=== PATIENT | female | born 1945 | race Caucasian/White ===

== ENCOUNTER → 2024-08-24 12:34 | Outpatient (REF) | payer MEDICARE, BC, SELFPAY | LOC: WOUND 12:34 | PROVIDERS: ATTENDING PHYSICIAN Surgery; FAMILY PHYSICIAN Internal Medicine | DX: S01.01XA Laceration without foreign body of scalp, initial encounter (principal); F01.50 Vascular dementia, unspecified severity, without behavioral disturbance, psychotic disturbance, mood disturbance, and anxiety; Z98.890 Other specified postprocedural states; Z86.79 Personal history of other diseases of the circulatory system; X58.XXXA Exposure to other specified factors, initial encounter | CPT/HCPCS: 99213 ==

== ENCOUNTER → 2024-08-31 13:00 | Outpatient (REF) | payer MEDICARE, BC, SELFPAY | LOC: HWRAD 13:00 | PROVIDERS: ATTENDING PHYSICIAN Neurological Surgery; FAMILY PHYSICIAN Internal Medicine | DX: I62.00 Nontraumatic subdural hemorrhage, unspecified (principal) | CPT/HCPCS: 70450 ==

== ENCOUNTER → 2024-09-07 10:57 | Outpatient (REF) | payer MEDICARE, BC, SELFPAY ==
[2024-09-08 14:24] LABS: Microalbumin/creatinine Ratio 44.8 mg/g
== END ==
LOC: OLABSOL 10:57
PROVIDERS: ATTENDING PHYSICIAN Internal Medicine
DX: E11.65 Type 2 diabetes mellitus with hyperglycemia (principal)
CPT/HCPCS: 82043; 82570

== ENCOUNTER → 2024-09-13 11:42 | Outpatient (REF) | payer MEDICARE, BC, SELFPAY ==
[2024-09-13 12:38] LABS: ALT (SGPT) 23 U/L (0-35); AST (SGOT) 26 U/L (14-36); Alkaline Phosphatase 67 U/L (38-126); Blood Urea Nitrogen 27 mg/dl (7-17); Carbon Dioxide 21 mmol/L (22-30); Chloride 112 mmol/L (98-107); Glucose 96 mg/dl (70-99); HDL Cholesterol 41 mg/dl; LDL Cholesterol, Calculated 92 mg/dl; Potassium 4.2 mmol/L (3.5-5.1); Sodium 138 mmol/L (135-145); Total Bilirubin 0.6 mg/dl (0.2-1.3); Total Cholesterol 184 mg/dl (50-199); Total Protein 5.2 g/dl (6.3-8.2); Triglyceride 259 mg/dl (10-149); Very Low Density Lipoprotein 51 mg/dl (0-30)
[2024-09-13 14:43] LABS: Glycohemoglobin (HgbA1c) 5.9 % (4.0-5.6)
== END ==
LOC: OLABSOL 11:42
PROVIDERS: ATTENDING PHYSICIAN Internal Medicine
DX: E11.65 Type 2 diabetes mellitus with hyperglycemia (principal)
CPT/HCPCS: 36415; 80053; 80061; 83036

== ENCOUNTER 2024-09-17 12:09 | Inpatient (IN) | payer MEDICARE, BC, SELFPAY ==
[2024-09-17] VITALS (10 sets, daily range): BP systolic 99–168; BP diastolic 57–134; BMI 31.5
[2024-09-17 09:20] LABS: % Basophils 0.2 % (0-2); % Immature Granulocytes 0.6 % (0-0.5); % Lymphocytes 7.1 % (20.5-51.1); % Monocytes 3.4 % (1.7-9.3); % Neutrophils 88.7 % (42.2-75.2); Absolute Immature Granulocytes 0.1 10^3/uL (0-0.05); Absolute Lymphocytes 1.5 10^3/uL (1.2-3.4); Absolute Monocytes 0.7 10^3/uL (0.1-0.6); Absolute Neutrophils 18.2 10^3/uL (1.4-6.5); Hemoglobin 12.5 g/dL (12.0-16.0); Mean Corp Hgb Conc. 32.9 g/dL (33.0-37.0); Mean Corpuscular Hgb 29.9 pg (27.0-31.0); Mean Corpuscular Volume 90.9 fL (81.0-99.0); Mean Platelet Volume 11.4 fL (7.4-10.4); Nucleated Red Blood Cells % 0 %; Platelet Count 102 10^3/uL (130-400); Red Blood Cell Count 4.18 10^6/uL (4.20-5.40); Red Cell Dist. Width 16.9 % (11.5-14.5); White Blood Cell Count 20.5 10^3/uL (4.8-10.8)
[2024-09-17 09:28] LABS: APTT 29.1 Sec (23.4-35.0)
[2024-09-17 09:32] LABS: AST (SGOT) 39 U/L (14-36); Albumin 3.9 g/dl (3.5-5.0); Alkaline Phosphatase 90 U/L (38-126); Blood Urea Nitrogen 28 mg/dl (7-17); Calcium 9.6 mg/dl (8.4-10.2); Carbon Dioxide 18 mmol/L (22-30); Chloride 108 mmol/L (98-107); Glucose 249 mg/dl (70-99); Sodium 142 mmol/L (135-145); Total Bilirubin 0.6 mg/dl (0.2-1.3); Total Protein 6.3 g/dl (6.3-8.2); eGFR 28.13
[2024-09-17 10:02] LABS: ALT (SGPT) 36 U/L (0-35)
[2024-09-17 10:12] LABS: Venous Blood Gas B.E. -6.5 mmol/L (-4 to +4); Venous Blood Gas HCO3 19.7 mmol/L (22-27); Venous Blood Gas O2 Sat % 67.6 %; Venous Blood Gas pCO2 41 mmHg (35-48); Venous Blood Gas pH 7.29 (7.32-7.43); Venous Blood Gas pO2 41 mmHg (30-50)
[2024-09-17 10:28] LABS: Lactic Acid 4.4 mmol/L (0.7-2.0)
--- NOTE | 2024-09-17 10:35 | ED.GENMED ---
History of Present Illness
General
Chief Complaint: Abdominal Symptoms
Source: family and ambulance crew
Exam Limitations: clinical condition
Time Seen by Provider: 09/17/24 09:20
History of Present Illness
History of Present Illness:
This an 79-year-old female who presents after she was found to have coffee ground emesis. Reportedly the patient was checked on by nursing around 7 AM and looked okay but when he came in around 8 AM had dried blood around her mouth. EMS noted the
same. Patient arrives in acute respiratory distress. Patient is unable to contribute to her own history.
Past History
Past History
ED Past Medical History: CAD, HTN, Hypercholesterolemia, NIDDM, Valvular disease and Other (Osteoarthritis, uses a cane to ambulate, subdural hematoma, mild dementia)
ED Past Surgical History: Cholecystectomy and Orthopedic (L knee replacement, R shoulder replacement, 06/2021)
Social History
Tobacco: Non-smoker
Alcohol: None
Drug: None
Personal:
Living: with family (With her son)
Employment: Retired
Family History
Family History: Other (Mother with FL at 65, father with leukemia and coronary disease, son with factor V Leiden deficiency)
Phy Exam
Physical Exam
Physical Exam:
CONSTITUTIONAL Patient alert and oriented to person. ill-appearing. Vital signs reviewed.
HEAD healing right scalp craniotomy.
EYES eyelids normal to inspection, Extraocular muscles intact, Conjunctiva normal, Sclera normal.
NECK normal range of motion, Trachea midline, no jugular venous distention.
RESPIRATORY CHEST moderate to severe respiratory distress noted, Chest expansion equal, Rales bilaterally and audible without stethoscope
CARDIOVASCULAR regular and tachycardic
ABDOMEN No distention.
UPPER EXTREMITY mild peripheral cyanosis, no edema.
LOWER EXTREMITY no cyanosis, no edema.
NEURO awake. Opens her eyes to her name. Moving all extremities
SKIN pale slightly diaphoretic
Course
Orders/Labs/Results
Orders:
Orders
09/17/24 09:05
CT Head W/o Iv Contrast Urgent
Comment:
Reason For Exam: change in mental status
09/17/24 09:08
CMP [Comprehensive Metabolic Panel] Urgent
Complete Blood Count/With Diff Urgent
PTT Urgent
09/17/24 09:20
CR Chest Portable - 1 View Urgent
Comment:
Reason For Exam: resp distress, suspected aspiration
Reason Study Needs to be Portable: Patient Unstable
09/17/24 09:22
Urinalysis Reflex To Culture Urgent
09/17/24 Lunch
NPO
Allow oral meds: No
Allow clear liquids: No
NPO with Ice Chips: Yes
09/17/24 10:02
Lactic Acid Urgent
Venous Blood Gas Urgent
%Oxygen/Room Air: 2L
Blood Culture Q30M
ERNESTO Source: Blood/Venous
Specimen Description:
Blood Culture Q30M
ERNESTO Source: Blood/Venous
Specimen Description:
09/17/24 10:29
0.9% Sodium Chloride 1000 ml [Nss] 1,000 ml IV BOLUS
09/17/24 10:30
Cefepime HCl [Maxipime] 2,000 mg IV NOW STA
09/17/24 10:31
MetroNIDAZOLE 500 MG/100 ML [Flagyl 500 mg] 100 ml IV NOW
09/17/24 10:41
Levetiracetam Injectable [Keppra] 1,000 mg IV NOW STA
09/17/24 11:03
Sterile Water [Sterile Water For Injection] 10 ml IV NOW STA
09/17/24 11:07
Vancomycin [Vancocin] 2,000 mg 0.9% Sodium Chloride 500 ml [Nss] 500 ml IV NOW
09/17/24 11:38
NEUROLOGY CONSULT Routine
Consulting Provider: Manjit Heaton
Was physician already notified: Yes
Reason for consult: seizures
09/17/24 11:40
Electrocardiogram (*1) Urgent
Reason for Study: Shortness of Breath
EKG- Treatment ONCE
09/17/24 11:45
Admit/Transfer Patient As Directed
Co-Sign Provider:
Level of Care: Inpatient admission
Assign to:: Telemetry
Physician / Group: dang/hospitalist
Diagnosis: seizures, lactic acidosis
Reason for Telemetry: Other
Other Reason for Telemetry: tachycardia
Date to Stop Telemetry: 09/19/24
Time to Stop Telemetry: 11:00
Reason for Hospitalization: seizures, lactic acidosis
Expected length of stay greater than two midnights?: Yes
ELOS- Estimated Length of Stay in days: 3
I certify the patient meets the requirements for IP care: Yes
PRN Pain Medication Management As Directed
May give lesser potent ordered pain med per pt: Yes
preference::
Protocol:: Medication orders for pain may be administered in a
manner that supports deferring to patient preference
when the pt is:
- Requesting an ordered lesser potent pain medication.
Least to most potent pain medications are defined
as: acetaminophen < NSAID < tramadol < opioids
(morphine, oxycodone, hydromorphone).
- Requesting a lesser dose of the same medication IF
ORDERED.
- Requesting a less intrusive route of administration
if both routes are prescribed by the provider (PO <
IV).
09/17/24 11:46
Code Status As Directed
Resuscitation Status: Do not resuscitate
Reached after discussion with pt or family/Healthcare POA: Yes
Physician note:: per d/w with Terrance and Kashif patient son's
DNR Bracelet Application ONCE
09/17/24 13:57
Acetaminophen [Tylenol/Feverall] 650 mg RECTAL Q4HPRN PRN
Bisacodyl [Dulcolax] 10 mg RECTAL F29OFKG PRN
Dextrose 5%/Lactringers 1000ML [D5lr] 1,000 ml IV 80 mls/hr
Docusate W/Senna [Senokot-S] 1 tablet PO BIDPRN PRN
Pantoprazole [Protonix IV] 40 mg IV BID
Polyethylene Glycol Powder [Miralax] 17 grams PO DAILYPRN PRN
09/17/24 13:57
Activity As Directed
Activity Level: Out of Bed-Early Mobility
Neurological Checks As Directed
Frequency: Per unit guidelines
Precautions As Directed
Type of Precautions: Seizure
Vital Signs As Directed
Frequency: Per unit guidelines
Speech Therapy Eval & Treat Routine
DX Deep Vein Thrombosis Video Routine
09/17/24 14:00
Lactate Level [Lactic Acid] Routine
09/17/24 20:00
Heparin 5,000 units SC Q12
Levetiracetam Injectable [Keppra] 500 mg IV Q12
09/18/24 06:00
Basic Metabolic Panel IN AM
Complete Blood Count/With Diff IN AM
09/19/24 11:00
DC Protocol for Telemetry ONCE
Abnormal Lab Results
09/17/24 09/17/24
09:08 10:02
WBC 20.5 H 10^3/uL
(4.8-10.8)
RBC 4.18 L 10^6/uL
(4.20-5.40)
MCHC 32.9 L g/dL
(33.0-37.0)
RDW 16.9 H %
(11.5-14.5)
Plt Count 102 L 10^3/uL
(130-400)
MPV 11.4 H fL
(7.4-10.4)
Abs Immat Gran (auto) 0.1 H 10^3/uL
(0-0.05)
Absolute Neuts (auto) 18.2 H 10^3/uL
(1.4-6.5)
Absolute Monos (auto) 0.7 H 10^3/uL
(0.1-0.6)
Immature Gran % 0.6 H %
(0-0.5)
Neutrophils % 88.7 H %
(42.2-75.2)
Lymphocytes % 7.1 L %
(20.5-51.1)
VBG pH 7.29 L
(7.32-7.43)
VBG HCO3 19.7 L mmol/L
(22-27)
Chloride 108 H mmol/L
(98-107)
Carbon Dioxide 18 L mmol/L
(22-30)
BUN 28 H mg/dl
(7-17)
Creatinine 1.8 H mg/dL
(0.6-1.0)
Glucose 249 H mg/dl
(70-99)
Lactic Acid 4.4 H* mmol/L
(0.7-2.0)
AST 39 H U/L
(14-36)
ALT 36 H U/L
(0-35)
09/17/24 09:08
09/17/24 09:08
Vital Signs
Initial and Last Documented VS:
Initial Vital Signs
Pulse Resp Pulse Ox
105 20 95
09/17/24 08:53 09/17/24 08:53 09/17/24 08:53
Last Documented Vital Signs
Temp Pulse Resp BP Pulse Ox
100.0 F 90 22 157/59 97
09/17/24 10:59 09/17/24 13:30 09/17/24 13:30 09/17/24 13:00 09/17/24 13:30
Procedures
Laceration Closure
Tongue:
Status of Wound: bite
Description of Wound Edges: flap-well vascularized
Anesthesia: 1% Lidocaine with epi
Type of Closure: single layer closure
Skin Closure Material: 4-0 vicryl
Number of sutures: 2
Additional information:
Patient had a bleeding laceration to the right lateral tongue. 2 sutures were placed and no bleeding laceration for hemostasis by Cristiano Warren PA-C. Good hemostasis
MDM/Problems Addressed
MDM/Problems Addressed:
Tongue laceration, suspected seizure, aspiration, lactic acidosis
*Radiology
Radiology exam reviewed: radiology read reviewed
*Pulse Oximetry
Patient hypoxic: yes
*Supervisor Chlorine Liquefaction Interpretation
Rate: tachycardiac
Interpretation: abnormal
Rhythm: sinus
*Critical Care Note
Total Time (30-74mins, 75-104mins- exclusive of procedures): 55 minutes
Data Reviewed
Review of Other/Old Records Reveals: Radiology Studies (Prior CT head results reviewed)
Source: patient
Patient Management
Discussion with other providers: Hospitalist and Electric Distribution Checker (Case discussed with neurology)
Escalation/DeEscalation of care consider admission/obs:
Patient arrived very ill-appearing spitting and vomiting blood. After careful examination it was noted that she was bleeding from a large tongue laceration. Once tongue laceration was noted, it was suspected the patient likely suffered a seizure
that was unwitnessed. I later discussed the case with the patient's son who states that she was recently taken off her antiepileptics. She had a craniotomy back in July. Son states that her primary care doctor wanted to start weaning off of
some of her medications. Son does state that she is a DO NOT INTUBATE and likely DNR but he is on his way. After we were able to fix laceration we are able to suction the back of her throat as she was still in mild respiratory distress. She then
vomited in between vomiting and suction, her upper airway was cleared. On reassessments her pulse ox is much better and her respiratory rate is improved. Lactic acidosis and leukocytosis noted. Of course could consider sepsis but also possibly
just related to seizure event. IV fluids. Broad-spectrum antibiotics. Initiate dose of Keppra. Case discussed with neurology who agrees and will evaluate
ED Attending Note
-
Portions of this chart may have been created with voice recognition software.� Occasional wrong word or��sound alike� substitutions may have occurred due to the inherent limitations of voice recognition software.
Discharge Plan
Departure
Patient Disposition: Admit
Date of Disposition: 09/17/24
Time of Disposition: 10:35
Admit to: IMU
Presentation/result/management discussed w/ accepting MD/DO: Hospitalist
Discharge Problem:
suspected seizure, Complex laceration of tongue, Aspiration into airway, Acute lactic acidosis
Interventions
Interventions:
*Risk Screen - Suicide Last Done: 09/17/24 08:53
*General Assessment Last Done: 09/17/24 08:53
*Neglect/Abuse Screening Last Done: 09/17/24 08:53
*ED- Fall Risk Assessment Last Done: 09/17/24 09:44
*ED COVID-19 Vaccine History Last Done: 09/17/24 09:44
*Nursing Disposition Last Done: 09/17/24 14:05
WA-Wpfukc-Dqkaajfoxq Assessment Last Done: 09/17/24 10:15
Discharge Date and Time
Discharge Date/Time: 09/17/24 14:06
[2024-09-17] MEDS: NSS 1000 IV (10:56)
[2024-09-17] MEDS: KEPPRA 1000 MG IV (10:57)
[2024-09-17] MEDS: MAXIPIME 2000 MG IV (11:05)
[2024-09-17] MEDS: FLAGYL 500 MG 100 IV (11:17)
--- NOTE | 2024-09-17 11:51 | HPS.HSE ---
Family Physician
-
Family Physician: * NONE
Chief Complaint
-
blood around mouth
History of Present Illness
79-year-old female who is presenting from correction when she was found to blood around the mouth. Patient was found to be confused. Of note, patient had a traumatic fall leading to parenchymal brain hemorrhage status post surgery at [facility]. Post craniotomy patient had seizures and she was started on Keppra medication. Patient was also started 100 mg of gabapentin. Patient subsequently went to rehab and was recently discharged. Patient follow-up with her
neurosurgery and was recommended to follow-up with primary doctor for further management. Patient was taken off antiepileptic medication approximately 1 week ago per patient 2 sons. At baseline patient with dementia without behavioral
disturbances. Patient is able to tolerate regular diet and correction. Currently patient in postictal state and not verbalizing any pain. Underwent CT of the head which was negative for acute bleeding. History was obtained with discussion with
ER nurse and patient to son.
Medical History
Past Medical History
Past Medical History: Reports Other
Additional Past Medical History:
Traumatic fall leading to brain bleed status post craniotomy
Seizure postcraniotomy
Giant cell arteritis
Iron deficiency anemia
Dementia
Primary hypertension
Past Surgical History: Reports Orthopedic
Additional Past Surgical History:
Craniotomy
Social History
Unable to obtain full social history at this time due to: Acuity
Family History
Family History: Not pertinent
Allergies / Home Medications
Allergies reflects when Allergies were last updated in [employer].
Home Medications with original date entered in [employer]
Allergy/Medication List:
Allergies
Allergy/AdvReac Type Severity Reaction Status Date / Time
Penicillins Allergy Unknown ~ Verified 06/24/23 00:59
50 years
ago
Sulfa (Sulfonamide Allergy Unknown ~ Verified 06/24/23 00:59
Antibiotics) 50 years
ago
Home Medications
atorvastatin 10 mg tablet 10 mg PO DAILY High cholesterol 07/24/13
cholecalciferol (vitamin D3) 25 mcg (1,000 unit) tablet 1,000 units PO QPM Supplement 06/06/21
tocilizumab 162 mg/0.9 mL subcutaneous syringe (Actemra) 612 mg SC Q14D Anti-inflammatory 04/24/22
acetaminophen 325 mg tablet 650 mg PO Q8HPRN PRN mild pain/fever 09/17/24
donepezil 10 mg tablet 10 mg PO HS 09/17/24
ferrous sulfate 325 mg (65 mg iron) tablet (FeroSul) 325 mg PO DAILY 09/17/24
metoprolol tartrate 50 mg tablet 50 mg PO BID 09/17/24
mirtazapine 7.5 mg tablet 7.5 mg PO HS 09/17/24
multivitamin 1 tab PO DAILY 09/17/24
neomycin-bacitracn Zn-polymyx 3.5 mg-400 unit-5,000 unit/gram top oint (Triple Antibiotic) 1 applic topical BID 09/17/24
polyethylene glycol 3350 17 gram oral powder packet (HealthyLax) 17 g feeding tube DAILYPRN PRN constipation 09/17/24
sennosides 8.6 mg-docusate sodium 50 mg tablet (Stimulant Laxative Plus) 1 tab-cap PO BIDPRN PRN constipation 09/17/24
Review of Systems
-
Unable to obtain full review of systems at this time due to: Acuity
Physical Exam
Vital Signs
Vital Signs
Temp Pulse Resp BP Pulse Ox
100.0 F 73 20 128/63 98
09/17/24 10:59 09/17/24 10:45 09/17/24 10:45 09/17/24 10:00 09/17/24 10:59
Physical Exam
General: Well Developed, Well Nourished, No Apparent Distress and Other (Right-sided cranium surgical scar noted)
HEENT: NormoCephalic, Moist mucous membranes, Atraumatic and Other (Swelling of tongue)
Respiratory: Clear
Cardiac: S1/S2 and Regular Rhythm; No Murmur or Rub
GI: Soft, Non Tender, Non Distended and Normal Bowel Sounds; No Organomegaly
Rectal: Deferred by Provider
Musculoskeletal: No Clubbing, No Cyanosis and No Edema
Skin: No Rash
Neuro: Nonfocal/grossly intact and Other (Eyes closed. In postictal state.)
Psych: Calm and Confused
Laboratory Results
-
09/17/24 09:08
09/17/24 09:08
Laboratory Results
APTT 29.1 Sec (23.4-35.0) 09/17/24 09:08
Lactic Acid 4.4 mmol/L (0.7-2.0) H* 09/17/24 10:02
Total Bilirubin 0.6 mg/dl (0.2-1.3) 09/17/24 09:08
AST 39 U/L (14-36) H 09/17/24 09:08
ALT 36 U/L (0-35) H 09/17/24 09:08
Alkaline Phosphatase 90 U/L (38-126) 09/17/24 09:08
Impression/Plan
-
#Seizures
#Postictal state
#Tongue pain secondary to seizures
Start patient back on Keppra forehead program. Will maintain with IV Keppra for now. Status post loading dose of Keppra 1000 mg on admission.
Seizure precaution
CT head negative for acute bleeding. Prior right craniotomy. Lateral right extra-axial collection has diminished slightly in size. No acute hemorrhage. Mild compressive component has improved slightly. No herniation.
Will keep n.p.o. and start patient on IV fluids
Neurology evaluation
#Lactic acidosis likely post seizure related
Start patient IV fluids
Trend lactic acid
#Leukocytosis likely reactive
Chest x-ray was negative for infiltrates
UA is pending
Blood cultures in lab
If spikes fever then start broad-spectrum antibiotics.
#Dementia
Rehab evaluation in the morning
Restart donepezil once able to take p.o. meds
Restart Remeron
Giant cell arteritis
Due for Actemra infusion
Primary hypertension
Will do IV Lopressor for now
Iron deficiency anemia
Trend hemoglobin. No acute need for transfusion
DVT prophylaxis heparin subcu
DNR/DNI by 2 sons at bedside
Discussed with patient 2 son Terrance and Kashif at bedside in detail for prolonged period of time. All questions were answered to the satisfaction.
I spent a total of 80 minutes with the patient or on the floor. More than 50% of this time involved counseling and coordination of care.
[2024-09-17] MEDS: VANCOCIN 540 MG IV (13:25)
--- NOTE | 2024-09-17 13:29 | CON.NEURO ---
Neuro Assessment/Plan
Assessment
Seizure
Head CT imgs rev'd, rt crani, rt fluid collection, rt posterior temporal encephalomalacia
Plan
restart Keppra 500 BID
would treat ~1 year before trying to stop it again
Consultation
Order
Date of Consultation: 09/17/24
Requesting Provider: Wes Cheney
Reason for Consult: stroke
From ED notes,
This an 79-year-old female who presents after she was found to have coffee ground emesis. Reportedly the patient was checked on by nursing around 7 AM and looked okay but when he came in around 8 AM had dried blood around her mouth. EMS noted the
same. Patient arrives in acute respiratory distress.
right tongue bite, required sutures.
History of brain bleed, crani 07/29 at [facility]. had seizures. was taken off Keppra 500 BID and gabapentin 100 TID several days ago.
Subjective/Objective
Subjective Data
Date of Service: September 17, 2024
Objective Data
Vital Signs
Temp Pulse Resp BP Pulse Ox
37.8 C 73 20 128/63 98
09/17/24 10:59 09/17/24 10:45 09/17/24 10:45 09/17/24 10:00 09/17/24 10:59
Lab Results
09/17/24 09:08
09/17/24 09:08
APTT 29.1 Sec (23.4-35.0) 09/17/24 09:08
Sodium 142 mmol/L (135-145) 09/17/24 09:08
Potassium 4.0 mmol/L (3.5-5.1) 09/17/24 09:08
BUN 28 mg/dl (7-17) H 09/17/24 09:08
Glucose 249 mg/dl (70-99) H 09/17/24 09:08
Calcium 9.6 mg/dl (8.4-10.2) 09/17/24 09:08
Patient Allergies
Penicillins Allergy (Verified 06/24/23 00:59)
Unknown ~ 50 years ago
Sulfa (Sulfonamide Antibiotics) Allergy (Verified 06/24/23 00:59)
Unknown ~ 50 years ago
Physical Exam
-
opens eyes to voice
attends bilaterally
doesn't answer or follow commands
localizes and withdraws bilaterally
Medications
-
Home Medications
�Medication �Instructions �Recorded
atorvastatin 10 mg tablet 10 mg PO DAILY High cholesterol 07/24/13
cholecalciferol (vitamin D3) 25 1,000 units PO QPM Supplement 06/06/21
mcg (1,000 unit) tablet
tocilizumab 162 mg/0.9 mL 612 mg SC Q14D Anti-inflammatory 04/24/22
subcutaneous syringe (Actemra)
acetaminophen 325 mg tablet 650 mg PO Q8HPRN PRN mild 09/17/24
pain/fever
donepezil 10 mg tablet 10 mg PO HS 09/17/24
ferrous sulfate 325 mg (65 mg 325 mg PO DAILY 09/17/24
iron) tablet (FeroSul)
metoprolol tartrate 50 mg tablet 50 mg PO BID 09/17/24
mirtazapine 7.5 mg tablet 7.5 mg PO HS 09/17/24
multivitamin 1 tab PO DAILY 09/17/24
neomycin-bacitracn Zn-polymyx 3.5 1 applic topical BID 09/17/24
mg-400 unit-5,000 unit/gram top
oint (Triple Antibiotic)
polyethylene glycol 3350 17 gram 17 g feeding tube DAILYPRN PRN 09/17/24
oral powder packet (HealthyLax) constipation
sennosides 8.6 mg-docusate sodium 1 tab-cap PO BIDPRN PRN 09/17/24
50 mg tablet (Stimulant Laxative constipation
Plus)
[2024-09-17 15:01] LABS: Lactic Acid 3.3 mmol/L (0.7-2.0)
[2024-09-17] MEDS: NSS (PRESERVATIVE FREE) 10 ML IV ×2 (15:24→20:09)
[2024-09-17] MEDS: PROTONIX IV 40 MG IV ×2 (15:25→20:10)
[2024-09-17] MEDS: D5LR 1000 IV (15:25)
--- NOTE | 2024-09-17 15:42 | PTOTSP ---
Speech Pathology
Clinical Swallow Evaluation
79F with admission for seizures and lactic acidosis p/w an impaired oropharyngeal swallow, likely acute 2/2 increased lethargy. Attempted thin liquid trials via tsp with no oral preparation or swallow initiation observed leading to subsequent
anterior spillage of bolus. Deferred further trials d/t safety concerns. Aspiration risk is increased ta this time 2/2 AMS, dementia hx, and current workup for seizure activity.
Recommendations:
1. Strict NPO
2. Meds via non-oral means
3. Oral care 3-5x day
4. HAND MODEL service to follow up re: to re-evaluate swallowing and advance to PO diet as able pending mentation
[2024-09-17 17:04] LABS: Urine Albumin 2+ (Neg - Trace); Urine Bilirubin Negative (Negative); Urine Character Slightly Cloudy (Clear); Urine Color Yellow; Urine Glucose Negative (Negative); Urine Ketone Negative (Negative); Urine Leukocyte 1+ (Negative); Urine Nitrite Positive (Negative); Urine Occult Blood 3+ (Negative); Urine Urobilinogen Negative (Neg - 1+)
[2024-09-17 17:24] LABS: Urine Hyaline Cast 0-2 /LPF (0-2); Urine Squamous Cell >30 /LPF (Few)
[2024-09-17 17:25] LABS: Urine Bacteria Few (Negative)
[2024-09-17] MEDS: KEPPRA 500 MG IV (20:09)
[2024-09-17] MEDS: HEPARIN 5000 UNITS SC (20:09)
[2024-09-17 20:13] LABS: Lactic Acid 1.7 mmol/L (0.7-2.0)
--- NOTE | 2024-09-18 03:36 | W.PN.UPDATE ---
Addendum entered and electronically signed by ALEXANDER Bullard 09/18/24 03:43:
Patient apparently was followed by Dr. Diallo at the [facility] for a laceration on her head (no specific information found) within the past month.
Original Note:
Update Note
Progress Note Update
yellow-green blood tinged drainage noted on patient pillow case beneath the right side of her head where her craniotomy scar is located. no erythema of the area.
[2024-09-18 03:55] VITALS: BP 138/78
[2024-09-18] MEDS: D5LR 1000 IV (04:40)
[2024-09-18 07:55] VITALS: BP 143/70
[2024-09-18] MEDS: KEPPRA 500 MG IV ×2 (09:34→19:39)
[2024-09-18] MEDS: NSS (PRESERVATIVE FREE) 10 ML IV ×2 (09:35→19:40)
[2024-09-18] MEDS: PROTONIX IV 40 MG IV ×2 (09:35→19:40)
[2024-09-18] MEDS: HEPARIN 5000 UNITS SC ×2 (09:35→19:39)
--- NOTE | 2024-09-18 10:05 | PTOTSP ---
Speech Language Pathology
Pt seen for dysphagia tx. Seen with P.O. trials of ice chips, thin liquids via straw, puree, and regular solids. Prolonged and incoordinated mastication of regular solids noted with need to expectorate bolus, suspect partially secondary to
decreased alertness and partially secondary to stitches in tongue. No overt signs of aspiration.
Recommend:
(1) Initiate IDDSI Level 4 (Puree) and Thin Liquids
(2) Aspiration precautions: full supervision with assist as needed, slow rate, ensure oral cavity clear post P.O. intake
(3) Meds as tolerated
(4) SHEARING MACHINE TENDER to continue to follow
[2024-09-18 10:23] LABS: Hematocrit 32.5 % (37.0-47.0); Hemoglobin 10.8 g/dL (12.0-16.0); Mean Corp Hgb Conc. 33.2 g/dL (33.0-37.0); Mean Corpuscular Hgb 29.7 pg (27.0-31.0); Mean Corpuscular Volume 89.3 fL (81.0-99.0); Red Blood Cell Count 3.64 10^6/uL (4.20-5.40); Red Cell Dist. Width 17.3 % (11.5-14.5)
[2024-09-18 10:58] LABS: % Basophils 0.5 % (0-2); % Eosinophils 0.2 % (0-6); % Immature Granulocytes 0.8 % (0-0.5); % Lymphocytes 6.6 % (20.5-51.1); % Monocytes 5.8 % (1.7-9.3); % Neutrophils 86.1 % (42.2-75.2); Absolute Basophils 0.1 10^3/uL (0-0.2); Absolute Immature Granulocytes 0.2 10^3/uL (0-0.05); Absolute Lymphocytes 1.6 10^3/uL (1.2-3.4); Absolute Monocytes 1.4 10^3/uL (0.1-0.6); Absolute Neutrophils 20.7 10^3/uL (1.4-6.5); Mean Platelet Volume 12.9 fL (7.4-10.4); Nucleated Red Blood Cells % 0 %; Platelet Count 76 10^3/uL (130-400)
[2024-09-18 11:06] LABS: Blood Urea Nitrogen 29 mg/dl (7-17); Calcium 8.7 mg/dl (8.4-10.2); Carbon Dioxide 16 mmol/L (22-30); Chloride 111 mmol/L (98-107); Estimated Creatinine Clearance 25 ml/min; Glucose 193 mg/dl (70-99); Potassium 3.5 mmol/L (3.5-5.1); Sodium 140 mmol/L (135-145); eGFR 30.13
[2024-09-18] MEDS: MAXIPIME 2000 MG IV (11:44)
[2024-09-18] MEDS: STERILE WATER FOR INJECTION 10 ML IV (11:44)
--- NOTE | 2024-09-18 11:53 | W.PN.HOSP.TC ---
Today's Communication/Plan
-
see PN
Assessment / Plan
Assessment / Plan
79yo F with PMHX of ICH s/p hemicraniotomy, GCA, VICKY, dementia, HTN, seizure d/o admitted from facility with unhitnessed seizures after she was found with blood in her mouth from tongue bite happened dueting seizure episode. Her AED was recently
weaned off. As per neurology - restarted Keppra. Had few episodes of vomiting in ED. Also concern for UTI and with Hx of Pseudomonas - started on Cefepime
A/P:
#Acute blood loss anemia from tongue bite duering seizures
Follow Hgb
s/p sutures on tongue in ED- remove in 4-6 days
Cont keppra as per Neurologist
Seizure precautions
#Leukocytosis with UTI
Cefepime and await for Ucx
CT abd/pelvis - concerned that nausea can be due to upper UTI
Lungs clear on XR
follow CBC
BCx NTD
#Trombocytopenia
possibly reactive
follow CBC
#CKD stage 3b-4 with metabolic acidosis
follow Cr
#Lactic acydosis 2/2 seizure activity
resolved
#Mild recurrent transaminitis
folow hepatitis panel
follow LFT and CPK
#Hx of hemicraniotomy
#GCA
#Dementia, unspecified
#Essential HTN
#VICKY
recent laceration of L janet - no open or infected wound seen
cont home meds
on Actemra
DVT ppx on hep
DNR/DNI
I have spent at least 58min reviewing chart, test results, and providing direct patient care
Anticipated Discharge: > 48 hours
Subjective/Interval History
-
Date of Service: September 18, 2024
Objective Data
-
Labs:
Laboratory Results
09/18/24
09:17
WBC 24.0 H
Hgb 10.8 L
Hct 32.5 L
Plt Count 76 L D
Sodium 140
Potassium 3.5
Chloride 111 H
Carbon Dioxide 16 L
BUN 29 H
Creatinine 1.7 H
Glucose 193 H
Calcium 8.7
Vital Signs:
Vital Signs
Temp Pulse Resp BP Pulse Ox
98.2 F 87 20 143/70 95
09/18/24 07:55 09/18/24 07:55 09/18/24 07:55 09/18/24 07:55 09/18/24 07:55
I&O
09/17/24 09/18/24 09/19/24
06:59 06:59 06:59
Output Total 50 / 50 75 / 75
Balance -50 / -50 -75 / -75
Review of Systems
-
History Source: Patient
All other systems: Reviewed and negative
Physical Exam
-
General: No Apparent Distress
Respiratory: Clear to Auscultation
Cardiac: Regular Rhythm
GI: Soft, Nontender and Nondistended
Musculoskeletal: No Clubbing, No Cyanosis and No Edema
Skin: Warm
Neuro: Awake, Alert and Oriented
Psych: Calm and Apparent Dementia
[2024-09-18 12:48] VITALS: BP 125/48
[2024-09-18 13:19] LABS: ALT (SGPT) 20 U/L (0-35); AST (SGOT) 35 U/L (14-36); Albumin 3.2 g/dl (3.5-5.0); Alkaline Phosphatase 70 U/L (38-126); Creatine Phosphokinase 433 U/L (30-135); Direct Bilirubin 0.3 mg/dl (0.0-0.4); Magnesium 1.5 mg/dl (1.6-2.3); Total Bilirubin 0.9 mg/dl (0.2-1.3); Total Protein 5.4 g/dl (6.3-8.2)
[2024-09-18] MEDS: MAGNESIUM SULFATE 50 IV (13:46)
--- NOTE | 2024-09-18 14:29 | CM ---
Patient seen bedside.
RTC from [facility] from [place].
Prior to admission patient was from personal care at [place].
Ambulates with a RW or self propels in .
Has periods of confusion. Oriented x 1-2.
Assist with ADLs, continent at times.
Will need to be baseline for return.
Patient will need PT eval when medically stable, tt to MD.
PCP; Dr Yolanda Jacques
[facility]
Plan:return to [facility] vs skilled rehab
[2024-09-18 15:40] VITALS: BP 117/60
--- NOTE | 2024-09-18 15:53 | VATNOTE ---
During routine assessment it is noted that pt's L arm is very swollen with +3-4 pitting edema in her right hand/arm that is not symmetrical. IV immediately removed and pink limb alert placed. New IV access in R arm established and discussed
situation with PCN. Peripheral vascular ultrasound recommended and order placed by MD.
[2024-09-18 19:34] VITALS: BP 131/67
[2024-09-18 23:37] VITALS: BP 121/60
[2024-09-19] MEDS: STERILE WATER FOR INJECTION 10 ML IV ×3 (01:00→23:23)
[2024-09-19] MEDS: MAXIPIME 2000 MG IV (01:00)
[2024-09-19 03:44] VITALS: BP 140/58
[2024-09-19 07:50] VITALS: BP 137/54
[2024-09-19 09:26] LABS: % Basophils 0.5 % (0-2); % Eosinophils 0.7 % (0-6); % Immature Granulocytes 0.7 % (0-0.5); % Lymphocytes 6.7 % (20.5-51.1); % Monocytes 6.4 % (1.7-9.3); Absolute Basophils 0.1 10^3/uL (0-0.2); Absolute Eosinophils 0.2 10^3/uL (0-0.7); Absolute Immature Granulocytes 0.2 10^3/uL (0-0.05); Absolute Lymphocytes 1.5 10^3/uL (1.2-3.4); Absolute Monocytes 1.5 10^3/uL (0.1-0.6); Absolute Neutrophils 19.4 10^3/uL (1.4-6.5); Hematocrit 30.1 % (37.0-47.0); Hemoglobin 10.4 g/dL (12.0-16.0); Mean Corp Hgb Conc. 34.6 g/dL (33.0-37.0); Mean Corpuscular Hgb 29.9 pg (27.0-31.0); Mean Corpuscular Volume 86.5 fL (81.0-99.0); Mean Platelet Volume 11.3 fL (7.4-10.4); Nucleated Red Blood Cells % 0 %; Platelet Count 61 10^3/uL (130-400); Red Blood Cell Count 3.48 10^6/uL (4.20-5.40); Red Cell Dist. Width 17.2 % (11.5-14.5); White Blood Cell Count 22.8 10^3/uL (4.8-10.8)
[2024-09-19 09:36] LABS: ALT (SGPT) 19 U/L (0-35); AST (SGOT) 44 U/L (14-36); Albumin 3.1 g/dl (3.5-5.0); Alkaline Phosphatase 74 U/L (38-126); Blood Urea Nitrogen 38 mg/dl (7-17); Calcium 8.4 mg/dl (8.4-10.2); Carbon Dioxide 16 mmol/L (22-30); Chloride 112 mmol/L (98-107); Estimated Creatinine Clearance 23 ml/min; Glucose 149 mg/dl (70-99); Potassium 4.2 mmol/L (3.5-5.1); Sodium 138 mmol/L (135-145); Total Bilirubin 1.3 mg/dl (0.2-1.3); Total Protein 5.4 g/dl (6.3-8.2); eGFR 28.13
[2024-09-19] MEDS: KEPPRA 500 MG IV ×2 (09:53→20:29)
[2024-09-19] MEDS: HEPARIN 5000 UNITS SC (09:53)
[2024-09-19] MEDS: PROTONIX IV 40 MG IV ×2 (09:55→20:29)
[2024-09-19] MEDS: NSS (PRESERVATIVE FREE) 10 ML IV ×2 (09:55→20:29)
[2024-09-19 10:35] LABS: Hepatitis B Core Ab, Total Negative (Negative)
[2024-09-19 10:52] LABS: Erythrocyte Sed Rate 19 mm/hour (0-20)
--- NOTE | 2024-09-19 10:56 | W.PN.HOSP.TC ---
Today's Communication/Plan
-
cont cefepime
follow imaging, labs if concern for VTE - will need neuroSx input with Hx of ICH for the safety of AC
Assessment / Plan
Assessment / Plan
79yo F with PMHX of ICH s/p hemicraniotomy, GCA, VICKY, dementia, HTN, seizure d/o admitted from facility with unhitnessed seizures after she was found with blood in her mouth from tongue bite happened dueting seizure episode. Her AED was recently
weaned off. As per neurology - restarted Keppra. Had few episodes of vomiting in ED. Also concern for UTI and with Hx of Pseudomonas - started on Cefepime
A/P:
#Acute blood loss anemia from tongue bite duering seizures
Follow Hgb
s/p sutures on tongue in ED- remove in 4-6 days
Cont keppra as per Neurologist
Seizure precautions
#Leukocytosis
Possible UTI as seen on CT (however poor quality), Ucx neg
CT concerned for atelectasis vs pneumonia
Cefepime
follow CBC
BCx NTD
check procalcitonin
#LUE swelling
US LUE
#Thrombocytopenia
possibly reactive
follow CBC
check DDimer as wells score 0
#CKD stage 3b-4 with metabolic acidosis
follow Cr
#Lactic acidosis 2/2 seizure activity
resolved
#Mild recurrent transaminitis
folow hepatitis panel
follow LFT and CPK
#Chronic anemia
follow CBC
#Mild CPK elevation
with whole body pain
check ESR/CRP
#Hx of hemicraniotomy
#GCA
#Dementia, unspecified
#Essential HTN
#VICKY
recent laceration of L janet - no open or infected wound seen
cont home meds
on Actemra
DVT ppx on hep
DNR/DNI
I have spent at least 58min reviewing chart, test results, and providing direct patient care
Anticipated Discharge: > 48 hours
Subjective/Interval History
-
Date of Service: September 19, 2024
Objective Data
-
Labs:
Laboratory Results
09/19/24
09:05
WBC 22.8 H
Hgb 10.4 L
Hct 30.1 L
Plt Count 61 L
Sodium 138
Potassium 4.2
Chloride 112 H
Carbon Dioxide 16 L
BUN 38 H
Creatinine 1.8 H
Glucose 149 H
Calcium 8.4
Total Bilirubin 1.3
AST 44 H
ALT 19
Alkaline Phosphatase 74
Vital Signs:
Vital Signs
Temp Pulse Resp BP Pulse Ox
98.2 F 87 20 137/54 97
09/19/24 07:50 09/19/24 07:50 09/19/24 07:50 09/19/24 07:50 09/19/24 07:50
I&O
09/18/24 09/19/24 09/20/24
06:59 06:59 06:59
Output Total 50 / 50 225 / 225 150 / 150
Balance -50 / -50 -225 / -225 -150 / -150
Review of Systems
-
Unable to obtain full review of systems at this time due to: Dementia
History Source: Patient
All other systems: Reviewed and negative
Physical Exam
-
General: Pain (over all body)
Respiratory: Clear to Auscultation
Cardiac: Regular Rhythm
Neuro: Awake and Alert
Psych: Calm
[2024-09-19 11:48] VITALS: BP 143/71; PULSE 93; O2SAT 98
[2024-09-19 11:50] VITALS: BP 138/56
[2024-09-19 12:07] LABS: D-Dimer 5.58 ug/mlFEU (0.00-0.50)
[2024-09-19 12:14] LABS: Creatine Phosphokinase 876 U/L (30-135)
--- NOTE | 2024-09-19 12:14 | W.PN.UPDATE ---
Addendum entered and electronically signed by John Steiner MD 09/19/24 12:23:
correction: if procalcitonin neg - will highly doubt systemic bacterial infection
Original Note:
Update Note
Progress Note Update
as per son: mentation improving. Will continue same mgmt
DDimer elevated - can be just acute phase reactant
Brain Sx done in Jul 2024 in [facility]
Procalcitonin neg. highly doubt significant systemic infection, will monitor
check COVID-19 and Influenza
[2024-09-19 12:22] LABS: Procalcitonin 0.38 ng/ml (0.0-0.25)
[2024-09-19 13:25] LABS: COVID-19 Antigen Negative (Negative)
[2024-09-19 13:36] LABS: Hepatitis B Surface Antigen Negative (Negative)
[2024-09-19 13:54] LABS: Hepatitis B Surface Antibody Negative; Hepatitis C Antibody Negative (Negative)
[2024-09-19] MEDS: LR 1000 IV (14:10)
[2024-09-19] MEDS: MAXIPIME 1000 MG IV ×2 (14:11→23:22)
[2024-09-19] MEDS: MAXIPIME IV (14:45)
[2024-09-19] MEDS: STERILE WATER FOR INJECTION IV (14:46)
--- NOTE | 2024-09-19 14:52 | CON.NS ---
Documented by User: Erica Mcgee PA-C 09/19/24 16:44
Chief Complaint
-
need for dvt ppx
History of Present Illness
This is an 79 y/o F with history of ICH s/p Right craniotomy on 07/29 at [place] , GCA, VICKY, dementia, HTN, seizure who presents to [facility] after presumed seizure. Her work up is suspicious for possible VTE. Neurosurgery was consulted
for input regarding safety for starting AC/AP. There is also a note stating some questionable drainage was seen on the right side of the patient's pillow. She did follow with wound care per chart review.
Patient seen and examined. She's awake and alert will nod to questions. She follows some commands. Confused to situation.
Review of Systems
-
Unable to obtain
Medical History
Past Medical History
Additional Past Medical History:
Past Medical History: Reports Other
Additional Past Medical History:
Traumatic fall leading to brain bleed status post craniotomy
Seizure postcraniotomy
Giant cell arteritis
Iron deficiency anemia
Dementia
Primary hypertension
Past Surgical History: Reports Orthopedic
Additional Past Surgical History:
Craniotomy
Social History
Unable to obtain full social history at this time due to: Acuity
Family History
Family History: Not pertinent
Medication and Allergies
Home Medications
Home Medications
�Medication �Instructions �Recorded
atorvastatin 10 mg tablet 10 mg PO DAILY High cholesterol 07/24/13
cholecalciferol (vitamin D3) 25 1,000 units PO QPM Supplement 06/06/21
mcg (1,000 unit) tablet
tocilizumab 162 mg/0.9 mL 612 mg SC Q14D Anti-inflammatory 04/24/22
subcutaneous syringe (Actemra)
acetaminophen 325 mg tablet 650 mg PO Q8HPRN PRN mild 09/17/24
pain/fever
donepezil 10 mg tablet 10 mg PO HS Alzheimer's 09/17/24
ferrous sulfate 325 mg (65 mg 325 mg PO DAILY Supplement 09/17/24
iron) tablet (FeroSul)
metoprolol tartrate 50 mg tablet 50 mg PO BID Blood Pressure 09/17/24
mirtazapine 7.5 mg tablet 7.5 mg PO HS Mental Health/Anxiety 09/17/24
multivitamin 1 tab PO DAILY Supplement 09/17/24
neomycin-bacitracn Zn-polymyx 3.5 1 applic topical BID Infection 09/17/24
mg-400 unit-5,000 unit/gram top
oint (Triple Antibiotic)
polyethylene glycol 3350 17 gram 17 g feeding tube DAILYPRN PRN 09/17/24
oral powder packet (HealthyLax) constipation
sennosides 8.6 mg-docusate sodium 1 tab-cap PO BIDPRN PRN 09/17/24
50 mg tablet (Stimulant Laxative constipation
Plus)
Allergies
Allergies
Allergy/AdvReac Type Severity Reaction Status Date / Time
Penicillins Allergy Unknown ~ Verified 06/24/23 00:59
50 years
ago
Sulfa (Sulfonamide Allergy Unknown ~ Verified 06/24/23 00:59
Antibiotics) 50 years
ago
Physical Exam
-
Exam:
Patient is awake and alert, Confused to situation. Nod's yes and no.
CN 2-12 grossly intact
speech: did not verbalize
motor: wiggles fingers and toes
Head: cranial incision without any drainage. there is approximately 3cm area that appears to skin breakdown. No erythema, drainage or fluctuance noted.
CT head imaging personally interpreted.
Exams: CT Head W/o Iv Contrast
CPT: [id number]
PROCEDURE: CT Head W/o Iv Contrast
CLINICAL INDICATION: change in mental status . Previous right craniotomy. History of nontraumatic subdural hemorrhage.
TECHNIQUE: Unenhanced computerized tomography of the head was performed. Automated dose reduction technique was employed.
COMPARISON: 08/31/2024.
FINDINGS:
As before, there is a right lateral calvarial craniotomy flap in place. Immediately adjacent to the associated inner table, there is a low attenuation extra-axial collection, the thickness of which has diminished compared to prior examination.
Currently measuring approximately 8.5 mm, with previous thickness of approximately 11.5 mm. Stable postsurgical chronic high attenuation dural thickening at the superior margin. No acute intracranial hemorrhage.
There is flattening along the superficial cortical surface of the adjacent brain, though the overall degree of compression is less than that seen previously.
As before, there is subtle low-level compression of the right lateral ventricle body, which is relatively stable.
No herniation.
No hydrocephalus.
Stable focal encephalomalacia involving the posterior right temporal lobe.
Stable minor periventricular white matter diminished attenuation, consistent with chronic microvascular white matter ischemic disease. Stable tiny chronic lacunar infarct involving the right caudate nucleus.
Evidence of previous endoscopic sinus surgery. Trace air-fluid level in the sphenoid sinus and along the posterior margin of the right maxillary sinus which could suggest minor acute sinusitis. Persistent mucosal thickening and opacification of the
right frontal sinus and anterior ethmoid air cells.
The mastoid air cells are clear.
IMPRESSION:
Prior right craniotomy. Lateral right extra-axial collection has diminished slightly in size. No acute hemorrhage. Mild compressive component has improved slightly. No herniation.
Nonspecific minor secretions in the right maxillary sinus and sphenoid sinus. No associated mucosal thickening.
Problems
-
Problem Status Onset Code
Acute lactic acidosis E87.21
Aspiration into airway T17.908A
Complex laceration of tongue S01.512A
Assessment / Plan
-
This is an 79 y/o F with history of craniotomy with evacuation of ICH .
--Patient does have leukocytosis in the setting of presumed UTI.
--CT head reviewed. No acute neurosurgical intervention indicated.
--Okay for AC if workup reveals VTE. Treatment per primary team
--recommend MRI brain wwo contrast given skin breakdown over craniotomy site. Recommend wound care consult for further treatment recommendations.
--AED management per neurology.
--imaging and case discussed with Dr. Beth.
--will review MRI once completed.

Documented by User: Perla Beth MD 09/21/24 08:25
Problems
-
Problem Status Onset Code
Acute lactic acidosis E87.21
Aspiration into airway T17.908A
Complex laceration of tongue S01.512A
Assessment / Plan
-
This is an 79 y/o F with history of craniotomy with evacuation of ICH .
--Patient does have leukocytosis in the setting of presumed UTI.
--CT head reviewed. No acute neurosurgical intervention indicated.
--Okay for AC if workup reveals VTE. Treatment per primary team
--recommend MRI brain wwo contrast given skin breakdown over craniotomy site. Recommend wound care consult for further treatment recommendations.
--AED management per neurology.
--imaging and case discussed with Dr. Beth.
--will review MRI once completed.
ATTENDING ATTESTATION:
Agree with MRI brain with and without contrast to further evaluate given incision appearance.
If needs therapeutic AC, ok to start.
--- NOTE | 2024-09-19 15:58 | PN.CDI ---
CDI
- -
CDI:
Physician Documentation Request
Admit Date: 09/17/24 12:09
Dear Doctor Jatin,
Clinical Indicators:
The diagnosis of brain compression was included in the signed head CT.
Patient presented with seizure; PMH includes ICH, s/p hemicraniotomy.
09/[address] (COMPARISON: 08/31/2024) 'There is flattening along the superficial cortical surface of the adjacent brain, though the overall degree of compression is less than that seen previously. As before, there is subtle low-level compression of
the right lateral ventricle body, which is relatively stable.'
Please indicate in your progress notes if you are in agreement that the above diagnosis is valid for this patient:
Brain compression is a valid diagnosis (Please include it in your progress notes)
Brain compression is not a valid diagnosis for this patient
Other
Use of terms such as suspected, likely, concern for, or probable are acceptable for a diagnosis that is being evaluated, monitored or treated as if it exists and can be coded in the inpatient setting, when documented at the time of discharge.
Thank you,
Eunice Fernando RN BSN
CDI Specialist
available via tiger text
Please use your independent medical judgment in providing your response.
--- NOTE | 2024-09-19 16:51 | W.PN.UPDATE ---
Update Note
Progress Note Update
Positive DVT
As per note from NeuroSx: can start AC - heparin drip ordered without re-bolus
[2024-09-19 18:00] LABS: APTT 35.5 Sec (23.4-35.0)
[2024-09-19 18:02] LABS: Hematocrit 31.4 % (37.0-47.0); Hemoglobin 10.6 g/dL (12.0-16.0); Mean Corp Hgb Conc. 33.8 g/dL (33.0-37.0); Mean Platelet Volume 12.2 fL (7.4-10.4); Platelet Count 71 10^3/uL (130-400); Red Blood Cell Count 3.53 10^6/uL (4.20-5.40); Red Cell Dist. Width 17.3 % (11.5-14.5); White Blood Cell Count 23.3 10^3/uL (4.8-10.8)
[2024-09-19] MEDS: HEPARIN 25000 UNITS/250 ML IV (18:31)
[2024-09-19 19:30] VITALS: BP 148/59
[2024-09-19 23:50] VITALS: BP 144/57
[2024-09-20 00:46] LABS: APTT 106.6 Sec (23.4-35.0)
[2024-09-20 03:41] VITALS: BP 153/79
--- NOTE | 2024-09-20 04:24 | DOWNTIME ---
There was a [employer] Client Engagement Specialist Downtime on 09/20/2024 from 0100 to 09/21/2023 at 0420 . Downtime documentation of patient's care, including medication administrations, has been reconciled in the electronic record per guidelines. Refer to the
patient's paper chart under the miscellaneous tab to see printed paper medication records and downtime forms.
[2024-09-20] MEDS: LR 1000 IV ×2 (04:30→20:50)
[2024-09-20] MEDS: ROXICODONE 5 MG PO (06:04)
[2024-09-20 07:50] VITALS: BP 176/85
[2024-09-20 08:16] LABS: Albumin 2.5 g/dl (3.5-5.0); Carbon Dioxide 19 mmol/L (22-30)
[2024-09-20 08:19] LABS: % Basophils 0.5 % (0-2); % Eosinophils 2.9 % (0-6); % Immature Granulocytes 0.6 % (0-0.5); % Lymphocytes 8.8 % (20.5-51.1); % Monocytes 6.8 % (1.7-9.3); % Neutrophils 80.4 % (42.2-75.2); Absolute Basophils 0.1 10^3/uL (0-0.2); Absolute Eosinophils 0.5 10^3/uL (0-0.7); Absolute Immature Granulocytes 0.1 10^3/uL (0-0.05); Absolute Lymphocytes 1.5 10^3/uL (1.2-3.4); Absolute Monocytes 1.2 10^3/uL (0.1-0.6); Absolute Neutrophils 13.6 10^3/uL (1.4-6.5); Hematocrit 27.5 % (37.0-47.0); Hemoglobin 9.2 g/dL (12.0-16.0); Mean Corp Hgb Conc. 33.5 g/dL (33.0-37.0); Mean Corpuscular Hgb 29.9 pg (27.0-31.0); Mean Corpuscular Volume 89.3 fL (81.0-99.0); Mean Platelet Volume 12.3 fL (7.4-10.4); Nucleated Red Blood Cells % 0 %; Platelet Count 87 10^3/uL (130-400); Red Blood Cell Count 3.08 10^6/uL (4.20-5.40); Red Cell Dist. Width 17.2 % (11.5-14.5)
[2024-09-20] MEDS: PROTONIX IV 40 MG IV ×2 (08:20→20:17)
[2024-09-20] MEDS: KEPPRA 500 MG IV ×2 (08:20→20:10)
[2024-09-20] MEDS: NSS (PRESERVATIVE FREE) 10 ML IV ×2 (08:20→20:17)
[2024-09-20 08:29] LABS: ALT (SGPT) 18 U/L (0-35); AST (SGOT) 37 U/L (14-36); Alkaline Phosphatase 74 U/L (38-126); Blood Urea Nitrogen 37 mg/dl (7-17); Chloride 111 mmol/L (98-107); Creatine Phosphokinase 820 U/L (30-135); Estimated Creatinine Clearance 25 ml/min; Glucose 153 mg/dl (70-99); Potassium 3.9 mmol/L (3.5-5.1); Sodium 136 mmol/L (135-145); Total Bilirubin 0.9 mg/dl (0.2-1.3); Total Protein 4.8 g/dl (6.3-8.2); eGFR 30.13
[2024-09-20 09:14] LABS: APTT > 200 Sec (23.4-35.0)
--- NOTE | 2024-09-20 10:43 | W.PN.HOSP.TC ---
Addendum entered and electronically signed by John Steiner MD 09/20/24 10:55:
Mild woresening of anemia noted without overt bleeding - follow CBC, most likely exacerbated by hydration
Original Note:
Today's Communication/Plan
-
Patient is feeling much better, mentation is much improved
cont heparin
cont cefepime
cont IVF
MRI brain
repeat labs in AM including procal trend
Assessment / Plan
Assessment / Plan
79yo F with PMHX of ICH s/p hemicraniotomy, GCA, VICKY, dementia, HTN, seizure d/o admitted from facility with unhitnessed seizures after she was found with blood in her mouth from tongue bite happened dueting seizure episode. Her AED was recently
weaned off. As per neurology - restarted Keppra. Had few episodes of vomiting in ED. Also concern for UTI and with Hx of Pseudomonas - started on Cefepime
A/P:
#Acute blood loss anemia from tongue bite duering seizures
Follow Hgb
s/p sutures on tongue in ED- remove in 4-6 days
Cont keppra as per Neurologist
Seizure precautions
#Leukocytosis
Possible UTI as seen on CT (however poor quality), Ucx neg
CT concerned for atelectasis vs pneumonia
Cefepime
follow CBC
BCx NTD
#Acute LE DVT
as per agreement with neuroSx - start anticoagulation
#Thrombocytopenia
possibly reactive, seen on admision
4T score low, but will check HIT Ab
follow CBC
#CKD stage 3b-4 with metabolic acidosis
follow Cr
#Lactic acidosis 2/2 seizure activity
resolved
#Mild recurrent transaminitis
hepatitis panel neg
#Chronic anemia
follow CBC
#Mild CPK elevation
with whole body pain
ESR WNL
CRP elevated 2/2 chronic disease
#Hx of hemicraniotomy with extra-axial collection and brain compression which are improved from prior
recent laceration of L janet - no open or infected wound seen
NeuroSx follows
MRI brain
wound consult
#GCA
#Dementia, unspecified
#Essential HTN
#VICKY
cont home meds
on Actemra
DVT ppx on hep
DNR/DNI
I have spent at least 56min reviewing chart, test results, and providing direct patient care
Anticipated Discharge: > 48 hours
Subjective/Interval History
-
Date of Service: September 20, 2024
Objective Data
-
Labs:
Laboratory Results
09/20/24 09/20/24
00:26 07:45
WBC 17.0 H
Hgb 9.2 L
Hct 27.5 L
Plt Count 87 L D
APTT 106.6 H > 200 H*
Sodium 136
Potassium 3.9
Chloride 111 H
Carbon Dioxide 19 L
BUN 37 H
Creatinine 1.7 H
Glucose 153 H
Calcium 8.0 L
Total Bilirubin 0.9
AST 37 H
ALT 18
Alkaline Phosphatase 74
Vital Signs:
Vital Signs
Temp Pulse Resp BP Pulse Ox
97.6 F 89 20 176/85 96
09/20/24 07:50 09/20/24 07:50 09/20/24 07:50 09/20/24 07:50 09/20/24 07:50
I&O
09/19/24 09/20/24 09/21/24
06:59 06:59 06:59
Intake Total 120 / 120 1090 / 1090
Output Total 225 / 225 250 / 250 350 / 350
Balance -225 / -225 -130 / -130 740 / 740
Review of Systems
-
History Source: Patient
All other systems: Reviewed and negative
Physical Exam
-
General: No Apparent Distress
HEENT: Other (s/p R hemicraniotomy)
GI: Soft, Nontender and Nondistended
Genito-urinary: No Costovertebral Tender
Musculoskeletal: No Clubbing, No Cyanosis and No Edema
Neuro: Awake, Alert, Oriented and AO x 3
Psych: Calm
[2024-09-20 11:52] VITALS: BP 175/76
[2024-09-20] MEDS: STERILE WATER FOR INJECTION 10 ML IV (14:20)
[2024-09-20] MEDS: LOPRESSOR 50 MG PO ×2 (14:20→20:19)
[2024-09-20] MEDS: MAXIPIME 1000 MG IV (14:20)
--- NOTE | 2024-09-20 14:33 | WOUNDNOTE ---
WO RN note: Patient admitted s/p seizures with DVT
See H&P for complete history.
PMH: Per physician note, s/p hemicraniotomy, GCA, VICKY, dementia, HTN, seizure. Patient resides at [facility].
Wound Location and type/assessment: Patient admitted with traumatic wound to right head s/p seizure. The traumatic wound is superficial w/o drainage or s/s of infection. Heels with stage 1 PI. Sacrum intact. Purwick in place for moisture
management.
Appetite: Poor. Per chart review patient is only eating 5-10% of puree diet.
Pressure redistribution devices in place: Versa Care Air, turning schedule. Heels off-loaded with pillows under calves.
Plan: Right head laceration clean with saline and Vaseline applied. No-sting barrier and adhesive foam applied to heels. RN John given update. Orders confirmed with hospitalist. Care plan and discharge updated. Will follow as needed.
Note to case management of equipment requested for discharge: Air mattress at SNF
Recommend follow up at wound care center upon discharge.
[2024-09-20 15:26] VITALS: BP 130/80
--- NOTE | 2024-09-20 16:24 | CM ---
Chart reviewed and recommendation is for skilled placement will review skilled options.
Plan; Skilled placement
[2024-09-20] MEDS: NEURONTIN 100 MG PO ×2 (17:05→22:07)
[2024-09-20] MEDS: HEPARIN 25000 UNITS/250 ML IV (17:05)
[2024-09-20 19:30] VITALS: BP 115/69
[2024-09-20 20:26] LABS: APTT > 200 Sec (23.4-35.0)
[2024-09-20 23:57] VITALS: BP 112/50
[2024-09-21] VITALS (35 sets, daily range): BP systolic 73–129; BP diastolic 25–84; BMI 33.0
[2024-09-21] MEDS: MAXIPIME 1000 MG IV ×2 (00:40→13:00)
[2024-09-21] MEDS: STERILE WATER FOR INJECTION 10 ML IV ×2 (00:40→13:00)
[2024-09-21 05:28] LABS: % Basophils 0.4 % (0-2); % Eosinophils 1.1 % (0-6); % Immature Granulocytes 0.8 % (0-0.5); % Lymphocytes 12.7 % (20.5-51.1); Absolute Basophils 0.1 10^3/uL (0-0.2); Absolute Eosinophils 0.2 10^3/uL (0-0.7); Absolute Immature Granulocytes 0.2 10^3/uL (0-0.05); Absolute Lymphocytes 2.4 10^3/uL (1.2-3.4); Absolute Monocytes 1.3 10^3/uL (0.1-0.6); Absolute Neutrophils 14.8 10^3/uL (1.4-6.5); Hematocrit 24.1 % (37.0-47.0); Hemoglobin 7.8 g/dL (12.0-16.0); Mean Corp Hgb Conc. 32.4 g/dL (33.0-37.0); Mean Corpuscular Hgb 29.9 pg (27.0-31.0); Mean Corpuscular Volume 92.3 fL (81.0-99.0); Nucleated Red Blood Cells % 0 %; Platelet Count 104 10^3/uL (130-400); Red Blood Cell Count 2.61 10^6/uL (4.20-5.40); Red Cell Dist. Width 17.2 % (11.5-14.5); White Blood Cell Count 18.9 10^3/uL (4.8-10.8)
[2024-09-21] MEDS: ROXICODONE 5 MG PO (05:34)
[2024-09-21 05:48] LABS: APTT 69.1 Sec (23.4-35.0)
[2024-09-21 05:53] LABS: ALT (SGPT) 21 U/L (0-35); AST (SGOT) 44 U/L (14-36); Albumin 2.4 g/dl (3.5-5.0); Alkaline Phosphatase 73 U/L (38-126); Blood Urea Nitrogen 45 mg/dl (7-17); Carbon Dioxide 21 mmol/L (22-30); Chloride 111 mmol/L (98-107); Creatine Phosphokinase 814 U/L (30-135); Estimated Creatinine Clearance 25 ml/min; Glucose 168 mg/dl (70-99); Potassium 4.4 mmol/L (3.5-5.1); Sodium 137 mmol/L (135-145); Total Bilirubin 0.6 mg/dl (0.2-1.3); Total Protein 4.5 g/dl (6.3-8.2); eGFR 30.13
[2024-09-21 06:10] LABS: Procalcitonin 0.59 ng/ml (0.0-0.25)
[2024-09-21 07:07] LABS: Iron 34 ug/dl (37-170); LDH 338 U/L (120-246)
[2024-09-21 07:16] LABS: Percent Saturation 19 % (20-50); Total Iron Binding Capacity 177 ug/dl (265-497)
--- NOTE | 2024-09-21 07:30 | PTCARENOTE ---
IV Heparin stopped this morning at 0730 by skill training program coordinator RN after order from Dr. Steiner to discontinue.
[2024-09-21 07:45] LABS: Reticulocyte Count 8.9 % (0.4-2.8)
[2024-09-21 08:23] LABS: Ferritin 95.6 ng/ml (11.1-264.0)
[2024-09-21 08:37] LABS: Vitamin B12 897 pg/ml (239-931)
[2024-09-21] MEDS: KEPPRA 500 MG IV ×2 (09:06→21:54)
[2024-09-21] MEDS: LOPRESSOR 50 MG PO (09:07)
[2024-09-21] MEDS: NEURONTIN 100 MG PO (09:07)
[2024-09-21] MEDS: FLUSH (NSS) 2 FLUSH IV (09:08)
--- NOTE | 2024-09-21 09:09 | W.PN.HOSP.TC ---
Addendum entered and electronically signed by John Steiner MD 09/21/24 09:35:
Hx of LE DDVT
no Afib Hx
Original Note:
Today's Communication/Plan
-
for IVC F
Start PPI
Follow H&H
GI consult
Hematology consult
Assessment / Plan
Assessment / Plan
79yo F with PMHX of ICH s/p hemicraniotomy, GCA, VICKY, dementia, HTN, seizure d/o admitted from facility with unwitnessed seizures after she was found with blood in her mouth from tongue bite happened dueting seizure episode. Her AED was recently
weaned off. As per neurology - restarted Keppra. Had few episodes of vomiting in ED. Also with leukocytosis and new acute blood loss anemia and LE DVT
A/P:
#Acute blood loss anemia
worsened olayinka Heparin - stop anticoagulation, avoid antiplatelets
Elevated retics - acute bleed?
PPI drip, [facility] GI consult and follow H&H - son provided consent for blood transfusion via phone
LDH mildly elevated - [place] pending
VICKY noted too - IV ferric gluconate
Follow Hgb
#Seizure d/o with concern for seizures on admission
s/p sutures on tongue in ED- remove in 4-6 days
Cont keppra as per Neurologist
Seizure precautions
#Leukocytosis
Ucx neg
CT concerned for atelectasis vs pneumonia
Cefepime empirically
follow CBC
BCx NTD
Can also be 2/2 DVT
Hematology consult
#Acute LE DVT
as per agreement with neuroSx - started anticoagulation, but developed drop in Hgb
V/Q scan with low probability of PE
for IVC filter
#Thrombocytopenia maybe 2/2 Actemra
Actemra on hold
possibly reactive, seen on admission
4T score low, but will check HIT Ab
follow CBC
Hematology consult
#CKD stage 3b-4 with metabolic acidosis
follow Cr
#Lactic acidosis 2/2 seizure activity
resolved
#Mild recurrent transaminitis
hepatitis panel neg
#Mild CPK elevation
with whole body pain
ESR WNL
CRP elevated 2/2 chronic disease
#Hx of hemicraniotomy with extra-axial collection and brain compression which are improved from prior
recent laceration of L janet - no open or infected wound seen
NeuroSx follows
MRI brain pending
wound consult
#GCA
#Dementia, unspecified
#Essential HTN
#VICKY
cont home meds
hold Actemra
DVT ppx on hep
DNR/DNI
I have spent at least 56min reviewing chart, test results, communication with family and providing direct patient care
Anticipated Discharge: > 48 hours
Subjective/Interval History
-
Date of Service: September 21, 2024
Objective Data
-
Labs:
Laboratory Results
09/21/24 09/21/24 09/21/24
05:12 09:00 11:50
WBC 18.9 H
Hgb 7.8 L Pending
Hct 24.1 L Pending
Plt Count 104 L
APTT 69.1 H Cancelled
Sodium 137
Potassium 4.4
Chloride 111 H
Carbon Dioxide 21 L
BUN 45 H
Creatinine 1.7 H
Glucose 168 H
Calcium 8.0 L
Total Bilirubin 0.6
AST 44 H
ALT 21
Alkaline Phosphatase 73
09/21/24
17:00
WBC
Hgb Pending
Hct Pending
Plt Count
APTT
Sodium
Potassium
Chloride
Carbon Dioxide
BUN
Creatinine
Glucose
Calcium
Total Bilirubin
AST
ALT
Alkaline Phosphatase
Vital Signs:
Vital Signs
Temp Pulse Resp BP Pulse Ox
97.7 F 82 18 129/48 95
09/21/24 09:05 09/21/24 07:00 09/21/24 07:00 09/21/24 07:00 09/21/24 07:00
I&O
09/20/24 09/21/24 09/22/24
06:59 06:59 06:59
Intake Total 120 / 120 1210 / 1210
Output Total 250 / 250 350 / 350 150 / 150
Balance -130 / -130 860 / 860 -150 / -150
Review of Systems
-
History Source: Patient
All other systems: Reviewed and negative
Physical Exam
-
General: No Apparent Distress and Comfortable
Respiratory: Clear to Auscultation
Cardiac: Regular Rhythm
GI: Soft, Nontender and Nondistended
Genito-urinary: No Costovertebral Tender
Musculoskeletal: No Clubbing, No Cyanosis and No Edema
Neuro: Awake, Alert, Oriented and AO x 3
Psych: Calm
[2024-09-21 09:10] LABS: Folate 11.5 ng/ml (2.76-20)
--- NOTE | 2024-09-21 09:16 | CON.GI ---
Addendum entered and electronically signed by Nader Robles MD 09/21/24 11:29:
Patient seen and examined, agree with nurse practitioner note. The patient is an 79-year-old female with past medical history as noted which was complicated with craniotomy, seizure disorder now here with seizure. She was noted to have bit her
tongue and had blood at the mouth, and has been on heparin for DVT. She was noted to have significant drop in hemoglobin, initially 12.5-7.8. Her platelets is also decreased. There have been no signs of GI bleeding, however, with heme-negative
brown stool now. On exam she does have diffuse abdominal mild tenderness, more on the right. There is no significant ecchymosis noted. She is lower extreme edema though no obvious ecchymosis.
1. Anemia: In setting of heparin, worry for acute blood loss, but did not see any signs of active GI bleeding. Despite having some blood in her mouth from her tongue laceration she is in fact heme-negative brown now, and would be hard to explain
almost 5 g intraluminal drop with heme-negative stool now. Other considerations do include rectus sheath retroperitoneal hematoma, especially given some tenderness now on exam. CT scan is already ordered and we will follow-up on those results.
Could continue PPI for now and watch for signs of GI bleeding, though if no melena would hold on interventional GI workup for now.
Addendum entered and electronically signed by ALEXANDER Lomeli 09/21/24 10:54:
t/c CT abdomen to rule out RP bleed
Original Note:
Consultation
-
Date/Time Consultation Requested: 09/21/24899
Date/Time Consultation Performed: 09/21/24914
Requesting Provider: John Steiner MD
Performing Provider: ALEXANDER Esteban, Cristiano Robles MD
Reason for Consultation: eval for GI bleed
Medical History
Chief Complaint / HPI
Chief Complaint: anemia
History of Present Illness:
Pt is an 79yo with hx recent fall in July with brain bleed and craniotomy with recent rehab at [facility] then went to [facility], seizure disorder on Keppra with recent d/c prior to admission, giant cell arteritis with prior biopsy, VICKY, dementia,
HTN, NIDDM with admission 09/17 from SNF with blood around mouth and confusion with concern for seizure with biting tough with restart of Keppra. She is noted after admission with progressive drop in hbg. Initially 12.5 then drop to 7.8. She is
also noted with drops in platelets wtih normal labs in 2022 now platelets 60-104 range with elevated WBC's with possible PNA with Cefepime use. Pt is also noted with leg pain with new occlusion and non occlusion b/l DVT with start of heparin gtt.
Iron studies mixed with iron 34, TIBC 177, % sat 19 and ferritin 95 on admission. Asked to see if any component of GI blood loss.
At this time pt lethargic but answer minimal one word answers and occasional nod. In review with son when patient was at [facility] she was improved. She was asking about going back to driving and functioning well. Son state likely prior
colonoscopy in past at [facility] but not records noted vs [facility]. He was unsure of any abnormal finding. She did have temporary DHT during brain bleed but did go back to oral diet without difficulty. She was also noted with some nausea with
bleed that did resolve. No known issues with abdominal pain, diarrhea, constipation, or prior rectal bleeding. Son was unsure about prior iron deficiency but states has been on iron supplements.
Past Medical History
Past Medical History: HTN, Hypercholesterolemia, NIDDM, Seizures (post craniotomy) and Other (arthritis, traumatic fall with brain bleed and surgery, giant cell arteritis, VIKCY, dementia )
Past Surgical History: Brain (craniotomy), Cholecystectomy, Orthopedic (b/l TKR, achilles surgery, finger surgery) and Other (bunionectomy temp art biopsy)
Social History
Tobacco: Former Smoker
Alcohol: None
Drug: None
Living: Other ([facility]
Employment: Retired
Family History
Family History: Other (no family hx GI malignancies)
Allergies / Home Medications
Allergy/AdvReac Type Severity Reaction Status Date / Time
Penicillins Allergy Unknown ~ Verified 06/24/23 00:59
50 years
ago
Sulfa (Sulfonamide Allergy Unknown ~ Verified 06/24/23 00:59
Antibiotics) 50 years
ago
�Medication �Instructions �Recorded
atorvastatin 10 mg tablet 10 mg PO DAILY High cholesterol 07/24/13
cholecalciferol (vitamin D3) 25 1,000 units PO QPM Supplement 06/06/21
mcg (1,000 unit) tablet
tocilizumab 162 mg/0.9 mL 612 mg SC Q14D Anti-inflammatory 04/24/22
subcutaneous syringe (Actemra)
acetaminophen 325 mg tablet 650 mg PO Q8HPRN PRN mild 09/17/24
pain/fever
donepezil 10 mg tablet 10 mg PO HS Alzheimer's 09/17/24
ferrous sulfate 325 mg (65 mg 325 mg PO DAILY Supplement 09/17/24
iron) tablet (FeroSul)
metoprolol tartrate 50 mg tablet 50 mg PO BID Blood Pressure 09/17/24
mirtazapine 7.5 mg tablet 7.5 mg PO HS Mental Health/Anxiety 09/17/24
multivitamin 1 tab PO DAILY Supplement 09/17/24
neomycin-bacitracn Zn-polymyx 3.5 1 applic topical BID Infection 09/17/24
mg-400 unit-5,000 unit/gram top
oint (Triple Antibiotic)
polyethylene glycol 3350 17 gram 17 g feeding tube DAILYPRN PRN 09/17/24
oral powder packet (HealthyLax) constipation
sennosides 8.6 mg-docusate sodium 1 tab-cap PO BIDPRN PRN 09/17/24
50 mg tablet (Stimulant Laxative constipation
Plus)
Review of Systems
-
History Source: Patient
Constitutional: Reports No Symptoms
EENT: Reports No Symptoms
Respiratory: Reports No Symptoms
Abdomen/GI: Reports Nausea
: Reports No Symptoms
Musculoskeletal: Reports Other (b/l leg pain)
Neurological: Reports Weakness and Other (lethargy )
Endocrine: Reports No Symptoms
Hematologic/Lymphatic: Reports No Symptoms
Vital Signs
Temp Pulse Resp BP Pulse Ox
97.7 F 82 18 129/48 95
09/21/24 09:05 09/21/24 07:00 09/21/24 07:00 09/21/24 07:00 09/21/24 07:00
Physical Exam
Exam
General: Other (elderly female lethargic in exam some one word responses and occasional nod, eyes mostly closed )
HEENT: Normocephalic and Anicteric
Respiratory: Clear
Cardiac: Regular Rhythm
GI: Soft, Non Distended and Tender (minimal )
Rectal: Brown and Hem Negative
Musculoskeletal: No Clubbing and No Cyanosis
Skin: Other (increased LE tenderness with minimal touch, right head wound intact )
Neuro: Other (lethargic , right arm purposeful, left arm swelling with slight weakness with b/l equal hand grasp )
Psych: Calm and Other (lethargic )
Results
WBC 18.9 10^3/uL (4.8-10.8) H 09/21/24 05:12
Hgb 7.8 g/dL (12.0-16.0) L 09/21/24 05:12
Hct 24.1 % (37.0-47.0) L 09/21/24 05:12
MCV 92.3 fL (81.0-99.0) 09/21/24 05:12
Plt Count 104 10^3/uL (130-400) L 09/21/24 05:12
Absolute Neuts (auto) 14.8 10^3/uL (1.4-6.5) H 09/21/24 05:12
APTT Cancelled 09/21/24 11:50
Sodium 137 mmol/L (135-145) 09/21/24 05:12
Potassium 4.4 mmol/L (3.5-5.1) 09/21/24 05:12
Chloride 111 mmol/L (98-107) H 09/21/24 05:12
Carbon Dioxide 21 mmol/L (22-30) L 09/21/24 05:12
BUN 45 mg/dl (7-17) H 09/21/24 05:12
Creatinine 1.7 mg/dL (0.6-1.0) H 09/21/24 05:12
Calcium 8.0 mg/dl (8.4-10.2) L 09/21/24 05:12
Total Bilirubin 0.6 mg/dl (0.2-1.3) 09/21/24 05:12
AST 44 U/L (14-36) H 09/21/24 05:12
ALT 21 U/L (0-35) 09/21/24 05:12
Alkaline Phosphatase 73 U/L (38-126) 09/21/24 05:12
Hep Bs Antibody Negative 09/19/24 11:29
Hep B Core Total Ab Negative (Negative) 09/19/24 09:05
Hepatitis C Antibody Negative (Negative) 09/19/24 11:29
Diagnostic Image Results:
09/18/24 CT Abd/pel Without Iv Or Oral
Markedly limited evaluation as a result of numerous factors including lack of intravenous contrast, lack of oral contrast and marked beam hardening artifact from the patient's bilateral upper extremities.
No gross findings to suggest obstructive uropathy bilaterally. Possible mild bilateral perinephric stranding, especially on the right. Cannot exclude inflammatory/infectious process especially of the right kidney such as pyelonephritis.
Descending colon and sigmoid diverticulosis. No intestinal obstruction or free air.
Prior cholecystectomy.
Significantly limited by beam hardening artifact, bilateral lower lobe lung opacification suggesting subsegmental atelectasis and/or pneumonia.
Suspected coronary artery calcifications.
Prior GI Procedures:
EGD: ? in past per family no results reviewed
Colonoscopy: ? in past per family no results reviewed
Assessment / Plan
-
Pt is an 79yo with hx recent fall in July with brain bleed and craniotomy with recent rehab at [facility] then went to [facility], seizure disorder on Keppra with recent d/c prior to admission, giant cell arteritis with prior biopsy, VICKY, dementia,
HTN, NIDDM with admission 09/17 from SNF with blood around mouth and confusion with concern for seizure with biting tough with restart of Keppra. She is noted after admission with progressive drop in hbg. Initially 12.5 then drop to 7.8. She is
also noted with drops in platelets wtih normal labs in 2022 now platelets 60-104 range with elevated WBC's with possible PNA with Cefepime use. Pt is also noted with leg pain with new occlusion and non occlusion b/l DVT with start of heparin gtt.
Iron studies mixed with iron 34, TIBC 177, % sat 19 and ferritin 95 on admission. Asked to see if any component of GI blood loss.
-anemia with drop in hbg since admission
-hx VICKY per OP chart
-change in mental status
-DVT with recent heparin now on hold
-b/l leg pain
-seizure on admission with tongue laceration
-hx fall in July with craniotomy at [facility] with recovery and return to [facility]
-thrombocytopenia- per family no known hx in past
-leukocytosis possible PNA
-hypoalbuminemia
other med problems:
-NIDDM
-dementia
-giant cell arteritis with prior biopsy
-HTN
PLAN:
etiology of drop in hbg unclear related to tongue bleeding on admission (unclear on amount passed, medication related vs other) -- current rectal with brown heme neg stools no impaction and no stools for several days
pt also with decreased mentation -- in review with speech therapy decline over last few days -- for HCT now and MRI brain- rule out recurrent bleed with hx recent craniotomy vs med related vs other
trend hbg, transfuse less than 7
PPI gtt
heparin hold and plan for IVC filter
monitor for signs of GI bleeding-- pt may pass some dark stool as also had bleeding in tongue on admission
pt with some hx VICKY I did request records from [facility] if any prior EGD/colon completed
with also drop in platelets consider heme eval
reviewed with son-- currently no signs of active bleeding and with change in mental status hold on EGD/colon with sedation
may need to consider temp DHT if mental status not improving
reviewed with nursing staff
nursing staff reviewed with neurology with mental status issues
-
-
Thank you for consultation and allowing me to participate in the patient's care. Please call the personal financial advisor GI physician during the after hours with any questions or concerns.
[2024-09-21] MEDS: LR IV (09:27)
[2024-09-21] MEDS: PROTONIX IV IV (09:27)
[2024-09-21] MEDS: NSS (PRESERVATIVE FREE) IV (09:27)
[2024-09-21 09:32] LABS: Hematocrit 22.1 % (37.0-47.0); Hemoglobin 7.5 g/dL (12.0-16.0)
[2024-09-21] MEDS: PROTONIX IV 80 MG IV (09:53)
[2024-09-21] MEDS: NSS (PRESERVATIVE FREE) 20 ML IV (09:53)
[2024-09-21] MEDS: PROTONIX 100 IV ×2 (09:54→17:52)
--- NOTE | 2024-09-21 10:46 | CON.ONC ---
Impression
Impression
acute VTE, 2nd lifetime event. hx prothrombin gene mutation. acute VTE developed off anticoagulation
[facility] Jul 2024 after a traumatic fall
concern for ABLA
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
tongue laceration from biting during seizure
seizure on keppra
Plan
Plan
follow up HOLDEN
check b12, folate
check HIT, fibrinogen
anticoagulation on hold with suspected bleeding
IVC filter
f/u MRI brain
agree with parenteral iron repletion
on PPI
transfuse prn
will eventually need to determine if fall and bleeding risk outweigh benefit of anticoagulation resumption
Patient History
History of Present Illness
79yo F with dementia with behavior disturbance at baseline and prothrombin gene mutation and history of DVT presented to ER with gingival bleeding and confusion. She was hospitalized at [facility] Jul 2024 after a traumatic fall resulting in ICH
requiring craniotomy for which her anticoagulation was stopped. Her hospital course was complicated by seizures for which she was started on keppra. She was discharged from [facility] to an acute rehab and recently returned home. CT of the head
which was negative for acute bleeding. CT ab/pelvis possible pyelonephritis, otherwise no acute findings. LUE no DVT. B/L LE US showed RLE occlusive thrombus throughout the femoral vein with nonocclusive thrombus within the right popliteal and
peroneal veins and LLE nonocclusive thrombus within the left popliteal vein, possibly changes of chronic venous thrombosis in this patient with a history of extensive left DVT in 2021. VQ scan showed overall low probability study for pulmonary
embolism. WBC 17, Hgb 9.2, MCV 89.3, platelet count 87,000, retic 8.9, creatinine 1.8, nml LFTs. Bcx, urine cx, parasite smear, and influenza negative. She was admitted and restarted on keppra for suspected seizure activity. After discussion with
neurosurgery pt was started on a heparin gtt for acute VTE. Her Hgb has trended from 9.2 to 7.5 today. WBC is overall improving and platelet count pk was 61,000 on 09/19, now improved to 104,000.
She had a seemingly unprovided DVT of the LLE in November 2021 while being treated with steroids for giant cell arteritis. She continued therapeutic apixaban 5mg BID through July 2022 then transitioned to ppx dosing 2.5mg BID. She has remained off her
anticoagulation following her [place]'s hospitalization.
Pt unable to provided history, obtained via chart review.
Afebrile, no hypoxia or hypotension
Past-Medical/Surgical History
Past Medical History
Dementia
Depression
Diabetes
Hypertension
Chronic Kidney Disease
DVT
Past Surgical History
Bilateral knee replacements
Trigger finger
Foot surgery
Cholecystectomy
Social History
Former use of tobacco.
Denies any prior alcohol use.
Family father with VTE and leukemia, son with thrombophilia
Patient Medication
�Medication �Instructions �Recorded �Confirmed �Last Taken �Type
atorvastatin 10 mg tablet 10 mg PO DAILY High cholesterol 07/24/13 09/17/24 10/12/21 History
cholecalciferol (vitamin D3) 25 1,000 units PO QPM Supplement 06/06/21 09/17/24 10/13/21 08:00 History
mcg (1,000 unit) tablet
tocilizumab 162 mg/0.9 mL 612 mg SC Q14D Anti-inflammatory 04/24/22 09/17/24 04/18/22 History
subcutaneous syringe (Actemra)
acetaminophen 325 mg tablet 650 mg PO Q8HPRN PRN mild 09/17/24 09/17/24 Unknown History
pain/fever
donepezil 10 mg tablet 10 mg PO HS Alzheimer's 09/17/24 09/17/24 Unknown History
ferrous sulfate 325 mg (65 mg 325 mg PO DAILY Supplement 09/17/24 09/17/24 Unknown History
iron) tablet (FeroSul)
metoprolol tartrate 50 mg tablet 50 mg PO BID Blood Pressure 09/17/24 09/17/24 Unknown History
mirtazapine 7.5 mg tablet 7.5 mg PO HS Mental Health/Anxiety 09/17/24 09/17/24 Unknown History
multivitamin 1 tab PO DAILY Supplement 09/17/24 09/17/24 Unknown History
neomycin-bacitracn Zn-polymyx 3.5 1 applic topical BID Infection 09/17/24 09/17/24 Unknown History
mg-400 unit-5,000 unit/gram top
oint (Triple Antibiotic)
polyethylene glycol 3350 17 gram 17 g feeding tube DAILYPRN PRN 09/17/24 09/17/24 Unknown History
oral powder packet (HealthyLax) constipation
sennosides 8.6 mg-docusate sodium 1 tab-cap PO BIDPRN PRN 09/17/24 09/17/24 Unknown History
50 mg tablet (Stimulant Laxative constipation
Plus)
Active Medications
Generic Name Dose Route Start Last Admin
Trade Name Freq PRN Reason Stop Dose Admin
Acetaminophen 650 mg 09/17/24 13:57
Acetaminophen 650 Mg Rectal Suppository RECTAL 10/15/24 13:56
Q4HPRN PRN
mild pain/TURNER/temp> 100.4F
Bisacodyl 10 mg 09/17/24 13:57
Bisacodyl 10 Mg Rectal Suppository RECTAL 10/15/24 13:56
[id number] PRN
constipation
Cefepime HCl 1,000 mg 09/19/24 12:00 09/21/24 00:40
Cefepime Hcl 1,000 Mg/11.3 Ml Vial IV 1,000 mg
Q12H VERO Administration
Gabapentin 100 mg 09/20/24 16:00 09/21/24 09:07
Gabapentin 100 Mg Capsule PO 10/18/24 15:59 100 mg
TID VERO Administration
Heparin Sodium 6,000 units 09/19/24 17:02
Heparin 80 Units/Kg Iv Rebolus IV 10/17/24 17:01
PRN PRN
PTT < OR = 64 seconds
Heparin Sodium 3,000 units 09/19/24 17:03
Heparin 40 Units/Kg Iv Rebolus IV 10/17/24 17:02
PRN PRN
PTT = 64.1 to 72.9 seconds
Pantoprazole Sodium 80 mg in 100 mls @ 10 mls/hr 09/21/24 09:00 09/21/24 09:54
Protonix IV 100 mls
Q10H VERO Administration
8 MG/HR
Ferric Sodium Gluconate 110 mls @ 110 mls/hr 09/21/24 14:00
Complex 125 mg/ Sodium IV 09/25/24 14:59
Chloride DAILY@1400 VERO
Levetiracetam 500 mg 09/17/24 20:00 09/21/24 09:06
Levetiracetam (100 Mg/Ml) 500 Mg/5 Ml Vial IV 10/15/24 19:59 500 mg
Q12 VERO Administration
Metoprolol Tartrate 5 mg 09/17/24 14:15
Metoprolol 5 Mg/5 Ml Vial IV 10/15/24 14:14
Q6HPRN PRN
SBP>150 OR HR>120
Metoprolol Tartrate 50 mg 09/20/24 13:00 09/21/24 09:07
Metoprolol 50 Mg Regular Release Tablet PO 10/18/24 12:59 50 mg
BID VERO Administration
Oxycodone HCl 5 mg 09/19/24 12:16 09/21/24 05:34
Oxycodone 5 Mg Regular Release Tablet PO 10/03/24 12:15 5 mg
Q6HPRN PRN Administration
moderate-severe pain
Polyethylene Glycol 17 grams 09/17/24 13:57
Polyethylene Glycol Powder 17 Grams Packet PO 10/15/24 13:56
DAILYPRN PRN
constipation
Senna/Docusate Sodium 1 tablet 09/17/24 13:57
Docusate W/Senna (Paulette-Colace) Tablet PO 10/15/24 13:56
BIDPRN PRN
constipation
Sodium Chloride 0 flush 09/18/24 11:00 09/21/24 09:08
Sodium Chloride 0.9% (Flush) Syringe IV 10/16/24 10:59 2 flush
PER PROTOCOL VERO Administration
Sterile Water 10 ml 09/19/24 12:00 09/21/24 00:40
Sterile Water For Injection 10 Ml Vial IV 10/17/24 11:59 10 ml
Q12H VERO Administration
Review of Systems
-
ROS is notable for HPI, otherwise negative
Physical Exam
-
General: Other (lethargic)
HEENT: Moist Mucous Membranes; Negative Jaundice
Cardiology: Normal Sinus Rhythm
Pulmonary: Clear
GI: Soft
Skin: Warm
Psych: Calm
Labs
Lab Results
WBC 18.9 10^3/uL (4.8-10.8) H 09/21/24 05:12
RBC 2.61 10^6/uL (4.20-5.40) L 09/21/24 05:12
Hgb 7.5 g/dL (12.0-16.0) L 09/21/24 09:18
Hct 22.1 % (37.0-47.0) L 09/21/24 09:18
MCV 92.3 fL (81.0-99.0) 09/21/24 05:12
MCH 29.9 pg (27.0-31.0) 09/21/24 05:12
MCHC 32.4 g/dL (33.0-37.0) L 09/21/24 05:12
RDW 17.2 % (11.5-14.5) H 09/21/24 05:12
Plt Count 104 10^3/uL (130-400) L 09/21/24 05:12
MPV 12.0 fL (7.4-10.4) H 09/21/24 05:12
Abs Immat Gran (auto) 0.2 10^3/uL (0-0.05) H 09/21/24 05:12
Absolute Neuts (auto) 14.8 10^3/uL (1.4-6.5) H 09/21/24 05:12
Absolute Lymphs (auto) 2.4 10^3/uL (1.2-3.4) 09/21/24 05:12
Absolute Monos (auto) 1.3 10^3/uL (0.1-0.6) H 09/21/24 05:12
Absolute Eos (auto) 0.2 10^3/uL (0-0.7) 09/21/24 05:12
Absolute Basos (auto) 0.1 10^3/uL (0-0.2) 09/21/24 05:12
Immature Gran % 0.8 % (0-0.5) H 09/21/24 05:12
Neutrophils % 78.0 % (42.2-75.2) H 09/21/24 05:12
Lymphocytes % 12.7 % (20.5-51.1) L 09/21/24 05:12
Monocytes % 7.0 % (1.7-9.3) 09/21/24 05:12
Eosinophils % 1.1 % (0-6) 09/21/24 05:12
Basophils % 0.4 % (0-2) 09/21/24 05:12
Creatinine 1.7 mg/dL (0.6-1.0) H 09/21/24 05:12
Vital Signs
Vital Signs
Temp Pulse Resp BP Pulse Ox
97.7 F 81 18 113/52 95
09/21/24 09:05 09/21/24 09:07 09/21/24 07:00 09/21/24 09:07 09/21/24 07:00
[2024-09-21 11:44] LABS: Fibrinogen 389 MG/DL (199-459)
[2024-09-21 13:14] LABS: APTT 29.3 Sec (23.4-35.0)
--- NOTE | 2024-09-21 14:26 | W.PN.UPDATE ---
Update Note
Progress Note Update
CT scan noted, with new right retroperitoneal hematoma, which accounts for her drop in hemoglobin. Will hold on further GI evaluation. Will sign off for now, please call back with any further questions.
--- NOTE | 2024-09-21 14:44 | CM ---
Chart reviewed and physical therapy are recommending skilled placement, options reviewed and patient has selected [facility], referral sent to [facility].
Plan; Referral sent to [facility].
--- NOTE | 2024-09-21 16:55 | PTCARENOTE ---
Completed entire unit of PRBCS at this time without any noted transfusion reaction.
[2024-09-21] MEDS: FLAGYL 500 MG 100 IV ×2 (16:59→21:54)
[2024-09-21] MEDS: NEURONTIN PO ×2 (17:00→23:09)
--- NOTE | 2024-09-21 17:30 | PTCARENOTE ---
Pt remains lethargic, arousable to name being called but will go back to sleep. Pt confused on place and time. Updated son (Kashif) and made him aware that pt is being transferred to [id number]. Provided report to receiving RN (Chin) in IMU.
Pt transferred at this time in bed with belongings and IV Venofer to [id number].
[2024-09-21] MEDS: NSS 500 IV (18:09)
--- NOTE | 2024-09-21 18:19 | PTCARENOTE ---
Pt from 4th floor, lethargic but responds to questions. When touched yells out. BP low tt DR Ponce bolus started , 2nd unit PRBC now running, cannot run bolus and blood con currently. Pressure now 93/44 map 60
[2024-09-21] MEDS: NSS 1000 IV ×3 (18:30→21:37)
--- NOTE | 2024-09-21 19:01 | PTCARENOTE ---
VS from 1345 and 1400 are not Yue Michelle
--- NOTE | 2024-09-21 19:02 | PTCARENOTE ---
Blood trasfusing , bolus infusing Bp 80/49 map 58 on L forearm. Mobing larger cuff to upper l arm 83/63 map 69
[2024-09-21] MEDS: D5/0.9% SODIUM CHLORIDE 1000 IV (20:21)
[2024-09-21] MEDS: LEVOPHED 250 IV (21:29)
[2024-09-21] MEDS: FERRLECIT IV (21:52)
--- NOTE | 2024-09-21 23:18 | PTCARENOTE ---
Assumed care for patient, received bedside report from caterina RN. Pt AAOx2 disoriented to time, pt very lethargic but responds to verbal. 500cc bolus completed. PRBC completed. Platelets administering currently. No indication of transfusion
reaction. Pt hypotensive BP 93/51 MAP 60. ALEXANDER Roy made aware. Levophed started. Infusion at initial rate of 2mcg/min. VAT bedside to place a new line due to multiple incomparable gtts see SEP. VAT placed a anterior foot, ALEXANDER Roy placed an order
to place. NSS infusing. Pt afebrile. NSR on tele. HR 73. SpO2 96% on room air. Lungs coarse and diminished. Bowel sounds hypoactive. Pt tolerating frequent turning and repositioning.
[2024-09-22] VITALS (42 sets, daily range): BP systolic 77–147; BP diastolic 43–90; BMI 34.6
[2024-09-22] MEDS: FERRLECIT IV (00:46)
[2024-09-22] MEDS: MAXIPIME 1000 MG IV (01:14)
[2024-09-22] MEDS: STERILE WATER FOR INJECTION 10 ML IV ×2 (01:14→10:50)
[2024-09-22 01:35] LABS: % Basophils 0.6 % (0-2); % Immature Granulocytes 1.1 % (0-0.5); % Lymphocytes 9.7 % (20.5-51.1); % Monocytes 9.7 % (1.7-9.3); % Neutrophils 74.9 % (42.2-75.2); Absolute Basophils 0.1 10^3/uL (0-0.2); Absolute Eosinophils 0.8 10^3/uL (0-0.7); Absolute Immature Granulocytes 0.2 10^3/uL (0-0.05); Absolute Lymphocytes 1.8 10^3/uL (1.2-3.4); Absolute Monocytes 1.8 10^3/uL (0.1-0.6); Absolute Neutrophils 14.2 10^3/uL (1.4-6.5); Hematocrit 27.7 % (37.0-47.0); Hemoglobin 10.1 g/dL (12.0-16.0); Mean Corp Hgb Conc. 36.5 g/dL (33.0-37.0); Mean Corpuscular Hgb 31.5 pg (27.0-31.0); Mean Corpuscular Volume 86.3 fL (81.0-99.0); Mean Platelet Volume 10.6 fL (7.4-10.4); Nucleated Red Blood Cells % 0 %; Platelet Count 119 10^3/uL (130-400); Red Blood Cell Count 3.21 10^6/uL (4.20-5.40); Red Cell Dist. Width 16.1 % (11.5-14.5)
[2024-09-22 04:33] LABS: % Basophils 0.6 % (0-2); % Eosinophils 4.2 % (0-6); % Immature Granulocytes 1.1 % (0-0.5); % Lymphocytes 9.9 % (20.5-51.1); % Monocytes 9.6 % (1.7-9.3); % Neutrophils 74.6 % (42.2-75.2); Absolute Basophils 0.1 10^3/uL (0-0.2); Absolute Eosinophils 0.7 10^3/uL (0-0.7); Absolute Immature Granulocytes 0.2 10^3/uL (0-0.05); Absolute Lymphocytes 1.7 10^3/uL (1.2-3.4); Absolute Monocytes 1.6 10^3/uL (0.1-0.6); Absolute Neutrophils 12.5 10^3/uL (1.4-6.5); Hematocrit 27.6 % (37.0-47.0); Hemoglobin 9.5 g/dL (12.0-16.0); Mean Corp Hgb Conc. 34.4 g/dL (33.0-37.0); Mean Corpuscular Hgb 30.4 pg (27.0-31.0); Mean Corpuscular Volume 88.5 fL (81.0-99.0); Mean Platelet Volume 11.7 fL (7.4-10.4); Nucleated Red Blood Cells % 0.1 %; Platelet Count 124 10^3/uL (130-400); Red Blood Cell Count 3.12 10^6/uL (4.20-5.40); Red Cell Dist. Width 16.1 % (11.5-14.5); White Blood Cell Count 16.8 10^3/uL (4.8-10.8)
[2024-09-22 04:50] LABS: ALT (SGPT) 26 U/L (0-35); AST (SGOT) 80 U/L (14-36); Albumin 2.4 g/dl (3.5-5.0); Alkaline Phosphatase 77 U/L (38-126); Blood Urea Nitrogen 45 mg/dl (7-17); Calcium 7.6 mg/dl (8.4-10.2); Carbon Dioxide 19 mmol/L (22-30); Chloride 113 mmol/L (98-107); Estimated Creatinine Clearance 24 ml/min; Glucose 142 mg/dl (70-99); Sodium 139 mmol/L (135-145); Total Bilirubin 0.8 mg/dl (0.2-1.3); Total Protein 4.5 g/dl (6.3-8.2); eGFR 28.13
[2024-09-22 04:55] LABS: Creatine Phosphokinase 3086 U/L (30-135)
[2024-09-22] MEDS: PROTONIX 100 IV (05:23)
[2024-09-22 05:31] LABS: Vitamin B12 940 pg/ml (239-931)
[2024-09-22] MEDS: FLAGYL 500 MG 100 IV (06:12)
[2024-09-22] MEDS: NEURONTIN PO (08:08)
[2024-09-22 08:42] LABS: Procalcitonin 0.54 ng/ml (0.0-0.25)
[2024-09-22] MEDS: KEPPRA 500 MG IV ×2 (08:54→19:42)
--- NOTE | 2024-09-22 09:49 | PHA.VAN.IN ---
Assessment
- Assessment
Renal Function: Unknown baseline
Concomitant Antimicrobials: aztreonam
Plan
- Plan
Initial / Loading Dose: 2000mg - administration pending
Maintenance Regimen: dosing by level
Monitoring: random 09/23 599
Pharmacokinetics Vancomycin I
- -
Patient Age: 79
Patient Sex: Female
Vancomycin Day #: 1
Indication: Other
Requesting Provider: Dr. Steiner
Pertinent Antimicrobial Allergies:
penicillins - unknown, ~50 y/a
Sulfonamide antibiotics - unknown, ~50 y/a
Height / Weight:
Height 5 ft 1 in
Actual Weight 83 kg
Pertinent Past Medical History: BMI ~35, CKD 3
- Vital Signs / Lab Results
Temp Pulse Resp BP Pulse Ox
97.8 F 80 16 97/64 96
09/22/24 07:30 09/22/24 09:00 09/22/24 09:00 09/22/24 09:00 09/22/24 09:30
Lab Results - Hematology
09/19/24 09/20/24 09/21/24
17:43 07:45 05:12
WBC 23.3 H 17.0 H 18.9 H
09/22/24 09/22/24
01:25 04:04
WBC 19.0 H 16.8 H
Lab Results - Chemistry
09/20/24 09/21/24 09/22/24
07:45 05:12 04:04
BUN 37 H 45 H 45 H
Creatinine 1.7 H 1.7 H 1.8 H
Estimated Creat Clear
Albumin 2.5 L 2.4 L 2.4 L
Microbiology Results
09/21/24 09:16 Blood Parasites Smear - Final
Blood/Venous
09/17/24 10:02 Blood Culture - Preliminary
Blood/Venous No Growth in 4 days- Final report to follow
09/17/24 10:02 Blood Culture - Preliminary
Blood/Venous No Growth in 4 days- Final report to follow
[2024-09-22] MEDS: AZACTAM 1000 MG IV (10:49)
[2024-09-22] MEDS: NSS 1000 IV ×3 (10:49→23:08)
--- NOTE | 2024-09-22 10:51 | EEG.RPT ---
Electroencephalogram Report
Recording
Date of EE09/22/24
Type of EEG: Routine
Length of EEG recordin minutes
Done with Video Recording: Yes
Patient Status: Inpatient
Recording Conditions: Awake and Drowsy
Hyperventilation Performed: No
Photic Stimulation Performed: Yes
Report
LESS THAN 1 HOUR EEG REPORT
LESS THAN 1 HOUR EEG INTERPRETATION:
Moderately abnormal EEG for age with evidence of interhemispheric asymmetry and greater slowing from the right hemisphere compared with the contralateral side.
CLINICAL CORRELATION:
Although normative values not been established for a person of this advanced age, this study suggestive of a prior right hemispheric cortical injury.
If clinical suspicion for seizure persists, a prolonged recording may be warranted.
Clinical correlation is advised.
METHODS:
A 21 channel digitized electroencephalogram (EEG) was performed using the 10/20 international system of electrode placement and one-lead of ECG recorded.
ELECTROENCEPHALOGRAPHER IMPRESSION(S):
Quality of study
Fair, limited by excessive beta from the left hemisphere at times
Background
There was fair to poor anterior-posterior voltage gradient of delta frequency, less well organized from the right hemisphere than contralateral side.
With eye opening the background activity changed to a low voltage mixture of frequencies.
There were no significant asymmetries of background activity noted.
There was near continuous, variable amplitude, slowing from the right hemisphere.
Sleep
Drowsiness present
Photic Stimulation
No driving
ECG
Normal sinus rhythm
--- NOTE | 2024-09-22 11:06 | PTCARENOTE ---
Assumed care of patient at beginning of this shift from previous RN with levophed infusing at 2mcg/min; able to wean off by 11:00. BP currently 112/64 with MAP 78. Patient drowsy/lethargic, responds to voice and able to open eyes; Ox1 with continued
garbled speech. Dr Steiner up to see patient; ordered bedside EEG, which was done, changed IVAB and ordered NSS IV bolus, also changed protonix infusion to IV push. VAT RN requested to assess IV sites prior to bolus and IVAB as R arm swollen,
patient c/o pain when touched and no blood return from midline. R f/a d/c'd by VAT RN; ok given to use midline. See worklist for full assessment and vital signs; see updated orders.
--- NOTE | 2024-09-22 11:18 | W.PN.HOSP.TC ---
Addendum entered and electronically signed by John Steiner MD 09/22/24 14:12:
PVR 265, patient able to urinate. Will cont to monitor
Original Note:
Today's Communication/Plan
-
vwery sleepy today
since Hgb stable -IR for IVC f
ID consulyt with questionable benefit in Abx
Assessment / Plan
Assessment / Plan
79yo F with PMHX of ICH s/p hemicraniotomy, GCA, VICKY, dementia, HTN, seizure d/o admitted from facility with unwitnessed seizures after she was found with blood in her mouth from tongue bite happened duriing seizure episode. Her AED was recently
weaned off. As per neurology - restarted Keppra. Had few episodes of vomiting in ED. Also with leukocytosis and new acute blood loss anemia 2/2 spontaneous retroperitoneal bleed with shock
Prognosis guarded, explained to son that if no improvement in condition - hospice might be appropriate
A/P:
#Shock, unspecified
can be 2/2 hemorrhage, infection or VTE
Wean off levophed, transfuse and IVC filter placement planned
Stress dose steroids
#Acute blood loss anemia 2/2 spontaneous retroperitoneal bleed 2/2 heparin on VICKY
Reviewed with radiologist CT abd on admission - no concern for hematoma duering initial CT
Found On CT abd without contrast on 09/22/24, due to hypotension - CTA abd done, (as benefit overtightened the risk with CKD) and no active bleeding seen
S/P 2 units PRBC on 09/21/24
follow H&H and transfuse as needed
avoid anticoagulation, antiplatelets, NSTAIDs
GI signed off since FOBT neg
Croombs neg
IV iron
#Seizure d/o with concern for seizures on admission
s/p sutures on tongue in ED- remove in 4-6 days
Cont keppra as per Neurologist
Seizure precautions
#Leukocytosis
Ucx neg
CT concerned for RLL pneumonia
Cefepime empirically without resolution
Procal without change - questionable usefulness with CKD
ID consult
Can also be 2/2 DVT
#Acute LE DVT
as per agreement with neuroSx - started anticoagulation, but developed drop in Hgb
V/Q scan with low probability of PE
for IVC filter
#Thrombocytopenia maybe 2/2 Actemra
Actemra on hold
possibly reactive, seen on admission
4T score low, but will check HIT Ab
follow CBC
Hematology consult
#CKD stage 3b-4 with metabolic acidosis
follow Cr
#Lactic acidosis 2/2 seizure activity
resolved
#Mild recurrent transaminitis
hepatitis panel neg
#Rhabdomyolysis
can be 2/2 hematoma reabsorption
follow CPK and cont IVF
#Hx of hemicraniotomy with extra-axial collection and brain compression which are improved from prior
recent laceration of L janet - no open or infected wound seen
NeuroSx follows
MRI brain pending
wound consult
#GCA
#Dementia, unspecified
#Essential HTN
cont home meds
hold Actemra
DVT ppx on scds
DNR/DNI
I have spent at least 56min reviewing chart, test results, communication with family and providing direct patient care
Anticipated Discharge: > 48 hours
Subjective/Interval History
-
Date of Service: September 22, 2024
Objective Data
-
Labs:
Laboratory Results
09/22/24 09/22/24 09/22/24
01:25 04:04 12:00
WBC 19.0 H 16.8 H
Hgb 10.1 L D 9.5 L Pending
Hct 27.7 L 27.6 L Pending
Plt Count 119 L 124 L
Sodium 139
Potassium 4.0
Chloride 113 H
Carbon Dioxide 19 L
BUN 45 H
Creatinine 1.8 H
Glucose 142 H
Calcium 7.6 L
Total Bilirubin 0.8
AST 80 H
ALT 26
Alkaline Phosphatase 77
09/22/24
20:00
WBC
Hgb Pending
Hct Pending
Plt Count
Sodium
Potassium
Chloride
Carbon Dioxide
BUN
Creatinine
Glucose
Calcium
Total Bilirubin
AST
ALT
Alkaline Phosphatase
Vital Signs:
Vital Signs
Temp Pulse Resp BP Pulse Ox
97.8 F 134 18 112/64 97
09/22/24 07:30 09/22/24 11:00 09/22/24 11:00 09/22/24 11:00 09/22/24 11:00
I&O
09/21/24 09/22/24 09/23/24
06:59 06:59 06:59
Intake Total 1210 / 1210 1197 / 1197
Output Total 350 / 350 150 / 150
Balance 860 / 860 1047 / 1047
Review of Systems
-
Unable to obtain full review of systems at this time due to: Acuity
Physical Exam
-
General: Pain (generalized)
Respiratory: Clear to Auscultation
Cardiac: Regular Rhythm
GI: Soft, Nondistended and Tender
Musculoskeletal: No Clubbing, No Cyanosis and No Edema
Neuro: Other (lethargic, but arousable)
Psych: Calm
--- NOTE | 2024-09-22 11:21 | CM ---
Addendum entered by Barby Das RN 09/22/24 11:39:
Additionally: clear liquids, seen by wound care nurse.
Original Note:
Patient with Hx ICH s/p hemicraniotomy, dementia, seizures with Dx Acute blood loss anemia, Acute LE DVT. CT scan 09/21 with new right retroperitoneal hematoma. Plan IVC filter. Room air. Receiving IV Abx, IV Steroids, IV Keppra, IVF. Per
nurse, Levophed weaned off this morning, drowsy/lethargic. EEG today. Serial H/H. PT 09/19; required assist of 2, recommend skilled rehab. PT held today - bedrest per nurse.
SNF referrals reviewed; accepted by [facility].
Met with patient who remained sleeping.
Spoke with patient's son Kashif; he has been getting updates from Dr Steiner about patient's status. Discussed that currently SNF rehab is recommended and his mother chose [facility] - he agrees to that plan unless her mobility improves prior to d/c.
Spoke with Swathi Kinney; provided update patient still acute and not close to d/c. CM will need to check for bed availability when close to discharge.
Patient would also benefit from working with OT- plan request OT once therapy is able to resume.
CM continuing to follow for d/c needs.
Plan probable [facility] SNF when medically ready.
--- NOTE | 2024-09-22 11:41 | CM ---
Patient [facility] the [facility] with Hx ICH s/p hemicraniotomy, dementia, seizures with Dx Acute blood loss anemia, Acute LE DVT. CT scan 09/21: new right retroperitoneal hematoma. Plan IVC filter. Room air. Receiving IV Abx, IV
Steroids, IV Keppra, IVF. Per nurse, Levophed weaned off this morning, drowsy/lethargic. PT held today - bedrest per nurse. EEG today. Serial H/H. Clear liquids. Seen by wound care nurse. PT 09/19; required assist of 2, recommend skilled
rehab.
SNF referrals reviewed; accepted by [facility].
Met with patient who remained sleeping.
Spoke with patient's son Kashif; he has been getting updates from Dr Steiner about patient's status. Discussed that currently SNF rehab is recommended and his mother chose [facility] - he agrees to that plan unless her mobility improves prior to d/c.
Spoke with Swathi Kinney; provided update patient still acute and not close to d/c. CM will need to check for bed availability when close to discharge.
Patient would also benefit from working with OT- plan request OT once therapy is able to resume.
CM continuing to follow for d/c needs.
Plan probable [facility] SNF when medically ready.
[2024-09-22] MEDS: SOLU-CORTEF 200 MG IV (11:51)
[2024-09-22] MEDS: VANCOCIN 540 MG IV (11:52)
[2024-09-22 12:29] LABS: Hematocrit 24.7 % (37.0-47.0)
--- NOTE | 2024-09-22 13:46 | W.PN.ONC2 ---
Today's Communication / Plan
-
.
Impression
Impression
acute VTE, 2nd lifetime event. hx prothrombin gene mutation. acute VTE developed off anticoagulation
ICH Jul 2024 after a traumatic fall
ABLA s/p 2unit prbc
Right retroperitoneal hematoma
suspect component of iron deficiency -iron 34, TIBC 177, % sat 19 and ferritin 95 - iron studies reflect taking oral iron [employer]
IVC filter placed 09/22
thrombocytopenia, no evidence of acute DIC with normal fibrinogen. s/p 1U SDP. No b12 or folate deficiency
tongue laceration from biting during seizure
seizure on keppra
Plan
Plan
f/u HIT
anticoagulation for bleeding
f/u MRI brain
parenteral iron repletion
on PPI
transfuse prn
will eventually need to determine if fall and bleeding risk outweigh benefit of anticoagulation resumption
Subjective/Objective
Subjective
Hgb stable ~9g/dl
platelets improved ~124k
remains critically ill
Vital Signs:
Vital Signs
Temp Pulse Resp BP Pulse Ox
97.7 F 86 14 110/54 96
09/22/24 11:32 09/22/24 12:38 09/22/24 12:38 09/22/24 12:38 09/22/24 12:06
Lab Results:
Laboratory Data
WBC 16.8 10^3/uL (4.8-10.8) H 09/22/24 04:04
Hgb 9.0 g/dL (12.0-16.0) L 09/22/24 12:15
Plt Count 124 10^3/uL (130-400) L 09/22/24 04:04
APTT 29.3 Sec (23.4-35.0) 09/21/24 12:48
eGFR 28.13 09/22/24 04:04
Orders
Orders
Orders From Last 24 Hours
09/22/24 04:04
B12 [Vitamin B12] IN AM
--- NOTE | 2024-09-22 14:59 | PN.CDI ---
CDI
- -
CDI:
Physician Documentation Request
Admit Date: 09/17/24 12:09
Dear Doctor Jatin,
Clinical Indicators:
Patient admitted with concern for seizure; PMH includes dementia & ICH, s/p hemicraniotomy.
09/[address] ordered: No acute intracranial abnormality.
09/22 (11:06) RN note, 'Patient drowsy/lethargic, responds to voice and able to open eyes; Ox1 with continued garbled speech.'
09/22 PN,'vwery sleepy today..Shock, unspecified can be 2/2 hemorrhage, infection or VTE...' Physical Exam: lethargic, but arousable.
Based on the above, could you clarify which, if any of the following, is the most likely etiology of the confusion/altered mental status.
Encephalopathy, please specify type
Lethargy only
Other, please specify
Use of terms such as suspected, likely, concern for, or probable (associated with a specific diagnosis that is being evaluated, monitored, or treated as if it exists) are acceptable and can be coded in the inpatient setting, when documented at the
time of discharge.
Thank you,
Eunice Fernando RN BSN
CDI Specialist
available via tiger text
Please use your independent medical judgment in providing your response.
--- NOTE | 2024-09-22 15:08 | PTCARENOTE ---
Patient off unit in [facility].
--- NOTE | 2024-09-22 15:12 | PTCARENOTE ---
Bladder scan done at the request of Dr Steiner prior to her going to [facility]: 265. Dr Steiner notified via TT.
--- NOTE | 2024-09-22 15:22 | PN.CDI ---
CDI
- -
CDI:
Physician Documentation Request
Admit Date: 09/17/24 12:09
Dear Doctor Jatin,
Clinical Indicators:
Patient admitted with concern for seizure.
09/20 [facility] RN skin/wound assessment: Bilateral Heels Stage 1 Pressure Injury, POA
Treatment ordered: No sting barrier and adhesive foam dressing
Physician documentation of the type and location of wounds is required for compliant documentation. Based on the above clinical findings and your assessment, please provide the following in your progress note:
1. Location of the ulcer/wound, including laterality.
2. Type (etiology) of ulcer/wound:
- Pressure (decubitus) ulcer
- Other
3. If a pressure ulcer, please also include the stage* of the ulcer:
- Stage 1 - Skin intact, non-blanchable redness
- Stage 2 - Partial thickness loss of dermis, includes intact or open blister
- Stage 3 - Full thickness tissue not including bone, tendon or muscle
- Stage 4 - Full thickness tissue loss, including exposed bone, tendon or muscle
- Unstageable - Full thickness loss in which the base of the ulcer is covered by slough (yellow, handy, crane, green or brown) and/or eschar (handy, brown or black) in the wound bed.
- Unable to determine
Use of terms such as suspected, likely, concern for, or probable (associated with a specific diagnosis that is being evaluated, monitored, or treated as if it exists) are acceptable and can be coded in the inpatient setting, when documented at the
time of discharge.
Thank you,
Eunice Fernando RN BSN
CDI Specialist
available via tiger text
Please use your independent medical judgment in providing your response.
*Source: National Pressure Ulcer Advisory Panel (NPUAP)
--- NOTE | 2024-09-22 16:16 | CON.ID ---
Consultation
-
Date/Time Consultation Requested: 09/22/2024 1046
Date/Time Consultation Performed: 09/22/2024 1500
Requesting Provider: Dr. Steiner
Performing Provider: Dr. Smtih
Reason for Consultation: Leukocytosis
Chief Complaint / Past History
History of Present Illness
Yue Michelle is an 79-year-old female being evaluated at the request of Dr. Steiner regarding leukocytosis. History is obtained from chart review along with patient interview, although patient was not able to provide significant history for
ga.
The patient has a significant past medical history of giant cell arteritis and presented to [facility] on 09/17 following having been found with blood in and around the mouth. Prior history indicates that she was hospitalized at [facility] in July 2024 after traumatic fall, during which she developed an intracranial hemorrhage which required craniotomy. She previously had been on anticoagulation for history of prothrombin gene mutation resulting in DVT. During her
hospitalization at [facility], she developed seizures and was started on Keppra. Following her acute hospitalization she was discharged to rehab, and finally returned home to [place]. EMS was called on the day of admission secondary to reported blood in
the mouth and altered consciousness. Upon arrival in the ER, it was felt that she had had a seizure and bit her tongue. There was concern for possible urinary tract infection, and she was placed on cefepime which has been transitioned to aztreonam
today due to ongoing leukocytosis. Infectious Diseases is asked to comment upon further antimicrobial management.
At the present time, the patient denies any specific pain. She is mildly sedated, having just returned from placement of an IVC filter.
Past History
Additional Past Medical History:
Dyslipidemia
DM
Valvular disease
Hx intracranial bleed (traumatic)
Mild dementia
Giant cell arteritis
Prothrombin gene mutation
Iron deficiency anemia
Additional Past Surgical History:
Cholecystectomy
Craniotomy
Bilateral knee replacement
Allergy History:
Penicillins Allergy (Verified 06/24/23 00:59)
Unknown ~ 50 years ago
Sulfa (Sulfonamide Antibiotics) Allergy (Verified 06/24/23 00:59)
Unknown ~ 50 years ago
Current Antibiotics:
Vancomycin
Aztreonam
Metronidazole
Social History
Tobacco: Former Smoker
Alcohol: None
Drug: None
Living: Assisted Living
Employment: Retired
Family History
Family History: Not Pertinent
Review of Systems
Vital Signs
Temp Pulse Resp BP Pulse Ox
98 F 86 16 130/72 100
09/22/24 15:48 09/22/24 15:48 09/22/24 15:48 09/22/24 15:00 09/22/24 15:48
Physical Exam
Physical Exam
Constitutional: Comfortable, Chronically Ill and Non-toxic
Eyes: No Conjunctival Hemorrhage and Sclera Anicteric
Oral: No Thrush and No Ulcers
Cardiovascular: S1/S2 and Murmur; Negative S3/S4
Pulmonary: Clear; Negative Wheezes or Rales
Gastrointestinal: Soft, Non Tender and Non Distended
Extremities: Edema; Negative Cyanosis or Erythema
Skin: Warm and Dry; Negative Rash or Jaundice
Neurological: Other (Arousable, but somnolent. Responsive to voice.)
Psychological: Calm
.
Lab / Diagnostic Study Results
09/22/24 04:04
Abs Immat Gran (auto) 0.2 10^3/uL (0-0.05) H 09/22/24 04:04
Absolute Neuts (auto) 12.5 10^3/uL (1.4-6.5) H 09/22/24 04:04
Absolute Lymphs (auto) 1.7 10^3/uL (1.2-3.4) 09/22/24 04:04
Absolute Monos (auto) 1.6 10^3/uL (0.1-0.6) H 09/22/24 04:04
Absolute Basos (auto) 0.1 10^3/uL (0-0.2) 09/22/24 04:04
Immature Gran % 1.1 % (0-0.5) H 09/22/24 04:04
Neutrophils % 74.6 % (42.2-75.2) 09/22/24 04:04
Lymphocytes % 9.9 % (20.5-51.1) L 09/22/24 04:04
Monocytes % 9.6 % (1.7-9.3) H 09/22/24 04:04
Eosinophils % 4.2 % (0-6) 09/22/24 04:04
Basophils % 0.6 % (0-2) 09/22/24 04:04
ESR 19 mm/hour (0-20) 09/19/24 09:05
Lactic Acid Cancelled 09/17/24 22:30
C-Reactive Protein 70.40 mg/L (0.0-10.00) H 09/19/24 11:29
Procalcitonin 0.54 ng/ml (0.0-0.25) H 09/22/24 08:09
Ur Squamous Epith Cells >30 /LPF (Few) 09/17/24 15:37
Microbiology Results
Micro:
09/17/24 10:02 Blood Culture - Final
Blood/Venous No Growth - Final Report
09/17/24 10:02 Blood Culture - Final
Blood/Venous No Growth - Final Report
09/21/24 09:16 Blood Parasites Smear - Final
Blood/Venous
09/19/24 12:50 Influenza Types A & B (MILAN) - Final
Nasal Swab Negative for Influenza A & B, NAAT
Negative results must be combined with clinical observations
and patient history.
Nucleic Acid Amplification test (NAAT)performed on the
[employer]TM[employer] by [employer] platform.
09/17/24 15:37 Urine Culture - Final
Urine No Significant Growth
09/17/24 15:37 MRSA Screen - Final
Nose No Methicillin Resistant Staphylococcus aureus isolated.
Imaging:
09/21/2024 CT abdomen/pelvis: New right-sided retroperitoneal hematoma with bilobed configuration. Surgically absent gallbladder. Liver, bile ducts, pancreas, spleen, adrenal glands and kidneys are unremarkable. No hydronephrosis.
09/21/2024 CT head without contrast: No acute intracranial abnormality. Stable postoperative changes compared to the previous CT of the head dated 09/17/2024
09/19/2024 Duplex ultrasound lower extremity: Occlusive thrombus throughout the right femoral vein, with nonocclusive thrombus within the right popliteal and peroneal veins. On the left there is a nonocclusive thrombus within the left popliteal vein.
Assessment / Plan
Leukocytosis
Retroperitoneal hematoma
DVT bilateral lower extremities; s/p IVC filter placement
Elevated procalcitonin
HTN
Dyslipidemia
Hx subdural hematoma
Mild dementia
Hx giant cell arteritis
Iron deficiency anemia
Recommendations:
Etiology of leukocytosis not immediately clear, although cultures have thus far been negative, thus may be reactive secondary to retroperitoneal bleed.
At present, patient does not have a left shift.
Procalcitonin noted to be elevated (on several occasions), but may be secondary to etiology other than bacterial infection (i.e. possibly secondary to DVT or retroperitoneal bleed)
Would favor discontinuation of antibiotics at this point with close observation.
Monitor white count and temperature curve. Repeat cultures should patient develop temperature spike.
Will continue to follow along with you.
[2024-09-22] MEDS: SOLU-CORTEF 50 MG IV ×2 (16:17→23:08)
[2024-09-22] MEDS: FLAGYL 500 MG IV (16:43)
[2024-09-22] MEDS: FERRLECIT 110 MG IV (16:57)
[2024-09-22] MEDS: DESENEX/MITRAZOL/ZEASORB 1 APPLIC TOPICAL (19:42)
[2024-09-22] MEDS: NSS (PRESERVATIVE FREE) 10 ML IV (19:42)
[2024-09-22] MEDS: PROTONIX IV 40 MG IV (19:43)
[2024-09-22 20:04] LABS: Hematocrit 28.7 % (37.0-47.0)
--- NOTE | 2024-09-22 22:32 | PTCARENOTE ---
assumed care of patient, pt incontinent of stool at shift change, whole bed bath and CHG cloth bath given. pt is AAox3, forgetful but able to make needs known. flat affect, some garbled, slow speech. little drowsy but easily arousable. VSS, 100% RA.
PW intact. calazime cream applied to sacrum. q2t. NS @ 80ml/hr running in right midline. 2000 H/H drawn 10.0/28.7. care ongoing.
[2024-09-23] VITALS (19 sets, daily range): BP systolic 120–149; BP diastolic 47–108; BMI 35.1
[2024-09-23 05:09] LABS: % Basophils 0.3 % (0-2); % Immature Granulocytes 1.8 % (0-0.5); % Lymphocytes 4.6 % (20.5-51.1); % Monocytes 3.4 % (1.7-9.3); % Neutrophils 89.9 % (42.2-75.2); Absolute Basophils 0.1 10^3/uL (0-0.2); Absolute Immature Granulocytes 0.3 10^3/uL (0-0.05); Absolute Lymphocytes 0.8 10^3/uL (1.2-3.4); Absolute Monocytes 0.6 10^3/uL (0.1-0.6); Absolute Neutrophils 15.8 10^3/uL (1.4-6.5); Hemoglobin 9.3 g/dL (12.0-16.0); Mean Corp Hgb Conc. 34.4 g/dL (33.0-37.0); Mean Corpuscular Hgb 30.3 pg (27.0-31.0); Mean Corpuscular Volume 87.9 fL (81.0-99.0); Mean Platelet Volume 11.6 fL (7.4-10.4); Nucleated Red Blood Cells % 0.2 %; Platelet Count 130 10^3/uL (130-400); Red Blood Cell Count 3.07 10^6/uL (4.20-5.40); Red Cell Dist. Width 16.2 % (11.5-14.5); White Blood Cell Count 17.5 10^3/uL (4.8-10.8)
[2024-09-23 05:12] LABS: APTT 34.2 Sec (23.4-35.0); INR 1.21; PT 15.6 Sec (11.4-14.6)
[2024-09-23 05:32] LABS: ALT (SGPT) 28 U/L (0-35); AST (SGOT) 57 U/L (14-36); Albumin 2.3 g/dl (3.5-5.0); Alkaline Phosphatase 97 U/L (38-126); Blood Urea Nitrogen 41 mg/dl (7-17); Calcium 7.4 mg/dl (8.4-10.2); Carbon Dioxide 16 mmol/L (22-30); Chloride 116 mmol/L (98-107); Creatine Phosphokinase 1423 U/L (30-135); Estimated Creatinine Clearance 28 ml/min; Glucose 220 mg/dl (70-99); Magnesium 1.7 mg/dl (1.6-2.3); Potassium 4.2 mmol/L (3.5-5.1); Sodium 139 mmol/L (135-145); Total Bilirubin 0.8 mg/dl (0.2-1.3); Total Protein 4.5 g/dl (6.3-8.2)
[2024-09-23 05:36] LABS: Vancomycin Random 19.6 ug/ml
--- NOTE | 2024-09-23 09:44 | W.PN.ID1 ---
Date of Service
Date of Service: September 23, 2024
Today's Communication
Observe closely off antibiotics.
Assessment / Plan
Leukocytosis
Retroperitoneal hematoma
DVT - bilateral lower extremities; s/p IVC filter placement
Elevated procalcitonin
HTN
Dyslipidemia
Hx subdural hematoma
Mild dementia
Hx giant cell arteritis
Iron deficiency anemia
Recommendations:
Prior procalcitonin testing noted to be elevated (on several occasions), but may be secondary to etiology other than bacterial infection (i.e. possibly secondary to DVT or retroperitoneal bleed)
Previous antibiotics discontinued after no apparent effect on leukocytosis.
Observe off antibiotics for now.
Monitor white count and temperature curve. Repeat cultures should patient develop temperature spike.
����������������������������������������������������������
Chief Complaint
-: Leukocytosis
Subjective / Review of Systems
Review of Systems: No Fever
Vital Signs / Physical Exam
Vital Signs
Vital Signs
Temp Pulse Resp BP Pulse Ox
98.1 F 94 25 140/108 97
09/23/24 07:35 09/23/24 06:00 09/23/24 06:00 09/23/24 06:00 09/23/24 06:00
Physical Exam
Constitutional: Comfortable, Chronically Ill and Non-toxic
Eyes: Sclera Anicteric
Cardiovascular: S1/S2; Negative S3/S4
Pulmonary: Non Labored
Gastrointestinal: Non Distended
Psychological: Calm
Objective Data
Lab Data
Lab Results
09/23/24 04:28
ESR 19 mm/hour (0-20) 09/19/24 09:05
PT 15.6 Sec (11.4-14.6) H 09/23/24 04:28
INR 1.21 09/23/24 04:28
APTT 34.2 Sec (23.4-35.0) 09/23/24 04:28
Estimated Creat Clear 28 ml/min 09/23/24 04:28
Lactic Acid Cancelled 09/17/24 22:30
Total Bilirubin 0.8 mg/dl (0.2-1.3) 09/23/24 04:28
AST 57 U/L (14-36) H 09/23/24 04:28
ALT 28 U/L (0-35) 09/23/24 04:28
Alkaline Phosphatase 97 U/L (38-126) 09/23/24 04:28
C-Reactive Protein 70.40 mg/L (0.0-10.00) H 09/19/24 11:29
Most recent labs reviewed.
Micro Results:
09/17/24 10:02 Blood Culture - Final
Blood/Venous No Growth - Final Report
09/17/24 10:02 Blood Culture - Final
Blood/Venous No Growth - Final Report
09/21/24 09:16 Blood Parasites Smear - Final
Blood/Venous
09/19/24 12:50 Influenza Types A & B (MILAN) - Final
Nasal Swab Negative for Influenza A & B, NAAT
Negative results must be combined with clinical observations
and patient history.
Nucleic Acid Amplification test (NAAT)performed on the
[employer] platform.
09/17/24 15:37 Urine Culture - Final
Urine No Significant Growth
09/17/24 15:37 MRSA Screen - Final
Nose No Methicillin Resistant Staphylococcus aureus isolated.
Imaging:
09/21/2024 CT abdomen/pelvis: New right-sided retroperitoneal hematoma with bilobed configuration. Surgically absent gallbladder. Liver, bile ducts, pancreas, spleen, adrenal glands and kidneys are unremarkable. No hydronephrosis.
09/21/2024 CT head without contrast: No acute intracranial abnormality. Stable postoperative changes compared to the previous CT of the head dated 09/17/2024
09/19/2024 Duplex ultrasound lower extremity: Occlusive thrombus throughout the right femoral vein, with nonocclusive thrombus within the right popliteal and peroneal veins. On the left there is a nonocclusive thrombus within the left popliteal vein.
[2024-09-23] MEDS: PROTONIX IV 40 MG IV ×2 (09:46→20:44)
[2024-09-23] MEDS: NSS (PRESERVATIVE FREE) 10 ML IV ×2 (09:46→20:44)
[2024-09-23] MEDS: SOLU-CORTEF 50 MG IV (09:47)
[2024-09-23] MEDS: DESENEX/MITRAZOL/ZEASORB 1 APPLIC TOPICAL ×2 (09:47→20:44)
[2024-09-23] MEDS: KEPPRA 500 MG IV ×2 (09:47→20:44)
--- NOTE | 2024-09-23 10:51 | W.PN.HOSP.TC ---
Today's Communication/Plan
-
more awake and feeling better
Replete Mg
stop Hydrocortisone
COag profile: INR WNL, minimally elevated pt, but PTT WNL
Assessment / Plan
Assessment / Plan
79yo F with PMHX of ICH s/p hemicraniotomy, GCA, VICKY, dementia, HTN, seizure d/o admitted from facility with unwitnessed seizures after she was found with blood in her mouth from tongue bite happened duriing seizure episode. Her AED was recently
weaned off. As per neurology - restarted Keppra. Had few episodes of vomiting in ED. Also with leukocytosis and new acute blood loss anemia 2/2 spontaneous retroperitoneal bleed with shock
Prognosis guarded, explained to son that if no improvement in condition - hospice might be appropriate
A/P:
#Shock, unspecified
can be 2/2 hemorrhage, infection or VTE
Wean off levophed, transfuse and IVC filter
Stress dose steroids stopped
#Acute blood loss anemia 2/2 spontaneous retroperitoneal bleed 2/2 heparin on VICKY
#Prothrombin gene mutation
Reviewed with radiologist CT abd on admission - no concern for hematoma duering initial CT
Found On CT abd without contrast on 09/22/24, due to hypotension - CTA abd done, (as benefit overtightened the risk with CKD) and no active bleeding seen
S/P 2 units PRBC on 09/21/24
follow H&H and transfuse as needed
avoid anticoagulation, antiplatelets, NSTAIDs
GI signed off since FOBT neg
Croombs neg
IV iron
Locket Maker consult: questionable if fall and bleeding risk will allow anticoagulation later
#Seizure d/o with concern for seizures on admission
s/p sutures on tongue in ED- remove in 4-6 days
Cont keppra as per Neurologist
Seizure precautions
Repeated EEG on 09/22/24 discussed with neurologist - suggestion to stop Neurontin to avoid oversedation
#Leukocytosis
Ucx neg
CT concerned for RLL pneumonia
Cefepime empirically without resolution
Procal without change - questionable usefulness with CKD
ID consult: follow off Abx
Can also be 2/2 DVT
#Acute LE DVT
as per agreement with neuroSx - started anticoagulation, but developed drop in Hgb
V/Q scan with low probability of PE
IVC filter placed on 09/22/24
#Thrombocytopenia maybe 2/2 Actemra
Actemra on hold
possibly reactive, seen on admission
4T score low, but will check HIT Ab
follow CBC
Hematology consult
#CKD stage 3b-4 with metabolic acidosis
follow Cr
#Lactic acidosis 2/2 seizure activity
resolved
#Mild recurrent transaminitis
hepatitis panel neg
#Rhabdomyolysis
can be 2/2 hematoma reabsorption
follow CPK and cont IVF
#Hx of hemicraniotomy with extra-axial collection and brain compression which are improved from prior
recent laceration of L janet - no open or infected wound seen
NeuroSx follows
MRI brain pending
wound consult
#GCA
#Dementia, unspecified
#Essential HTN
cont home meds
hold Actemra
DVT ppx on scds
DNR/DNI
I have spent at least 56min reviewing chart, test results, communication with family and providing direct patient care
Anticipated Discharge: > 48 hours
Subjective/Interval History
-
Date of Service: September 23, 2024
Objective Data
-
Labs:
Laboratory Results
09/23/24 09/23/24 09/23/24
04:00 04:28 12:00
WBC 17.5 H
Hgb Cancelled 9.3 L Pending
Hct Cancelled 27.0 L Pending
Plt Count 130
PT 15.6 H
INR 1.21
APTT 34.2
Sodium 139
Potassium 4.2
Chloride 116 H
Carbon Dioxide 16 L
BUN 41 H
Creatinine 1.6 H
Glucose 220 H
Calcium 7.4 L
Total Bilirubin 0.8
AST 57 H
ALT 28
Alkaline Phosphatase 97
Vital Signs:
Vital Signs
Temp Pulse Resp BP Pulse Ox
98.1 F 94 25 140/108 98
09/23/24 07:35 09/23/24 06:00 09/23/24 06:00 09/23/24 06:00 09/23/24 08:25
I&O
09/22/24 09/23/24 09/24/24
06:59 06:59 06:59
Intake Total 1197 / 1197 2200 / 2200
Output Total 150 / 150 750 / 750
Balance 1047 / 1047 1450 / 1450
Review of Systems
-
History Source: Patient
All other systems: Reviewed and negative
Physical Exam
-
General: No Apparent Distress
HEENT: Normocephalic
Cardiac: Regular Rhythm
GI: Soft, Nontender and Nondistended
Neuro: Awake, Alert, Oriented and AO x 3
Psych: Calm
[2024-09-23 11:13] LABS: Haptoglobin 172 mg/dL (30-200)
[2024-09-23] MEDS: MAGNESIUM SULFATE 102 GRAMS IV (11:19)
[2024-09-23] MEDS: NSS 1000 IV (11:19)
[2024-09-23] MEDS: FERRLECIT 110 MG IV (14:10)
[2024-09-23 14:39] LABS: Hematocrit 27.8 % (37.0-47.0); Hemoglobin 9.7 g/dL (12.0-16.0)
--- NOTE | 2024-09-23 15:56 | PTCARENOTE ---
Pt presents as assessed. Aox2, not time. Drowsy, forgetful. Neuro checks as documented. Pt with extremely poor appetite. Family member at bedside; updated on plan of care. Q2T maintained. Call vela within reach; safe environment maintained.
--- NOTE | 2024-09-23 17:10 | PTCARENOTE ---
Pt's friend Maria Luisa Lorenzo at bedside, with pt's permission, updated on plan of care. Friend verbalizes support for pt and states she has begun arranging rehab treatment for pt- pt in agreement with this plan.
--- NOTE | 2024-09-23 17:49 | PTCARENOTE ---
Pt's midline noted to be leaking. IVT paged and to bedside.
--- NOTE | 2024-09-23 19:28 | PTCARENOTE ---
RA MIDLINE LEAKING, DC'D. SUGGESTED US OF RA D/T EDEMA AND ERYTHEMA. LA MIDLINE PLACED FOR PVA, RN AWARE
[2024-09-24] VITALS (14 sets, daily range): BP systolic 121–172; BP diastolic 52–153; BMI 35.0
--- NOTE | 2024-09-24 02:09 | VATNOTE ---
VAT paged to RD ML as patient was pulling at it and took off dressing. Dressing partially attached upon arrival, primary RN had dressing secured with sterile gauze. Patient had caused a skin tear to inner part of ML dressing about 2cm by 1cm,
primary RN at bedside. ML found to now have an ECL of 1cm, however ML still flushes with ease and has a positive BR. Old dressing removed, site cleaned and new sterile dressing replaced. ML site now bleeding, sterile gauze placed under dressing with
a redress date of tomorrow. Dressing labeled, primary RN applied mitts. Will continue to monitor.
--- NOTE | 2024-09-24 05:00 | PTCARENOTE ---
Recommended by ENERGY SPECIALIST for US of RUE. WESLY Roy made aware. Rx received for ultrasound of RUE.
Pt pulled midline dressing partially off. IV team and WESLY Roy notified. Midline redressed by IV team. Rx received for mitts as a protective intervention. Pt responding well to mitts and is resting in bed.
[2024-09-24 05:52] LABS: % Basophils 0.5 % (0-2); % Eosinophils 5.3 % (0-6); % Immature Granulocytes 2.9 % (0-0.5); % Lymphocytes 18.5 % (20.5-51.1); % Monocytes 10.4 % (1.7-9.3); % Neutrophils 62.4 % (42.2-75.2); Absolute Basophils 0.1 10^3/uL (0-0.2); Absolute Eosinophils 0.7 10^3/uL (0-0.7); Absolute Immature Granulocytes 0.4 10^3/uL (0-0.05); Absolute Lymphocytes 2.4 10^3/uL (1.2-3.4); Absolute Monocytes 1.3 10^3/uL (0.1-0.6); Hematocrit 23.6 % (37.0-47.0); Mean Corp Hgb Conc. 33.9 g/dL (33.0-37.0); Mean Corpuscular Hgb 30.2 pg (27.0-31.0); Mean Corpuscular Volume 89.1 fL (81.0-99.0); Mean Platelet Volume 11.3 fL (7.4-10.4); Nucleated Red Blood Cells % 0.4 %; Platelet Count 125 10^3/uL (130-400); Red Blood Cell Count 2.65 10^6/uL (4.20-5.40); Red Cell Dist. Width 16.8 % (11.5-14.5); White Blood Cell Count 12.7 10^3/uL (4.8-10.8)
[2024-09-24 06:26] LABS: ALT (SGPT) 22 U/L (0-35); AST (SGOT) 40 U/L (14-36); Albumin 2.1 g/dl (3.5-5.0); Alkaline Phosphatase 69 U/L (38-126); Blood Urea Nitrogen 39 mg/dl (7-17); Calcium 7.5 mg/dl (8.4-10.2); Carbon Dioxide 17 mmol/L (22-30); Chloride 120 mmol/L (98-107); Creatine Phosphokinase 718 U/L (30-135); Estimated Creatinine Clearance 32 ml/min; Glucose 96 mg/dl (70-99); Potassium 3.7 mmol/L (3.5-5.1); Sodium 141 mmol/L (135-145); Total Bilirubin 0.8 mg/dl (0.2-1.3); Total Protein 4.1 g/dl (6.3-8.2); eGFR 38.03
[2024-09-24] MEDS: KEPPRA 500 MG IV ×2 (08:18→19:52)
[2024-09-24] MEDS: NSS (PRESERVATIVE FREE) 10 ML IV ×2 (08:18→19:52)
[2024-09-24] MEDS: PROTONIX IV 40 MG IV ×2 (08:18→19:52)
[2024-09-24] MEDS: DESENEX/MITRAZOL/ZEASORB 1 APPLIC TOPICAL ×2 (08:18→19:52)
--- NOTE | 2024-09-24 09:27 | W.PN.ID1 ---
Date of Service
Date of Service: September 24, 2024
Today's Communication
Continue to observe off antibiotics.
Assessment / Plan
Leukocytosis
Retroperitoneal hematoma
DVT - bilateral lower extremities; s/p IVC filter placement
Elevated procalcitonin
HTN
Dyslipidemia
Hx subdural hematoma
Mild dementia
Hx giant cell arteritis
Iron deficiency anemia
Recommendations:
Prior procalcitonin testing noted to be elevated (on several occasions), but may be secondary to etiology other than bacterial infection (i.e. possibly secondary to DVT or retroperitoneal bleed)
Previous antibiotics discontinued after no apparent effect on leukocytosis.
Observe off antibiotics for now.
Monitor white count and temperature curve. Repeat cultures should patient develop temperature spike.
����������������������������������������������������������
Chief Complaint
-: Leukocytosis
Subjective / Review of Systems
Review of Systems: No Fever and No Chills
Vital Signs / Physical Exam
Vital Signs
Vital Signs
Temp Pulse Resp BP Pulse Ox
97.8 F 77 15 128/69 97
09/24/24 07:20 09/24/24 06:00 09/24/24 06:00 09/24/24 06:00 09/24/24 06:00
Physical Exam
Constitutional: Comfortable, Chronically Ill and Non-toxic
Eyes: Sclera Anicteric
Cardiovascular: S1/S2; Negative S3/S4
Pulmonary: Non Labored
Gastrointestinal: Non Distended
Psychological: Calm
Objective Data
Lab Data
Lab Results
09/24/24 05:26
ESR 19 mm/hour (0-20) 09/19/24 09:05
PT 15.6 Sec (11.4-14.6) H 09/23/24 04:28
INR 1.21 09/23/24 04:28
APTT 34.2 Sec (23.4-35.0) 09/23/24 04:28
Estimated Creat Clear 32 ml/min 09/24/24 05:26
Lactic Acid Cancelled 09/17/24 22:30
Total Bilirubin 0.8 mg/dl (0.2-1.3) 09/24/24 05:26
AST 40 U/L (14-36) H 09/24/24 05:26
ALT 22 U/L (0-35) 09/24/24 05:26
Alkaline Phosphatase 69 U/L (38-126) 09/24/24 05:26
C-Reactive Protein 70.40 mg/L (0.0-10.00) H 09/19/24 11:29
Most recent labs reviewed.
Micro Results:
09/17/24 10:02 Blood Culture - Final
Blood/Venous No Growth - Final Report
09/17/24 10:02 Blood Culture - Final
Blood/Venous No Growth - Final Report
09/21/24 09:16 Blood Parasites Smear - Final
Blood/Venous
09/19/24 12:50 Influenza Types A & B (MILAN) - Final
Nasal Swab Negative for Influenza A & B, NAAT
Negative results must be combined with clinical observations
and patient history.
Nucleic Acid Amplification test (NAAT)performed on the
[employer] platform.
09/17/24 15:37 Urine Culture - Final
Urine No Significant Growth
09/17/24 15:37 MRSA Screen - Final
Nose No Methicillin Resistant Staphylococcus aureus isolated.
Imaging:
09/21/2024 CT abdomen/pelvis: New right-sided retroperitoneal hematoma with bilobed configuration. Surgically absent gallbladder. Liver, bile ducts, pancreas, spleen, adrenal glands and kidneys are unremarkable. No hydronephrosis.
09/21/2024 CT head without contrast: No acute intracranial abnormality. Stable postoperative changes compared to the previous CT of the head dated 09/17/2024
09/19/2024 Duplex ultrasound lower extremity: Occlusive thrombus throughout the right femoral vein, with nonocclusive thrombus within the right popliteal and peroneal veins. On the left there is a nonocclusive thrombus within the left popliteal vein.
--- NOTE | 2024-09-24 10:29 | W.PN.HOSP.TC ---
Addendum entered and electronically signed by John Steiner MD 09/24/24 11:43:
#Occlusive thrombus within the right cephalic vein
Recent life-threatening retroperitoneal hemorrhage - avoid anticoagulation
Addendum entered and electronically signed by John Steiner MD 09/24/24 10:38:
#Bilateral Heels Stage 1 Pressure Injury, POA
WOund care
#Acute metabolic encephalopathy on admission with seizures, later 2/2 acute disease
Original Note:
Today's Communication/Plan
-
cont ot observe off Abx
H&H to follow
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
MRI brain
Assessment / Plan
Assessment / Plan
79yo F with PMHX of ICH s/p hemicraniotomy, GCA, VICKY, dementia, HTN, seizure d/o admitted from facility with unwitnessed seizures after she was found with blood in her mouth from tongue bite happened duriing seizure episode. Her AED was recently
weaned off. As per neurology - restarted [place]. Had few episodes of vomiting in ED. Also with leukocytosis and new acute blood loss anemia 2/2 spontaneous retroperitoneal bleed with shock
Prognosis guarded, explained to son that if no improvement in condition - hospice might be appropriate
A/P:
#Shock, unspecified
can be 2/2 hemorrhage, infection or VTE
Wean off levophed, transfuse and IVC filter
Stress dose steroids stopped
#Acute blood loss anemia 2/2 spontaneous retroperitoneal bleed 2/2 heparin on VICKY
#Prothrombin gene mutation
Reviewed with radiologist CT abd on admission - no concern for hematoma duering initial CT
Found On CT abd without contrast on 09/22/24, due to hypotension - CTA abd done, (as benefit overtightened the risk with CKD) and no active bleeding seen
S/P 2 units PRBC on 09/21/24
follow H&H and transfuse as needed
avoid anticoagulation, antiplatelets, NSTAIDs
GI signed off since FOBT neg
Croombs neg
IV iron
Glaze Grinder consult: questionable if fall and bleeding risk will allow anticoagulation later
#Seizure d/o with concern for seizures on admission
s/p sutures on tongue in ED- remove in 4-6 days
Cont keppra as per Neurologist
Seizure precautions
Repeated EEG on 09/22/24 discussed with neurologist - suggestion to stop Neurontin to avoid oversedation
#Leukocytosis
Ucx neg
CT concerned for RLL pneumonia
Cefepime empirically without resolution
Procal without change - questionable usefulness with CKD
ID consult: follow off Abx
Can also be 2/2 DVT
#Acute LE DVT
as per agreement with neuroSx - started anticoagulation, but developed drop in Hgb
V/Q scan with low probability of PE
IVC filter placed on 09/22/24
#Thrombocytopenia maybe 2/2 Actemra
Actemra on hold
possibly reactive, seen on admission
4T score low, but will check HIT Ab
follow CBC
Hematology consult
#CKD stage 3b-4 with metabolic acidosis
follow Cr
#Lactic acidosis 2/2 seizure activity
resolved
#Mild recurrent transaminitis
hepatitis panel neg
#Rhabdomyolysis
can be 2/2 hematoma reabsorption
follow CPK and cont IVF
#Hx of hemicraniotomy with extra-axial collection and brain compression which are improved from prior
recent laceration of L janet - no open or infected wound seen
NeuroSx follows
MRI brain pending
wound consult
#GCA
#Dementia, unspecified
#Essential HTN
cont home meds
hold Actemra
DVT ppx on scds
DNR/DNI
I have spent at least 56min reviewing chart, test results, communication with family and providing direct patient care
Anticipated Discharge: > 48 hours
Subjective/Interval History
-
Date of Service: September 24, 2024
Objective Data
-
Labs:
Laboratory Results
09/24/24 09/24/24
05:26 12:00
WBC 12.7 H
Hgb 8.0 L Pending
Hct 23.6 L Pending
Plt Count 125 L
Sodium 141
Potassium 3.7
Chloride 120 H
Carbon Dioxide 17 L
BUN 39 H
Creatinine 1.4 H
Glucose 96
Calcium 7.5 L
Total Bilirubin 0.8
AST 40 H
ALT 22
Alkaline Phosphatase 69
Vital Signs:
Vital Signs
Temp Pulse Resp BP Pulse Ox
97.8 F 81 17 136/71 98
09/24/24 07:20 09/24/24 08:00 09/24/24 08:00 09/24/24 08:00 09/24/24 09:30
I&O
09/23/24 09/24/24 09/25/24
06:59 06:59 06:59
Intake Total 2200 / 2200 240 / 240
Output Total 750 / 750 655 / 655
Balance 1450 / 1450 -415 / -415
Review of Systems
-
History Source: Patient
All other systems: Reviewed and negative
Neuro: Reports Other (pain to light touch in toes, pain in groin b/l)
Physical Exam
-
General: No Apparent Distress
HEENT: Normocephalic
Respiratory: Clear to Auscultation
Cardiac: Regular Rhythm
GI: Soft, Nontender and Nondistended
Genito-urinary: No Costovertebral Tender
Musculoskeletal: No Clubbing, No Cyanosis, No Edema and Other (dorsalis pedis pulse well felt on b/l feet)
Skin: Warm
Neuro: Awake, Alert and Oriented
Psych: Calm and Other (lethargic)
[2024-09-24 12:25] LABS: Hematocrit 23.1 % (37.0-47.0); Hemoglobin 7.9 g/dL (12.0-16.0)
[2024-09-24] MEDS: FERRLECIT 110 MG IV (14:55)
--- NOTE | 2024-09-24 18:20 | PTCARENOTE ---
Rec'd pt this AM. As shift progressed, pt became more awake and alert. Able to remain awake to eat meals with 1:1 feeding. very confused. mitts in place. During Range of motion Pt immediately started to pick at her head wound. Hand massage completed
and mitts on. vital signs stable.
[2024-09-24 20:00] LABS: Hematocrit 24.6 % (37.0-47.0); Hemoglobin 8.6 g/dL (12.0-16.0)
--- NOTE | 2024-09-24 22:38 | PTCARENOTE ---
assumed care of patient. pt is AAOx1- oriented to self only. VSS. bilateral mitts in place. RA 96%. pt incontinent of urine and bowel tonight, full bed bath given. PW in place. q2t. NSR on the monitor. pt was fed some of her dinner during
nightshift. was able to eat most of pudding. h/h drawn per order, 8.6/24.6. bed alarm on. care ongoing.
[2024-09-25] VITALS (10 sets, daily range): BP systolic 131–179; BP diastolic 64–99; PULSE 71; O2SAT 97; BMI 35.3
[2024-09-25 04:26] LABS: % Basophils 0.8 % (0-2); % Eosinophils 7.2 % (0-6); % Immature Granulocytes 4.1 % (0-0.5); % Monocytes 10.2 % (1.7-9.3); % Neutrophils 58.7 % (42.2-75.2); Absolute Basophils 0.1 10^3/uL (0-0.2); Absolute Eosinophils 0.8 10^3/uL (0-0.7); Absolute Immature Granulocytes 0.4 10^3/uL (0-0.05); Absolute Monocytes 1.1 10^3/uL (0.1-0.6); Absolute Neutrophils 6.2 10^3/uL (1.4-6.5); Hematocrit 23.6 % (37.0-47.0); Hemoglobin 8.1 g/dL (12.0-16.0); Mean Corp Hgb Conc. 34.3 g/dL (33.0-37.0); Mean Corpuscular Hgb 30.2 pg (27.0-31.0); Mean Corpuscular Volume 88.1 fL (81.0-99.0); Mean Platelet Volume 11.1 fL (7.4-10.4); Nucleated Red Blood Cells % 0.3 %; Platelet Count 120 10^3/uL (130-400); Red Blood Cell Count 2.68 10^6/uL (4.20-5.40); Red Cell Dist. Width 16.5 % (11.5-14.5); White Blood Cell Count 10.6 10^3/uL (4.8-10.8)
[2024-09-25 04:57] LABS: ALT (SGPT) 21 U/L (0-35); AST (SGOT) 32 U/L (14-36); Albumin 2.1 g/dl (3.5-5.0); Alkaline Phosphatase 77 U/L (38-126); Blood Urea Nitrogen 32 mg/dl (7-17); Calcium 7.6 mg/dl (8.4-10.2); Carbon Dioxide 17 mmol/L (22-30); Chloride 117 mmol/L (98-107); Estimated Creatinine Clearance 34 ml/min; Glucose 133 mg/dl (70-99); Potassium 3.5 mmol/L (3.5-5.1); Sodium 139 mmol/L (135-145); Total Bilirubin 0.8 mg/dl (0.2-1.3); Total Protein 4.2 g/dl (6.3-8.2); eGFR 41.57
--- NOTE | 2024-09-25 08:30 | PTOTSP ---
Speech Language Pathology
VIDEOFLUOROSCOPIC SWALLOWING EXAMINATION (VSE) completed. Mild oropharyngeal dysphagia noted with transient supraglottic penetration (PAS 2) with consecutive cup sips of thin liquids and mildly thick liquids. No persistent penetration or any
aspiration noted. Only trace intermittent base of tongue/vallecular residue noted.
Recommend:
(1) Upgrade to IDDSI Level 6 (soft/bite-sized) and thin liquids
(2) Aspiration precautions: sit upright, slow rate, set up assist with full supervision, ensure oral cavity clear post P.O. intake
(3) Meds as tolerated
(4) PARK AIDE to continue to follow
[2024-09-25] MEDS: NSS (PRESERVATIVE FREE) 10 ML IV ×2 (10:24→20:30)
[2024-09-25] MEDS: PROTONIX IV 40 MG IV ×2 (10:25→20:30)
[2024-09-25] MEDS: KEPPRA 500 MG IV ×2 (10:25→20:30)
[2024-09-25] MEDS: DESENEX/MITRAZOL/ZEASORB 1 APPLIC TOPICAL ×2 (10:25→20:30)
--- NOTE | 2024-09-25 10:34 | W.PN.HOSP.TC ---
Today's Communication/Plan
-
leukocytosis resolved off Abx
MRI brain
Can restart PT/OT afterwards
Assessment / Plan
Assessment / Plan
79yo F with PMHX of ICH s/p hemicraniotomy, GCA, VICKY, dementia, HTN, seizure d/o admitted from facility with unwitnessed seizures after she was found with blood in her mouth from tongue bite happened duriing seizure episode. Her AED was recently
weaned off. As per neurology - restarted Keppra. Had few episodes of vomiting in ED. Also with leukocytosis and new acute blood loss anemia 2/2 spontaneous retroperitoneal bleed with shock
Prognosis guarded, explained to son that if no improvement in condition - hospice might be appropriate
As per son - patient before ICH was having problems with memory and signs of intermittent confusion, raising possibility of undiagnosed dementia
A/P:
#Shock, unspecified
#Acute metabolic encephalopathy on unspecified dementia
can be 2/2 hemorrhage, infection or VTE
Wean off levophed, transfuse and IVC filter
Stress dose steroids stopped
#Acute blood loss anemia 2/2 spontaneous retroperitoneal bleed 2/2 heparin on IVCKY
#Prothrombin gene mutation
Reviewed with radiologist CT abd on admission - no concern for hematoma during initial CT
Found On CT abd without contrast on 09/22/24, due to hypotension - CTA abd done, (as benefit overtightened the risk with CKD) and no active bleeding seen
S/P 2 units PRBC on 09/21/24
follow H&H and transfuse as needed
avoid anticoagulation, antiplatelets, NSTAIDs
GI signed off since FOBT neg
Croombs neg
IV iron
App[employer] Bo[employer] consult: questionable if fall and bleeding risk will allow anticoagulation later
#Seizure d/o with concern for seizures on admission
s/p sutures on tongue in ED- remove in 4-6 days
Cont keppra as per Neurologist
Seizure precautions
Repeated EEG on 09/22/24 discussed with neurologist - suggestion to stop Neurontin to avoid oversedation
#Leukocytosis
Ucx neg
CT concerned for RLL pneumonia
Cefepime empirically without resolution
Procal without change - questionable usefulness with CKD
ID consult: follow off Abx
Can also be 2/2 DVT
#Acute LE DVT
#Acute Occlusive thrombus within the right cephalic vein in the upper arm
as per agreement with neuroSx - started anticoagulation, but developed drop in Hgb
V/Q scan with low probability of PE
IVC filter placed on 09/22/24
#Thrombocytopenia maybe 2/2 Actemra
Actemra on hold
possibly reactive, seen on admission
4T score low, but will check HIT Ab
follow CBC
Hematology consult
#CKD stage 3b-4 with metabolic acidosis
follow Cr
#Lactic acidosis 2/2 seizure activity
resolved
#Mild recurrent transaminitis
hepatitis panel neg
#Rhabdomyolysis
can be 2/2 hematoma reabsorption
follow CPK and cont IVF
#Hx of hemicraniotomy with extra-axial collection and brain compression which are improved from prior
recent laceration of L janet - no open or infected wound seen
NeuroSx follows
MRI brain pending
wound consult
#GCA
#Dementia, unspecified
#Essential HTN
cont home meds
hold Actemra
DVT ppx on scds
DNR/DNI
I have spent at least 56min reviewing chart, test results, communication with family and providing direct patient care
Anticipated Discharge: > 48 hours
Subjective/Interval History
-
Date of Service: September 25, 2024
Objective Data
-
Labs:
Laboratory Results
09/25/24 09/25/24 09/25/24
04:12 04:12 04:12
WBC 10.6
Hgb 8.1 L Cancelled
Hct 23.6 L Cancelled
Plt Count 120 L
Sodium 139
Potassium 3.5
Chloride 117 H
Carbon Dioxide 17 L
BUN 32 H
Creatinine 1.3 H
Glucose 133 H
Calcium 7.6 L
Total Bilirubin 0.8
AST 32
ALT 21
Alkaline Phosphatase 77
09/25/24 09/25/24
12:00 20:00
WBC
Hgb Pending Pending
Hct Pending Pending
Plt Count
Sodium
Potassium
Chloride
Carbon Dioxide
BUN
Creatinine
Glucose
Calcium
Total Bilirubin
AST
ALT
Alkaline Phosphatase
Vital Signs:
Vital Signs
Temp Pulse Resp BP Pulse Ox
98.2 F 75 15 136/65 96
09/25/24 05:00 09/25/24 06:00 09/25/24 06:00 09/25/24 06:00 09/25/24 06:00
I&O
09/24/24 09/25/24 09/26/24
06:59 06:59 06:59
Intake Total 240 / 240
Output Total 655 / 655 450 / 450
Balance -415 / -415 -450 / -450
Physical Exam
-
General: No Apparent Distress
Respiratory: Clear to Auscultation
Cardiac: Regular Rhythm
Musculoskeletal: No Clubbing, No Cyanosis and No Edema
Neuro: Awake, Alert, Oriented and AO x 3
Psych: Calm and Apparent Dementia
[2024-09-25 12:51] LABS: Hematocrit 27.5 % (37.0-47.0); Hemoglobin 9.4 g/dL (12.0-16.0)
[2024-09-25 13:31] LABS: Lyme Antibody Screen, EIA Negative (Negative)
[2024-09-25] MEDS: FERRLECIT 110 MG IV (13:56)
--- NOTE | 2024-09-25 14:04 | W.PN.UPDATE ---
Update Note
Progress Note Update
MRI of the brain with and without contrast performed on 09/25/2024 at approximate 10:50 AM was reviewed. Images were personally viewed and interpreted by me. There appears to be a small subdural collection that does not appear to be pathologically
enhance or have suspicion for epidural abscess/empyema. Subdural collection is likely postoperative in nature.
No further neurosurgical recommendations at present time. Continue management per medicine.
--- NOTE | 2024-09-25 21:05 | W.PN.ONC2 ---
Today's Communication / Plan
-
Continue to hold anticoagulation.
Impression
Impression
acute VTE, 2nd lifetime event. hx prothrombin gene mutation. acute VTE developed off anticoagulation
[facility] Jul 2024 after a traumatic fall
ABLA s/p 2unit prbc on 09/03
Right retroperitoneal hematoma
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
IVC filter placed 09/22
thrombocytopenia, no evidence of acute DIC with normal fibrinogen. s/p 1U SDP. No b12 or folate deficiency. HIT negative
tongue laceration from biting during seizure
seizure on keppra
Plan
Plan
Continue to hold anticoagulation, has IVC filter.
New R cephalic vein thrombosis noted, pt asymptomatic, no intervention needed.
Given recent ICH 07/2024 s/p fall and now r/p hematoma, risk-benefit may favor keeping her off anticoagulation but will reassess closer to hospital d/c.
Subjective/Objective
Chief Complaint
Hematology follow up of acute VTE in setting of prothrombin gene mutation, now with r/p hematoma
Subjective
Lethargic currently and poor historian. Denies spontaneous complaint.
Vital Signs:
Vital Signs
Temp Pulse Resp BP Pulse Ox
97.4 F 106 18 157/64 97
09/25/24 15:55 09/25/24 15:35 09/25/24 15:35 09/25/24 12:26 09/25/24 20:48
Lab Results:
Laboratory Data
WBC 10.6 10^3/uL (4.8-10.8) 09/25/24 04:12
Hgb Cancelled 09/25/24 20:00
Plt Count 120 10^3/uL (130-400) L 09/25/24 04:12
PT 15.6 Sec (11.4-14.6) H 09/23/24 04:28
INR 1.21 09/23/24 04:28
APTT 34.2 Sec (23.4-35.0) 09/23/24 04:28
eGFR 41.57 09/25/24 04:12
HIT negative
Physical Exam
Awake, lethargic but non-toxic
[2024-09-25] MEDS: LOPRESSOR 5 MG IV (21:52)
--- NOTE | 2024-09-25 22:00 | PTCARENOTE ---
assumed care of patient. pt is oriented to self only. in bilateral mitts as patient keeps trying to pick at scabs on head and pull out midline. inc. of stools and urine. full bed bath given in beginning of shift. q2t. pt was medsurg level of care,
upon checking patient BP, BP elevated 174/90 179/86 P-70s-80s. PRN lopressor given per MAR for SBP >150. pt protocol patient placed back on tele monitor and now tele level of care. care ongoing.
[2024-09-26] VITALS (14 sets, daily range): BP systolic 139–192; BP diastolic 70–153; PULSE 93–149; O2SAT 93–95; BMI 35.3
[2024-09-26] MEDS: APRESOLINE 5 MG IV (00:46)
--- NOTE | 2024-09-26 00:58 | PTCARENOTE ---
pt's BP still high after IV lopressor dose. 171/79 P-85. 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 care ongoing.
[2024-09-26 04:20] LABS: Hematocrit 25.2 % (37.0-47.0); Hemoglobin 8.8 g/dL (12.0-16.0); Mean Corp Hgb Conc. 34.9 g/dL (33.0-37.0); Mean Corpuscular Hgb 30.7 pg (27.0-31.0); Mean Corpuscular Volume 87.8 fL (81.0-99.0); Mean Platelet Volume 11.3 fL (7.4-10.4); Platelet Count 129 10^3/uL (130-400); Red Blood Cell Count 2.87 10^6/uL (4.20-5.40); Red Cell Dist. Width 16.3 % (11.5-14.5); White Blood Cell Count 10.8 10^3/uL (4.8-10.8)
[2024-09-26 04:27] LABS: % Basophils 0.7 % (0-2); % Immature Granulocytes 5.8 % (0-0.5); % Lymphocytes 17.7 % (20.5-51.1); % Monocytes 7.5 % (1.7-9.3); % Neutrophils 63.3 % (42.2-75.2); Absolute Basophils 0.1 10^3/uL (0-0.2); Absolute Eosinophils 0.5 10^3/uL (0-0.7); Absolute Immature Granulocytes 0.6 10^3/uL (0-0.05); Absolute Lymphocytes 1.9 10^3/uL (1.2-3.4); Absolute Monocytes 0.8 10^3/uL (0.1-0.6); Absolute Neutrophils 6.9 10^3/uL (1.4-6.5); Nucleated Red Blood Cells % 0.3 %
[2024-09-26 04:33] LABS: ALT (SGPT) 20 U/L (0-35); AST (SGOT) 30 U/L (14-36); Albumin 2.3 g/dl (3.5-5.0); Alkaline Phosphatase 83 U/L (38-126); Blood Urea Nitrogen 26 mg/dl (7-17); Calcium 7.8 mg/dl (8.4-10.2); Carbon Dioxide 21 mmol/L (22-30); Chloride 117 mmol/L (98-107); Estimated Creatinine Clearance 34 ml/min; Glucose 143 mg/dl (70-99); Potassium 3.6 mmol/L (3.5-5.1); Sodium 142 mmol/L (135-145); Total Bilirubin 0.9 mg/dl (0.2-1.3); Total Protein 4.5 g/dl (6.3-8.2); eGFR 41.57
--- NOTE | 2024-09-26 05:02 | W.PN.UPDATE ---
Update Note
Progress Note Update
bp trending high. will restart metoprolol
--- NOTE | 2024-09-26 08:58 | W.PN.ONC2 ---
Today's Communication / Plan
-
.
Impression
Impression
acute VTE, 2nd lifetime event. hx prothrombin gene mutation. acute VTE developed off anticoagulation
[facility] Jul 2024 after a traumatic fall
ABLA s/p 2unit prbc on 09/03
Right retroperitoneal hematoma
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
IVC filter placed 09/22
thrombocytopenia, no evidence of acute DIC with normal fibrinogen. s/p 1U SDP. No b12 or folate deficiency. HIT negative
tongue laceration from biting during seizure
seizure on keppra
Plan
Plan
Continue to hold anticoagulation, has IVC filter.
New R cephalic vein thrombosis noted, pt asymptomatic, no intervention needed.
Given recent ICH 07/2024 s/p fall and now r/p hematoma, risk-benefit may favor keeping her off anticoagulation but will reassess closer to hospital d/c.
Subjective/Objective
Subjective
no new complaints
sitting in chair
Vital Signs:
Vital Signs
Temp Pulse Resp BP Pulse Ox
98.3 F 77 15 155/70 97
09/26/24 03:00 09/26/24 06:00 09/26/24 06:00 09/26/24 04:00 09/25/24 20:48
Lab Results:
Laboratory Data
WBC 10.8 10^3/uL (4.8-10.8) 09/26/24 03:35
Hgb 8.8 g/dL (12.0-16.0) L 09/26/24 03:35
Plt Count 129 10^3/uL (130-400) L 09/26/24 03:35
PT 15.6 Sec (11.4-14.6) H 09/23/24 04:28
INR 1.21 09/23/24 04:28
APTT 34.2 Sec (23.4-35.0) 09/23/24 04:28
eGFR 41.57 09/26/24 03:35
[2024-09-26] MEDS: PROTONIX IV 40 MG IV ×2 (09:17→20:44)
[2024-09-26] MEDS: LOPRESSOR 50 MG PO ×2 (09:18→20:45)
[2024-09-26] MEDS: NSS (PRESERVATIVE FREE) 10 ML IV ×2 (09:18→20:44)
[2024-09-26] MEDS: DESENEX/MITRAZOL/ZEASORB 1 APPLIC TOPICAL ×2 (09:18→20:44)
[2024-09-26] MEDS: KEPPRA 500 MG IV ×2 (09:18→20:45)
--- NOTE | 2024-09-26 10:14 | W.PN.HOSP.TC ---
Today's Communication/Plan
-
more awake today
toprol noted
If stable for 24h - can be d/c
PT/OT
Assessment / Plan
Assessment / Plan
79yo F with PMHX of ICH s/p hemicraniotomy, GCA, VICKY, dementia, HTN, seizure d/o admitted from facility with unwitnessed seizures after she was found with blood in her mouth from tongue bite happened duriing seizure episode. Her AED was recently
weaned off. As per neurology - restarted Keppra. Had few episodes of vomiting in ED. Also with leukocytosis and new acute blood loss anemia 2/2 spontaneous retroperitoneal bleed with shock
Prognosis guarded, explained to son that if no improvement in condition - hospice might be appropriate
As per son - patient before ICH was having problems with memory and signs of intermittent confusion, raising possibility of undiagnosed dementia
A/P:
#Shock, unspecified
#Acute metabolic encephalopathy on unspecified dementia
can be 2/2 hemorrhage, infection or VTE
Wean off levophed, transfuse and IVC filter
Stress dose steroids stopped
#Acute blood loss anemia 2/2 spontaneous retroperitoneal bleed 2/2 heparin on VICKY
#Prothrombin gene mutation
Reviewed with radiologist CT abd on admission - no concern for hematoma during initial CT
Found On CT abd without contrast on 09/22/24, due to hypotension - CTA abd done, (as benefit overtightened the risk with CKD) and no active bleeding seen
S/P 2 units PRBC on 09/21/24
follow H&H and transfuse as needed
avoid anticoagulation, antiplatelets, NSTAIDs
GI signed off since FOBT neg
Croombs neg
IV iron
Vaccine Specialist consult: questionable if fall and bleeding risk will allow anticoagulation later
#Seizure d/o with concern for seizures on admission
s/p sutures on tongue in ED- remove in 4-6 days
Cont keppra as per Neurologist
Seizure precautions
Repeated EEG on 09/22/24 discussed with neurologist - suggestion to stop Neurontin to avoid oversedation
#Leukocytosis
Ucx neg
CT concerned for RLL pneumonia
Cefepime empirically without resolution
Procal without change - questionable usefulness with CKD
ID consult: follow off Abx
Can also be 2/2 DVT
#Acute LE DVT
#Acute Occlusive thrombus within the right cephalic vein in the upper arm
as per agreement with neuroSx - started anticoagulation, but developed drop in Hgb
V/Q scan with low probability of PE
IVC filter placed on 09/22/24
#Thrombocytopenia maybe 2/2 Actemra
Actemra on hold
possibly reactive, seen on admission
4T score low, but will check HIT Ab
follow CBC
Hematology consult
#CKD stage 3b-4 with metabolic acidosis
follow Cr
#Lactic acidosis 2/2 seizure activity
resolved
#Mild recurrent transaminitis
hepatitis panel neg
#Rhabdomyolysis
can be 2/2 hematoma reabsorption
follow CPK and cont IVF
#Hx of hemicraniotomy with extra-axial collection and brain compression which are improved from prior
recent laceration of L janet - no open or infected wound seen
NeuroSx follows
MRI brain pending
wound consult
#GCA
#Dementia, unspecified
#Essential HTN
cont home meds
hold Actemra
DVT ppx on scds
DNR/DNI
I have spent at least 56min reviewing chart, test results, communication with family and providing direct patient care
Anticipated Discharge: Within 24 hours
Subjective/Interval History
-
Date of Service: September 26, 2024
Objective Data
-
Labs:
Laboratory Results
09/26/24
03:35
WBC 10.8
Hgb 8.8 L
Hct 25.2 L
Plt Count 129 L
Sodium 142
Potassium 3.6
Chloride 117 H
Carbon Dioxide 21 L
BUN 26 H
Creatinine 1.3 H
Glucose 143 H
Calcium 7.8 L
Total Bilirubin 0.9
AST 30
ALT 20
Alkaline Phosphatase 83
Vital Signs:
Vital Signs
Temp Pulse Resp BP Pulse Ox
97.7 F 77 15 155/70 97
09/26/24 07:01 09/26/24 06:00 09/26/24 06:00 09/26/24 04:00 09/25/24 20:48
I&O
09/25/24 09/26/24 09/27/24
06:59 06:59 06:59
Intake Total 240 / 240
Output Total 450 / 450 1100 / 1100
Balance -450 / -450 -860 / -860
Review of Systems
-
History Source: Patient
All other systems: Reviewed and negative
Physical Exam
-
General: No Apparent Distress
Respiratory: Clear to Auscultation
Cardiac: Regular Rhythm
Neuro: Awake, Alert and Oriented
Psych: Calm
--- NOTE | 2024-09-26 14:34 | W.PN.ID1 ---
Date of Service
Date of Service: September 26, 2024
Today's Communication
Sign off
Assessment / Plan
Leukocytosis
Retroperitoneal hematoma
DVT - bilateral lower extremities; s/p IVC filter placement
Elevated procalcitonin
HTN
Dyslipidemia
Hx subdural hematoma
Mild dementia
Hx giant cell arteritis
Iron deficiency anemia
Recommendations:
Patient remains afebrile, and white count remains normal.
No acute infectious process noted.
Will see again at your request.
����������������������������������������������������������
Chief Complaint
-: Leukocytosis
Subjective / Review of Systems
Review of Systems: No Fever
Vital Signs / Physical Exam
Vital Signs
Vital Signs
Temp Pulse Resp BP Pulse Ox
97.7 F 77 15 155/70 97
09/26/24 07:01 09/26/24 06:00 09/26/24 06:00 09/26/24 04:00 09/25/24 20:48
Physical Exam
Constitutional: Comfortable, Chronically Ill and Non-toxic
Eyes: Sclera Anicteric
Cardiovascular: S1/S2; Negative S3/S4
Pulmonary: Non Labored
Gastrointestinal: Non Distended
Psychological: Calm
Objective Data
Lab Data
Lab Results
09/26/24 03:35
09/26/24 03:35
ESR 19 mm/hour (0-20) 09/19/24 09:05
PT 15.6 Sec (11.4-14.6) H 09/23/24 04:28
INR 1.21 09/23/24 04:28
APTT 34.2 Sec (23.4-35.0) 09/23/24 04:28
Estimated Creat Clear 34 ml/min 09/26/24 03:35
Lactic Acid Cancelled 09/17/24 22:30
Total Bilirubin 0.9 mg/dl (0.2-1.3) 09/26/24 03:35
AST 30 U/L (14-36) 09/26/24 03:35
ALT 20 U/L (0-35) 09/26/24 03:35
Alkaline Phosphatase 83 U/L (38-126) 09/26/24 03:35
C-Reactive Protein 70.40 mg/L (0.0-10.00) H 09/19/24 11:29
Most recent labs reviewed.
Micro Results:
09/17/24 10:02 Blood Culture - Final
Blood/Venous No Growth - Final Report
09/17/24 10:02 Blood Culture - Final
Blood/Venous No Growth - Final Report
09/21/24 09:16 Blood Parasites Smear - Final
Blood/Venous
09/19/24 12:50 Influenza Types A & B (MILAN) - Final
Nasal Swab Negative for Influenza A & B, NAAT
Negative results must be combined with clinical observations
and patient history.
Nucleic Acid Amplification test (NAAT)performed on the
[employer] platform.
09/17/24 15:37 Urine Culture - Final
Urine No Significant Growth
09/17/24 15:37 MRSA Screen - Final
Nose No Methicillin Resistant Staphylococcus aureus isolated.
Imaging:
09/21/2024 CT abdomen/pelvis: New right-sided retroperitoneal hematoma with bilobed configuration. Surgically absent gallbladder. Liver, bile ducts, pancreas, spleen, adrenal glands and kidneys are unremarkable. No hydronephrosis.
09/21/2024 CT head without contrast: No acute intracranial abnormality. Stable postoperative changes compared to the previous CT of the head dated 09/17/2024
09/19/2024 Duplex ultrasound lower extremity: Occlusive thrombus throughout the right femoral vein, with nonocclusive thrombus within the right popliteal and peroneal veins. On the left there is a nonocclusive thrombus within the left popliteal vein.
--- NOTE | 2024-09-26 18:23 | PTCARENOTE ---
pt moving to room 339. report given to telegraph mechanic.
--- NOTE | 2024-09-26 20:00 | PTCARENOTE ---
Pt arrived to 3 west from ICU. Pt moved to bed 339-1 with staff assistance. Pt oriented to room, b/l mitts remain intact. Pt able to say we are in [facility], unable to say month and year. Will continue to monitor pt.
[2024-09-27] VITALS (7 sets, daily range): BP systolic 121–178; BP diastolic 78–90
--- NOTE | 2024-09-27 07:46 | W.PN.ONC2 ---
Today's Communication / Plan
-
Discharge planning.
IVC filter will be the primary blood clot prevention. Anticoagulation risk outweigh benefits.
Hematology will sign off.
Impression
Impression
acute VTE, 2nd lifetime event. hx prothrombin gene mutation. acute VTE developed off anticoagulation
ICH Jul 2024 after a traumatic fall
ABLA s/p 2unit prbc on 09/03
Right retroperitoneal hematoma
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
IVC filter placed 09/22
thrombocytopenia, no evidence of acute DIC with normal fibrinogen. s/p 1U SDP. No b12 or folate deficiency. HIT negative
tongue laceration from biting during seizure
seizure on keppra
Plan
Plan
Continue to hold anticoagulation, has IVC filter.
New R cephalic vein thrombosis noted, pt asymptomatic, no intervention needed.
Given recent ICH 07/2024 s/p fall and now r/p hematoma, risk-benefit may favor keeping her off anticoagulation but will reassess closer to hospital d/c.
Subjective/Objective
Chief Complaint
ACS Heme F/u
Subjective
Vital Signs:
Vital Signs
Temp Pulse Resp BP Pulse Ox
98.2 F 82 14 165/78 96
09/27/24 07:32 09/27/24 07:32 09/27/24 07:32 09/27/24 07:32 09/27/24 07:32
Lab Results:
Laboratory Data
WBC 10.8 10^3/uL (4.8-10.8) 09/26/24 03:35
Hgb 8.8 g/dL (12.0-16.0) L 09/26/24 03:35
Plt Count 129 10^3/uL (130-400) L 09/26/24 03:35
PT 15.6 Sec (11.4-14.6) H 09/23/24 04:28
INR 1.21 09/23/24 04:28
APTT 34.2 Sec (23.4-35.0) 09/23/24 04:28
eGFR 41.57 09/26/24 03:35
Physical Exam
Cardiology: Normal Sinus Rhythm
Pulmonary: Clear
[2024-09-27] MEDS: LOPRESSOR 50 MG PO ×2 (09:09→20:37)
[2024-09-27] MEDS: PROTONIX IV 40 MG IV ×2 (09:09→20:37)
[2024-09-27] MEDS: NSS (PRESERVATIVE FREE) 10 ML IV ×2 (09:09→20:37)
[2024-09-27] MEDS: KEPPRA 500 MG IV ×2 (09:10→20:37)
[2024-09-27] MEDS: DESENEX/MITRAZOL/ZEASORB 1 APPLIC TOPICAL ×2 (09:11→20:36)
[2024-09-27 10:19] LABS: % Basophils 0.6 % (0-2); % Eosinophils 4.2 % (0-6); % Immature Granulocytes 3.4 % (0-0.5); % Lymphocytes 15.7 % (20.5-51.1); % Monocytes 7.2 % (1.7-9.3); % Neutrophils 68.9 % (42.2-75.2); Absolute Basophils 0.1 10^3/uL (0-0.2); Absolute Eosinophils 0.6 10^3/uL (0-0.7); Absolute Immature Granulocytes 0.4 10^3/uL (0-0.05); Absolute Lymphocytes 2.1 10^3/uL (1.2-3.4); Absolute Monocytes 0.9 10^3/uL (0.1-0.6); Hematocrit 27.8 % (37.0-47.0); Hemoglobin 9.4 g/dL (12.0-16.0); Mean Corp Hgb Conc. 33.8 g/dL (33.0-37.0); Mean Corpuscular Hgb 30.1 pg (27.0-31.0); Mean Corpuscular Volume 89.1 fL (81.0-99.0); Mean Platelet Volume 11.3 fL (7.4-10.4); Nucleated Red Blood Cells % 0.2 %; Platelet Count 151 10^3/uL (130-400); Red Blood Cell Count 3.12 10^6/uL (4.20-5.40); Red Cell Dist. Width 16.7 % (11.5-14.5); White Blood Cell Count 13.1 10^3/uL (4.8-10.8)
--- NOTE | 2024-09-27 10:37 | W.PN.HOSP.TC ---
Addendum entered and electronically signed by John Steiner MD 09/27/24 11:31:
#L heel blister (stage 2 pressure injury)
Offloading and wound care
Original Note:
Today's Communication/Plan
-
medcially stable for d/c - pending CM for confirmation about placemnt
Assessment / Plan
Assessment / Plan
79yo F with PMHX of ICH s/p hemicraniotomy, GCA, VICKY, dementia, HTN, seizure d/o admitted from facility with unwitnessed seizures after she was found with blood in her mouth from tongue bite happened duriing seizure episode. Her AED was recently
weaned off. As per neurology - restarted Ghulamppra. Had few episodes of vomiting in ED. Also with leukocytosis and new acute blood loss anemia 2/2 spontaneous retroperitoneal bleed with shock. Due to DVT found in b/l LE and R UE - IVF placed that is
the only management at this time as discussed with personnel arbitrator.
Prognosis guarded, explained to son that if no improvement in condition - hospice might be appropriate. At this time as condition stabilized
As per son - patient before ICH was having problems with memory and signs of intermittent confusion, raising possibility of undiagnosed dementia
A/P:
#Shock, unspecified
#Acute metabolic encephalopathy on unspecified dementia
can be 2/2 hemorrhage, infection or VTE
Wean off levophed, transfuse and IVC filter
Stress dose steroids stopped
#Acute blood loss anemia 2/2 spontaneous retroperitoneal bleed 2/2 heparin on VICKY
#Prothrombin gene mutation
Reviewed with radiologist CT abd on admission - no concern for hematoma during initial CT
Found On CT abd without contrast on 09/22/24, due to hypotension - CTA abd done, (as benefit overtightened the risk with CKD) and no active bleeding seen
S/P 2 units PRBC on 09/21/24
follow H&H and transfuse as needed
avoid anticoagulation, antiplatelets, NSTAIDs
GI signed off since FOBT neg
Croombs neg
IV iron
Technical Account Manager consult: questionable if fall and bleeding risk will allow anticoagulation later, currently risk overweight benefit
#Seizure d/o with concern for seizures on admission
s/p sutures on tongue in ED- remove in 4-6 days
Cont keppra as per Neurologist
Seizure precautions
Repeated EEG on 09/22/24 discussed with neurologist - suggestion to stop Neurontin to avoid oversedation
#Leukocytosis
Ucx neg
CT concerned for RLL pneumonia
Cefepime empirically without resolution
Procal without change - questionable usefulness with CKD
ID consult: follow off Abx, signed off
Can also be 2/2 DVT
#Acute LE DVT
#Acute Occlusive thrombus within the right cephalic vein in the upper arm
as per agreement with neuroSx - started anticoagulation, but developed drop in Hgb
V/Q scan with low probability of PE
IVC filter placed on 09/22/24
#Thrombocytopenia maybe 2/2 Actemra
Actemra on hold
possibly reactive, seen on admission
4T score low, but will check HIT Ab
follow CBC
Hematology consult
#CKD stage 3b-4 with metabolic acidosis
follow Cr
#Lactic acidosis 2/2 seizure activity
resolved
#Mild recurrent transaminitis
hepatitis panel neg
#Rhabdomyolysis
can be 2/2 hematoma reabsorption
follow CPK and cont IVF
#Hx of hemicraniotomy with extra-axial collection and brain compression which are improved from prior
recent laceration of L janet - no open or infected wound seen
NeuroSx follows
MRI brain with normal postsurgical findings as discussed with neuroSx
wound consult
#Diverticulosis
#GCA
#Dementia, unspecified
#Essential HTN
cont home meds
hold Actemra
DVT ppx on scds
DNR/DNI
I have spent at least 56min reviewing chart, test results, communication with family and providing direct patient care
Anticipated Discharge: Within 24 hours
Subjective/Interval History
-
Date of Service: September 27, 2024
Objective Data
-
Labs:
Laboratory Results
09/27/24
10:01
WBC 13.1 H
Hgb 9.4 L
Hct 27.8 L
Plt Count 151
Sodium Pending
Potassium Pending
Chloride Pending
Carbon Dioxide Pending
BUN Pending
Creatinine Pending
Glucose Pending
Calcium Pending
Total Bilirubin Pending
AST Pending
ALT Pending
Alkaline Phosphatase Pending
Vital Signs:
Vital Signs
Temp Pulse Resp BP Pulse Ox
98.2 F 82 14 165/78 96
09/27/24 07:32 09/27/24 07:32 09/27/24 07:32 09/27/24 07:32 09/27/24 07:32
I&O
09/26/24 09/27/24 09/28/24
06:59 06:59 06:59
Intake Total 240 / 240
Output Total 1100 / 1100 400 / 400
Balance -860 / -860 -400 / -400
Review of Systems
-
History Source: Patient
All other systems: Reviewed and negative
Physical Exam
-
General: No Apparent Distress
Respiratory: Clear to Auscultation
Cardiac: Regular Rhythm
GI: Soft, Nontender and Nondistended
Musculoskeletal: No Clubbing, No Cyanosis and No Edema
Neuro: Awake, Alert, Oriented and AO x 3
Psych: Calm
[2024-09-27 11:18] LABS: ALT (SGPT) 21 U/L (0-35); AST (SGOT) 29 U/L (14-36); Albumin 2.6 g/dl (3.5-5.0); Alkaline Phosphatase 91 U/L (38-126); Blood Urea Nitrogen 22 mg/dl (7-17); Carbon Dioxide 22 mmol/L (22-30); Chloride 114 mmol/L (98-107); Estimated Creatinine Clearance 37 ml/min; Glucose 146 mg/dl (70-99); Potassium 3.6 mmol/L (3.5-5.1); Sodium 140 mmol/L (135-145); Total Bilirubin 1.1 mg/dl (0.2-1.3); eGFR 45.76
--- NOTE | 2024-09-27 11:25 | WOUNDNOTE ---
SCALP (TOP, R SIDE)
--- NOTE | 2024-09-27 11:26 | WOUNDNOTE ---
R 4TH TOE
--- NOTE | 2024-09-27 11:30 | WOUNDNOTE ---
WO RN note: Patient seen during prevention rounds (patient on HAPI report for L heel PI) with aluminizer Trudy and nurse Educator Missy. Patient developed a L heel blister (stage 2 pressure injury). R heel slow to lisa red. Trace LE edema.
+Pedal pulses. PO intake poor as per RADHA Ramírez. Patient is on a Waffle static air overlay with proper inflation. No sting barrier wipe and foam adhesive dressing applied to heels by funeral service manager Trudy. Patient incontinent of urine. Paulette care given.
Patient turned to R semi side lying position with help from RADHA Yates and RADHA Louis. Foot Waffle boots applied. t/c SPD and ordered foam turning wedge. Discussed with PCT Irma. Updated RADHA Ramírez. Updated Dr. Pillai who approved skin/wound
care, air overlay or air mattress, soft heel relief boots. Care plan and discharge instructions to be updated. Will follow as needed.
--- NOTE | 2024-09-27 12:00 | WOUNDNOTE ---
WOC RN note: Luis Medina re: recommend an air mattress for patient, she is high risk for a pressure injury and has a L heel stage 2 pressure injury.
[2024-09-27] MEDS: LOPRESSOR 5 MG IV (14:38)
--- NOTE | 2024-09-27 17:00 | CM ---
Spoke with Xiang Kinney . Pt has to have no behaviors and have no mitts on for 24 hours.
Will update Xiang Ferrara tomorrow.
Pt will need ambulance for max a x2 and confused.
[facility]
report [phone]
fax [phone]
[facility] To [facility]
[2024-09-28 03:50] VITALS: BP 160/83
[2024-09-28 07:33] VITALS: BP 165/90
--- NOTE | 2024-09-28 08:42 | W.PN.HOSP.TC ---
Today's Communication/Plan
-
dc
Assessment / Plan
Assessment / Plan
Physical Exam
Constitutional: Comfortable, Chronically Ill and Non-toxic
Eyes: No Conjunctival Hemorrhage and Sclera Anicteric
Oral: No Thrush and No Ulcers. No sutures.
Cardiovascular: S1/S2 and Murmur
Pulmonary: Clear; Negative Wheezes or Rales
Gastrointestinal: Soft, Non Tender and Non Distended
Extremities: Edema; Negative Cyanosis or Erythema
Skin: Warm and Dry; Negative Rash or Jaundice
Neurological: Other (Arousable, but confused. Followed simple commands
Psychological: Calm
79yo F with PMHX of ICH s/p hemicraniotomy, GCA, VICKY, dementia, HTN, seizure d/o admitted from facility with unwitnessed seizures after she was found with blood in her mouth from tongue bite happened duriing seizure episode. Her AED was recently
weaned off. As per neurology - restarted Ghulamppra. Had few episodes of vomiting in ED. Also with leukocytosis and new acute blood loss anemia 2/2 spontaneous retroperitoneal bleed with shock. Due to DVT found in b/l LE and R UE - IVF placed that is
the only management at this time as discussed with workers compensation defense attorney.
Prognosis guarded, explained to son that if no improvement in condition - hospice might be appropriate. At this time as condition stabilized
As per son - patient before ICH was having problems with memory and signs of intermittent confusion, raising possibility of undiagnosed dementia
A/P:
#Shock, unspecified
#Acute metabolic encephalopathy on unspecified dementia
can be 2/2 hemorrhage, infection or VTE
Wean off levophed, transfuse and IVC filter
Stress dose steroids stopped
#Acute blood loss anemia 2/2 spontaneous retroperitoneal bleed 2/2 heparin on VICKY
#Prothrombin gene mutation
Reviewed with radiologist CT abd on admission - no concern for hematoma during initial CT
Found On CT abd without contrast on 09/22/24, due to hypotension - CTA abd done, (as benefit overtightened the risk with CKD) and no active bleeding seen
S/P 2 units PRBC on 09/21/24
follow H&H and transfuse as needed
avoid anticoagulation, antiplatelets, NSTAIDs
GI signed off since FOBT neg
Croombs neg
IV iron
Statistical Reporting Analyst consult: questionable if fall and bleeding risk will allow anticoagulation later, currently risk overweight benefit
#Seizure d/o with concern for seizures on admission
s/p sutures on tongue in ED-resolved. No sutures seen in tongue. d/w2 ER doctor, material is dissolvable
Cont keppra as per Neurologist
Seizure precautions
Repeated EEG on 09/22/24 discussed with neurologist - suggestion to stop Neurontin to avoid oversedation
#Leukocytosis
Ucx neg
CT concerned for RLL pneumonia
Cefepime empirically without resolution
Procal without change - questionable usefulness with CKD
ID consult: follow off Abx, signed off
Can also be 2/2 DVT
#Acute LE DVT
#Acute Occlusive thrombus within the right cephalic vein in the upper arm. Per hematology, asymptomatic, no need for intervention
as per agreement with neuroSx - started anticoagulation, but developed drop in Hgb
V/Q scan with low probability of PE
IVC filter placed on 09/22/24
#Thrombocytopenia maybe 2/2 Actemra
Actemra on hold
possibly reactive, seen on admission
4T score low, but will check HIT Ab
follow CBC
Hematology consulted
#CKD stage 3b-4 with metabolic acidosis
L flank pain. No hematuria
#Lactic acidosis 2/2 seizure activity
resolved
#Mild recurrent transaminitis
hepatitis panel neg
#Rhabdomyolysis
can be 2/2 hematoma reabsorption
follow CPK and cont IVF
#Hx of hemicraniotomy with extra-axial collection and brain compression which are improved from prior
recent laceration of L janet - no open or infected wound seen
NeuroSx followed
MRI brain with normal postsurgical findings as discussed with neuroSx
wound consult
#Diverticulosis
#GCA
#Dementia, unspecified
#Essential HTN
cont home meds
hold Actemra
DVT ppx on scds
DNR/DNI
Total discharge time spent to see the patient, examine the patient, review data and lab results, discussedischarge plan with patient, son, caseworker intake and nursing staff around 65 minutes
Anticipated Discharge: Today
Subjective/Interval History
-
Date of Service: September 28, 2024
No pain issues
No fevers
No sob
No agitation over night
Objective Data
-
Vital Signs:
Vital Signs
Temp Pulse Resp BP Pulse Ox
98.6 F 87 16 165/90 99
09/28/24 07:33 09/28/24 07:33 09/28/24 07:33 09/28/24 07:33 09/28/24 07:33
I&O
09/27/24 09/28/24 09/29/24
06:59 06:59 06:59
Intake Total
Output Total 400 / 400
Balance -400 / -400
[2024-09-28] MEDS: DESENEX/MITRAZOL/ZEASORB 1 APPLIC TOPICAL (08:48)
[2024-09-28] MEDS: PROTONIX 40 MG PO (08:48)
[2024-09-28] MEDS: LOPRESSOR 50 MG PO (08:50)
[2024-09-28] MEDS: NSS (PRESERVATIVE FREE) IV (08:50)
[2024-09-28] MEDS: PROTONIX IV IV (09:06)
--- NOTE | 2024-09-28 09:38 | CM ---
entered discharge order.
Spoke with Xiang Kinney . Pt has had no behaviors and no mitts on for 24 hours.
awaiting acceptance form [facility]
Pt will need ambulance for max a x2 and confused.Medical nec form completed.
Spoke with Kashif son he agrees with dc to [facility] via ambulance today.IMM reviewed and agreed with dc.
[facility]
report [phone]
fax [phone]
[facility] To [facility] via ambulance
[2024-09-28] MEDS: KEPPRA IV (10:00)
[2024-09-28] MEDS: KEPPRA 500 MG PO (10:07)
[2024-09-28 10:56] VITALS: BP 143/85
--- NOTE | 2024-09-28 14:40 | W.DCSUMMARY ---
Discharge Summary
Discharge Data
Date of Admission: 09/17/24
Date of Discharge: 09/28/24
-
Pending Results: No
Hospital Course
79 years old female was brought into the hospital when she was found to have discharge/blood around her mouth for presumed seizure. She had wound on her tongue that was sutured by dissolvable stitches. Patient had history of a fall that led to
subdural hemorrhage status post surgery at [facility]. Patient was started on Keppra medication for post operative seizure. Scan of the head was negative for acute bleeding with postoperative changes. Patient was evaluated by neurology
and neurosurgery. Images did not show acute finding and neurosurgery did not recommend against use of anticoagulation if needed. Patient had history of prothrombin gene mutation. She was found to have acute deep venous thrombosis of bilateral
lower extremity with new right cephalic vein thrombosis. Patient had thrombocytopenia. Patient was started on intravenous heparin but later developed right retroperitoneal hematoma. Hematology recommended against systemic anticoagulation due to
increasing risk. Patient was seen by infectious diseases call center support consultant for leukocytosis and mild fever. It was felt to be reactive and she did not have acute infectious process and did not finish course of antibiotics. Patient had IVC filter
placement. Patient also received blood transfusion to treat acute blood loss anemia after developing the abdominal hematoma. Of note, neurology recommended to continue Keppra. Patient remained hemodynamically stable. She was evaluated by
physical therapy recommended snf facility placement. Patient was discharged in a stable condition. Discharge plan and instructions were discussed with her son.
Discharge Plan
-
Patient Disposition: Retirement/SNF
Discharge Diagnosis/Procedures: -Acute blood loss anemia. c/w oral iron
-Acute DVT with history of prothrombin gene mutation, intracranial hemorrhage in July 2024 after a traumatic fall (small subdural collection) status post blood transfusion. Starting anticoagulation resulted in a right retroperitoneal hematoma.
Status post IVC filter. Per hematology, anticoagulation risk weight benefits.
-History of leukocytosis, elevated procalcitonin. No fever. Seen by ID, no acute infectious process noted.
-Right cephalic vein thrombosis, asymptomatic, no intervention needed per hematology
-Seizure disorder, started on Keppra. Seen by neurology.
Diet: As tolerated
Activity Restrictions/Additional Instructions:
Wound Care Instructions Right Cranium- Clean with normal saline, apply Vaseline BID.
Bilateral [id number] barrier and adhesive foam. Change Q 72 hours and PRN if loose.
Air bed
Turning schedule
Keep heels off-loaded; soft heel relief boots as tolerated (i.e. TruVue lite or Foot Waffle boots); air chair cushion under boots/heels.
Follow up with wound regular senior care provider or Wound care center ( ).
Referrals:
Manjit Heaton MD [Active] - in two to three weeks
NONE,* [Family Provider] -
Antonio Velasquez MD [Active] - in two to four weeks
Prescriptions:
New
polyethylene glycol 3350 17 gram Powder In Packet
17 g PO DAILYPRN PRN (Reason: constipation) Qty: 10 0RF
levetiracetam 500 mg Tablet
500 mg PO BID Qty: 60 0RF
bisacodyl 10 mg Suppository
10 mg SC [id number] PRN (Reason: constipation) Qty: 10 0RF
Continued
atorvastatin 10 MG tablet
10 mg PO DAILY
cholecalciferol (vitamin D3) 1,000 UNITS tablet
1,000 units PO QPM
acetaminophen 325 mg Tablet
650 mg PO Q8HPRN PRN (Reason: mild pain/fever)
multivitamin Tablet
1 tab PO DAILY
donepezil 10 mg Tablet
10 mg PO HS
sennosides-docusate sodium [Stimulant Laxative Plus] 8.6-50 mg Tablet
1 tab-cap PO BIDPRN PRN (Reason: constipation)
ferrous sulfate [FeroSul] 325 mg (65 mg iron) Tablet
325 mg PO DAILY
metoprolol tartrate 50 mg Tablet
50 mg PO BID
mirtazapine 7.5 mg Tablet
7.5 mg PO HS
Discontinued
Actemra 162 mg/0.9 mL Syringe
612 mg SC Q14D
Triple Antibiotic 3.5mg-400 unit- 5,000 unit/gram Ointment
1 applic TOPICAL BID
polyethylene glycol 3350 [HealthyLax] 17 gram Powder In Packet
17 g feeding tube DAILYPRN PRN (Reason: constipation)
Patient Comments:
09/17/24: give by nasogastric tube
Discharge Orders:
Discharge Patient (As Directed); Ordered 09/28/24
Ordered By: Canelo Damon
Discharge Date and Time
Discharge Date/Time: 09/28/24 12:40
Print Language: WOLOF
== END 2024-09-28 12:40 | DRG 100 ==
LOC: 3 WEST ACU 12:09
PROVIDERS: Internal Medicine; Nurse Practitioner Acute Care; Radiology Vascular & Interventional Radiology; ADMITTING PHYSICIAN Hospitalist; ATTENDING PHYSICIAN Internal Medicine; CONSULT PHYSICIAN Internal Medicine Gastroenterology; CONSULT PHYSICIAN Internal Medicine Infectious Disease; EMERGENCY PHYSICIAN Emergency Medicine; OTHER PHYSICIAN Internal Medicine Hematology & Oncology; OTHER PHYSICIAN Neurological Surgery
PROC: 30233R1 Transfusion of Nonautologous Platelets into Peripheral Vein, Percutaneous Approach (ICD-10-PCS; 2024-09-21)
PROC: 30233N1 Transfusion of Nonautologous Red Blood Cells into Peripheral Vein, Percutaneous Approach (ICD-10-PCS; 2024-09-21)
PROC: 06H03DZ Insertion of Intraluminal Device into Inferior Vena Cava, Percutaneous Approach (ICD-10-PCS; 2024-09-22)
DX: G40.909 Epilepsy, unspecified, not intractable, without status epilepticus (principal); G93.41 Metabolic encephalopathy; K68.3 Retroperitoneal hematoma; G93.5 Compression of brain; J18.9 Pneumonia, unspecified organism; N18.4 Chronic kidney disease, stage 4 (severe); D62 Acute posthemorrhagic anemia; E87.21 Acute metabolic acidosis; N39.0 Urinary tract infection, site not specified; E87.20 Acidosis, unspecified; M62.82 Rhabdomyolysis; R57.9 Shock, unspecified; D68.52 Prothrombin gene mutation; I82.433 Acute embolism and thrombosis of popliteal vein, bilateral; I82.611 Acute embolism and thrombosis of superficial veins of right upper extremity; D68.32 Hemorrhagic disorder due to extrinsic circulating anticoagulants; Z66 Do not resuscitate; K14.6 Glossodynia; M31.6 Other giant cell arteritis; I12.9 Hypertensive chronic kidney disease with stage 1 through stage 4 chronic kidney disease, or unspecified chronic kidney disease; D50.9 Iron deficiency anemia, unspecified; S01.512A Laceration without foreign body of oral cavity, initial encounter; E88.09 Other disorders of plasma-protein metabolism, not elsewhere classified; E11.22 Type 2 diabetes mellitus with diabetic chronic kidney disease; G30.9 Alzheimer's disease, unspecified; G93.89 Other specified disorders of brain; D69.6 Thrombocytopenia, unspecified; L89.611 Pressure ulcer of right heel, stage 1; L89.622 Pressure ulcer of left heel, stage 2; W19.XXXA Unspecified fall, initial encounter; Z95.828 Presence of other vascular implants and grafts; Z79.899 Other long term (current) drug therapy; Z82.49 Family history of ischemic heart disease and other diseases of the circulatory system; Z86.718 Personal history of other venous thrombosis and embolism; Z86.73 Personal history of transient ischemic attack (TIA), and cerebral infarction without residual deficits; Z90.49 Acquired absence of other specified parts of digestive tract; Z91.81 History of falling; Z96.653 Presence of artificial knee joint, bilateral; Z87.891 Personal history of nicotine dependence; Z11.52 Encounter for screening for COVID-19; S06.5XAS Traumatic subdural hemorrhage with loss of consciousness status unknown, sequela
CPT/HCPCS: 37191; 41250; 70450; 70553; 71045; 74174; 74176; 74230; 78582; 80053; 80202; 81003; 81015; 82248; 82550; 82607; 82728; 82746; 82805; 83010; 83540; 83550; 83605; 83615; 83735; 84145; 85014; 85018; 85025; 85027; 85045; 85379; 85384; 85610; 85652; 85730; 86022; 86140; 86618; 86704; 86706; 86803; 86850; 86880; 86900; 86901; 86920; 87015; 87040; 87070; 87086; 87207; 87340; 87502; 87811; 92526; 92610; 92611; 93005; 93970; 93971; 95816; 96361; 96374; 96375; 97163; 97164; 97167; 97530; 97535; 99291; A9540; A9567; A9575; C1769; C1880; J2916; P9016; P9073; Q9967

== ENCOUNTER → 2024-10-02 10:29 | Outpatient (REF) | payer OTHER, MEDICARE, BC, SELFPAY ==
[2024-10-02 12:47] LABS: % Basophils 0.7 % (0-2); % Eosinophils 2.5 % (0-6); % Immature Granulocytes 0.6 % (0-0.5); % Lymphocytes 12.4 % (20.5-51.1); % Monocytes 10.6 % (1.7-9.3); % Neutrophils 73.2 % (42.2-75.2); Absolute Basophils 0.1 10^3/uL (0-0.2); Absolute Eosinophils 0.3 10^3/uL (0-0.7); Absolute Immature Granulocytes 0.1 10^3/uL (0-0.05); Absolute Lymphocytes 1.5 10^3/uL (1.2-3.4); Absolute Monocytes 1.3 10^3/uL (0.1-0.6); Absolute Neutrophils 8.7 10^3/uL (1.4-6.5); Hematocrit 27.7 % (37.0-47.0); Hemoglobin 9.3 g/dL (12.0-16.0); Mean Corp Hgb Conc. 33.6 g/dL (33.0-37.0); Mean Corpuscular Hgb 30.5 pg (27.0-31.0); Mean Corpuscular Volume 90.8 fL (81.0-99.0); Mean Platelet Volume 12.3 fL (7.4-10.4); Nucleated Red Blood Cells % 0 %; Platelet Count 187 10^3/uL (130-400); Red Blood Cell Count 3.05 10^6/uL (4.20-5.40); Red Cell Dist. Width 16.8 % (11.5-14.5); White Blood Cell Count 11.8 10^3/uL (4.8-10.8)
[2024-10-02 12:58] LABS: Blood Urea Nitrogen 19 mg/dl (7-17); Calcium 7.2 mg/dl (8.4-10.2); Carbon Dioxide 27 mmol/L (22-30); Chloride 105 mmol/L (98-107); Glucose 116 mg/dl (70-99); Potassium 3.2 mmol/L (3.5-5.1); Sodium 139 mmol/L (135-145); eGFR 45.76
[2024-10-02 14:48] LABS: Erythrocyte Sed Rate 63 mm/hour (0-20)
== END ==
LOC: OLABP 10:29
PROVIDERS: ATTENDING PHYSICIAN Family Medicine
DX: G93.41 Metabolic encephalopathy (principal); R56.9 Unspecified convulsions; N18.4 Chronic kidney disease, stage 4 (severe); D69.6 Thrombocytopenia, unspecified; I10 Essential (primary) hypertension; D50.9 Iron deficiency anemia, unspecified; D62 Acute posthemorrhagic anemia; L89.612 Pressure ulcer of right heel, stage 2
CPT/HCPCS: 36415; 80048; 85025; 85652

== ENCOUNTER → 2024-10-04 11:21 | Outpatient (REF) | payer OTHER, MEDICARE, BC, SELFPAY ==
[2024-10-04 12:53] LABS: Blood Urea Nitrogen 19 mg/dl (7-17); Calcium 7.3 mg/dl (8.4-10.2); Carbon Dioxide 27 mmol/L (22-30); Chloride 106 mmol/L (98-107); Glucose 126 mg/dl (70-99); Potassium 4.2 mmol/L (3.5-5.1); Sodium 138 mmol/L (135-145); eGFR 41.57
== END ==
LOC: OLABP 11:21
PROVIDERS: ATTENDING PHYSICIAN Family Medicine
DX: R56.9 Unspecified convulsions (principal); N18.4 Chronic kidney disease, stage 4 (severe); D69.6 Thrombocytopenia, unspecified; I10 Essential (primary) hypertension; F03.90 Unspecified dementia, unspecified severity, without behavioral disturbance, psychotic disturbance, mood disturbance, and anxiety; D50.9 Iron deficiency anemia, unspecified; D62 Acute posthemorrhagic anemia; L89.612 Pressure ulcer of right heel, stage 2
CPT/HCPCS: 36415; 80048

== ENCOUNTER → 2024-10-09 12:16 | Outpatient (REF) | payer OTHER, MEDICARE, BC, SELFPAY ==
[2024-10-09 13:48] LABS: ALT (SGPT) 71 U/L (0-35); AST (SGOT) 131 U/L (14-36); Albumin 2.9 g/dl (3.5-5.0); Alkaline Phosphatase 195 U/L (38-126); Blood Urea Nitrogen 24 mg/dl (7-17); Calcium 7.8 mg/dl (8.4-10.2); Carbon Dioxide 25 mmol/L (22-30); Chloride 102 mmol/L (98-107); Glucose 167 mg/dl (70-99); Potassium 4.1 mmol/L (3.5-5.1); Sodium 136 mmol/L (135-145); Total Bilirubin 1.3 mg/dl (0.2-1.3); Total Protein 6.1 g/dl (6.3-8.2); eGFR 38.03
== END ==
LOC: OLABP 12:16
PROVIDERS: ATTENDING PHYSICIAN Family Medicine
DX: G93.41 Metabolic encephalopathy (principal); R56.9 Unspecified convulsions; N18.4 Chronic kidney disease, stage 4 (severe)
CPT/HCPCS: 36415; 80053

== ENCOUNTER → 2024-10-25 10:52 | Outpatient (REF) | payer OTHER, MEDICARE, BC, SELFPAY ==
[2024-10-25 11:20] LABS: % Basophils 1.3 % (0-2); % Eosinophils 2.8 % (0-6); % Immature Granulocytes 0.3 % (0-0.5); % Monocytes 8.5 % (1.7-9.3); % Neutrophils 63.1 % (42.2-75.2); Absolute Basophils 0.1 10^3/uL (0-0.2); Absolute Eosinophils 0.2 10^3/uL (0-0.7); Absolute Lymphocytes 2.1 10^3/uL (1.2-3.4); Absolute Monocytes 0.7 10^3/uL (0.1-0.6); Absolute Neutrophils 5.5 10^3/uL (1.4-6.5); Hematocrit 33.3 % (37.0-47.0); Hemoglobin 10.9 g/dL (12.0-16.0); Mean Corp Hgb Conc. 32.7 g/dL (33.0-37.0); Mean Corpuscular Hgb 29.7 pg (27.0-31.0); Mean Corpuscular Volume 90.7 fL (81.0-99.0); Mean Platelet Volume 13.2 fL (7.4-10.4); Nucleated Red Blood Cells % 0 %; Platelet Count 169 10^3/uL (130-400); Red Blood Cell Count 3.67 10^6/uL (4.20-5.40); Red Cell Dist. Width 14.6 % (11.5-14.5); White Blood Cell Count 8.7 10^3/uL (4.8-10.8)
[2024-10-25 11:43] LABS: Blood Urea Nitrogen 38 mg/dl (7-17); Calcium 9.2 mg/dl (8.4-10.2); Carbon Dioxide 26 mmol/L (22-30); Chloride 103 mmol/L (98-107); Glucose 162 mg/dl (70-99); Potassium 4.5 mmol/L (3.5-5.1); Sodium 139 mmol/L (135-145); eGFR 35.01
== END ==
LOC: OLABP 10:52
PROVIDERS: ATTENDING PHYSICIAN Family Medicine
DX: G93.41 Metabolic encephalopathy (principal); R56.9 Unspecified convulsions; N18.4 Chronic kidney disease, stage 4 (severe); D69.6 Thrombocytopenia, unspecified; I10 Essential (primary) hypertension; D50.9 Iron deficiency anemia, unspecified; D62 Acute posthemorrhagic anemia; L89.612 Pressure ulcer of right heel, stage 2
CPT/HCPCS: 36415; 80048; 85025

== ENCOUNTER → 2024-10-30 09:53 | Outpatient (REF) | payer OTHER, MEDICARE, BC, SELFPAY ==
[2024-10-30 11:00] LABS: % Basophils 1.2 % (0-2); % Eosinophils 4.5 % (0-6); % Immature Granulocytes 0.3 % (0-0.5); % Lymphocytes 23.3 % (20.5-51.1); % Monocytes 12.1 % (1.7-9.3); % Neutrophils 58.6 % (42.2-75.2); Absolute Basophils 0.1 10^3/uL (0-0.2); Absolute Eosinophils 0.3 10^3/uL (0-0.7); Absolute Lymphocytes 1.8 10^3/uL (1.2-3.4); Absolute Monocytes 0.9 10^3/uL (0.1-0.6); Absolute Neutrophils 4.5 10^3/uL (1.4-6.5); Hematocrit 32.3 % (37.0-47.0); Hemoglobin 10.7 g/dL (12.0-16.0); Mean Corp Hgb Conc. 33.1 g/dL (33.0-37.0); Mean Corpuscular Hgb 29.7 pg (27.0-31.0); Mean Corpuscular Volume 89.7 fL (81.0-99.0); Mean Platelet Volume 12.1 fL (7.4-10.4); Nucleated Red Blood Cells % 0 %; Platelet Count 141 10^3/uL (130-400); Red Cell Dist. Width 14.5 % (11.5-14.5); White Blood Cell Count 7.6 10^3/uL (4.8-10.8)
[2024-10-30 12:03] LABS: Blood Urea Nitrogen 38 mg/dl (7-17); Carbon Dioxide 27 mmol/L (22-30); Chloride 106 mmol/L (98-107); Glucose 139 mg/dl (70-99); Potassium 3.9 mmol/L (3.5-5.1); Sodium 140 mmol/L (135-145); eGFR 38.03
== END ==
LOC: OLABP 09:53
PROVIDERS: ATTENDING PHYSICIAN Family Medicine
DX: G93.41 Metabolic encephalopathy (principal); R56.9 Unspecified convulsions; N18.4 Chronic kidney disease, stage 4 (severe); D69.6 Thrombocytopenia, unspecified; I10 Essential (primary) hypertension; F03.90 Unspecified dementia, unspecified severity, without behavioral disturbance, psychotic disturbance, mood disturbance, and anxiety; D50.9 Iron deficiency anemia, unspecified; D62 Acute posthemorrhagic anemia; L89.612 Pressure ulcer of right heel, stage 2
CPT/HCPCS: 36415; 80048; 85025

== ENCOUNTER → 2024-11-10 09:36 | Outpatient (REF) | payer MEDICARE, BC, SELFPAY ==
[2024-11-10 10:55] LABS: % Basophils 1.4 % (0-2); % Eosinophils 5.4 % (0-6); % Immature Granulocytes 0.3 % (0-0.5); % Lymphocytes 41.3 % (20.5-51.1); % Monocytes 11.7 % (1.7-9.3); % Neutrophils 39.9 % (42.2-75.2); Absolute Basophils 0.1 10^3/uL (0-0.2); Absolute Eosinophils 0.4 10^3/uL (0-0.7); Absolute Lymphocytes 2.7 10^3/uL (1.2-3.4); Absolute Monocytes 0.8 10^3/uL (0.1-0.6); Absolute Neutrophils 2.6 10^3/uL (1.4-6.5); Hematocrit 31.1 % (37.0-47.0); Hemoglobin 10.3 g/dL (12.0-16.0); Mean Corp Hgb Conc. 33.1 g/dL (33.0-37.0); Mean Corpuscular Hgb 29.8 pg (27.0-31.0); Mean Corpuscular Volume 89.9 fL (81.0-99.0); Mean Platelet Volume 12.1 fL (7.4-10.4); Nucleated Red Blood Cells % 0 %; Platelet Count 178 10^3/uL (130-400); Red Blood Cell Count 3.46 10^6/uL (4.20-5.40); Red Cell Dist. Width 14.3 % (11.5-14.5); White Blood Cell Count 6.5 10^3/uL (4.8-10.8)
[2024-11-10 11:03] LABS: Blood Urea Nitrogen 31 mg/dl (7-17); Calcium 8.4 mg/dl (8.4-10.2); Carbon Dioxide 27 mmol/L (22-30); Chloride 107 mmol/L (98-107); Glucose 99 mg/dl (70-99); Potassium 4.1 mmol/L (3.5-5.1); Sodium 141 mmol/L (135-145); eGFR 38.03
[2024-11-10 11:12] LABS: Free T4 1.41 ng/dl (0.78-2.19)
[2024-11-10 11:26] LABS: TSH 0.87 uIU/ml (0.47-4.68)
== END ==
LOC: OLABSOL 09:36
PROVIDERS: ATTENDING PHYSICIAN Nurse Practitioner Adult Health
DX: R94.4 Abnormal results of kidney function studies (principal); D64.9 Anemia, unspecified; E03.9 Hypothyroidism, unspecified
CPT/HCPCS: 36415; 80048; 84439; 84443; 85025

== ENCOUNTER 2024-11-12 21:37 | Inpatient (IN) | payer MEDICARE, BC, SELFPAY ==
[2024-11-12] VITALS (15 sets, daily range): BP systolic 125–155; BP diastolic 44–90; BMI 28.8
--- NOTE | 2024-11-12 19:14 | ED.CVA ---
History of Present Illness
General
Chief Complaint: CVA/TIA Symptoms
Source: ambulance crew
Exam Limitations: altered mental status and dementia
Time Seen by Provider: 11/12/24 19:12
Onset of Stroke Symptoms
Onset of symptoms known: Yes
Date of onset of symptoms: 11/12/24
Time pt last seen normal is known: No
Date last time pt seen normal: 11/12/24
Time last time pt seen normal: 15:00
History of Present Illness
History of Present Illness:
Patient from [facility] presents with unequal pupils, left-sided facial twitching and confusion. Patient has dementia. Typically able to respond, but not verbal tonight. History is limited as the medics did not not know the last known
'normal '.
Spoke with son Parveen,. He was with patient this morning and she was normal. His brother saw her at 245 and stated that she was normal. Patient had a traumatic brain injury and has been having seizures since. She had neurosurgery at [facility] in July. She was discharged to intermediate facility. When she was discharged from the intermediate facility she was taken off her seizure meds. She had a seizure shortly thereafter. She came to [facility]. Went to [facility] rehab. Finally discharged 1 week ago. Son states that she has been doing fine despite having dementia. This is the first seizure in a month.
Past History
Past History
ED Past Medical History: CAD, HTN, Hypercholesterolemia, NIDDM, Valvular disease and Other (Osteoarthritis, uses a cane to ambulate, subdural hematoma, mild dementia)
ED Past Surgical History: Cholecystectomy and Orthopedic (L knee replacement, R shoulder replacement, 06/2021)
Social History
Tobacco: Non-smoker
Alcohol: None
Drug: None
Personal:
Living: with family (With her son)
Employment: Retired
Family History
Family History: Other (Mother with MT at 65, father with leukemia and coronary disease, son with factor V Leiden deficiency)
Review of Systems
Review of Systems
Allergies reviewed?: Yes
Unable to obtain full review of systems at this time due to: dementia
Other source history: ambulance crew
All Other Systems: Not applicable
Psychiatric: Reports anxiety
Phy Exam
General Physical Exam
General Presentation: no apparent distress
General age: appears older than age
General Skin: warm and dry
General Habitus: debilitated, elderly and frail
General Mental: confused
General Hydration: appears well hydrated
Cardiovascular Exam
Cardiovascular Exam: regular rate/rhythm and tachycardia
Pulmonary Exam
Pulmonary Exam: lungs clear and no respiratory distress
Gastrointestinal Exam
Gastrointestinal Exam: normal bowel sounds and non tender
Neurological Exam
Neurological Exam: confused and facial droop
NIH Stroke Score
Level of Consciousness: 1 - Arousable
Scores
Thrombolytic Contraindication
Inclusion and Exclusion criteria reviewed: Yes
Reasons for NON-Tx with Thrombolytics ABSOLUTE Exclusions: Greater than 4.5 hrs from onset of sxs
Reasons for NON-Tx with Thrombolytics POSSIBLE Exclusions: Seizure at onset
Course
Orders/Labs/Results
Orders:
Orders
11/12/24 19:12
CT HEAD STROKE ALERT W/o Cont Urgent
Comment:
Reason For Exam: Unknown down time, facial droop , unequal pupils,
CT HEAD/NECK ANG STROKE ALERT Urgent
Comment:
Reason For Exam: Unknown down time, facial droop , unequal pupils
11/12/24 19:13
CT Brain Perfusion Urgent
Comment:
Reason For Exam: Ubknown down time, facial droop , unequal pupils
11/12/24 19:42
Complete Blood Count/With Diff Urgent
Comprehensive Metabolic Panel Urgent
Erythrocyte Sed Rate Urgent
PTT Urgent
Prothrombin Time Urgent
Troponin I Urgent
11/12/24 20:03
Levetiracetam Injectable [Keppra] 2,000 mg IV NOW STA
11/12/24 20:08
Keppra (Levetiracetam) [S] Urgent
11/12/24 20:13
Levetiracetam Injectable [Keppra] 1,500 mg .ROUTE .STK-MED ONE
Abnormal Lab Results
11/12/24
19:42
RBC 3.32 L 10^6/uL
(4.20-5.40)
Hgb 9.9 L g/dL
(12.0-16.0)
Hct 30.2 L %
(37.0-47.0)
MCHC 32.8 L g/dL
(33.0-37.0)
MPV 10.9 H fL
(7.4-10.4)
Absolute Monos (auto) 0.7 H 10^3/uL
(0.1-0.6)
Monocytes % 10.7 H %
(1.7-9.3)
ESR 40 H mm/hour
(0-20)
PT 15.5 H Sec
(11.4-14.6)
BUN 30 H mg/dl
(7-17)
Creatinine 1.5 H mg/dL
(0.6-1.0)
Glucose 134 H mg/dl
(70-99)
Calcium 8.0 L mg/dl
(8.4-10.2)
AST 37 H U/L
(14-36)
Total Protein 5.4 L g/dl
(6.3-8.2)
Albumin 2.6 L g/dl
(3.5-5.0)
11/12/24 19:42
11/12/24 19:42
Vital Signs
Initial and Last Documented VS:
Initial Vital Signs
Pulse Resp BP Pulse Ox
75 22 146/83 100
11/12/24 19:16 11/12/24 19:16 11/12/24 19:16 11/12/24 19:16
Last Documented Vital Signs
Temp Pulse Resp BP Pulse Ox
98.0 F 102 22 125/79 99
11/12/24 20:00 11/12/24 20:00 11/12/24 20:00 11/12/24 19:58 11/12/24 19:50
*Radiology
Radiology exam reviewed: radiology read reviewed
*EKG
Interpreted by ED Provider?: Yes
Interpretation: abnormal
Comparison EKG: changes noted
Heart Rate: 101
Rate: tachycardiac
Rhythm: sinus
[place]: normal axis
Interval: normal interval
QRS Pattern: normal QRS
Ischemia: non-specific ST changes
*Critical Care Note
Total Time (30-74mins, 75-104mins- exclusive of procedures): 35 (Critical care statement: A total of 35 minutes of critical care time was provided for this patient. This time is separate from time utilized to perform the aforementioned documented
procedures. Aggregate critical care time includes only time during which I was engaged in work directl)
ED Attending Note
-
Portions of this chart may have been created with voice recognition software.� Occasional wrong word or��sound alike� substitutions may have occurred due to the inherent limitations of voice recognition software.
Discharge Plan
Departure
Patient Disposition: Admit
Date of Disposition: 11/12/24
Time of Disposition: 20:20
Admit to: Telemetry
Presentation/result/management discussed w/ accepting MD/DO: Hospitalist
Condition: Fair
Discharge Problem:
Seizure, Dementia, Acute alteration in mental status, DNR (do not resuscitate)
Prescriptions:
No Action
atorvastatin 10 MG tablet
10 mg PO DAILY
cholecalciferol (vitamin D3) 1,000 UNITS tablet
1,000 units PO QPM
acetaminophen 325 mg Tablet
650 mg PO Q8HPRN PRN (Reason: mild pain/fever)
multivitamin Tablet
1 tab PO DAILY
donepezil 10 mg Tablet
10 mg PO HS
sennosides-docusate sodium [Stimulant Laxative Plus] 8.6-50 mg Tablet
1 tab-cap PO BIDPRN PRN (Reason: constipation)
ferrous sulfate [FeroSul] 325 mg (65 mg iron) Tablet
325 mg PO DAILY
metoprolol tartrate 50 mg Tablet
50 mg PO BID
mirtazapine 7.5 mg Tablet
7.5 mg PO HS
polyethylene glycol 3350 17 gram Powder In Packet
17 g PO DAILYPRN PRN (Reason: constipation) Qty: 10 0RF
levetiracetam 500 mg Tablet
500 mg PO BID Qty: 60 0RF
bisacodyl 10 mg Suppository
10 mg MI [id number] PRN (Reason: constipation) Qty: 10 0RF
Interventions
Interventions:
*Risk Screen - Suicide Last Done: 11/12/24 19:49
*General Assessment Last Done: 11/12/24 19:49
*Neglect/Abuse Screening Last Done: 11/12/24 19:49
*ED- Fall Risk Assessment Last Done: 11/12/24 19:49
*ED COVID-19 Vaccine History Last Done: 11/12/24 19:49
Discharge Date and Time
Print Language: BRAZILIAN
[2024-11-12 19:50] LABS: % Basophils 1.1 % (0-2); % Eosinophils 3.5 % (0-6); % Immature Granulocytes 0.2 % (0-0.5); % Lymphocytes 26.5 % (20.5-51.1); % Monocytes 10.7 % (1.7-9.3); Absolute Basophils 0.1 10^3/uL (0-0.2); Absolute Eosinophils 0.2 10^3/uL (0-0.7); Absolute Lymphocytes 1.7 10^3/uL (1.2-3.4); Absolute Monocytes 0.7 10^3/uL (0.1-0.6); Absolute Neutrophils 3.7 10^3/uL (1.4-6.5); Hematocrit 30.2 % (37.0-47.0); Hemoglobin 9.9 g/dL (12.0-16.0); Mean Corp Hgb Conc. 32.8 g/dL (33.0-37.0); Mean Corpuscular Hgb 29.8 pg (27.0-31.0); Mean Platelet Volume 10.9 fL (7.4-10.4); Nucleated Red Blood Cells % 0 %; Platelet Count 181 10^3/uL (130-400); Red Blood Cell Count 3.32 10^6/uL (4.20-5.40); Red Cell Dist. Width 14.2 % (11.5-14.5); White Blood Cell Count 6.4 10^3/uL (4.8-10.8)
[2024-11-12 19:58] LABS: Erythrocyte Sed Rate 40 mm/hour (0-20)
[2024-11-12 20:01] LABS: APTT 30.6 Sec (23.4-35.0); PT 15.5 Sec (11.4-14.6)
[2024-11-12 20:10] LABS: ALT (SGPT) 25 U/L (0-35); AST (SGOT) 37 U/L (14-36); Albumin 2.6 g/dl (3.5-5.0); Alkaline Phosphatase 101 U/L (38-126); Blood Urea Nitrogen 30 mg/dl (7-17); Carbon Dioxide 26 mmol/L (22-30); Chloride 103 mmol/L (98-107); Estimated Creatinine Clearance 28 ml/min; Glucose 134 mg/dl (70-99); Potassium 4.5 mmol/L (3.5-5.1); Sodium 138 mmol/L (135-145); Total Bilirubin 0.4 mg/dl (0.2-1.3); Total Protein 5.4 g/dl (6.3-8.2); eGFR 35.01
[2024-11-12 20:14] LABS: Troponin I < 0.012 ng/ml
[2024-11-12] MEDS: KEPPRA 2000 MG IV (20:16)
--- NOTE | 2024-11-12 20:32 | HPS.HSE ---
Family Physician
-
Family Physician: NOT KNOW UNKNOWN - PT DOES
Chief Complaint
-
Stroke alert/seizure
History of Present Illness
This is an 79-year-old with past medical history significant for clotting factor deficiency and recent fall with subdural hemorrhage requiring craniectomy at [facility] complicated by development of postoperative seizures for which she
was started on antiepileptic drugs (family says she was initially started on 30 antibiotic to Keppra), presented to the hospital at the age in September for tongue biting thought secondary to seizure in the setting of discontinuation of Keppra.
Extensive workup at that none again showed the CT of the head was negative for acute bleeding with known postoperative changes. Course was complicated by DVT requiring systemic anticoagulation but for which she started to develop retroperitoneal
hematoma requiring IVC placement and discontinuation of anticoagulation. She also had new right cephalic vein thrombosis. Anticoagulation was felt to be high risk for the patient and it was discontinued. Patient was maintained on Keppra and was
discharged to rehab. At rehab patient apparently was well and ultimately went to a memory unit 1 week ago. She was last seen normal at around 3 PM today by family members. According to them she was alert and oriented to person as usual. She had
no antecedent illness and she was in the usual state of health otherwise. Brought to the emergency department for altered mental status with concern for possible stroke or seizure. She has left-sided and facial rhythmic twitching consistent with
right-sided originated partial complex seizures.
In the emergency department blood pressure was 115/80 with a pulse of 102 and she is satting 99% on room air. Temp was 98.0.
CBC shows a white count of 6.4, hemoglobin of 9.9 and a platelet of 181. Her electrolytes are were all in normal range. BUN/creatinine was stable at 30 and 1.5. Glucose was 134.
CT of the head shows no acute interval changes compared to prior. CT angio of the head and neck shows no large vessel occlusion aneurysm or significant stenosis.
Medical History
Past Medical History
Past Medical History: Reports Other
Additional Past Medical History:
Traumatic fall leading to brain bleed status post craniotomy
Seizure postcraniotomy
Giant cell arteritis
Iron deficiency anemia
Dementia
Primary hypertension
prothrombin mutation
bilateral DVT
Past Surgical History: Reports Orthopedic
Additional Past Surgical History:
Craniotomys
IVC filter
Social History
Unable to obtain full social history at this time due to: Acuity
Family History
Family History: Not pertinent
Allergies / Home Medications
Allergies reflects when Allergies were last updated in [employer].
Home Medications with original date entered in [employer]
Allergy/Medication List:
Allergies
Allergy/AdvReac Type Severity Reaction Status Date / Time
Penicillins Allergy Unknown ~ Verified 11/12/24 19:23
50 years
ago
Sulfa (Sulfonamide Allergy Unknown ~ Verified 11/12/24 19:23
Antibiotics) 50 years
ago
Home Medications
atorvastatin 10 mg tablet 10 mg PO HS High cholesterol 07/24/13
cholecalciferol (vitamin D3) 25 mcg (1,000 unit) tablet 1,000 units PO QPM Supplement 06/06/21
acetaminophen 325 mg tablet 650 mg PO Q8HPRN PRN mild pain/fever 09/17/24
donepezil 10 mg tablet 10 mg PO HS Alzheimer's 09/17/24
ferrous sulfate 325 mg (65 mg iron) tablet (FeroSul) 325 mg PO DAILY Supplement 09/17/24
metoprolol tartrate 50 mg tablet 50 mg PO BID Blood Pressure 09/17/24
mirtazapine 7.5 mg tablet 7.5 mg PO HS Mental Health/Anxiety 09/17/24
multivitamin 1 tab PO DAILY Supplement 09/17/24
sennosides 8.6 mg-docusate sodium 50 mg tablet (Stimulant Laxative Plus) 1 tab-cap PO BIDPRN PRN constipation 09/17/24
levetiracetam 500 mg tablet 500 mg PO BID #60 tabs 09/28/24
polyethylene glycol 3350 17 gram oral powder packet 17 g PO DAILYPRN PRN constipation #10 ea 09/28/24
aspirin 81 mg capsule 81 mg PO DAILY 11/12/24
bacitracin zinc 500 unit/gram topical ointment (Antibiotic (bacitracin zinc)) 1 applic topical BID 11/12/24
tocilizumab 162 mg/0.9 mL subcutaneous syringe (Actemra) 162 mg SC Q2W 11/12/24
Review of Systems
-
Unable to obtain full review of systems at this time due to: Acuity
Physical Exam
Vital Signs
Vital Signs
Temp Pulse Resp BP Pulse Ox
98.0 F 101 21 135/51 99
11/12/24 20:00 11/12/24 20:15 11/12/24 20:15 11/12/24 20:15 11/12/24 19:50
Physical Exam
General: Well Developed and Appears in Distress
HEENT: NormoCephalic and Anicteric; No Atraumatic (known craniectomy, no new trauma) or PERRLA
Respiratory: Clear
Cardiac: S1/S2 and Regular Rhythm
Breast: Deferred by me
GI: Soft, Non Tender, Non Distended and Normal Bowel Sounds
Rectal: Deferred by Provider
Genito-urinary: Deferred by me
Musculoskeletal: No Clubbing, No Cyanosis and No Edema
Skin: Warm
Neuro: Other (Focal tonic clonic activity affecting left facial muscles & left upper extremity)
Hematologic/Lymphatic: No Lymphadenopathy
Laboratory Results
-
11/12/24 19:42
11/12/24 19:42
Laboratory Results
PT 15.5 Sec (11.4-14.6) H 11/12/24 19:42
INR 1.20 11/12/24 19:42
APTT 30.6 Sec (23.4-35.0) 11/12/24 19:42
Total Bilirubin 0.4 mg/dl (0.2-1.3) 11/12/24 19:42
AST 37 U/L (14-36) H 11/12/24 19:42
ALT 25 U/L (0-35) 11/12/24 19:42
Alkaline Phosphatase 101 U/L (38-126) 11/12/24 19:42
Troponin I < 0.012 ng/ml 11/12/24 19:42
Data Reviewed
-
CT Scan: Report Reviewed by me
Lab Data: Labs Reviewed by me
Old Records: Reviewed
Impression/Plan
-
IMPRESSION:
79 y.o female with TBI and cerebral hemorrhage, dementia, CKD, HTN, prothrombin mutation, bilateral DVT s/p filter, seizures 2/2 TBI presenting to ED with partial complex siezures. Unclear total duration but has been going on for about 20 minutes
on my initial exam. She was getting a load of 2g Keppra at the time. Frequency and amplitude improved but not terminated. She is DNR/DM
PLAN:
Breakthrough Seizure - She is on keppra 500 bid at home and family reports this is the first seizure in 1 month. She has persistent partial seizure activity
- admit to IMU
- load with fosphenytoin 20mg/Kg, maintenance dose 12 hours after loading.
- 2g keppra load, continue keppra 500mg q 12 renal dosing for now
- given hisory and presentation, break through seizure most likely, current imaging shows no acute changes will hold of on mri/eeg pending neuro evaluation
- npo for now.while npo switched to IV metoprolol; atorvastatin, asa 81 donepezil and mirtazapine are on hold.
- maintenance fluids with d5 LR at 75 ml/hr
DVT PPX - heparin sq
Code status - DNR/DNI
[2024-11-12] MEDS: CEREBYX 128 MG IV (21:29)
[2024-11-12] MEDS: D5LR 1000 IV (23:01)
[2024-11-13] VITALS (27 sets, daily range): BP systolic 114–168; BP diastolic 48–100; BMI 27.9
[2024-11-13] MEDS: HEPARIN 5000 UNITS SC ×4 (00:45→23:36)
[2024-11-13] MEDS: LOPRESSOR 5 MG IV ×5 (00:47→23:37)
[2024-11-13 01:08] LABS: Dilantin 20.6 ug/ml (10-20)
--- NOTE | 2024-11-13 03:50 | EDRN ---
Pt with intermittent head twitching, similar to activity noted upon arrival. VSS. ALEXANDER Knight notified.
[2024-11-13 05:47] LABS: Hemoglobin 10.8 g/dL (12.0-16.0); Mean Corp Hgb Conc. 33.8 g/dL (33.0-37.0); Mean Corpuscular Hgb 29.9 pg (27.0-31.0); Mean Corpuscular Volume 88.6 fL (81.0-99.0); Mean Platelet Volume 11.3 fL (7.4-10.4); Platelet Count 182 10^3/uL (130-400); Red Blood Cell Count 3.61 10^6/uL (4.20-5.40); Red Cell Dist. Width 14.2 % (11.5-14.5); White Blood Cell Count 8.3 10^3/uL (4.8-10.8)
[2024-11-13 06:13] LABS: Blood Urea Nitrogen 25 mg/dl (7-17); Calcium 8.3 mg/dl (8.4-10.2); Carbon Dioxide 27 mmol/L (22-30); Chloride 108 mmol/L (98-107); Estimated Creatinine Clearance 30 ml/min; Glucose 190 mg/dl (70-99); HDL Cholesterol 39 mg/dl; LDL Cholesterol, Calculated 65 mg/dl; Magnesium 1.1 mg/dl (1.6-2.3); Potassium 3.8 mmol/L (3.5-5.1); Sodium 141 mmol/L (135-145); Total Cholesterol 133 mg/dl (50-199); Triglyceride 146 mg/dl (10-149); Very Low Density Lipoprotein 29 mg/dl (0-30); eGFR 38.03
--- NOTE | 2024-11-13 06:29 | W.PN.HOSP.TC ---
Today's Communication/Plan
-
see a/p
Assessment / Plan
Assessment / Plan
Physical Exam
General: No acute distress, appears comfortable at this time
HEENT: NormoCephalic, Anicteric, MMM
Respiratory: Clear
Cardiac: S1/S2 and Regular Rhythm
GI: Soft, Non Tender, Non Distended and Normal Bowel Sounds
Musculoskeletal: No Clubbing, No Cyanosis and No Edema
Skin: Warm
Neuro: Lethargic but arousable, follows simple commands
79F clotting factor def hx subdual hemorrhage Craniectomy post-op Sz d/o here for breakthrough sz.
PLAN:
Breakthrough Seizure - She is on keppra 500 bid at home and family reports this is the first seizure in 1 month. She has persistent partial seizure activity
-CT head and CTA head/neck appreciated no acute abn's
- received 2g keppra load, continue keppra 500mg q 12 renal dosing
- vimpat as per neuro
- neuro eval appreciated
- npo for now.while npo switched to IV metoprolol; atorvastatin, asa 81 donepezil and mirtazapine are on hold.
- IVF support
- sz/aspiration/fall precautions
-ST/PT/OT eval
CKDIII
baseline appears to be 1.2-1.4
monitor renal function
Hypomagnesemia
-monitor and replete as necessary
DVT PPX - heparin sq
Code status - DNR/DNI
I spent a total of 50 minutes with the patient or on the floor. More than 50% of this time involved counseling and coordination of care.
Anticipated Discharge: 24 - 48 hours
Subjective/Interval History
-
Date of Service: November 13, 2024
No acute distress, resting comfortably in bed, sleeping. Arousable, follows simple commands.
Objective Data
-
Labs:
Laboratory Results
05/11/25 05/12/25
19:42 05:31
WBC 6.4 8.3
Hgb 9.9 L 10.8 L
Hct 30.2 L 32.0 L
Plt Count 181 182
PT 15.5 H
INR 1.20
APTT 30.6
Sodium 138 141
Potassium 4.5 3.8
Chloride 103 108 H
Carbon Dioxide 26 27
BUN 30 H 25 H
Creatinine 1.5 H 1.4 H
Glucose 134 H 190 H
Calcium 8.0 L 8.3 L
Total Bilirubin 0.4
AST 37 H
ALT 25
Alkaline Phosphatase 101
Vital Signs:
Vital Signs
Temp Pulse Resp BP Pulse Ox
98.0 F 74 21 131/48 99
11/12/24 20:00 11/13/24 06:21 11/13/24 00:54 11/13/24 06:21 11/13/24 05:45
[2024-11-13 06:42] LABS: TSH 1.22 uIU/ml (0.47-4.68)
[2024-11-13] MEDS: KEPPRA 500 MG IV ×2 (08:51→20:45)
--- NOTE | 2024-11-13 09:00 | CON.NEURO ---
Addendum entered and electronically signed by Manjit Heaton MD 11/13/24 14:43:
addended in error
Original Note:
Neuro Assessment/Plan
Assessment
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
head CT imgs rev'd, evidence of prior right sided craniotomy, right temporal/occipital encephalomalacia
CTA head/neck imgs rev'd, no LVO, no significant carotid stenosis
Plan
Continue Keppra 500 BID (renal dosing)
will give Vimpat IV 100 and start Vimpat 50 BID
Consultation
Order
Date of Consultation: 11/13/24
Requesting Provider: Shelbie Briceno
Reason for Consult: Seizure
Subjective/Objective
Subjective Data
Date of Service: November 13, 2024
This is an 79-year-old with past medical history significant for clotting factor deficiency and recent fall with subdural hemorrhage requiring craniectomy 07/2024 at [facility] complicated by development of postoperative seizures. She
eventually came off Keppra but had breakthrough seizure 09/17/24 and was restarted on Keppra 500 BID. She was discharged to rehab, did well and was ultimately discharged to memory unit 1 week ago. Last seen normal yesterday ~3pm by family members.
brought to ED with altered mental status, found to have left sided facial rhythmic twitching consistent with right sided complex partial seizure. She was loaded fosphenytoin 20/kg and Keppra 2 g
This morning patient sleepy, denies complaints
Objective Data
Vital Signs
Temp Pulse Resp BP Pulse Ox
36.9 C 74 21 131/48 98
11/13/24 07:35 11/13/24 06:45 11/13/24 00:54 11/13/24 06:21 11/13/24 06:45
Lab Results
11/13/24 05:31
11/13/24 05:31
PT 15.5 Sec (11.4-14.6) H 11/12/24 19:42
INR 1.20 11/12/24 19:42
APTT 30.6 Sec (23.4-35.0) 11/12/24 19:42
Sodium 141 mmol/L (135-145) 11/13/24 05:31
Potassium 3.8 mmol/L (3.5-5.1) 11/13/24 05:
BUN 25 mg/dl (7-17) H 11/13/24 05:
Glucose 190 mg/dl (70-99) H 11/13/24 05:31
Calcium 8.3 mg/dl (8.4-10.2) L 11/13/24 05:
LDL Cholesterol, Calc 65 mg/dl 11/13/24 05:31
Patient Allergies
Penicillins Allergy (Verified 11/12/24 19:23)
Unknown ~ 50 years ago
Sulfa (Sulfonamide Antibiotics) Allergy (Verified 11/12/24 19:23)
Unknown ~ 50 years ago
Physical Exam
-
Lethargic, briefly opens eyes to voice, follows simple commands only, disoriented to age/month, moving all extremities,
Medications
-
Active Medications
Generic Name Dose Route Start Last Admin
Trade Name Freq PRN Reason Stop Dose Admin
Acetaminophen 650 mg 11/12/24 22:05
Acetaminophen 650 Mg Rectal Suppository RECTAL 12/10/24 22:04
Q4HPRN PRN
mild pain/TURNER/temp> 100.4F
Heparin Sodium 5,000 units 11/13/24 00:00 11/13/24 08:52
Heparin 5,000 Units/Ml 1 Ml Vial SC 12/11/24 00:00 5,000 units
Q8 VERO Administration
Dextrose/Lactated Ringer's 1,000 mls @ 75 mls/hr 11/12/24 22:05 11/12/24 23:01
D5lr IV 1,000 mls
.[id number] VERO Administration
Lacosamide 50 mg 11/13/24 20:00
Lacosamide (Vimpat) 50 Mg Tablet PO 12/11/24 19:59
BID VERO
Lacosamide 100 mg 11/13/24 08:57
Lacosamide (10 Mg/Ml) 200 Mg/20 Ml Vial IV 11/13/24 08:58
NOW ONE
Levetiracetam 500 mg 11/13/24 08:00 11/13/24 08:51
Levetiracetam (100 Mg/Ml) 500 Mg/5 Ml Vial IV 12/11/24 07:59 500 mg
Q12 VERO Administration
Metoprolol Tartrate 5 mg 11/13/24 00:00 11/13/24 06:21
Metoprolol 5 Mg/5 Ml Vial IV 12/11/24 00:00 5 mg
Q6 VERO Administration
Ondansetron HCl 4 mg 11/12/24 22:05
Ondansetron 4 Mg/2 Ml Vial IV 12/10/24 22:04
Q6HPRN PRN
nausea and vomiting
Sodium Chloride 0 flush 11/12/24 23:00
Sodium Chloride 0.9% (Flush) Syringe IV 12/10/24 22:59
PER PROTOCOL VERO
Home Medications
�Medication �Instructions �Recorded
atorvastatin 10 mg tablet 10 mg PO HS High cholesterol 07/24/13
cholecalciferol (vitamin D3) 25 1,000 units PO QPM Supplement 06/06/21
mcg (1,000 unit) tablet
acetaminophen 325 mg tablet 650 mg PO Q8HPRN PRN mild 09/17/24
pain/fever
donepezil 10 mg tablet 10 mg PO HS Alzheimer's 09/17/24
ferrous sulfate 325 mg (65 mg 325 mg PO DAILY Supplement 09/17/24
iron) tablet (FeroSul)
metoprolol tartrate 50 mg tablet 50 mg PO BID Blood Pressure 09/17/24
mirtazapine 7.5 mg tablet 7.5 mg PO HS Mental Health/Anxiety 09/17/24
multivitamin 1 tab PO DAILY Supplement 09/17/24
sennosides 8.6 mg-docusate sodium 1 tab-cap PO BIDPRN PRN 09/17/24
50 mg tablet (Stimulant Laxative constipation
Plus)
levetiracetam 500 mg tablet 500 mg PO BID #60 tabs 09/28/24
polyethylene glycol 3350 17 gram 17 g PO DAILYPRN PRN constipation 09/28/24
oral powder packet #10 ea
aspirin 81 mg capsule 81 mg PO DAILY 11/12/24
bacitracin zinc 500 unit/gram 1 applic topical BID 11/12/24
topical ointment (Antibiotic
(bacitracin zinc))
tocilizumab 162 mg/0.9 mL 162 mg SC Q2W 11/12/24
subcutaneous syringe (Actemra)
[2024-11-13] MEDS: VIMPAT 100 MG IV (09:24)
[2024-11-13] MEDS: D5LR IV (12:00)
[2024-11-13] MEDS: D5/0.45%NACL 1000 IV (12:37)
[2024-11-13] MEDS: MAGNESIUM SULFATE 100 IV (12:38)
--- NOTE | 2024-11-13 15:10 | CM ---
CM spoke with Naye/robyn Harris
Pt resides in their memory care unit
She was discharged from [facility] one week prior and current with [facility]
Pt is AxO 2x with person and place, confused
Pt ambulates and transfers short distances with use of a WW
W/C for longer distances and unable to sef propel
Pt is a 1 person assist for personal care, able to follow cueing and coaxing and can participate is some of her own care
PCP- Imelda Banks
Rx- Pharmmao BENTLEY
Per nursing, pt can return at a 1 assist
Will need SNF consideration if 2 person or more
PT/OT requested once medically appropriate
Discharge Disposition- anticipate return to [facility] with MARI Otero, watch for higher needs
[2024-11-13] MEDS: VIMPAT 50 MG PO (21:18)
--- NOTE | 2024-11-13 21:57 | PTCARENOTE ---
Received patient from ED just before 2200. 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 Patient was drowsy, limited verbal ability. No outward signs of distress. Vitals WNL. Applied tele monitor. Call vela within reach.
[2024-11-13 22:13] LABS: Glucose - Point of Care 180 mg/dl (70-99)
--- NOTE | 2024-11-13 22:25 | PTCARENOTE ---
At approx 2210, patient began making a gasping/choking sound that lasted for approx 1-1.5 minutes total. Unsure if she was going to vomit and raised HOB. Symptoms continued. Pulse ox 97 % on RA. Skin color unchanged. Patient not responding to
questions. Mouth began repeatedly twitching, sweat observed on face. Patient was able to squeeze with her right hand but not with her left. Stroke alert/RR called.
Mouth twitching remained when RR team arrived. Vitals obtained and were WNL. Patient slowly began to respond a bit more, but still with limited garbled speech. Rhythmic facial twitching is consistent with her partial complex seizures. SUPERVISOR RECORDS CHANGE Reviewed
medications given in ED for seizures. Patient not due for scheduled seizure medication and no PRNs ordered. SUPERVISOR RECORDS CHANGE contacted Neurology. PRN IV Ativan ordered for seizures lasting >5 mins with RR team present prior to administration. Vitals at end of RR
were obtained and WNL. Patient observed sleeping, chest rise even and unlabored.
--- NOTE | 2024-11-13 22:49 | W.PN.UPDATE ---
Update Note
Progress Note Update
Rapid response called at 22:10. Per RN, patient just arrived to floor, was doing assessment, then patient started making jerking motions and not answering questions appropriately. Patient assessed, admitted w/seizure activity, appears to be having
similar seizure activity. Seizure lasted approximately 1-2 minutes, postictal for approximately 5 minutes post seizure activity, then became more alert and answering questions appropriately.
During rapid response, [facility], Dr. Heaton, who had seen patient this morning. No additional testing at this time. Ordered Ativan 4 mg IV x 1 PRN for seizures lasting longer than 5 minutes or multiple seizures without returning to baseline (status
epileptics). If patient is postictal, don't treat with Ativan. Only treat if patient is/could be actively seizing, then treat for status epileptics.
Ativan PRN dose ordered, note to call rapid response before administering PRN Ativan.
Multiple follow up visits to patient t/o night. No further witnessed seizure activity.
--- NOTE | 2024-11-13 23:50 | PTCARENOTE ---
At approx. 2230, patient began with choking/gagging sound, the same as prior to RR. Kept HOB elevated and positioned slightly to her side to allow for clear mucus to run out. This lasted for about 1-1.5 minutes, then progressed to the rhythmic mouth
twitching for another 2 minutes. COUNSELING PROGRAM LEADER informed in person while on unit.
--- NOTE | 2024-11-13 23:55 | PTCARENOTE ---
At approx 2210, patient began making a gasping/choking sound. Unsure if she was going to vomit and raised HOB. Symptoms continued. Pulse ox 97 % on RA. Skin color unchanged. Patient not responding to questions. Mouth began repeatedly twitching,
sweat observed on face. Patient was able to squeeze with her right hand but not with her left. Stroke alert/RR called.
Mouth twitching remained when RR team arrived. Vitals obtained and were WNL. Patient slowly began to respond a bit more, but still with limited garbled speech. Rhythmic facial twitching is consistent with her partial complex seizures. LAMBSKIN TRIMMER Reviewed
medications given in ED for seizures. Patient not due for scheduled seizure medication and no PRNs ordered. LAMBSKIN TRIMMER contacted Neurology. PRN IV Ativan ordered for seizures lasting >5 mins with RR team present prior to administration. Vitals at end of RR
were obtained and WNL. Patient observed sleeping, chest rise even and unlabored.
[2024-11-14] VITALS (12 sets, daily range): BP systolic 108–183; BP diastolic 61–154; BMI 27.8
[2024-11-14] MEDS: LOPRESSOR 5 MG IV ×4 (05:35→23:05)
[2024-11-14 07:28] LABS: Hematocrit 34.4 % (37.0-47.0); Hemoglobin 11.9 g/dL (12.0-16.0); Mean Corp Hgb Conc. 34.6 g/dL (33.0-37.0); Mean Corpuscular Hgb 30.2 pg (27.0-31.0); Mean Corpuscular Volume 87.3 fL (81.0-99.0); Mean Platelet Volume 11.2 fL (7.4-10.4); Platelet Count 181 10^3/uL (130-400); Red Blood Cell Count 3.94 10^6/uL (4.20-5.40); Red Cell Dist. Width 14.2 % (11.5-14.5); White Blood Cell Count 8.2 10^3/uL (4.8-10.8)
[2024-11-14] MEDS: D5/0.45%NACL IV ×3 (07:31→14:01)
[2024-11-14 07:55] LABS: Blood Urea Nitrogen 21 mg/dl (7-17); Carbon Dioxide 26 mmol/L (22-30); Chloride 110 mmol/L (98-107); Estimated Creatinine Clearance 34 ml/min; Glucose 118 mg/dl (70-99); Magnesium 2.3 mg/dl (1.6-2.3); Phosphorus 2.9 mg/dl (2.5-4.5); Potassium 3.6 mmol/L (3.5-5.1); Sodium 140 mmol/L (135-145); eGFR 45.76
[2024-11-14] MEDS: VIMPAT PO (08:10)
[2024-11-14] MEDS: HEPARIN 5000 UNITS SC ×3 (08:11→23:06)
[2024-11-14] MEDS: KEPPRA 500 MG IV ×2 (08:12→19:50)
[2024-11-14] MEDS: DESENEX/MITRAZOL/ZEASORB 1 APPLIC TOPICAL ×2 (08:25→19:49)
--- NOTE | 2024-11-14 08:54 | W.PN.NEURO.1 ---
Today's Communication / Plan
-
Status Epilepticus
Continue Keppra 500 BID (renal dosing)
will give Vimpat IV 200 and increase Vimpat 100 BID
EEG monitoring several hours
Neuro Assessment/Plan
Assessment
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
head CT imgs rev'd, evidence of prior right sided craniotomy, right temporal/occipital encephalomalacia
CTA head/neck imgs rev'd, no LVO, no significant carotid stenosis
given 3 sz in as many days, this being a significant increase in seizure frequency, I Rx Vimpat 200, increase to 100 BID, and ordered routine EEG however before it was performed patient had another witnessed seizure which would make a clinical
diagnosis of complex partial status epilepticus. In this situation, can take ~24 hrs to try to control seizures with the usual antiepileptics before intubating patient and treating with anesthetics.
EEG initial ~30 mins gen slow, no seizures or epileptiform activity, no clinical events
Plan
Continue Keppra 500 BID (renal dosing)
will give Vimpat IV 200 and increase Vimpat 100 BID
continue EEG monitoring into the afternoon attempt to cap
Subjective/Objective
Subjective Data
Date of Service: November 14, 2024
overnight had a seizure; this morning patient had another seizure ~8:30 am;
seizure semiology left facial twitching, unresponsive, left hand picking at gown and putting gown in mouth
given 3 sz in as many days, this being a significant increase in seizure frequency, I Rx Vimpat 200, increase to 100 BID, and ordered EEG - pending.
Objective Data
Vital Signs
Temp Pulse Resp BP Pulse Ox
36.7 C 70 14 108/73 99
11/14/24 07:28 11/14/24 07:28 11/14/24 07:28 11/14/24 07:28 11/14/24 07:28
Lab Results
11/14/24 07:19
11/14/24 07:19
PT 15.5 Sec (11.4-14.6) H 11/12/24 19:42
INR 1.20 11/12/24 19:42
APTT 30.6 Sec (23.4-35.0) 11/12/24 19:42
Sodium 140 mmol/L (135-145) 11/14/24 07:19
Potassium 3.6 mmol/L (3.5-5.1) 11/14/24 07:19
BUN 21 mg/dl (7-17) H 11/14/24 07:19
Glucose 118 mg/dl (70-99) H 11/14/24 07:19
Calcium 8.0 mg/dl (8.4-10.2) L 11/14/24 07:19
Phosphorus 2.9 mg/dl (2.5-4.5) 11/14/24 07:19
LDL Cholesterol, Calc 65 mg/dl 11/13/24 05:31
Patient Allergies
Penicillins Allergy (Verified 11/12/24 19:23)
Unknown ~ 50 years ago
Sulfa (Sulfonamide Antibiotics) Allergy (Verified 11/12/24 19:23)
Unknown ~ 50 years ago
[2024-11-14] MEDS: VIMPAT 200 MG IV (09:28)
[2024-11-14 09:43] LABS: Glucose - Point of Care 109 mg/dl (70-99)
[2024-11-14] MEDS: ATIVAN 2 MG IV (09:51)
[2024-11-14] MEDS: NSS (PRESERVATIVE FREE) 1 ML IV (09:57)
--- NOTE | 2024-11-14 10:00 | PTCARENOTE ---
Pt has two seizures this morning. Pt's Neurologist & Hospitalist at bedside as well as family member. Both MD's spoke at length with the family member about the seizures.
--- NOTE | 2024-11-14 10:09 | PTCARENOTE ---
MD ordered 2 mg of Ativan for the pt during her seizure.
--- NOTE | 2024-11-14 11:35 | W.PN.HOSP.TC ---
Today's Communication/Plan
-
see a/p
Assessment / Plan
Assessment / Plan
Physical Exam
General: No acute distress, appears comfortable at this time
HEENT: NormoCephalic, Anicteric, MMM
Respiratory: Clear
Cardiac: S1/S2 and Regular Rhythm
GI: Soft, Non Tender, Non Distended and Normal Bowel Sounds
Musculoskeletal: No Clubbing, No Cyanosis and No Edema
Skin: Warm
Neuro: Lethargic but arousable, follows simple commands
79F clotting factor def hx subdual hemorrhage Craniectomy post-op Sz d/o here for breakthrough sz.
PLAN:
Breakthrough Seizure - She was on Keppra 500 bid at home and family reports this is the first seizure in 1 month. She has persistent partial seizure activity
additional sz events noted since admission, one overnight and two episodes following morning (2nd morning episode required 2mg IV to abort) transferred to IMU closer monitoring
-CT head and CTA head/neck appreciated no acute abn's
- received 2g keppra load, continue keppra 500mg q 12 renal dosing
- vimpat as per neuro, adjusted for renal dosing and further adjusted following breakthrough sz's as above
- neuro eval appreciated
- npo for now.while npo switched to IV metoprolol; atorvastatin, asa 81 donepezil and mirtazapine are on hold.
- IVF support
- sz/aspiration/fall precautions
- eventual ST/PT/OT eval when appropriate
CKDIII
baseline appears to be 1.2-1.4
monitor renal function
Hypomagnesemia
-monitor and replete as necessary
DVT PPX - heparin sq
Code status - DNR/DNI
Discussed with patient's sons Kashif and Jesse
I spent a total of 50 minutes with the patient or on the floor. More than 50% of this time involved counseling and coordination of care.
Anticipated Discharge: > 48 hours
Subjective/Interval History
-
Date of Service: November 14, 2024
Noted sz overnight self limited. Patient also had two episodes sz this morning with shaking repetitive movements, 1st episode self limited resolving within minutes spontaneously, patient post-ictal afterwards lethargic but arousable able to follow
simple commands limited speech. 2nd episode was aborted with IV ativan 2mg, patient subsequently sedated afterwards.
Objective Data
-
Labs:
Laboratory Results
11/14/24
07:19
WBC 8.2
Hgb 11.9 L
Hct 34.4 L
Plt Count 181
Sodium 140
Potassium 3.6
Chloride 110 H
Carbon Dioxide 26
BUN 21 H
Creatinine 1.2 H
Glucose 118 H
Calcium 8.0 L
Vital Signs:
Vital Signs
Temp Pulse Resp BP Pulse Ox
98.0 F 70 14 108/73 99
11/14/24 07:28 11/14/24 07:28 11/14/24 07:28 11/14/24 07:28 11/14/24 07:28
I&O
11/13/24 11/14/24 11/15/24
06:59 06:59 06:59
Output Total 350 / 350
Balance -350 / -350
[2024-11-14] MEDS: D5/0.45%NACL 1000 IV (13:04)
--- NOTE | 2024-11-14 14:21 | PTCARENOTE ---
Patient received from [facility] to IMU on room air; IVF; and continuos eeg monitoring. Patient received CHG bath and skin check upon bed transfer. Sacral foam applied to sacral area- stage 2 noted on left buttock. Patient on monitor in NSR, blood
pressures set to take Q2 hours. Pt is drowsy, sleeping, post-ictal state. See neuro flowsheets and MAR for further care details.
--- NOTE | 2024-11-14 14:28 | PTCARENOTE ---
Reached out to hospitalist and neurology MD's through [facility] to obtain PRN ativan order in case of further seizures, if appropriate.
--- NOTE | 2024-11-14 16:09 | EEGC.RPT ---
Continuous EEG Report
Recording
Start Date of Data Reviewed: 11/14/24
Start Time of Data Reviewed: 10:35
End Date of Data Reviewed: 11/14/24
End Time of Data Reviewed: 15:05
Type of EEG: Continuous
Done with Video Recording: Yes
Study Sequence: Initiation of Study
Electrocardiogram: Unremarkable
Report
GREATER THAN 1 HOUR, LESS THAN 24 HOUR EEG REPORT
EEG INTERPRETATION:
Mildly abnormal study for age based on generalized slowing demonstrated bihemispherically equally with the bulk of the study showing stage 2 sleep.
CLINICAL CORRELATION:
Although normative values not been established for a person of this advanced age the patient�s symmetry of the background suggests that this study was suggestive of mild bihemispheric cortical dysfunction. No epileptiform features were demonstrated.
If concerns remain regarding epilepsy, prolonged monitoring may be of assistance.
Clinical correlation is advised.
METHODS:
A 21-channel digital electroencephalogram (EEG) was performed at the bedside in the IMU. The 10/20 international system of electrode placement was used with ECG and lateral/vertical eye movements recorded. Video was recorded. Persyst quantitative
EEG analysis was performed. Study comprised of two studies, first as a 36 minute study then multiple hour study.
IMPRESSION(S):
Quality of study
Fair-Good
Background
Low amplitude
Fair anterior-posterior voltage gradient differentiated
Theta frequency maximal background demonstrated
Sleep
Drowsiness present
Hyperventilation
Not performed
Photic Stimulation
Failed to activate the record
ECG
Normal rhythm
Abnormal Activity
None
[2024-11-14 16:50] LABS: Keppra (Levetiracetam) 40 ug/mL (10-40)
[2024-11-14] MEDS: VIMPAT 100 MG IV (19:50)
--- NOTE | 2024-11-14 21:40 | PTCARENOTE ---
received patient from previous RN. Patient is arousable to verbal and tactile stimuli but still with garbled slurred speech. Patient is pulling at gown and wires but opens eyes and says name was asked. NSR on monitor, 99% on RA. Incontinent of bowl
and bladder. Continuing to monitor patient. patient currently resting in bed with call vela in reach.
[2024-11-14] MEDS: APRESOLINE 5 MG IV (23:46)
[2024-11-15] VITALS (18 sets, daily range): BP systolic 106–170; BP diastolic 28–138; PULSE 82; O2SAT 98; BMI 28.1
[2024-11-15] MEDS: D5/0.45%NACL 1000 IV ×2 (03:54→16:24)
[2024-11-15 04:10] LABS: Hematocrit 37.7 % (37.0-47.0); Hemoglobin 12.8 g/dL (12.0-16.0); Mean Corpuscular Hgb 29.8 pg (27.0-31.0); Mean Corpuscular Volume 87.9 fL (81.0-99.0); Platelet Count 202 10^3/uL (130-400); Red Blood Cell Count 4.29 10^6/uL (4.20-5.40); White Blood Cell Count 9.5 10^3/uL (4.8-10.8)
[2024-11-15 04:33] LABS: Blood Urea Nitrogen 18 mg/dl (7-17); Calcium 8.2 mg/dl (8.4-10.2); Carbon Dioxide 25 mmol/L (22-30); Chloride 107 mmol/L (98-107); Estimated Creatinine Clearance 34 ml/min; Glucose 152 mg/dl (70-99); Magnesium 1.9 mg/dl (1.6-2.3); Phosphorus 2.4 mg/dl (2.5-4.5); Potassium 3.7 mmol/L (3.5-5.1); Sodium 139 mmol/L (135-145); eGFR 45.76
[2024-11-15] MEDS: LOPRESSOR 5 MG IV ×4 (05:42→23:38)
[2024-11-15] MEDS: DESENEX/MITRAZOL/ZEASORB 1 APPLIC TOPICAL ×2 (08:26→20:16)
[2024-11-15] MEDS: KEPPRA 500 MG IV ×2 (08:26→20:16)
[2024-11-15] MEDS: VIMPAT 100 MG IV ×2 (08:26→21:51)
[2024-11-15] MEDS: HEPARIN 5000 UNITS SC ×3 (08:26→23:38)
--- NOTE | 2024-11-15 09:10 | PTCARENOTE ---
Patient AOx1 (self). Patient has flat affect, withdrawn, and forgetful. Patient is lethargic and drowsy, but opens eyes to verbal stimuli. Q4 neuro checks completed per order. See 'worklist' for documentation. Patient on RA with SpO2 greater than
92%. NSR on monitor. Incontinent to bowel and bladder. Strict NPO. Seizure, aspiration, and fall risk precautions maintained. Side rails padded for seizure precautions. Mouth care completed frequently. Q2 turns completed. Call vela within reach, bed
in lowest position, bed of wheels locked, and bed alarm on and audible.
--- NOTE | 2024-11-15 09:15 | W.PN.HOSP.TC ---
Today's Communication/Plan
-
cont sz medications as per neuro
empiric ceftriaxone for possible UTI, follow up cx
fall/sz/aspiration precautions
ST/PT/OT eval as able
Assessment / Plan
Assessment / Plan
Physical Exam
General: No acute distress, appears comfortable at this time
HEENT: NormoCephalic, Anicteric, MMM
Respiratory: Clear
Cardiac: S1/S2 and Regular Rhythm
GI: Soft, Non Tender, Non Distended and Normal Bowel Sounds
Musculoskeletal: No Clubbing, No Cyanosis and No Edema
Skin: Warm
Neuro: Lethargic but arousable, follows simple commands
79F clotting factor def hx subdual hemorrhage Craniectomy post-op Sz d/o here for breakthrough sz.
PLAN:
Breakthrough Seizure - She was on Keppra 500 bid at home and family reports this is the first seizure in 1 month. She has persistent partial seizure activity
additional sz events noted since admission, one overnight and two episodes following morning (2nd morning episode required 2mg IV to abort) transferred to IMU closer monitoring
-CT head and CTA head/neck appreciated no acute abn's
- received 2g keppra load, continue keppra 500mg q 12 renal dosing
- vimpat as per neuro, adjusted for renal dosing and further adjusted following breakthrough sz's as above
- neuro eval appreciated
- npo for now.while npo switched to IV metoprolol; atorvastatin, asa 81 donepezil and mirtazapine are on hold.
- IVF support
- sz/aspiration/fall precautions
- eventual ST/PT/OT eval when appropriate
CKDIII
baseline appears to be 1.2-1.4
monitor renal function
Hypomagnesemia
-monitor and replete as necessary
HTN
likely elevated values d/t sz's since improved with sz resolution
monitor, will consider antihypertensives medications based on bp trends
Possible UTI
Required once straight cath for urine retention 400 cc as per RN
Urinalysis notes bacteriuria, follow up cx
difficulty assessing urinary symptoms w/ AMS
empiric ceftriaxone 1 g daily started for now
PT/OT appreciated SNF rehab
DVT PPX - heparin sq
Code status - DNR/DNI
Discussed with patient's son Kashif
I spent a total of 50 minutes with the patient or on the floor. More than 50% of this time involved counseling and coordination of care.
Anticipated Discharge: 24 - 48 hours
Subjective/Interval History
-
Date of Service: November 15, 2024
Lethargic but arousable, no acute distress, resting comfortably in bed.
Objective Data
-
Labs:
Laboratory Results
11/15/24
04:00
WBC 9.5
Hgb 12.8
Hct 37.7
Plt Count 202
Sodium 139
Potassium 3.7
Chloride 107
Carbon Dioxide 25
BUN 18 H
Creatinine 1.2 H
Glucose 152 H
Calcium 8.2 L
Vital Signs:
Vital Signs
Temp Pulse Resp BP Pulse Ox
97.6 F 79 18 156/75 99
11/15/24 07:30 11/15/24 08:45 11/15/24 08:45 11/15/24 08:20 11/15/24 08:45
I&O
11/14/24 11/15/24 11/16/24
06:59 06:59 06:59
Intake Total 450 / 450
Output Total 350 / 350
Balance -350 / -350 450 / 450
[2024-11-15] MEDS: APRESOLINE 5 MG IV (10:04)
--- NOTE | 2024-11-15 10:06 | PTCARENOTE ---
Patients BP is 170/70. PRN hydralazine given per order. Patient resting comfortably in bed. Care ongoing.
--- NOTE | 2024-11-15 11:01 | PTCARENOTE ---
Rechecked BP approx 1 hour after administration of PRN hydralazine and BP is 159/86. Patient resting comfortably in bed. Care ongoing.
--- NOTE | 2024-11-15 11:23 | PTCARENOTE ---
Patient with no urine output since 0700 this AM. Patient bladder scanned for 409 mL. Straight cath completed per order and 550 mL out of cloudy yellow urine. Urine sample sent to lab per order. Care ongoing.
[2024-11-15 11:32] LABS: Urine Albumin 1+ (Neg - Trace); Urine Bilirubin Negative (Negative); Urine Character Slightly Cloudy (Clear); Urine Color Yellow; Urine Glucose Negative (Negative); Urine Ketone Negative (Negative); Urine Leukocyte 3+ (Negative); Urine Nitrite Negative (Negative); Urine Occult Blood 2+ (Negative); Urine Specific Gravity 1.015 (<1.030); Urine Urobilinogen Negative (Neg - 1+)
[2024-11-15 11:50] LABS: Urine Bacteria Many (Negative); Urine White Cell 40-50 /HPF (0-5)
--- NOTE | 2024-11-15 12:00 | PTCARENOTE ---
received patient from previous RN. pt drowsy, arouses to voice. pt oriented to self, disoriented to time and place. speech garbled difficult to understand. intermittently will pick at gown and lines. SR on telemetry heart rate 70-90s. pulses
palpable. trace edema. pt on room air, sat 98% lung sounds diminished. active bowel sounds. incontinent of urine- straight cathed by previous RN. bed alarm on. see worklist for full nursing assessment and interventions.
--- NOTE | 2024-11-15 15:37 | PTOTSP ---
Speech Therapy Evaluation:
Pt with known hx of mild oropharyngeal dysphagia s/p VSE in September 2024 with transient supraglottic penetration (PAS 2) with consecutive cup sips of thin liquids and mildly thick liquids, however there was no persistent penetration or any aspiration
noted. On this date, pt presents with signs concerning for oropharyngeal dysphagia (see full note for further details), likely acutely related to lethargy/mentation s/p seizures. Pt also with excess secretions requiring oral suctioning and basin to
expectorate saliva. Current JOHNNY not supportive of oral intake at this time.
Recommend:
1. Strict NPO
2. Medications non-oral
3. Frequent oral care
4. ELECTRIC RAZOR MECHANIC to follow to assess candidacy for diet initiation versus need for instrumental assessment
--- NOTE | 2024-11-15 17:26 | W.PN.NEURO.1 ---
Today's Communication / Plan
-
appears prolonged post ictal
Neuro Assessment/Plan
Assessment
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
head CT imgs rev'd, evidence of prior right sided craniotomy, right temporal/occipital encephalomalacia
CTA head/neck imgs rev'd, no LVO, no significant carotid stenosis
11/14 clinical dx of complex partial status epilepticus which broke with Ativan and loading Vimpat
EEG total ~4 hrs no seizures
Plan
Continue Keppra 500 BID (renal dosing)
Continue Vimpat 100 BID
Subjective/Objective
Subjective Data
Date of Service: November 15, 2024
seen this morning. no further seizures reported
Objective Data
Vital Signs
Temp Pulse Resp BP Pulse Ox
36.4 C 75 17 119/57 98
11/15/24 15:51 11/15/24 17:15 11/15/24 17:15 11/15/24 16:01 11/15/24 17:15
Lab Results
11/15/24 04:00
11/15/24 04:00
PT 15.5 Sec (11.4-14.6) H 11/12/24 19:42
INR 1.20 11/12/24 19:42
APTT 30.6 Sec (23.4-35.0) 11/12/24 19:42
Sodium 139 mmol/L (135-145) 11/15/24 04:00
Potassium 3.7 mmol/L (3.5-5.1) 11/15/24 04:00
BUN 18 mg/dl (7-17) H 11/15/24 04:00
Glucose 152 mg/dl (70-99) H 11/15/24 04:00
Calcium 8.2 mg/dl (8.4-10.2) L 11/15/24 04:00
Phosphorus 2.4 mg/dl (2.5-4.5) L 11/15/24 04:00
LDL Cholesterol, Calc 65 mg/dl 11/13/24 05:31
Patient Allergies
Penicillins Allergy (Verified 11/12/24 19:23)
Unknown ~ 50 years ago
Sulfa (Sulfonamide Antibiotics) Allergy (Verified 11/12/24 19:23)
Unknown ~ 50 years ago
Physical Exam
-
stupor
'no' when asked to squeeze hands
localize and withdraw bilaterally
[2024-11-15] MEDS: ROCEPHIN 1000 MG IV (20:16)
[2024-11-15] MEDS: STERILE WATER FOR INJECTION 10 ML IV (20:16)
[2024-11-16] VITALS (14 sets, daily range): BP systolic 100–150; BP diastolic 39–77
--- NOTE | 2024-11-16 03:20 | PTCARENOTE ---
Pt AAOx2, disoriented to time. Pt is very drowsy, arousable to verbal. Pt has slow speech difficult to understand at times. Pt having confused conversation. Pt restless at times, grabbing for things. No signs of seizure activity noted, seizure pads
remain on the bed. IVF cont. NSR on the monitor. Remains on room air SpO2 97%. Pt incontinent of urine. Bladder scanned pt, 0ml of urine in the bladder post void. Assessment and vitals as charted see worklist. Bed alarm on.
[2024-11-16 04:29] LABS: Hematocrit 34.6 % (37.0-47.0); Hemoglobin 11.9 g/dL (12.0-16.0); Mean Corp Hgb Conc. 34.4 g/dL (33.0-37.0); Mean Corpuscular Hgb 30.1 pg (27.0-31.0); Mean Corpuscular Volume 87.4 fL (81.0-99.0); Mean Platelet Volume 11.5 fL (7.4-10.4); Platelet Count 187 10^3/uL (130-400); Red Blood Cell Count 3.96 10^6/uL (4.20-5.40); Red Cell Dist. Width 14.2 % (11.5-14.5); White Blood Cell Count 8.9 10^3/uL (4.8-10.8)
[2024-11-16 04:58] LABS: Blood Urea Nitrogen 14 mg/dl (7-17); Calcium 7.8 mg/dl (8.4-10.2); Carbon Dioxide 23 mmol/L (22-30); Chloride 109 mmol/L (98-107); Estimated Creatinine Clearance 34 ml/min; Glucose 156 mg/dl (70-99); Magnesium 1.5 mg/dl (1.6-2.3); Phosphorus 2.3 mg/dl (2.5-4.5); Potassium 3.4 mmol/L (3.5-5.1); Sodium 138 mmol/L (135-145); eGFR 45.76
[2024-11-16] MEDS: LOPRESSOR 5 MG IV ×3 (05:28→17:30)
--- NOTE | 2024-11-16 08:25 | W.PN.HOSP.TC ---
Addendum entered and electronically signed by Shelbie Briceno MD 11/17/24 06:54:
stage 2 pressure injury gluteal cleft
Original Note:
Today's Communication/Plan
-
IVF support
replete electrolytes
cont anti-epileptics
cont abx
follow urine cx
Assessment / Plan
Assessment / Plan
Physical Exam
General: No acute distress, appears comfortable at this time
HEENT: NormoCephalic, Anicteric, MMM
Respiratory: Clear
Cardiac: S1/S2 and Regular Rhythm
GI: Soft, Non Tender, Non Distended and Normal Bowel Sounds
Musculoskeletal: No Clubbing, No Cyanosis and No Edema
Skin: Warm
Neuro: Lethargic but arousable, follows simple commands, prolonged post-ictal
80F clotting factor def hx subdual hemorrhage Craniectomy post-op Sz d/o here for breakthrough sz.
PLAN:
Breakthrough Seizure - She was on Keppra 500 bid at home and family reports this is the first seizure in 1 month. She has persistent partial seizure activity
additional sz events noted since admission, one overnight and two episodes following morning (2nd morning episode required 2mg IV to abort) transferred to IMU closer monitoring
-CT head and CTA head/neck appreciated no acute abn's
- received 2g keppra load, continue keppra 500mg q 12 renal dosing
- vimpat as per neuro, adjusted for renal dosing and further adjusted following breakthrough sz's as above
- neuro eval appreciated
- npo for now.while npo switched to IV metoprolol; atorvastatin, asa 81 donepezil and mirtazapine are on hold.
- IVF support
- sz/aspiration/fall precautions
- ST/PT/OT eval appreciated
CKDIII
baseline appears to be 1.2-1.4
monitor renal function
Hypomagnesemia
Hypokalemia
Hypophosphatemia
-monitor and replete as necessary
HTN
likely elevated values d/t sz's since improved with sz resolution
monitor, will consider antihypertensives medications based on bp trends
Possible UTI
Required once straight cath for urine retention 400 cc as per RN
Urinalysis notes bacteriuria, follow up cx
difficulty assessing urinary symptoms w/ AMS
empiric ceftriaxone 1 g daily started for now
PT/OT appreciated SNF rehab
DVT PPX - heparin sq
Code status - DNR/DNI
Discussed with patient's son Kashif
I spent a total of 45 minutes with the patient or on the floor. More than 50% of this time involved counseling and coordination of care.
Anticipated Discharge: > 48 hours
Subjective/Interval History
-
Date of Service: November 16, 2024
Sleeping, occasionally snores, appears comfortable at this time.
Objective Data
-
Labs:
Laboratory Results
11/16/24
04:13
WBC 8.9
Hgb 11.9 L
Hct 34.6 L
Plt Count 187
Sodium 138
Potassium 3.4 L
Chloride 109 H
Carbon Dioxide 23
BUN 14
Creatinine 1.2 H
Glucose 156 H
Calcium 7.8 L
Vital Signs:
Vital Signs
Temp Pulse Resp BP Pulse Ox
98.0 F 87 18 126/77 98
11/16/24 03:00 11/16/24 06:00 11/16/24 06:00 11/16/24 06:00 11/16/24 06:00
I&O
11/15/24 11/16/24 11/17/24
06:59 06:59 06:59
Intake Total 450 / 450 900 / 900
Output Total 550 / 550
Balance 450 / 450 350 / 350
[2024-11-16] MEDS: D5/0.45%NACL 1000 IV (08:31)
[2024-11-16] MEDS: KEPPRA 500 MG IV ×2 (08:32→20:15)
[2024-11-16] MEDS: DESENEX/MITRAZOL/ZEASORB 1 APPLIC TOPICAL ×2 (08:32→20:15)
[2024-11-16] MEDS: HEPARIN 5000 UNITS SC ×2 (08:33→16:02)
[2024-11-16] MEDS: VIMPAT 100 MG IV ×2 (08:33→22:37)
[2024-11-16 09:19] LABS: Glucose - Point of Care 140 mg/dl (70-99)
--- NOTE | 2024-11-16 10:53 | PN.CDI ---
CDI
- -
CDI:
Physician Documentation Request
Admit Date: 11/12/24 21:37
Dear Doctor Katiy,
Patient admitted for seizure.
Nursing documentation clinical panel wound care
11/14/24
09:00 11/14/24
14:00
Dressing appearance [Present on admission Gluteal cleft (vertical)] Dry/intact Dry/intact
Pressure injury stage [Present on admission Gluteal cleft (vertical)] Stage 2
Surrounding Skin - [Present on admission Gluteal cleft (vertical)] Dry and intact
Treatment provided [Present on admission Gluteal cleft (vertical)] Silicone border
foam
Physician documentation of the type and location of wounds is required for compliant documentation. Based on the above clinical findings and your assessment, please provide the following in your progress note:
1. Location of the ulcer/wound, including laterality.
2. Type (etiology) of ulcer/wound:
- Diabetic ulcer
- Arterial (ischemic) ulcer
- Traumatic wound
- Venous stasis ulcer
- Pressure (decubitus) ulcer
- Non-healing surgical wound
- Other
- Unable to determine
3. For a non-pressure ulcer, please indicate the depth/severity:
- Limited to the breakdown of skin
- With fat layer exposed
- With necrosis of muscle
- With necrosis of bone
- Other
- Unable to determine
4. If a pressure ulcer, please also include the stage* of the ulcer:
- Stage 1 - Skin intact, non-blanchable redness
- Stage 2 - Partial thickness loss of dermis, includes intact or open blister
- Stage 3 - Full thickness tissue not including bone, tendon or muscle
- Stage 4 - Full thickness tissue loss, including exposed bone, tendon or muscle
- Unstageable - Full thickness loss in which the base of the ulcer is covered by slough (yellow, handy, crane, green or brown) and/or eschar (handy, brown or black) in the wound bed.
- Unable to determine
Use of terms such as suspected, likely, concern for, or probable (associated with a specific diagnosis that is being evaluated, monitored, or treated as if it exists) are acceptable and can be coded in the inpatient setting, when documented at the
time of discharge.
Thank you,
Jannie Otero RN, BSN
CDI Specialist
Available via [employer] text
Please use your independent medical judgment in providing your response.
*Source: National Pressure Ulcer Advisory Panel (NPUAP)
[2024-11-16] MEDS: POTASSIUM PHOSPHATE 259.0909 MEQ IV (11:15)
[2024-11-16] MEDS: MAGNESIUM SULFATE 100 IV (11:15)
[2024-11-16 11:40] LABS: Venous Blood Gas B.E. -0.6 mmol/L (-4 to +4); Venous Blood Gas HCO3 24.9 mmol/L (22-27); Venous Blood Gas O2 Sat % 96.6 %; Venous Blood Gas pCO2 43 mmHg (35-48); Venous Blood Gas pH 7.37 (7.32-7.43); Venous Blood Gas pO2 76 mmHg (30-50)
--- NOTE | 2024-11-16 17:06 | CM ---
Patient from [facility] with Hx dementia with Dx partial complex seizures. Room air. Receiving IV Vimpat, IV Keppra, IV Abx, IVF. Seen by ST - NPO. PT/OT; requires assist of 2, recommend skilled rehab.
Spoke with patient's son Kashif;
discussed patient's current functional status as per PT/OT. Son agrees to patient going to SNF for rehab. He spoke with his sibling and they agreed to [facility] (first choice) and [facility].
Provided update patient is currently NPO and being seen by ST- he says patient has had this happen a few times before so he anticipates her diet will be advanced when possible.
SNF referrals placed.
Plan follow up SNF referrals.
[2024-11-16] MEDS: ROCEPHIN 1000 MG IV (20:15)
[2024-11-16] MEDS: STERILE WATER FOR INJECTION 10 ML IV (20:16)
--- NOTE | 2024-11-16 23:43 | PTCARENOTE ---
Patient AAOx2, disoriented to time. Pt remains very drowsy and lethargic but responsive to verbal and tactile. Pt slow to speak. No notable seizure activity. IVF cont. VAT placed new IV L hand. Previous site leaking, removed. Seizure precautions
remained, seizure pads around the bed. NSR on the monitor. SpO2 97% on room air. Pt grossly incontinent of urine, generous amounts of moisture barrier applied. Sacral foam remains intact. Heel foams reinforced. Assessment and vitals as charted see
worklist. Pt tolerating frequent turning and repositioning. Bed alarm on.
[2024-11-17] VITALS (18 sets, daily range): BP systolic 112–167; BP diastolic 53–123; PULSE 71; O2SAT 97
[2024-11-17] MEDS: HEPARIN 5000 UNITS SC ×3 (00:16→15:48)
[2024-11-17] MEDS: LOPRESSOR 5 MG IV ×4 (00:16→18:36)
[2024-11-17] MEDS: D5/0.45%NACL 1000 IV ×2 (03:15→22:08)
[2024-11-17 05:45] LABS: Hematocrit 35.9 % (37.0-47.0); Hemoglobin 12.4 g/dL (12.0-16.0); Mean Corp Hgb Conc. 34.5 g/dL (33.0-37.0); Mean Corpuscular Hgb 29.8 pg (27.0-31.0); Mean Corpuscular Volume 86.3 fL (81.0-99.0); Platelet Count 198 10^3/uL (130-400); Red Blood Cell Count 4.16 10^6/uL (4.20-5.40); Red Cell Dist. Width 14.2 % (11.5-14.5)
[2024-11-17 06:19] LABS: Blood Urea Nitrogen 12 mg/dl (7-17); Carbon Dioxide 22 mmol/L (22-30); Chloride 110 mmol/L (98-107); Estimated Creatinine Clearance 34 ml/min; Glucose 143 mg/dl (70-99); Magnesium 2.4 mg/dl (1.6-2.3); Phosphorus 3.5 mg/dl (2.5-4.5); Sodium 138 mmol/L (135-145); eGFR 45.76
--- NOTE | 2024-11-17 08:40 | PTOTSP ---
Speech Language Pathology
Pt seen for dysphagia tx. Sleeping soundly upon arrival. Able to rouse to verbal/tactile stimulation, but eyes remained closed during session. P.O. trials of puree and thin liquids provided. Adequate bolus formation and A-P transit noted.
Piecemeal deglutition noted at times with thin liquids. After a few trials, brief coughing noted. Unsure if related to P.O. intake.
Given cough and continued drowsiness, will continue NPO but allow sips of thin water.
Recommend:
(1) Continued NPO
(2) Allow sips of thin water post oral care given supervision per Aspiration Risk Hydration Protocol (ARHP)
(3) Non-oral meds if possible
(4) QUALITY ASSURANCE PRACTICE MANAGER to continue to follow. Hopeful diet initiation will be possible in the next couple of days
[2024-11-17] MEDS: DESENEX/MITRAZOL/ZEASORB 1 APPLIC TOPICAL ×2 (08:51→19:32)
--- NOTE | 2024-11-17 08:51 | W.PN.HOSP.TC ---
Today's Communication/Plan
-
IVF support
cont sz medications
abx
fall/sz/aspiration precautions
ST/PT/OT
Assessment / Plan
Assessment / Plan
Physical Exam
General: No acute distress, appears comfortable at this time
HEENT: NormoCephalic, Anicteric, MMM
Respiratory: Clear
Cardiac: S1/S2 and Regular Rhythm
GI: Soft, Non Tender, Non Distended and Normal Bowel Sounds
Musculoskeletal: No Clubbing, No Cyanosis and No Edema
Skin: Warm
Neuro: Lethargic but arousable, follows simple commands, oriented x2 disoriented to time, prolonged post-ictal
79F clotting factor def hx subdual hemorrhage Craniectomy post-op Sz d/o here for breakthrough sz.
PLAN:
Breakthrough Seizure - She was on Keppra 500 bid at home and family reports this is the first seizure in 1 month. She has persistent partial seizure activity
additional sz events noted since admission, one overnight and two episodes following morning (2nd morning episode required 2mg IV to abort) transferred to IMU closer monitoring
-CT head and CTA head/neck appreciated no acute abn's
- received 2g keppra load, continue keppra 500mg q 12 renal dosing
- vimpat as per neuro, adjusted for renal dosing and further adjusted following breakthrough sz's as above
- neuro eval appreciated
- npo for now.while npo switched to IV metoprolol; atorvastatin, asa 81 donepezil and mirtazapine are on hold.
- IVF support
- sz/aspiration/fall precautions
- ST/PT/OT eval appreciated
CKDIII
baseline appears to be 1.2-1.4
monitor renal function
Hypomagnesemia
Hypokalemia
Hypophosphatemia
-monitor and replete as necessary
HTN
likely elevated values d/t sz's since improved with sz resolution
monitor, will consider antihypertensives medications based on bp trends
Possible UTI
Required once straight cath for urine retention 400 cc as per RN
Urinalysis notes bacteriuria, follow up cx notes E. coli sensitivities appreciated
difficulty assessing urinary symptoms w/ AMS
empiric ceftriaxone 1 g daily 11/15 anticipate eventual transition to PO abx when able to tolerate oral intake
PT/OT appreciated SNF rehab
DVT PPX - heparin sq
Code status - DNR/DNI
Discussed with patient's son Kashif
I spent a total of 45 minutes with the patient or on the floor. More than 50% of this time involved counseling and coordination of care.
Anticipated Discharge: > 48 hours
Subjective/Interval History
-
Date of Service: November 17, 2024
remains lethargic but more conversant oriented x2 disoriented to time. Denies pain. Reports no appetite.
Objective Data
-
Labs:
Laboratory Results
11/17/24
05:31
WBC 8.0
Hgb 12.4
Hct 35.9 L
Plt Count 198
Sodium 138
Potassium 4.0
Chloride 110 H
Carbon Dioxide 22
BUN 12
Creatinine 1.2 H
Glucose 143 H
Calcium 8.0 L
Vital Signs:
Vital Signs
Temp Pulse Resp BP Pulse Ox
98.3 F 77 17 146/72 97
11/17/24 03:00 11/17/24 06:00 11/17/24 06:00 11/17/24 05:46 11/17/24 06:00
I&O
11/16/24 11/17/24 11/18/24
06:59 06:59 06:59
Intake Total 900 / 900 1690 / 1690
Output Total 550 / 550
Balance 350 / 350 1690 / 1690
[2024-11-17] MEDS: VIMPAT 100 MG IV ×2 (08:52→22:09)
[2024-11-17] MEDS: KEPPRA 500 MG IV ×2 (08:52→19:32)
[2024-11-17] MEDS: D5/0.45%NACL IV (09:00)
[2024-11-17] MEDS: FLUSH (NSS) 2 FLUSH IV ×2 (13:37→22:09)
--- NOTE | 2024-11-17 17:29 | CM ---
Patient from [facility] with Hx dementia with Dx partial complex seizures. Room air, NPO. ST for PO trials. Receiving IV Vimpat, IV Keppra, IV Abx, IVF. PT/OT; recommend skilled rehab.
Declined by [facility]; no available bed.
Spoke with [facility]; they cannot accept until patient is taking PO/has diet orders. She will consider that patient. Provided update that Actemra can be held while at SNF, per Dr Briceno.
Plan follow up Wednesday if tolerating PO diet and follow up with [facility].
--- NOTE | 2024-11-17 19:31 | PTCARENOTE ---
Pt arouses to verbal, opening eyes this afternoon with less effort. Pt follows simple commands. No changes in assessment this shift. Pt's son Terrance at bedside and reports she had a prolonged and slow 'waking up' after her previous seizures in September.
Seizure precautions intact this shift
[2024-11-17] MEDS: STERILE WATER FOR INJECTION 10 ML IV (19:32)
[2024-11-17] MEDS: ROCEPHIN 1000 MG IV (19:32)
[2024-11-17] MEDS: FLUSH (NSS) 3 FLUSH IV (19:33)
--- NOTE | 2024-11-17 23:46 | PTCARENOTE ---
Pt received at beginning of shift. AAOx3. GCS 15. Slightly weak all extremities but can fight against gravity. Somewhat drowsy but easily arousable. VSS. Afebrile. SR on CM rate 80's. Rest of assessment as documented. Remains on seizure precautions.
No seizures noted. Seizure pads in place. IVF's infusing as ordered. Incontinent urine. Changed and cleansed. Call vela remains within reach. Will continue to monitor.
[2024-11-18] VITALS (14 sets, daily range): BP systolic 104–168; BP diastolic 49–84
[2024-11-18] MEDS: HEPARIN 5000 UNITS SC ×4 (00:07→23:19)
[2024-11-18] MEDS: LOPRESSOR 5 MG IV ×5 (00:08→23:20)
[2024-11-18 03:57] LABS: Hematocrit 34.5 % (37.0-47.0); Hemoglobin 11.8 g/dL (12.0-16.0); Mean Corp Hgb Conc. 34.2 g/dL (33.0-37.0); Mean Corpuscular Hgb 29.8 pg (27.0-31.0); Mean Corpuscular Volume 87.1 fL (81.0-99.0); Mean Platelet Volume 10.9 fL (7.4-10.4); Platelet Count 195 10^3/uL (130-400); Red Blood Cell Count 3.96 10^6/uL (4.20-5.40); White Blood Cell Count 7.9 10^3/uL (4.8-10.8)
[2024-11-18 04:24] LABS: Blood Urea Nitrogen 12 mg/dl (7-17); Calcium 7.9 mg/dl (8.4-10.2); Carbon Dioxide 22 mmol/L (22-30); Chloride 110 mmol/L (98-107); Estimated Creatinine Clearance 34 ml/min; Glucose 135 mg/dl (70-99); Magnesium 1.9 mg/dl (1.6-2.3); Phosphorus 2.6 mg/dl (2.5-4.5); Potassium 3.6 mmol/L (3.5-5.1); Sodium 136 mmol/L (135-145); eGFR 45.76
[2024-11-18] MEDS: KEPPRA 500 MG IV ×2 (08:33→19:28)
[2024-11-18] MEDS: DESENEX/MITRAZOL/ZEASORB 1 APPLIC TOPICAL ×2 (08:34→19:27)
[2024-11-18] MEDS: VIMPAT 100 MG IV ×2 (08:34→21:10)
[2024-11-18] MEDS: FLUSH (NSS) 2 FLUSH IV ×3 (08:34→17:35)
[2024-11-18] MEDS: D5/0.45%NACL 1000 IV ×2 (09:22→23:16)
--- NOTE | 2024-11-18 12:21 | PTOTSP ---
Speech Pathology
Dysphagia Follow Up
Patient remains lethargic, but awoken with verbal and tactile cues.Took 2 small sips of water via straw before refusing further trials. No overt s/s of aspiration or penetration observed. Took x1 tsp of puree before refusing further trials. No overt
s/s of aspiration or penetration observed. Proceeded to go back to sleep. Would recommend maintaining current recommendations due to current lethargy/AMS.
Recommendations remain:
(1) Continued NPO
(2) Allow sips of thin water post oral care given supervision per Aspiration Risk Hydration Protocol (ARHP)
(3) Non-oral meds if possible
(4) INSTRUMENT REPAIR SUPERVISOR to continue to follow. Hopeful diet initiation will be possible in the next couple of days
--- NOTE | 2024-11-18 14:15 | W.PN.HOSP.TC ---
Today's Communication/Plan
-
IVF support
cont sz medications
non-violent restraints prn, wean off as tolerated
cont abx
Assessment / Plan
Assessment / Plan
Physical Exam
General: No acute distress, appears comfortable at this time
HEENT: NormoCephalic, Anicteric, MMM
Respiratory: Clear
Cardiac: S1/S2 and Regular Rhythm
GI: Soft, Non Tender, Non Distended and Normal Bowel Sounds
Musculoskeletal: No Clubbing, No Cyanosis and No Edema
Skin: Warm
Neuro: Lethargic but arousable, follows simple commands, oriented x2 disoriented to time, prolonged post-ictal
79F clotting factor def hx subdual hemorrhage Craniectomy post-op Sz d/o here for breakthrough sz.
PLAN:
Breakthrough Seizure - She was on Keppra 500 bid at home and family reports this is the first seizure in 1 month. She has persistent partial seizure activity
additional sz events noted since admission, one overnight and two episodes following morning (2nd morning episode required 2mg IV to abort) transferred to IMU closer monitoring
-CT head and CTA head/neck appreciated no acute abn's
- received 2g keppra load, continue keppra 500mg q 12 renal dosing
- vimpat as per neuro, adjusted for renal dosing and further adjusted following breakthrough sz's as above
- neuro eval appreciated
- npo for now.while npo switched to IV metoprolol; atorvastatin, asa 81 donepezil and mirtazapine are on hold.
- IVF support
- sz/aspiration/fall precautions
- ST/PT/OT eval appreciated
Acute Toxic Metabolic Encephalopathy
Delirium
non-violent restraints prn
monitor redirect/reorient as appropriate
CKDIII
baseline appears to be 1.2-1.4
monitor renal function
Hypomagnesemia
Hypokalemia
Hypophosphatemia
-monitor and replete as necessary
HTN
likely elevated values d/t sz's since improved with sz resolution
monitor, will consider antihypertensives medications based on bp trends
Possible UTI
Required once straight cath for urine retention 400 cc as per RN
Urinalysis notes bacteriuria, follow up cx notes E. coli sensitivities appreciated
difficulty assessing urinary symptoms w/ AMS
empiric ceftriaxone 1 g daily 11/15 anticipate eventual transition to PO abx when able to tolerate oral intake
PT/OT appreciated SNF rehab
DVT PPX - heparin sq
Code status - DNR/DNI
Discussed with patient's son Kashif
I spent a total of 45 minutes with the patient or on the floor. More than 50% of this time involved counseling and coordination of care.
Anticipated Discharge: 24 - 48 hours
Subjective/Interval History
-
Date of Service: November 18, 2024
lethargic arousable limited conversation. reports no appetite. on non-violent restraints mitts
Objective Data
-
Labs:
Laboratory Results
11/18/24
03:39
WBC 7.9
Hgb 11.8 L
Hct 34.5 L
Plt Count 195
Sodium 136
Potassium 3.6
Chloride 110 H
Carbon Dioxide 22
BUN 12
Creatinine 1.2 H
Glucose 135 H
Calcium 7.9 L
Vital Signs:
Vital Signs
Temp Pulse Resp BP Pulse Ox
98.3 F 89 19 111/62 97
11/18/24 11:05 11/18/24 12:45 11/18/24 06:00 11/18/24 12:45 11/18/24 11:23
I&O
11/17/24 11/18/24 11/19/24
06:59 06:59 06:59
Intake Total 1690 / 1690 900 / 900
Balance 1690 / 1690 900 / 900
--- NOTE | 2024-11-18 19:17 | PTCARENOTE ---
Patient remains drowsy throughout the day, arouses to voice answers appropriately but does not stay alert for long periods of time. Mouth breathing when asleep, frequent oral care given. Seizure precautions maintained and complete care provided
through shift
[2024-11-18] MEDS: ROCEPHIN 1000 MG IV (19:30)
[2024-11-18] MEDS: STERILE WATER FOR INJECTION 10 ML IV (19:30)
[2024-11-19] VITALS (13 sets, daily range): BP systolic 102–154; BP diastolic 42–97
[2024-11-19 04:39] LABS: Hematocrit 34.7 % (37.0-47.0); Hemoglobin 11.9 g/dL (12.0-16.0); Mean Corp Hgb Conc. 34.3 g/dL (33.0-37.0); Mean Corpuscular Hgb 29.6 pg (27.0-31.0); Mean Corpuscular Volume 86.3 fL (81.0-99.0); Mean Platelet Volume 10.8 fL (7.4-10.4); Platelet Count 199 10^3/uL (130-400); Red Blood Cell Count 4.02 10^6/uL (4.20-5.40); Red Cell Dist. Width 13.6 % (11.5-14.5); White Blood Cell Count 8.3 10^3/uL (4.8-10.8)
[2024-11-19 05:03] LABS: Blood Urea Nitrogen 10 mg/dl (7-17); Calcium 8.2 mg/dl (8.4-10.2); Carbon Dioxide 22 mmol/L (22-30); Chloride 109 mmol/L (98-107); Estimated Creatinine Clearance 37 ml/min; Glucose 141 mg/dl (70-99); Magnesium 1.6 mg/dl (1.6-2.3); Phosphorus 2.6 mg/dl (2.5-4.5); Potassium 3.6 mmol/L (3.5-5.1); Sodium 136 mmol/L (135-145)
--- NOTE | 2024-11-19 05:13 | PTCARENOTE ---
Pt resting comfortably throughout shift. AAOx2-3. Conversation at times is confused otherwise oriented to surroundings. B/L hand mitts remain on not tied d/t pt pulling at IV site and removing wires. IVF's infusing as ordered. No seizure activity
noted throughout shift and seizure pads remain on. VSS. Afebrile. SR on CM rate 80'90's. Neuro checks as documented. Assessment unchanged from beginning of shift. Bed alarm remains on and working. Maintained on Q2hr turns. Will continue to monitor.
[2024-11-19] MEDS: LOPRESSOR 5 MG IV ×4 (05:51→23:12)
--- NOTE | 2024-11-19 07:32 | W.PN.HOSP.TC ---
Today's Communication/Plan
-
IVF support
cont sz medications
non-violent restraints prn, wean off as tolerated
cont abx
Daily Rectal ASA while NPO
Assessment / Plan
Assessment / Plan
Physical Exam
General: No acute distress, appears comfortable at this time
HEENT: NormoCephalic, Anicteric, MMM
Respiratory: Clear
Cardiac: S1/S2 and Regular Rhythm
GI: Soft, Non Tender, Non Distended and Normal Bowel Sounds
Musculoskeletal: No Clubbing, No Cyanosis and No Edema
Skin: Warm
Neuro: Lethargic but arousable, follows simple commands, oriented x2 disoriented to time, prolonged post-ictal
79F clotting factor def hx subdual hemorrhage Craniectomy post-op Sz d/o here for breakthrough sz.
PLAN:
Breakthrough Seizure - She was on Keppra 500 bid at home and family reports this is the first seizure in 1 month. She has persistent partial seizure activity
additional sz events noted since admission, one overnight and two episodes following morning (2nd morning episode required 2mg IV to abort) transferred to IMU closer monitoring
-CT head and CTA head/neck appreciated no acute abn's
- received 2g keppra load, continue keppra 500mg q 12 renal dosing
- vimpat as per neuro, adjusted for renal dosing and further adjusted following breakthrough sz's as above
- neuro eval appreciated
- npo for now while npo switched to IV metoprolol; atorvastatin, donepezil and mirtazapine are on hold.
- substitute home PO ASA 81 mg with daily rectal ASA 300 mg until appropriate for PO intake
- IVF support
- sz/aspiration/fall precautions
- ST/PT/OT eval appreciated
Acute Toxic Metabolic Encephalopathy
Delirium
non-violent restraints prn
monitor redirect/reorient as appropriate
CKDIII
baseline appears to be 1.2-1.4
monitor renal function
Hypomagnesemia
Hypokalemia
Hypophosphatemia
-monitor and replete as necessary
HTN
likely elevated values d/t sz's since improved with sz resolution
monitor, consider antihypertensives medications based on bp trends, relatively consistently normotensive at this time
Possible UTI
Required once straight cath for urine retention 400 cc as per RN
Urinalysis notes bacteriuria, follow up cx notes E. coli sensitivities appreciated
difficulty assessing urinary symptoms w/ AMS
empiric ceftriaxone 1 g daily 11/15 anticipate eventual transition to PO abx when able to tolerate oral intake or completion planned 7 days abx
PT/OT appreciated SNF rehab
DVT PPX - heparin sq
Code status - DNR/DNI
Discussed with patient's son Kashif
I spent a total of 45 minutes with the patient or on the floor. More than 50% of this time involved counseling and coordination of care.
Anticipated Discharge: > 48 hours
Subjective/Interval History
-
Date of Service: November 19, 2024
Lethargic but arousable, required non-violent restraints/mitts overnight. Minimal communication d/t lethargy (falls back to sleep and short time) but oriented x2 disoriented to time. No appetite.
Objective Data
-
Labs:
Laboratory Results
11/19/24
04:08
WBC 8.3
Hgb 11.9 L
Hct 34.7 L
Plt Count 199
Sodium 136
Potassium 3.6
Chloride 109 H
Carbon Dioxide 22
BUN 10
Creatinine 1.1 H
Glucose 141 H
Calcium 8.2 L
Vital Signs:
Vital Signs
Temp Pulse Resp BP Pulse Ox
98.7 F 87 19 128/49 99
11/19/24 03:08 11/19/24 05:51 11/19/24 04:10 11/19/24 05:51 11/19/24 04:10
I&O
11/18/24 11/19/24 11/20/24
06:59 06:59 06:59
Intake Total 900 / 900 900 / 900
Balance 900 / 900 900 / 900
[2024-11-19] MEDS: DESENEX/MITRAZOL/ZEASORB 1 APPLIC TOPICAL ×2 (09:19→20:59)
[2024-11-19] MEDS: HEPARIN 5000 UNITS SC ×3 (09:20→23:10)
[2024-11-19] MEDS: VIMPAT 100 MG IV ×2 (09:21→20:52)
[2024-11-19] MEDS: KEPPRA 500 MG IV ×2 (09:21→20:52)
[2024-11-19] MEDS: MAGNESIUM SULFATE 50 IV (13:03)
[2024-11-19] MEDS: D5/0.45%NACL 1000 IV (13:04)
[2024-11-19] MEDS: ROCEPHIN 1000 MG IV (20:51)
[2024-11-19] MEDS: ASPIRIN 300 MG RECTAL (20:51)
[2024-11-19] MEDS: STERILE WATER FOR INJECTION 10 ML IV (20:52)
[2024-11-20] VITALS (12 sets, daily range): BP systolic 121–165; BP diastolic 47–92; PULSE 85–90; O2SAT 99–100
[2024-11-20 05:28] LABS: Hematocrit 38.1 % (37.0-47.0); Hemoglobin 12.9 g/dL (12.0-16.0); Mean Corp Hgb Conc. 33.9 g/dL (33.0-37.0); Mean Corpuscular Hgb 29.4 pg (27.0-31.0); Mean Corpuscular Volume 86.8 fL (81.0-99.0); Mean Platelet Volume 10.8 fL (7.4-10.4); Platelet Count 236 10^3/uL (130-400); Red Blood Cell Count 4.39 10^6/uL (4.20-5.40); Red Cell Dist. Width 13.5 % (11.5-14.5); White Blood Cell Count 8.2 10^3/uL (4.8-10.8)
[2024-11-20] MEDS: D5/0.45%NACL 1000 IV ×2 (05:33→18:24)
[2024-11-20] MEDS: LOPRESSOR 5 MG IV ×3 (05:33→17:19)
[2024-11-20 05:48] LABS: Blood Urea Nitrogen 9 mg/dl (7-17); Calcium 8.4 mg/dl (8.4-10.2); Carbon Dioxide 27 mmol/L (22-30); Chloride 108 mmol/L (98-107); Estimated Creatinine Clearance 41 ml/min; Glucose 120 mg/dl (70-99); Phosphorus 2.6 mg/dl (2.5-4.5); Potassium 3.8 mmol/L (3.5-5.1); Sodium 138 mmol/L (135-145); eGFR 56.95
[2024-11-20] MEDS: KEPPRA 500 MG IV ×2 (07:57→20:25)
[2024-11-20] MEDS: DESENEX/MITRAZOL/ZEASORB 1 APPLIC TOPICAL ×2 (07:58→20:30)
[2024-11-20] MEDS: HEPARIN 5000 UNITS SC ×3 (07:58→23:37)
[2024-11-20] MEDS: VIMPAT 100 MG IV ×2 (08:42→21:53)
--- NOTE | 2024-11-20 08:55 | PTOTSP ---
Speech Language Pathology
Pt seen for dysphagia tx. Upon [employer]ILL[employer] arrival, pt awake and verbalizing in response to questions. Provided P.O. trials of puree, regular solids, and thin liquids. Prolonged mastication of regular solids with need for liquid wash to clear oral
cavity. Brief throat clear with first 2 sips of thin liquids. No other throat clear/cough noted with clear vocal quality.
Recommend:
(1) Initiate IDDSI Level 5 (minced/moist) solids and thin liquids
(2) Aspiration precautions: full supervision with assist as needed, slow rate, sit upright, ensure oral cavity clear post P.O. intake
(3) Meds whole in puree
(4) [employer]ILL[employer] to continue to follow
--- NOTE | 2024-11-20 08:57 | W.PN.HOSP.TC ---
Today's Communication/Plan
-
Antibiotics. Antiseizure medications. Start diet
Assessment / Plan
Assessment / Plan
Physical Exam
General: No acute distress, appears comfortable at this time
HEENT: NormoCephalic, Anicteric, MMM
Respiratory: Clear
Cardiac: S1/S2 and Regular Rhythm
GI: Soft, Non Tender, Non Distended and Normal Bowel Sounds
Musculoskeletal: No Clubbing, No Cyanosis and No Edema
Skin: Warm
Neuro: Lethargic but arousable, follows simple commands, oriented x2 disoriented to time, prolonged bana-cqzmr-[id number] improved today compared to prior records
A/P:
79F clotting factor def hx subdual hemorrhage Craniectomy post-op Sz d/o here for breakthrough sz.
PLAN:
Breakthrough Seizure - She was on Keppra 500 bid at home and family reports this is the first seizure in 1 month. She has persistent partial seizure activity
additional sz events noted since admission, one overnight and two episodes following morning (2nd morning episode required 2mg IV to abort) transferred to IMU closer monitoring
-CT head and CTA head/neck appreciated no acute abn's
- received 2g keppra load, continue keppra 500mg q 12 renal dosing
- vimpat as per neuro, adjusted for renal dosing and further adjusted following breakthrough sz's as above
- neuro eval appreciated
- Will start diet today. While npo switched to IV metoprolol; atorvastatin, donepezil and mirtazapine are on hold and will resume in the next 24 hours if able to tolerate diet consistently.
- substitute home PO ASA 81 mg with daily rectal ASA 300 mg until appropriate for PO intake
- IVF support
- sz/aspiration/fall precautions
- ST/PT/OT eval appreciated
- Can transfer out of IMU today
Acute Toxic Metabolic Encephalopathy
Delirium
non-violent restraints prn
monitor redirect/reorient as appropriate
CKDIII
baseline appears to be 1.2-1.4
monitor renal function
Hypomagnesemia
Hypokalemia
Hypophosphatemia
-monitor and replete as necessary
HTN
likely elevated values d/t sz's since improved with sz resolution
monitor, consider antihypertensives medications based on bp trends, relatively consistently normotensive at this time
Possible UTI
Required once straight cath for urine retention 400 cc as per RN
Urinalysis notes bacteriuria, follow up cx notes E. coli sensitivities appreciated
difficulty assessing urinary symptoms w/ AMS
empiric ceftriaxone 1 g daily 11/15 anticipate eventual transition to PO abx when able to tolerate oral intake or completion planned 7 days abx
PT/OT appreciated SNF rehab
DVT PPX - heparin sq
Code status - DNR/DNI
Discussed with patient's son Kashif
I spent a total of 45 minutes with the patient or on the floor. More than 50% of this time involved counseling and coordination of care.
Anticipated Discharge: 24 - 48 hours
Subjective/Interval History
-
Date of Service: November 20, 2024
Patient more alert today. Afebrile.
Objective Data
-
Labs:
Laboratory Results
11/20/24 11/20/24
04:58 04:59
WBC 8.2
Hgb 12.9
Hct 38.1
Plt Count 236
Sodium 138
Potassium 3.8
Chloride 108 H
Carbon Dioxide 27
BUN 9
Creatinine 1.0
Glucose 120 H
Calcium 8.4
Vital Signs:
Vital Signs
Temp Pulse Resp BP Pulse Ox
97.3 F 84 16 130/50 98
11/20/24 07:41 11/20/24 05:33 11/20/24 03:00 11/20/24 05:33 11/20/24 03:00
I&O
11/19/24 11/20/24 11/21/24
06:59 06:59 06:59
Intake Total 900 / 900 980 / 980
Balance 900 / 900 980 / 980
--- NOTE | 2024-11-20 09:18 | PTCARENOTE ---
Patient received from auto painter helper. Patient resting comfortably in bed. AAOx2 mostly to self but able to identify they are in a hospital, VSS. No events noted overnight. No complaints of pain at this time. IV fluids through IV. Neuro checks
Q4, on seizure precautions. Continue anti-seizure meds. Continue ABX. No tests scheduled at this time. Call vela in reach.
[2024-11-20] MEDS: ASPIRIN 300 MG RECTAL (17:23)
--- NOTE | 2024-11-20 18:00 | PTCARENOTE ---
Report called to Rolanda RN 4W. Patient transported to new room with all known belongings. Receiving RN getting an admission, therapy director in room to help settle patient.
--- NOTE | 2024-11-20 18:03 | CM ---
Patient from [facility] with Hx dementia with Dx partial complex seizures. Room air. Dysphagia diet. PT/OT recommend skilled rehab. Receiving IV Vimpat, IV Keppra, IV Abx. Per nurse; confused, forgetful, Neuro checks
Q4.
Per Dr Franco, watching patient for mentation, patient may be ready for d/c in 1-2 days.
Spoke with Swathi Kinney; provided update on patient's status. Per Gregoria, CM can call on day of discharge for bed availability.
Spoke with patient's son Kashif; provided update that [facility] declined due to no bed available however [facility] accepted and is hoping to have an available bed on day of discharge, in the next few days.
Plan [facility] when medically ready and bed available.
[2024-11-20] MEDS: STERILE WATER FOR INJECTION 10 ML IV (20:22)
[2024-11-20] MEDS: ROCEPHIN 1000 MG IV (20:23)
[2024-11-20] MEDS: LOPRESSOR 50 MG PO (20:26)
--- NOTE | 2024-11-20 22:02 | PTCARENOTE ---
David MUNOZ aware that pt is receiving IV Vimpat and per policy patient needs to be on telemetry. Order placed to put her on telemetry monitoring.
[2024-11-20] MEDS: ARICEPT 10 MG PO (22:04)
[2024-11-20] MEDS: REMERON 7.5 MG PO (22:04)
[2024-11-20] MEDS: LIPITOR 10 MG PO (22:04)
[2024-11-21] VITALS (7 sets, daily range): BP systolic 127–178; BP diastolic 60–94
[2024-11-21 07:11] LABS: Hematocrit 36.2 % (37.0-47.0); Hemoglobin 12.3 g/dL (12.0-16.0); Mean Corpuscular Hgb 29.9 pg (27.0-31.0); Mean Corpuscular Volume 87.9 fL (81.0-99.0); Mean Platelet Volume 11.2 fL (7.4-10.4); Platelet Count 270 10^3/uL (130-400); Red Blood Cell Count 4.12 10^6/uL (4.20-5.40); Red Cell Dist. Width 13.8 % (11.5-14.5); White Blood Cell Count 7.9 10^3/uL (4.8-10.8)
[2024-11-21 07:49] LABS: Blood Urea Nitrogen 7 mg/dl (7-17); Calcium 8.2 mg/dl (8.4-10.2); Carbon Dioxide 26 mmol/L (22-30); Chloride 106 mmol/L (98-107); Estimated Creatinine Clearance 41 ml/min; Glucose 129 mg/dl (70-99); Potassium 3.2 mmol/L (3.5-5.1); Sodium 136 mmol/L (135-145); eGFR 56.95
[2024-11-21] MEDS: D5/0.45%NACL 1000 IV (08:30)
[2024-11-21] MEDS: DESENEX/MITRAZOL/ZEASORB 1 APPLIC TOPICAL ×2 (08:30→22:44)
[2024-11-21] MEDS: HEPARIN 5000 UNITS SC ×3 (08:32→23:23)
[2024-11-21] MEDS: VIMPAT 100 MG IV (08:33)
[2024-11-21] MEDS: LOW STRENGTH ASPIRIN 81 MG PO (08:35)
[2024-11-21] MEDS: KEPPRA 500 MG IV (08:35)
[2024-11-21] MEDS: LOPRESSOR 50 MG PO ×2 (08:35→21:24)
[2024-11-21] MEDS: KCL 40 MEQ PO (09:53)
--- NOTE | 2024-11-21 13:31 | W.PN.HOSP.TC ---
Addendum entered and electronically signed by Arya Franco MD 11/21/24 14:20:
Updated son over the phone today.
Hypokalemia--> replete and trend. Check magnesium level in a.m.
Original Note:
Today's Communication/Plan
-
Antiseizure medications. Monitor mental status and behavior.
Assessment / Plan
Assessment / Plan
Physical Exam
General: No acute distress, appears comfortable at this time
HEENT: NormoCephalic, Anicteric, MMM
Respiratory: Clear
Cardiac: S1/S2 and Regular Rhythm
GI: Soft, Non Tender, Non Distended and Normal Bowel Sounds
Musculoskeletal: No Clubbing, No Cyanosis and No Edema
Skin: Warm
Neuro: Lethargic but arousable, follows simple commands, oriented x2 disoriented to time, prolonged [id number] improved today compared to prior records
A/P:
79F clotting factor def hx subdual hemorrhage Craniectomy post-op Sz d/o here for breakthrough sz.
PLAN:
Breakthrough Seizure - She was on Keppra 500 bid at home and family reports this is the first seizure in 1 month. She has persistent partial seizure activity
additional sz events noted since admission, one overnight and two episodes following morning (2nd morning episode required 2mg IV to abort) transferred to IMU closer monitoring
-CT head and CTA head/neck appreciated no acute abn's
- received 2g keppra load, continue keppra 500mg q 12 renal dosing
- vimpat as per neuro, adjusted for renal dosing and further adjusted following breakthrough sz's as above
- neuro eval appreciated
- Will start diet today. While npo switched to IV metoprolol; atorvastatin, donepezil and mirtazapine are on hold and will resume in the next 24 hours if able to tolerate diet consistently.
- substitute home PO ASA 81 mg with daily rectal ASA 300 mg until appropriate for PO intake
- IVF support
- sz/aspiration/fall precautions
- ST/PT/OT eval appreciated
- Change IV AED to oral Keppra 500 mg twice a day and Vimpat 100 mg p.o. twice a day-discussed with neurology today.
- Stop IV fluid and continue level IDDSI 5 diet per speech therapy.
- Resume all her medications
Acute Toxic Metabolic Encephalopathy
Delirium
non-violent restraints prn
monitor redirect/reorient as appropriate
CKDIII
baseline appears to be 1.2-1.4
monitor renal function
Hypomagnesemia
Hypokalemia
Hypophosphatemia
-monitor and replete as necessary
HTN
likely elevated values d/t sz's since improved with sz resolution
monitor, consider antihypertensives medications based on bp trends, relatively consistently normotensive at this time
Possible UTI
Required once straight cath for urine retention 400 cc as per RN
Urinalysis notes bacteriuria, follow up cx notes E. coli sensitivities appreciated
difficulty assessing urinary symptoms w/ AMS
empiric ceftriaxone 1 g daily 11/15 anticipate eventual transition to PO abx when able to tolerate oral intake or completion planned 5 days abx
PT/OT appreciated SNF rehab
DVT PPX - heparin sq
Code status - DNR/DNI
Dr. Briceno Discussed with patient's son Kashif
Anticipated Discharge: 24 - 48 hours
Subjective/Interval History
-
Date of Service: November 21, 2024
No new complaints today. Alert but fluctuates throughout the day. Afebrile
Objective Data
-
Labs:
Laboratory Results
11/21/24
06:17
WBC 7.9
Hgb 12.3
Hct 36.2 L
Plt Count 270
Sodium 136
Potassium 3.2 L
Chloride 106
Carbon Dioxide 26
BUN 7
Creatinine 1.0
Glucose 129 H
Calcium 8.2 L
Vital Signs:
Vital Signs
Temp Pulse Resp BP Pulse Ox
99.2 F 91 20 127/78 100
11/21/24 10:54 11/21/24 10:54 11/21/24 10:54 11/21/24 10:54 11/21/24 10:54
I&O
11/20/24 11/21/24 11/22/24
06:59 06:59 06:59
Intake Total 980 / 980 5 / 167
Balance 980 / 980 5 / 167
--- NOTE | 2024-11-21 14:49 | CM ---
integration project manager reviewed patient's chart and met with patient and plan is for skilled placement at [facility] when stable, manager case management left a message for admissions at [facility].
Plan; Skilled placement.
[2024-11-21] MEDS: STERILE WATER FOR INJECTION 10 ML IV (21:23)
[2024-11-21] MEDS: VIMPAT 100 MG PO (21:23)
[2024-11-21] MEDS: ROCEPHIN 1000 MG IV (21:23)
[2024-11-21] MEDS: KEPPRA 500 MG PO (21:27)
[2024-11-21] MEDS: LIPITOR 10 MG PO (22:43)
[2024-11-21] MEDS: ARICEPT 10 MG PO (22:43)
[2024-11-21] MEDS: REMERON 7.5 MG PO (22:43)
[2024-11-21] MEDS: FLUSH (NSS) 1 FLUSH IV (23:25)
[2024-11-22 03:19] VITALS: BP 135/91
[2024-11-22 07:30] VITALS: BP 130/84
[2024-11-22] MEDS: LOPRESSOR 50 MG PO (07:45)
--- NOTE | 2024-11-22 07:45 | W.PN.HOSP.TC ---
Today's Communication/Plan
-
Discharge planning today
Assessment / Plan
Assessment / Plan
Physical Exam
General: No acute distress, appears comfortable at this time
HEENT: NormoCephalic, Anicteric, MMM
Respiratory: Clear
Cardiac: S1/S2 and Regular Rhythm
GI: Soft, Non Tender, Non Distended and Normal Bowel Sounds
Musculoskeletal: No Clubbing, No Cyanosis and No Edema
Skin: Warm
Neuro: Alert oriented, relatively sleepy but answers questions appropriately, no neurological deficits
A/P:
79F clotting factor def hx subdual hemorrhage Craniectomy post-op Sz d/o here for breakthrough sz.
PLAN:
Breakthrough Seizure - She was on Keppra 500 bid at home and family reports this is the first seizure in 1 month. She has persistent partial seizure activity
additional sz events noted since admission, one overnight and two episodes following morning (2nd morning episode required 2mg IV to abort) transferred to IMU closer monitoring
-CT head and CTA head/neck appreciated no acute abn's
- received 2g keppra load, continue keppra 500mg q 12 renal dosing
- vimpat as per neuro, adjusted for renal dosing and further adjusted following breakthrough sz's as above
- neuro eval appreciated
- Will start diet today. While npo switched to IV metoprolol; atorvastatin, donepezil and mirtazapine are on hold and will resume in the next 24 hours if able to tolerate diet consistently.
- substitute home PO ASA 81 mg with daily rectal ASA 300 mg until appropriate for PO intake
- IVF support
- sz/aspiration/fall precautions
- ST/PT/OT eval appreciated
- Change IV AED to oral Keppra 500 mg twice a day and Vimpat 100 mg p.o. twice a day-discussed with neurology yesterday.
- Stop IV fluid and continue level IDDSI 5 diet per speech therapy.
- Resume all her medications
Acute Toxic Metabolic Encephalopathy
Delirium
non-violent restraints prn
monitor redirect/reorient as appropriate
CKDIII
baseline appears to be 1.2-1.4
monitor renal function
Hypomagnesemia
Hypokalemia
Hypophosphatemia
-monitor and replete as necessary
HTN
likely elevated values d/t sz's since improved with sz resolution
monitor, consider antihypertensives medications based on bp trends, relatively consistently normotensive at this time
Possible UTI
Required once straight cath for urine retention 400 cc as per RN
Urinalysis notes bacteriuria, follow up cx notes E. coli sensitivities appreciated
difficulty assessing urinary symptoms w/ AMS
empiric ceftriaxone 1 g daily 11/15 anticipate eventual transition to PO abx when able to tolerate oral intake or completion planned 5 days abx. Finish course of antibiotics in the hospital and no need for antibiotics upon discharge.
PT/OT appreciated SNF rehab
DVT PPX - heparin sq
Code status - DNR/DNI
Dr. Briceno Discussed with patient's son Kashif yesterday
Anticipated Discharge: Today
Subjective/Interval History
-
Date of Service: November 22, 2024
No new complaints.
Objective Data
-
Labs:
Laboratory Results
11/22/24
06:00
WBC Pending
Hgb Pending
Hct Pending
Plt Count Pending
Sodium Pending
Potassium Pending
Chloride Pending
Carbon Dioxide Pending
BUN Pending
Creatinine Pending
Glucose Pending
Calcium Pending
Vital Signs:
Vital Signs
Temp Pulse Resp BP Pulse Ox
98.5 F 80 20 135/91 99
11/22/24 03:19 11/22/24 03:19 11/22/24 03:19 11/22/24 03:19 11/22/24 03:19
I&O
11/21/24 11/22/24 11/23/24
06:59 06:59 06:59
Intake Total 1675 / 1675 750 / 750
Balance 1675 / 1675 750 / 750
[2024-11-22] MEDS: KEPPRA 500 MG PO (07:46)
[2024-11-22] MEDS: LOW STRENGTH ASPIRIN 81 MG PO (07:46)
[2024-11-22] MEDS: VIMPAT 100 MG PO (07:46)
[2024-11-22] MEDS: HEPARIN 5000 UNITS SC (07:46)
[2024-11-22 08:22] LABS: Hematocrit 35.9 % (37.0-47.0); Hemoglobin 12.2 g/dL (12.0-16.0); Mean Corpuscular Hgb 29.8 pg (27.0-31.0); Mean Corpuscular Volume 87.6 fL (81.0-99.0); Mean Platelet Volume 10.5 fL (7.4-10.4); Platelet Count 257 10^3/uL (130-400); Red Cell Dist. Width 13.6 % (11.5-14.5); White Blood Cell Count 7.4 10^3/uL (4.8-10.8)
[2024-11-22] MEDS: DESENEX/MITRAZOL/ZEASORB 1 APPLIC TOPICAL (08:32)
[2024-11-22 09:29] LABS: Blood Urea Nitrogen 7 mg/dl (7-17); Calcium 8.1 mg/dl (8.4-10.2); Carbon Dioxide 25 mmol/L (22-30); Chloride 106 mmol/L (98-107); Estimated Creatinine Clearance 41 ml/min; Glucose 106 mg/dl (70-99); Magnesium 1.3 mg/dl (1.6-2.3); Sodium 137 mmol/L (135-145); eGFR 56.95
--- NOTE | 2024-11-22 10:58 | W.DCSUMMARY ---
Discharge Summary
Discharge Data
Date of Admission: 11/12/24
Date of Discharge: 11/22/24
Total time spent discharging patient (in min): 35
-
Pending Results: No
Hospital Course
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
presented to hospital with altered mental status and evidence of seizures. She was started on IV antiseizure medications. Neurology was consulted. Patient had images of the brain including CT scan of the head, CTA of the head and neck, and
ultimately had an MRI of the brain all unremarkable for acute findings. She also had a prolonged postictal state found to be in status epilepticus. Neurology treated her continuing her Keppra and added Vimpat to her regimen. When she was able to
tolerate oral she was switched to oral regimen as per neurology recommendations. Patient improved in terms of her mental status. She is currently seizures free. She was also able to tolerate some restrictive diet by speech therapy
recommendations. She also was noted to have a urinary tract infection due to E. coli. She received IV antibiotics and finished course of treatment as inpatient. She is afebrile, normal white blood cell count, and hemodynamically stable. She will
be discharged to skilled facility for further rehabilitation.
Discharge duration: 35 minutes
Discharge Plan
-
Patient Disposition: Shelter/SNF
Discharge Diagnosis/Procedures: Seizures. Urinary tract infection. History of subdural hemorrhage in the past. Acute metabolic encephalopathy. Chronic kidney disease.
Diet: Other diet
Additional Diets: Soft and bite-size diet
Activity: As tolerated
Additional Activity: Seizures precaution
Blood Work: Please PCP to order CBC, CMP within 1 week
Referrals:
Primary care, provider [Other] - in less than 1 week
Manjit Heaton MD [Active] - in two to three weeks
Prescriptions:
New
lacosamide 100 mg Tablet
100 mg PO BID Qty: 60 0RF
Continued
atorvastatin 10 MG tablet
10 mg PO HS
cholecalciferol (vitamin D3) 1,000 UNITS tablet
1,000 units PO QPM
acetaminophen 325 mg Tablet
650 mg PO Q8HPRN PRN (Reason: mild pain/fever)
multivitamin Tablet
1 tab PO DAILY
donepezil 10 mg Tablet
10 mg PO HS
sennosides-docusate sodium [Stimulant Laxative Plus] 8.6-50 mg Tablet
1 tab-cap PO BIDPRN PRN (Reason: constipation)
ferrous sulfate [FeroSul] 325 mg (65 mg iron) Tablet
325 mg PO DAILY
metoprolol tartrate 50 mg Tablet
50 mg PO BID
mirtazapine 7.5 mg Tablet
7.5 mg PO HS
polyethylene glycol 3350 17 gram Powder In Packet
17 g PO DAILYPRN PRN (Reason: constipation) Qty: 10 0RF
levetiracetam 500 mg Tablet
500 mg PO BID Qty: 60 0RF
bacitracin zinc [Antibiotic (bacitracin zinc)] 500 unit/gram Ointment
1 applic TOPICAL BID
Actemra 162 mg/0.9 mL Syringe
162 mg SC Q2W
aspirin 81 mg Capsule
81 mg PO DAILY
Discharge Orders:
Discharge Patient (As Directed); Ordered 11/22/24
Ordered By: Arya Franco
Discharge Date and Time
Discharge Date/Time: 11/22/24 15:40
Print Language: SENEGALESE
--- NOTE | 2024-11-22 11:36 | CM ---
Chart reviewed and patient has been cleared for discharge, plan is for skilled placement at [facility], patient has a 3:30pm chart picker by ambulance to [facility].
[facility]
Report [phone]

Plan; Transfer to [facility] today.
[2024-11-22 11:40] VITALS: BP 107/65
[2024-11-22 12:21] VITALS: BP 152/70; PULSE 74
--- NOTE | 2024-11-22 13:39 | PTCARENOTE ---
report given to nurse Delacruz at [facility]
== END 2024-11-22 15:40 | DRG 100 ==
LOC: 4 WEST ACU 21:37
PROVIDERS: Internal Medicine; ADMITTING PHYSICIAN Internal Medicine; ATTENDING PHYSICIAN Hospitalist; EMERGENCY PHYSICIAN Student in an Organized Health Care Education/Training Program; OTHER PHYSICIAN Psychiatry & Neurology Clinical Neurophysiology
DX: G40.201 Localization-related (focal) (partial) symptomatic epilepsy and epileptic syndromes with complex partial seizures, not intractable, with status epilepticus (principal); G92.8 Other toxic encephalopathy; N39.0 Urinary tract infection, site not specified; N18.30 Chronic kidney disease, stage 3 unspecified; E83.42 Hypomagnesemia; Z66 Do not resuscitate; I12.9 Hypertensive chronic kidney disease with stage 1 through stage 4 chronic kidney disease, or unspecified chronic kidney disease; L89.302 Pressure ulcer of unspecified buttock, stage 2; E87.6 Hypokalemia; E83.39 Other disorders of phosphorus metabolism
CPT/HCPCS: 0042T; 36415; 70450; 70496; 70498; 70553; 80048; 80053; 80061; 80177; 80185; 81003; 81015; 82805; 82962; 83735; 84100; 84439; 84443; 84484; 85025; 85027; 85610; 85652; 85730; 87070; 87077; 87086; 87186; 92526; 92610; 93005; 95813; 95816; 96374; 97163; 97167; 97530; 97535; 99291; A9575; C9254; Q9967

== ENCOUNTER → 2024-11-24 09:36 | Outpatient (REF) | payer MEDICARE, BC, SELFPAY ==
[2024-11-24 11:23] LABS: % Basophils 1.1 % (0-2); % Immature Granulocytes 0.6 % (0-0.5); % Lymphocytes 23.2 % (20.5-51.1); % Monocytes 9.7 % (1.7-9.3); % Neutrophils 63.4 % (42.2-75.2); Absolute Basophils 0.1 10^3/uL (0-0.2); Absolute Eosinophils 0.2 10^3/uL (0-0.7); Absolute Immature Granulocytes 0.1 10^3/uL (0-0.05); Absolute Lymphocytes 2.2 10^3/uL (1.2-3.4); Absolute Monocytes 0.9 10^3/uL (0.1-0.6); Hematocrit 37.7 % (37.0-47.0); Hemoglobin 12.4 g/dL (12.0-16.0); Mean Corp Hgb Conc. 32.9 g/dL (33.0-37.0); Mean Corpuscular Hgb 29.4 pg (27.0-31.0); Mean Corpuscular Volume 89.3 fL (81.0-99.0); Mean Platelet Volume 10.8 fL (7.4-10.4); Nucleated Red Blood Cells % 0 %; Platelet Count 273 10^3/uL (130-400); Red Blood Cell Count 4.22 10^6/uL (4.20-5.40); Red Cell Dist. Width 14.1 % (11.5-14.5); White Blood Cell Count 9.4 10^3/uL (4.8-10.8)
[2024-11-24 11:42] LABS: Blood Urea Nitrogen 20 mg/dl (7-17); Calcium 8.4 mg/dl (8.4-10.2); Carbon Dioxide 23 mmol/L (22-30); Chloride 104 mmol/L (98-107); Glucose 91 mg/dl (70-99); Potassium 4.1 mmol/L (3.5-5.1); Sodium 136 mmol/L (135-145); eGFR 41.57
== END ==
LOC: OLABSOL 09:36
PROVIDERS: ATTENDING PHYSICIAN Family Medicine
DX: G93.41 Metabolic encephalopathy (principal); R56.9 Unspecified convulsions; I10 Essential (primary) hypertension; E11.9 Type 2 diabetes mellitus without complications; N18.4 Chronic kidney disease, stage 4 (severe); F03.90 Unspecified dementia, unspecified severity, without behavioral disturbance, psychotic disturbance, mood disturbance, and anxiety; N39.0 Urinary tract infection, site not specified
CPT/HCPCS: 36415; 80048; 85025

== ENCOUNTER 2024-11-25 17:37 | Inpatient (IN) | payer MEDICARE, BC, SELFPAY ==
[2024-11-25] VITALS (8 sets, daily range): BP systolic 88–121; BP diastolic 30–61; BMI 25.0
--- NOTE | 2024-11-25 15:10 | ED.GENMED ---
History of Present Illness
General
Chief Complaint: Rectal Bleeding
Source: records and ambulance crew
Time Seen by Provider: 11/25/24 14:59
History of Present Illness
History of Present Illness:
79-year-old female with past medical history of dementia, previous traumatic subdural hematoma status postcraniotomy, seizure disorder, chronic iron deficiency anemia presenting to the emergency department from [facility] for
evaluation after it was noted following a bowel movement today patient had multiple clots intermixed with her stool in the toilet. Patient was recently admitted at this hospital for status epilepticus and urinary tract infection secondary to E.
coli. During her recent admission there was no evidence of GI bleeding or anemia, patient was discharged to [facility] reportedly stable with a normal white blood cell count. Patient unable to provide any history secondary to her known baseline
mental status. She does report no pain at this time.
Past History
Past History
ED Past Medical History: CAD, HTN, Hypercholesterolemia, NIDDM, Seizures, Valvular disease and Other (Osteoarthritis, uses a cane to ambulate, subdural hematoma, mild dementia)
ED Past Surgical History: Cholecystectomy and Orthopedic (L knee replacement, R shoulder replacement, 06/2021)
Social History
Tobacco: Non-smoker
Alcohol: None
Drug: None
Personal:
Living: shelter (With her son)
Employment: Retired
Family History
Family History: Other (Mother with [place] at 65, father with leukemia and coronary disease, son with factor V Leiden deficiency)
Review of Systems
Review of Systems
All Other Systems: ROS reviewed and negative except as documented in HPI and ROS
Phy Exam
Physical Exam
Physical Exam:
GENERAL: Alert , in no apparent distress, pleasantly confused
HEAD: Normocephalic atraumatic
EYE: Clear conjunctiva
NECK: Supple
ENT: o/p clr, mmm.
CARDIAC: Regular rate and rhythm .
LUNGS: Clear breath sounds bilaterally, no acute respiratory distress, no wheezes/rales/rhonchi
ABDOMEN: Soft, without focal tenderness, no r/g, no cvat
RECTAL EXAM: Chaperoned by ED RADHA Cabezas, no stool, there is streaks of red blood, somewhat darker in color
NEUROLOGICAL: Alert but is not oriented to place or time, oriented to self
SKIN: Warm and dry, skin intact.
MUSCULOSKELETAL: No edema, well perfused.
PSYCH: Normal and appropriate interaction.
Scores
Heart Failure Risk
Heart Failure Risk Score: Not Applicable
Heart Score for Chest Pain Patients
STEMI patient?: Not applicable
Withdrawal Assessment of Alcohol
Withdrawal Assessment Completed?: Not applicable
Course
Orders/Labs/Results
Orders:
Orders
11/25/24 14:54
Electrocardiogram (*1) Urgent
Reason for Study: Chest Pain
Cardiac Monitoring- Treatment ONCE
EKG- Treatment ONCE
11/25/24 Dinner
NPO
Allow oral meds: No
Allow clear liquids: No
11/25/24 15:08
Straight cath- Treatment ONCE
11/25/24 15:24
Type And Crossmatch [Type+Screen] Urgent
Complete Blood Count/With Diff Urgent
Comprehensive Metabolic Panel Urgent
Prothrombin Time Urgent
11/25/24 16:33
Urinalysis Reflex To Culture Urgent
Date Specimen was Collected: 11/25/24
Time Specimen was Collected: 16:31
Urine Microscopic Reflex Cult Urgent
11/25/24 16:54
Admit/Transfer Patient As Directed
Co-Sign Provider:
Level of Care: Inpatient admission
Assign to:: Telemetry
Physician / Group: Dr Franco
Diagnosis: Acute GI bleed
Reason for Telemetry: Arrhythmia
Date to Stop Telemetry: 11/28/24
Time to Stop Telemetry: 11:00
Reason for Hospitalization: Acute GI bleed
Expected length of stay greater than two midnights?: Yes
ELOS- Estimated Length of Stay in days: 2
I certify the patient meets the requirements for IP care: Yes
PRN Pain Medication Management As Directed
May give lesser potent ordered pain med per pt: Yes
preference::
Protocol:: Medication orders for pain may be administered in a
manner that supports deferring to patient preference
when the pt is:
- Requesting an ordered lesser potent pain medication.
Least to most potent pain medications are defined
as: acetaminophen < NSAID < tramadol < opioids
(morphine, oxycodone, hydromorphone).
- Requesting a lesser dose of the same medication IF
ORDERED.
- Requesting a less intrusive route of administration
if both routes are prescribed by the provider (PO <
IV).
11/25/24 16:55
Code Status As Directed
Resuscitation Status: Do not resuscitate
Reached after discussion with pt or family/Healthcare POA: Yes
11/25/24 16:56
DNR Bracelet Application ONCE
11/25/24 16:57
Lactated Ringers [Lr] 500 ml IV BOLUS
11/25/24 16:58
Pantoprazole [Protonix IV] 40 mg IV NOW STA
11/25/24 17:00
Lactated Ringers [Lr] 1,000 ml IV 85 mls/hr
11/25/24 17:01
CR Chest Portable - 1 View Stat
Comment:
Reason For Exam: leukocytosis
Reason Study Needs to be Portable: Patient Unstable
11/25/24 17:02
GASTROINTESTINAL CONSULT Routine
Consulting Provider: Raina Brody
Was physician already notified: Yes
Reason for consult: GI bleed
US Abdomen Limited Routine
Comment:
Reason For Exam: elevated lft
11/25/24 17:10
Dextrose 50%-Water [Dextrose 50% Syringe] 12.5 grams IV [id number] PRN
Glucagon [GlucaGen] 1 mg IM PRN PRN
11/25/24 17:11
Bedside Glucose Monitoring As Directed
Frequency: Q6H
Additional Instructions:: Change to q6h if pt on TPN, tube feeding or not eating
11/25/24 17:13
0.9% Sodium Chloride [Nss (Preservative Free)] 10 ml IV STAT STA
11/25/24 18:00
Flush (0.9% Sodium Chloride) [Flush (Nss)] See Dose Instructions IV PER PROTOCOL
Lacosamide [Vimpat] 100 mg IV Q12H
11/25/24 18:45
Activity As Directed
Activity Level: Out of Bed-Early Mobility
Pneumatic Compression Sleeves As Directed
Type: Knee high
Vital Signs As Directed
Frequency: Per unit guidelines
DX Deep Vein Thrombosis Video Routine
11/25/24 20:00
Levetiracetam Injectable [Keppra] 500 mg IV Q12
11/25/24 20:44
H&H Routine
11/26/24 06:00
B12 [Vitamin B12] IN AM
Basic Metabolic Panel IN AM
Complete Blood Count/With Diff IN AM
Ferritin IN AM
Folate IN AM
Glycohemoglobin (HgbA1c) IN AM
Hepatitis A IgM Antibody IN AM
Hepatitis B Core Ab, IgM IN AM
Hepatitis B Surface Antibody IN AM
Hepatitis B Surface Antigen IN AM
Hepatitis C Antibody IN AM
Iron IN AM
LDH IN AM
LFT [Fejqu-Thxa-Labqaiy] IN AM
PT/INR [Prothrombin Time] IN AM
Reticulocyte Count IN AM
Total Iron Binding IN AM
11/26/24 07:30
Insulin Aspart Corrective Low [Novolog Flexpen-Low Resistance] See Protocol SC AC
11/26/24 08:00
Pantoprazole [Protonix IV] 40 mg IV BID
11/28/24 11:00
DC Protocol for Telemetry ONCE
Abnormal Lab Results
11/25/24 11/25/24
15:24 16:33
WBC 12.2 H 10^3/uL
(4.8-10.8)
RBC 3.78 L 10^6/uL
(4.20-5.40)
Hgb 11.2 L g/dL
(12.0-16.0)
Hct 33.5 L %
(37.0-47.0)
MPV 10.5 H fL
(7.4-10.4)
Abs Immat Gran (auto) 0.1 H 10^3/uL
(0-0.05)
Absolute Neuts (auto) 9.5 H 10^3/uL
(1.4-6.5)
Absolute Monos (auto) 0.8 H 10^3/uL
(0.1-0.6)
Immature Gran % 0.7 H %
(0-0.5)
Neutrophils % 77.6 H %
(42.2-75.2)
Lymphocytes % 13.1 L %
(20.5-51.1)
Sodium 134 L mmol/L
(135-145)
BUN 41 H mg/dl
(7-17)
Creatinine 1.4 H mg/dL
(0.6-1.0)
Glucose 207 H mg/dl
(70-99)
AST 56 H U/L
(14-36)
ALT 51 H U/L
(0-35)
Alkaline Phosphatase 222 H U/L
(38-126)
Albumin 3.2 L g/dl
(3.5-5.0)
Urine RBC 3-6 A /HPF
(0-2)
Urine Bacteria (Reflex) Few A
(Negative)
Urine Albumin (Reflex) 2+ A
(Neg - Trace)
11/25/24 15:24
11/25/24 15:24
Vital Signs
Initial and Last Documented VS:
Initial Vital Signs
Pulse Resp BP Pulse Ox
78 16 118/30 98
11/25/24 14:56 11/25/24 14:56 11/25/24 14:56 11/25/24 14:56
Last Documented Vital Signs
Temp Pulse Resp BP Pulse Ox
97.5 F 89 18 109/61 100
11/25/24 20:04 11/25/24 20:04 11/25/24 20:04 11/25/24 20:04 11/25/24 20:04
MDM/Problems Addressed
Differential Diagnosis Includes:
Hemorrhoidal bleeding, diverticular bleeding, anemia, less concern for an upper GI bleed given stool seems to be on the right side of red
MDM/Problems Addressed:
79-year-old female presenting to the ER after reportedly having blood intermixed with her stool while at her long term facility today. Recent admission here for status epilepticus, urinary tract infection, completed antibiotics while
inpatient. Was discharged just 3 days ago. No documented history of GI bleeding while here. Patient currently hemodynamically stable. Appears to be at baseline mental status. Stool while not fully bright red, somewhat darker in color, will
check labs, EKG, urine. Given her age and chronic medical conditions I do anticipate patient may need to be readmitted to the hospital.
Chronic conditions affecting care: CAD, Neurological disorder (Dementia) and Kidney disease
*Pulse Oximetry
Patient hypoxic: no
*Earth Moving Machine Operator Interpretation
Rate: normal
Rhythm: sinus
*Critical Care Note
Total Time (30-74mins, 75-104mins- exclusive of procedures): Not Applicable
Data Reviewed
Review of Other/Old Records Reveals: Labs, Records and Discharge Summary
Patient Management
Discussion with other providers: Hospitalist
Escalation/DeEscalation of care consider admission/obs:
Due to your report of about the GI bleeding, patient's chronic medical conditions including dementia and inability to provide any history will admit for trending of patient's hemoglobin. Hospitalist team is aware and accepts for continued
evaluation and treatment.
ED Attending Note
-
Portions of this chart may have been created with voice recognition software.� Occasional wrong word or��sound alike� substitutions may have occurred due to the inherent limitations of voice recognition software.
Discharge Plan
Departure
Patient Disposition: Admit
Date of Disposition: 11/25/24
Time of Disposition: 16:10
Presentation/result/management discussed w/ accepting MD/DO: Hospitalist
Discharge Problem:
Acute GI bleeding, CKD (chronic kidney disease)
Interventions
Interventions:
*Risk Screen - Suicide Last Done: 11/25/24 14:56
*General Assessment Last Done: 11/25/24 14:56
*Neglect/Abuse Screening Last Done: 11/25/24 14:56
*ED- Fall Risk Assessment Last Done: 11/25/24 15:00
*ED COVID-19 Vaccine History Last Done: 11/25/24 15:00
*Nursing Disposition Last Done: 11/25/24 18:38
YD-Fbckzb-Ezvuywyzex Assessment Last Done: 11/25/24 16:00
ED- Cardiac Assessment Last Done: 11/25/24 16:00
ED- Pulmonary Assessment Last Done: 11/25/24 16:00
Discharge Date and Time
Discharge Date/Time: 11/25/24 18:39
[2024-11-25 15:33] LABS: % Basophils 0.9 % (0-2); % Eosinophils 0.9 % (0-6); % Immature Granulocytes 0.7 % (0-0.5); % Lymphocytes 13.1 % (20.5-51.1); % Monocytes 6.8 % (1.7-9.3); % Neutrophils 77.6 % (42.2-75.2); Absolute Basophils 0.1 10^3/uL (0-0.2); Absolute Eosinophils 0.1 10^3/uL (0-0.7); Absolute Immature Granulocytes 0.1 10^3/uL (0-0.05); Absolute Lymphocytes 1.6 10^3/uL (1.2-3.4); Absolute Monocytes 0.8 10^3/uL (0.1-0.6); Absolute Neutrophils 9.5 10^3/uL (1.4-6.5); Hematocrit 33.5 % (37.0-47.0); Hemoglobin 11.2 g/dL (12.0-16.0); Mean Corp Hgb Conc. 33.4 g/dL (33.0-37.0); Mean Corpuscular Hgb 29.6 pg (27.0-31.0); Mean Corpuscular Volume 88.6 fL (81.0-99.0); Mean Platelet Volume 10.5 fL (7.4-10.4); Nucleated Red Blood Cells % 0 %; Platelet Count 255 10^3/uL (130-400); Red Blood Cell Count 3.78 10^6/uL (4.20-5.40); Red Cell Dist. Width 13.9 % (11.5-14.5); White Blood Cell Count 12.2 10^3/uL (4.8-10.8)
--- NOTE | 2024-11-25 15:33 | EDRN ---
Family in room w/ pt w/ M. Sharon QUINONES informed.
[2024-11-25 15:43] LABS: INR 1.11; PT 14.6 Sec (11.4-14.6)
[2024-11-25 15:47] LABS: ALT (SGPT) 51 U/L (0-35); AST (SGOT) 56 U/L (14-36); Albumin 3.2 g/dl (3.5-5.0); Alkaline Phosphatase 222 U/L (38-126); Blood Urea Nitrogen 41 mg/dl (7-17); Calcium 8.4 mg/dl (8.4-10.2); Carbon Dioxide 26 mmol/L (22-30); Chloride 105 mmol/L (98-107); Glucose 207 mg/dl (70-99); Sodium 134 mmol/L (135-145); Total Bilirubin 0.4 mg/dl (0.2-1.3); Total Protein 6.3 g/dl (6.3-8.2); eGFR 38.03
--- NOTE | 2024-11-25 16:28 | HPS.HSE ---
Family Physician
-
Family Physician: NO INTERVIEW UNKNOWN
Chief Complaint
-
Rectal bleeding
History of Present Illness
Patient 79 years old female history of dementia, previous traumatic subdural hematoma status postcraniotomy, seizure disorder, chronic iron deficiency, recent hospitalization for seizures and UTI and came into the hospital with bloody bowel
movement. Patient was noted to have bloody bowel movements with multiple clots in the toilet by staff at the facility. She denies abdominal pain nausea or vomiting. Patient knows she is in the hospital today but she does not know why. She denies
any chest pain or shortness of breath. Her hemoglobin 11.2 with MCV 88.6 today from a baseline of 12.4 yesterday; patient's BUN is 41 and creatinine 1.4 from a baseline of 120/1.3 yesterday. Patient's blood pressure also was noted to be relatively
hypotensive at 96/49 which is one reading and prior blood pressure was 118/30, her heart rates in the 70 to 80s. She was referred to hospitalist service for further evaluation.
Medical History
Past Medical History
Past Medical History: Reports Other
Additional Past Medical History:
Traumatic fall leading to brain bleed status post craniotomy
Seizure postcraniotomy
Giant cell arteritis
Iron deficiency anemia
Dementia
Primary hypertension
prothrombin mutation
bilateral DVT
Past Surgical History: Reports Orthopedic
Additional Past Surgical History:
Craniotomys
IVC filter
Social History
Unable to obtain full social history at this time due to: Acuity
Family History
Family History: Not pertinent
Allergies / Home Medications
Allergies reflects when Allergies were last updated in [facility].
Home Medications with original date entered in [facility]
Allergy/Medication List:
Allergies
Allergy/AdvReac Type Severity Reaction Status Date / Time
Penicillins Allergy Unknown ~ Verified 11/25/24 14:55
50 years
ago
Sulfa (Sulfonamide Allergy Unknown ~ Verified 11/25/24 14:55
Antibiotics) 50 years
ago
Home Medications
atorvastatin 10 mg tablet 10 mg PO HS High cholesterol 07/24/13
cholecalciferol (vitamin D3) 25 mcg (1,000 unit) tablet 1,000 units PO QPM Supplement 06/06/21
acetaminophen 325 mg tablet 650 mg PO Q4HPRN PRN mild pain/fever 09/17/24
donepezil 10 mg tablet 10 mg PO HS Alzheimer's 09/17/24
ferrous sulfate 325 mg (65 mg iron) tablet (FeroSul) 325 mg PO DAILY Supplement 09/17/24
metoprolol tartrate 50 mg tablet 50 mg PO BID Blood Pressure 09/17/24
mirtazapine 7.5 mg tablet 7.5 mg PO HS Mental Health/Anxiety 09/17/24
multivitamin 1 tab PO DAILY Supplement 09/17/24
sennosides 8.6 mg-docusate sodium 50 mg tablet (Stimulant Laxative Plus) 1 tab-cap PO BIDPRN PRN constipation 09/17/24
levetiracetam 500 mg tablet 500 mg PO BID #60 tabs 09/28/24
polyethylene glycol 3350 17 gram oral powder packet 17 g PO DAILYPRN PRN constipation #10 ea 09/28/24
tocilizumab 162 mg/0.9 mL subcutaneous syringe (Actemra) 162 mg SC Q2W 11/12/24
lacosamide 100 mg tablet 100 mg PO BID #60 tabs 11/22/24
aspirin 81 mg tablet,delayed release 81 mg PO DAILY 11/25/24
bisacodyl 10 mg rectal suppository (Dulcolax (bisacodyl)) 10 mg NE DAILYPRN PRN IF NO BM BY 5TH DAY AND/OR AFTR MOM 11/25/24
magnesium hydroxide 400 mg/5 mL oral suspension (Milk of Magnesia) 2,400 mg PO DAILYPRN PRN IF NO BM BY 4TH DAY 11/25/24
sodium phosphates 19 gram-7 gram/118 mL enema (Fleet Enema) 118 ml NE DAILYPRN PRN IF NO BM BY 6TH DAY OR AFTR DULCAOALX 11/25/24
Review of Systems
-
Unable to obtain full review of systems at this time due to: Dementia
Physical Exam
Vital Signs
Vital Signs
Temp Pulse Resp BP Pulse Ox
98 F 79 13 96/49 99
11/25/24 15:30 11/25/24 15:35 11/25/24 15:35 11/25/24 15:30 11/25/24 15:30
Physical exam:
General: Acutely ill
HEENT: Normocephalic, Atraumatic and Dry Mucous Membranes
Respiratory: Clear to Auscultation; Negative Wheezes, Rales or Rhonchi
Cardiac: Regular Rhythm and S1/S2
GI: Soft, Nontender and Nondistended
Musculoskeletal: No Clubbing, No Cyanosis and No Edema
Neuro: Awake, lethargic but responds to verbal stimuli after repeated stimuli and Disoriented, no gross neurological deficit but generalized weakness.
Psych: Calm
Physical Exam
General: Other
Laboratory Results
-
11/25/24 15:24
11/25/24 15:24
Laboratory Results
PT 14.6 Sec (11.4-14.6) 11/25/24 15:24
INR 1.11 11/25/24 15:24
Total Bilirubin 0.4 mg/dl (0.2-1.3) 11/25/24 15:24
AST 56 U/L (14-36) H 11/25/24 15:24
ALT 51 U/L (0-35) H 11/25/24 15:24
Alkaline Phosphatase 222 U/L (38-126) H 11/25/24 15:24
Data Reviewed
-
Lab Data: Labs Reviewed by me
Impression/Plan
-
IMPRESSION:
Patient 79 years old female with multiple comorbidities presented to the hospital with bright blood per rectum. Due to acute presentation and multiple comorbidities patient has increased risk of morbidity and mortality and therefore she will need
to be treated and monitor accordingly.
PLAN:
Acute GI bleed:
Likely lower GI bleed but cannot rule out upper source
Keep n.p.o.
Bolus and then gentle IV fluid maintenance
IV Protonix twice daily-daily first dose now
If worsening blood per rectum we would consider CTA of the abdomen HEENA
Hold aspirin
Monitor hemoglobin closely
GI consult-discussed with GI via [facility] text today
Relative Hypotension:
Volume depletion versus medications related versus GI bleed, less likely infection or sepsis
Resuscitated with fluid and reevaluate
Concerns for acute blood loss anemia:
Mild drop on hemoglobin
Continue monitor hemoglobin closely
Blood transfusion if significant drop or active bleeding
Proceed to basic anemia workup to rule out other confounding factors
Seizures:
On Keppra and Vimpat-will use IV for now and monitor
ZACH on CKD stage III:
Creatinine 1.4 today
Baseline creatinine on 11/22 was 1.0
Gentle IV fluid
Avoid nephrotoxic
Monitor renal function
Hypertension:
Currently relative hypotensive so hold oral antihypertensives
On B-keesha CONDUIT CLEANER
Hyponatremia:
Mild
Monitor on isotonic fluid
Hyperglycemia and prediabetes:
Will have her on insulin sliding scale and update hemoglobin A1c
Elevated LFTs:
Not sure if medications related (AED meds or statins) or underlying fatty liver or other etiology
Hold statins for now
Check right upper quadrant ultrasound and hepatitis screen
Monitor trend
Recent UTI:
Appropriately finished course of treatment with recent antibiotics.
Will follow-up repeat UA today
Leukocytosis:
Likely reactive
Follow-up UA
Obtain chest x-ray
Blood cultures if fever
Dementia:
Hold donepezil
Rest of medical problems:
History of cerebral hemorrhage
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
History of TBI
Recent fall requiring craniectomy in July of this year
DVT prophylaxis:
SCDs
CODE STATUS:
DNR
Time spent 75 minutes
--- NOTE | 2024-11-25 16:49 | EDRN ---
Dr. Franco in room w/ pt at this time.
[2024-11-25 16:54] LABS: Urine Albumin 2+ (Neg - Trace); Urine Bilirubin Negative (Negative); Urine Character Clear (Clear); Urine Color Yellow; Urine Glucose Negative (Negative); Urine Ketone Negative (Negative); Urine Leukocyte Negative (Negative); Urine Nitrite Negative (Negative); Urine Occult Blood Negative (Negative); Urine Specific Gravity 1.025 (<1.030); Urine Urobilinogen Negative (Neg - 1+)
[2024-11-25 17:21] LABS: Urine Bacteria Few (Negative)
[2024-11-25] MEDS: NSS (PRESERVATIVE FREE) 10 ML IV (17:33)
[2024-11-25] MEDS: PROTONIX IV 40 MG IV (17:33)
[2024-11-25] MEDS: VIMPAT 100 MG IV (17:39)
--- NOTE | 2024-11-25 17:45 | EDRN ---
Portable CXR done at stretcher side at this time.
[2024-11-25] MEDS: LR 500 IV (17:46)
[2024-11-25] MEDS: LR 1000 IV (18:21)
[2024-11-25] MEDS: KEPPRA 500 MG IV (20:46)
[2024-11-25 20:56] LABS: Hemoglobin 10.7 g/dL (12.0-16.0)
[2024-11-26 00:11] LABS: Glucose - Point of Care 98 mg/dl (70-99)
[2024-11-26] MEDS: LR 1000 IV ×2 (00:46→16:08)
[2024-11-26 03:34] VITALS: BP 125/55
[2024-11-26] MEDS: VIMPAT 100 MG IV ×2 (05:40→17:51)
[2024-11-26 06:09] LABS: INR 1.08; PT 14.3 Sec (11.4-14.6)
[2024-11-26 06:22] LABS: Glucose - Point of Care 107 mg/dl (70-99)
[2024-11-26 06:29] LABS: ALT (SGPT) 40 U/L (0-35); AST (SGOT) 39 U/L (14-36); Albumin 2.7 g/dl (3.5-5.0); Alkaline Phosphatase 182 U/L (38-126); Blood Urea Nitrogen 38 mg/dl (7-17); Calcium 8.2 mg/dl (8.4-10.2); Carbon Dioxide 21 mmol/L (22-30); Chloride 109 mmol/L (98-107); Direct Bilirubin 0.1 mg/dl (0.0-0.4); Estimated Creatinine Clearance 34 ml/min; Glucose 84 mg/dl (70-99); Iron 64 ug/dl (37-170); LDH 159 U/L (120-246); Potassium 4.2 mmol/L (3.5-5.1); Sodium 136 mmol/L (135-145); Total Bilirubin 0.3 mg/dl (0.2-1.3); Total Protein 5.6 g/dl (6.3-8.2); eGFR 45.76
[2024-11-26 06:38] LABS: Percent Saturation 40 % (20-50); Total Iron Binding Capacity 157 ug/dl (265-497)
[2024-11-26 06:51] LABS: % Basophils 1.1 % (0-2); % Eosinophils 1.4 % (0-6); % Immature Granulocytes 0.5 % (0-0.5); % Lymphocytes 36.7 % (20.5-51.1); % Monocytes 9.7 % (1.7-9.3); % Neutrophils 50.6 % (42.2-75.2); Absolute Basophils 0.1 10^3/uL (0-0.2); Absolute Eosinophils 0.1 10^3/uL (0-0.7); Absolute Immature Granulocytes 0.1 10^3/uL (0-0.05); Absolute Lymphocytes 3.4 10^3/uL (1.2-3.4); Absolute Monocytes 0.9 10^3/uL (0.1-0.6); Absolute Neutrophils 4.6 10^3/uL (1.4-6.5); Hematocrit 26.3 % (37.0-47.0); Hemoglobin 8.7 g/dL (12.0-16.0); Mean Corp Hgb Conc. 33.1 g/dL (33.0-37.0); Mean Corpuscular Hgb 29.2 pg (27.0-31.0); Mean Corpuscular Volume 88.3 fL (81.0-99.0); Mean Platelet Volume 10.4 fL (7.4-10.4); Nucleated Red Blood Cells % 0 %; Platelet Count 241 10^3/uL (130-400); Red Blood Cell Count 2.98 10^6/uL (4.20-5.40); Red Cell Dist. Width 14.3 % (11.5-14.5); White Blood Cell Count 9.2 10^3/uL (4.8-10.8)
[2024-11-26 07:00] VITALS: BP 92/52
[2024-11-26 07:30] LABS: Folate > 20.0 ng/ml (2.76-20); Vitamin B12 883 pg/ml (239-931)
[2024-11-26] MEDS: NSS (PRESERVATIVE FREE) 10 ML IV ×2 (08:28→20:53)
[2024-11-26] MEDS: KEPPRA 500 MG IV ×2 (08:32→20:53)
[2024-11-26] MEDS: DESENEX/MITRAZOL/ZEASORB 1 APPLIC TOPICAL ×2 (08:37→20:53)
[2024-11-26] MEDS: PROTONIX IV 40 MG IV ×2 (08:38→20:53)
[2024-11-26 11:00] VITALS: BP 102/82
--- NOTE | 2024-11-26 11:25 | W.PN.HOSP.TC ---
Today's Communication/Plan
-
PPI. Monitor hemoglobin. GI consult
Assessment / Plan
Assessment / Plan
Physical exam:
General: Acutely ill
HEENT: Normocephalic, Atraumatic and Moist Mucous Membranes
Respiratory: Clear to Auscultation; Negative Wheezes, Rales or Rhonchi
Cardiac: Regular Rhythm and S1/S2
GI: Soft, Nontender and Nondistended
Musculoskeletal: No Clubbing, No Cyanosis and No Edema
Neuro: Awake, Alert and Disoriented, no gross neurological deficits
Psych: Calm
A/P:
Acute GI bleed:
Could be lower GI bleed but cannot rule out upper source
Keep n.p.o.
Continue IV fluids
If worsening blood per rectum we would consider CTA of the abdomen HEENA
Continue hold aspirin
Monitor hemoglobin closely
GI consult-pending evaluation
Relative Hypotension:
Improved
Concerns for acute blood loss anemia:
Mild drop on hemoglobin
Continue monitor hemoglobin closely
Blood transfusion if significant drop or active bleeding
Workup in progress
Hemoglobin 8.7 today
Seizures:
On Keppra and Vimpat-will use IV for now and monitor
ZACH on CKD stage III:
Creatinine 1.2 today
Baseline creatinine on 11/22 was 1.0
Gentle IV fluid
Avoid nephrotoxic
Monitor renal function
Hypertension:
Currently relative hypotensive so hold oral antihypertensives
On B-keesha TASSEL CLIPPER
Hyponatremia:
Resolved
Today sodium 136
Hyperglycemia and prediabetes:
Will have her on insulin sliding scale and update hemoglobin A1c which is still pending
Elevated LFTs:
Not sure if medications related (AED meds or statins) or underlying fatty liver or other etiology
Hold statins for now
Check right upper quadrant ultrasound and hepatitis screen-pending
Monitor trend
Recent UTI:
Appropriately finished course of treatment with recent antibiotics.
Will follow-up repeat UA today
Leukocytosis:
Likely reactive and trending down back to normal
UA unremarkable
Chest x-ray unremarkable as well
Blood cultures if fever
Off antibiotics
Dementia:
Hold donepezil
Rest of medical problems:
History of cerebral hemorrhage
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
History of TBI
Recent fall requiring craniectomy in July of this year
DVT prophylaxis:
SCDs
CODE STATUS:
DNR
Total time spent on today's encounter was 52 minutes which included time spent in counseling the patient/family regarding diagnosis and treatment plan as listed above, goals of care, and symptom management. Case was discussed with nursing staff,
specialists, and care coordinators/case management. All labs and imaging personally reviewed by me. Remainder the time spent in detailed review of previous records, lab data, imaging, and other medical provider documentation.
Anticipated Discharge: 24 - 48 hours
Subjective/Interval History
-
Date of Service: November 26, 2024
No bright blood per rectum reported. Not much information for patient but she does denies nausea or vomiting.
Objective Data
-
Labs:
Laboratory Results
11/26/24 11/26/24
05:02 06:22
WBC Cancelled 9.2
Hgb Cancelled 8.7 L
Hct Cancelled 26.3 L
Plt Count Cancelled 241
PT 14.3
INR 1.08
Sodium 136
Potassium 4.2
Chloride 109 H
Carbon Dioxide 21 L
BUN 38 H
Creatinine 1.2 H
Glucose 84
Calcium 8.2 L
Total Bilirubin 0.3
AST 39 H
ALT 40 H
Alkaline Phosphatase 182 H
Vital Signs:
Vital Signs
Temp Pulse Resp BP Pulse Ox
99.5 F 120 18 102/82 94
11/26/24 11:22 11/26/24 11:22 11/26/24 11:00 11/26/24 11:00 11/26/24 11:00
--- NOTE | 2024-11-26 11:30 | CON.GI ---
Consultation
-
Date/Time Consultation Requested: 11/26/24
Date/Time Consultation Performed: 11/26/24
Requesting Provider:
Performing Provider:
Reason for Consultation: Bloody BM
Medical History
Chief Complaint / HPI
Chief Complaint: Blood with stool
History of Present Illness:
79yo with complicated history as below presenting from senior living with passing clots with bowel movements yesterday. She was recently admitted for possible seizures, also noted to have E. coli UTI and treated with antibiotics. She has history of
dementia, history could not be obtained from her. I did call patient's son Kashif to get history. She had hx fall in July 2024 with brain bleed and craniotomy with rehab at [place] then went to [facility], seizure disorder on [facility] , giant cell
arteritis with prior biopsy, VICKY, dementia, HTN, NIDDM with admission 09/17 from SNF with blood around mouth and confusion with concern for seizure , she was also noted to have bilateral lower extremity DVT, noted to have prothrombin gene mutation,
initially started on IV heparin but developed RP bleed and anticoagulation was stopped and she had IVC filter placement.
As per son Kashif, patient had colonoscopy in past at [facility] . He was unsure of any abnormal finding. No known history of GI bleeding in the past. No family history of colon cancer or colon polyps.
Reviewing labs, she has been having intermittent anemia with hemoglobin range between 7.0-12, previous Iron deficiency noted but patient has been on oral iron.
Past Medical History
Past Medical History: HTN, Hypercholesterolemia, NIDDM and Other (Seizures (post craniotomy) and Other (arthritis, traumatic fall with brain bleed and surgery, giant cell arteritis, VICKY, dementia ))
Past Surgical History: Brain (craniotomy) and Cholecystectomy
Social History
Tobacco: Former Smoker
Alcohol: None
Family History
Family History: Reviewed & Not Pertinent
Allergies / Home Medications
Allergy/AdvReac Type Severity Reaction Status Date / Time
Penicillins Allergy Unknown ~ Verified 11/25/24 14:55
50 years
ago
Sulfa (Sulfonamide Allergy Unknown ~ Verified 11/25/24 14:55
Antibiotics) 50 years
ago
�Medication �Instructions �Recorded
atorvastatin 10 mg tablet 10 mg PO HS High cholesterol 07/24/13
cholecalciferol (vitamin D3) 25 1,000 units PO QPM Supplement 06/06/21
mcg (1,000 unit) tablet
acetaminophen 325 mg tablet 650 mg PO Q4HPRN PRN mild 09/17/24
pain/fever
donepezil 10 mg tablet 10 mg PO HS Alzheimer's 09/17/24
ferrous sulfate 325 mg (65 mg 325 mg PO DAILY Supplement 09/17/24
iron) tablet (FeroSul)
metoprolol tartrate 50 mg tablet 50 mg PO BID Blood Pressure 09/17/24
mirtazapine 7.5 mg tablet 7.5 mg PO HS Mental Health/Anxiety 09/17/24
multivitamin 1 tab PO DAILY Supplement 09/17/24
sennosides 8.6 mg-docusate sodium 1 tab-cap PO BIDPRN PRN 09/17/24
50 mg tablet (Stimulant Laxative constipation
Plus)
levetiracetam 500 mg tablet 500 mg PO BID #60 tabs 09/28/24
polyethylene glycol 3350 17 gram 17 g PO DAILYPRN PRN constipation 09/28/24
oral powder packet #10 ea
tocilizumab 162 mg/0.9 mL 162 mg SC Q2W 11/12/24
subcutaneous syringe (Actemra)
lacosamide 100 mg tablet 100 mg PO BID #60 tabs 11/22/24
aspirin 81 mg tablet,delayed 81 mg PO DAILY 11/25/24
release
bisacodyl 10 mg rectal suppository 10 mg [place] DAILYPRN PRN IF NO BM BY 11/25/24
(Dulcolax (bisacodyl)) 5TH DAY AND/OR AFTR MOM
magnesium hydroxide 400 mg/5 mL 2,400 mg PO DAILYPRN PRN IF NO BM 11/25/24
oral suspension (Milk of Magnesia) BY 4TH DAY
sodium phosphates 19 gram-7 118 ml [place] DAILYPRN PRN IF NO BM BY 11/25/24
gram/118 mL enema (Fleet Enema) 6TH DAY OR AFTR DULCAOALX
Review of Systems
-
Unable to obtain full review of systems at this time due to: Dementia
Vital Signs
Temp Pulse Resp BP Pulse Ox
99.5 F 120 18 102/82 94
11/26/24 11:22 11/26/24 11:22 11/26/24 11:00 11/26/24 11:00 11/26/24 11:00
Physical Exam
Exam
Cardiac: S1/S2 and Regular Rhythm
GI: Soft, Non Tender and Non Distended
Rectal: Black
Neuro: Awake and Other (not oriented)
Results
WBC 9.2 10^3/uL (4.8-10.8) 11/26/24 06:22
Hgb 8.7 g/dL (12.0-16.0) L 11/26/24 06:22
Hct 26.3 % (37.0-47.0) L 11/26/24 06:22
MCV 88.3 fL (81.0-99.0) 11/26/24 06:22
Plt Count 241 10^3/uL (130-400) 11/26/24 06:22
Absolute Neuts (auto) 4.6 10^3/uL (1.4-6.5) 11/26/24 06:22
PT 14.3 Sec (11.4-14.6) 11/26/24 05:02
INR 1.08 11/26/24 05:02
Sodium 136 mmol/L (135-145) 11/26/24 05:02
Potassium 4.2 mmol/L (3.5-5.1) 11/26/24 05:02
Chloride 109 mmol/L (98-107) H 11/26/24 05:02
Carbon Dioxide 21 mmol/L (22-30) L 11/26/24 05:02
BUN 38 mg/dl (7-17) H 11/26/24 05:02
Creatinine 1.2 mg/dL (0.6-1.0) H 11/26/24 05:02
Calcium 8.2 mg/dl (8.4-10.2) L 11/26/24 05:02
Total Bilirubin 0.3 mg/dl (0.2-1.3) 11/26/24 05:02
AST 39 U/L (14-36) H 11/26/24 05:02
ALT 40 U/L (0-35) H 11/26/24 05:02
Alkaline Phosphatase 182 U/L (38-126) H 11/26/24 05:02
Diagnostic Image Results: 09/18/24 CT Abd/pel Without Iv Or Oral
Markedly limited evaluation as a result of numerous factors including lack of intravenous contrast, lack of oral contrast and marked beam hardening artifact from the patient's bilateral upper extremities.
No gross findings to suggest obstructive uropathy bilaterally. Possible mild bilateral perinephric stranding, especially on the right. Cannot exclude inflammatory/infectious process especially of the right kidney such as pyelonephritis.
Descending colon and sigmoid diverticulosis. No intestinal obstruction or free air.
Prior cholecystectomy.
Significantly limited by beam hardening artifact, bilateral lower lobe lung opacification suggesting subsegmental atelectasis and/or pneumonia.
Suspected coronary artery calcifications.
Prior GI Procedures:
EGD: ? in past per family no results reviewed
Colonoscopy: ? in past per family no results reviewed
Assessment / Plan
-
Pt is an 79yo with hx fall in July 2024 with brain bleed and craniotomy seizure disorder, recent hospital admission for seizures and UTI and discharged 11/22/2024, history of bilateral lower extremity DVT with prothrombin gene mutation, RP bleed
with anticoagulation status post IVC filter, history of giant cell arteritis with prior biopsy, VICKY, dementia, HTN, NIDDM presenting from senior living with bloody bowel movements with clots.
Rectal exam showing black stool but patient also on oral iron. No bright blood or maroon stool. She does have history of iron deficiency anemia in the past on oral iron.
? Colonoscopy and endoscopy at [facility], unclear how long due to this was as per son, not sure if there was any colon polyps, but no family history of colon cancer or polyps.
-GI bleeding, cannot rule out upper versus lower GI bleeding as rectal exam shows black stool but as per senior living records, patient had clots but currently hemodynamically stable.
-hx VICKY per OP chart
-DVT status post IVC filter.
-hx fall in July with craniotomy at [place]
-thrombocytopenia- per family no known hx in past
other med problems:
-NIDDM
-dementia
-giant cell arteritis with prior biopsy
-HTN
-GI bleeding, could be gastritis, ulcer disease, angiectasia, diverticular versus other.
On exam black stool but no evidence of overt bleeding. Currently hemodynamically stable.
Discussed with patient's son Kashif regarding further evaluation for this GI bleeding. Given underlying dementia, will conservative management at this time unless there is overt active bleeding. Colonoscopy prep in this patient would be a challenge.
For now nothing by mouth. IV hydration per medical team.
Protonix 40 mg IV twice daily.
Monitor H&H and transfuse if needed.
Will start IV iron infusion.
No further bleeding, will start clear liquid diet after speech evaluation.
If there is bleeding, will discuss with son again regarding endoscopy evaluation.
- Mildly elevated transaminases and alkaline phosphatase, abdominal ultrasound pending.
Will follow.
-
-
Thank you for consultation and allowing me to participate in the patient's care. Please call the occupational therapy assistant GI physician during the after hours with any questions or concerns.
[2024-11-26 11:51] LABS: Glucose - Point of Care 135 mg/dl (70-99)
[2024-11-26 12:25] LABS: Glycohemoglobin (HgbA1c) 6.7 % (4.0-5.6)
[2024-11-26] MEDS: FERRLECIT 110 MG IV (14:44)
[2024-11-26 15:00] VITALS: BP 87/55
--- NOTE | 2024-11-26 15:48 | CM ---
Patient was admitted from [facility] nursing facility, per patient's son they did not hold the bed at [facility] but they are interested in skilled placement at [facility] or [facility], Patient resides at [facility], is
assist of one with ADL's and uses a walker or w/c with ambulation, patient was recently sent to [facility] skilled, plan is for possible skilled placement again for patient.
PCP: Imelda Banks
[facility]: [facility]
Plan; Referrals sent to [facility] and [facility] for skilled placement.
[2024-11-26 17:52] LABS: Glucose - Point of Care 145 mg/dl (70-99)
[2024-11-26 19:55] VITALS: BP 129/70
[2024-11-26 23:58] VITALS: BP 118/76
[2024-11-27] VITALS (9 sets, daily range): BP systolic 123–162; BP diastolic 70–99
[2024-11-27 01:13] LABS: Glucose - Point of Care 108 mg/dl (70-99)
[2024-11-27] MEDS: LR 1000 IV ×2 (02:42→16:29)
[2024-11-27] MEDS: VIMPAT 100 MG IV ×2 (05:52→17:34)
[2024-11-27 06:03] LABS: Glucose - Point of Care 90 mg/dl (70-99)
--- NOTE | 2024-11-27 06:29 | W.PN.HOSP.TC ---
Today's Communication/Plan
-
IVF support while NPO
1PRBC transfusion for goal Hgb 8
EGD tomorrow as per GI
cont IV sz medications
Assessment / Plan
Assessment / Plan
Physical exam:
General: no acute distress, appears comfortable at this time. pallor noted
HEENT: Normocephalic, Atraumatic and Moist Mucous Membranes
Respiratory: Clear to Auscultation; Negative Wheezes, Rales or Rhonchi
Cardiac: Regular Rhythm and S1/S2
GI: Soft, Nontender and Nondistended
Musculoskeletal: No Clubbing, No Cyanosis and No Edema
Neuro: Lethargic but arousable
Psych: Calm
A/P: 79F Dementia hx Subdural Hematoma Craniotomy Sz d/o here for evaluation possible GIB worse associate worsening Anemia
Suspected Acute GI bleed
Dementia, Metabolic Encephalopathy
Acute worsening anemia
speech eval appreciated
IVF support while NPO
hold aspirin for now
Monitor H&H, transfused for goal Hgb 8 d/t concerns active bleeding
GI consult appreciated planned for EGD tomorrow 11/29
Seizures:
On Keppra and Vimpat- cont IV until able to switch to PO intake
ZACH on CKD stage III
likely prerenal
Baseline Cr 1.0
Cr high 1.4 since trended down
Avoid nephrotoxic
cont IVF support
Monitor renal function
Hypertension
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
hypotensive on admission since resolved, monitor off antihypertensives for now
Mild Hyponatremia resolved
Diabetes
updated A1c 6.7
sliding scale for now
Mild transaminitis
unclear if medications related (AED meds or statins) or underlying fatty liver or other etiology
Hold statins for now
Abd US attempted, patient however could not tolerate
hepatitis screening
Monitor trend
Mild intermittent Leukocytosis
monitor
Dementia:
donepezil on hold while NPO as above
Rest of medical problems:
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
History of TBI
DVT prophylaxis:
SCDs
CODE STATUS:
DNR
Discussed with patient's son Kashif
I spent a total of 50 minutes with the patient or on the floor. More than 50% of this time involved counseling and coordination of care.
Anticipated Discharge: 24 - 48 hours
Subjective/Interval History
-
Date of Service: November 27, 2024
Lethargic but arousable, otherwise appears relatively comfortable at this time.
Objective Data
-
Labs:
Laboratory Results
11/27/24
06:00
WBC Pending
Hgb Pending
Hct Pending
Plt Count Pending
Sodium Pending
Potassium Pending
Chloride Pending
Carbon Dioxide Pending
BUN Pending
Creatinine Pending
Glucose Pending
Calcium Pending
Total Bilirubin Pending
AST Pending
ALT Pending
Alkaline Phosphatase Pending
Vital Signs:
Vital Signs
Temp Pulse Resp BP Pulse Ox
97.2 F 100 18 140/86 95
11/27/24 03:37 11/27/24 03:37 11/27/24 03:37 11/27/24 03:37 11/27/24 03:37
[2024-11-27 07:15] LABS: Hematocrit 22.1 % (37.0-47.0); Hemoglobin 7.4 g/dL (12.0-16.0); Mean Corp Hgb Conc. 33.5 g/dL (33.0-37.0); Mean Corpuscular Hgb 29.7 pg (27.0-31.0); Mean Corpuscular Volume 88.8 fL (81.0-99.0); Mean Platelet Volume 10.6 fL (7.4-10.4); Platelet Count 200 10^3/uL (130-400); Red Blood Cell Count 2.49 10^6/uL (4.20-5.40); Red Cell Dist. Width 14.3 % (11.5-14.5); White Blood Cell Count 14.8 10^3/uL (4.8-10.8)
[2024-11-27 07:52] LABS: ALT (SGPT) 30 U/L (0-35); AST (SGOT) 37 U/L (14-36); Albumin 2.4 g/dl (3.5-5.0); Alkaline Phosphatase 136 U/L (38-126); Blood Urea Nitrogen 36 mg/dl (7-17); Carbon Dioxide 24 mmol/L (22-30); Chloride 110 mmol/L (98-107); Estimated Creatinine Clearance 34 ml/min; Glucose 84 mg/dl (70-99); Potassium 3.8 mmol/L (3.5-5.1); Sodium 137 mmol/L (135-145); Total Bilirubin 0.4 mg/dl (0.2-1.3); eGFR 45.76
[2024-11-27 08:15] LABS: Hematocrit 22.3 % (37.0-47.0); Hemoglobin 7.5 g/dL (12.0-16.0)
--- NOTE | 2024-11-27 08:15 | PTOTSP ---
Speech Language Pathology
Pt seen for clinical bedside swallow evaluation. Known to COMMERCIAL LIGHT FIXTURE ASSEMBLER at , seen on most recent visit. Initially NPO given mentation with advancement to IDDSI Level 6 (soft/bite-sized) and thin liquids. Previous VSE completed 09/25/24 with
recommendations for IDDSI Level 6/thin liquids.
This date, P.O. trials of puree, ice chips, and thin liquids provided. Cognition was barrier with pt unable to utilize straw appropriately despite max cueing. Oral care set up and completed oral care with use of suction toothbrush. Provided ice
chips. Pt able to chew these and swallow. Attempted thin liquids via straw, but pt chewing straw with inability to suck from straw, instead consistently chewing straw. Cueing did not improve straw use. Provided thin liquids via pipetted straw
with no overt signs of aspiration.
Mentation and decreased alertness currently barrier to safe initiation of P.O. diet.
Recommend:
(1) NPO
(2) Oral care 4x/day with suctioning as needed
(3) Non-oral meds
(4) Allow ice chips when alert post oral care given supervision per Aspiration Risk Hydration Protocol (ARHP)
(5) COMMERCIAL LIGHT FIXTURE ASSEMBLER to continue to follow
[2024-11-27] MEDS: NSS (PRESERVATIVE FREE) 10 ML IV ×2 (08:56→20:26)
[2024-11-27] MEDS: KEPPRA 500 MG IV ×2 (08:57→20:26)
[2024-11-27] MEDS: PROTONIX IV 40 MG IV ×2 (08:57→20:26)
[2024-11-27] MEDS: DESENEX/MITRAZOL/ZEASORB 1 APPLIC TOPICAL ×2 (08:58→20:29)
--- NOTE | 2024-11-27 10:25 | W.PN.GI.CBS2 ---
Today's Communication / Plan
-
-GI bleeding, could be gastritis, ulcer disease, angiectasia, diverticular versus other.
On exam black stool but no evidence of overt bleeding. Currently hemodynamically stable.
Given drop in hemoglobin, patient getting a unit of packed red blood cell. Discussed with son, will do endoscopy to evaluate, he is available to [phone]
Given underlying dementia, Colonoscopy prep in this patient would be a challenge.
For now nothing by mouth. IV hydration per medical team.
Continue Protonix 40 mg IV twice daily.
Monitor H&H and transfuse if needed.
IV iron infusion.
Okay for clears but n.p.o. past midnight.
- Mildly elevated transaminases and alkaline phosphatase, abdominal ultrasound could not be done as radiology reports his patient declined
Will follow.
Assessment / Plan
-
Pt is an 79yo with hx fall in July 2024 with brain bleed and craniotomy seizure disorder, recent hospital admission for seizures and UTI and discharged 11/22/2024, history of bilateral lower extremity DVT with prothrombin gene mutation, RP bleed
with anticoagulation status post IVC filter, history of giant cell arteritis with prior biopsy, VICKY, dementia, HTN, [facility]DM [facility] bloody [facility] movements with clots.
Rectal exam showing black stool but patient also on oral iron. No bright blood or maroon stool. She does have history of iron deficiency anemia in the past on oral iron.
? Colonoscopy and endoscopy at [place], unclear how long due to this was as per son, not sure if there was any colon polyps, but no family history of colon cancer or polyps.
-GI bleeding, cannot rule out upper versus lower GI bleeding as rectal exam shows black stool but as per jail records, patient had clots but currently hemodynamically stable.
-hx VICKY per OP chart
-DVT status post IVC filter.
-hx fall in July with craniotomy at [place]
-thrombocytopenia- per family no known hx in past
other med problems:
-NIDDM
-dementia
-giant cell arteritis with prior biopsy
-HTN
-GI bleeding, could be gastritis, ulcer disease, angiectasia, diverticular versus other.
On exam black stool but no evidence of overt bleeding. Currently hemodynamically stable.
Given drop in hemoglobin, patient getting a unit of packed red blood cell. Discussed with son, will do endoscopy to evaluate, he is available to [phone]
Given underlying dementia, Colonoscopy prep in this patient would be a challenge.
For now nothing by mouth. IV hydration per medical team.
Continue Protonix 40 mg IV twice daily.
Monitor H&H and transfuse if needed.
IV iron infusion.
Okay for clears but n.p.o. past midnight.
- Mildly elevated transaminases and alkaline phosphatase, abdominal ultrasound could not be done as radiology reports his patient declined
Will follow.
Subjective
Subjective
Date of Service: November 27, 2024
Noted drop in hemoglobin without any evidence of overt bleeding. No events overnight. No fevers or chills.
Objective
Data Reviewed
Laboratory Data:
Laboratory Results
11/27/24 07:02
Laboratory Results
PT 14.3 Sec (11.4-14.6) 11/26/24 05:02
INR 1.08 11/26/24 05:02
Total Bilirubin 0.4 mg/dl (0.2-1.3) 11/27/24 07:02
AST 37 U/L (14-36) H 11/27/24 07:02
ALT 30 U/L (0-35) 11/27/24 07:02
Alkaline Phosphatase 136 U/L (38-126) H 11/27/24 07:02
Vital Signs and I&O:
Vital Signs
Temp Pulse Resp BP Pulse Ox
98.1 F 98 16 154/75 97
11/27/24 07:41 11/27/24 07:41 11/27/24 07:41 11/27/24 07:41 11/27/24 07:41
Physical Exam
Physical Exam
GI: Soft, Non Distended and Tender (Some discomfort on palpation in the mid abdomen.)
[2024-11-27 12:02] LABS: Glucose - Point of Care 89 mg/dl (70-99)
[2024-11-27] MEDS: FERRLECIT 110 MG IV (15:00)
[2024-11-27 16:42] LABS: Glucose - Point of Care 77 mg/dl (70-99)
[2024-11-27 18:57] LABS: Hepatitis B Surface Antigen Negative (Negative)
[2024-11-27 19:14] LABS: Hepatitis B Surface Antibody Negative; Hepatitis C Antibody Negative (Negative)
[2024-11-27 19:36] LABS: Hematocrit 30.9 % (37.0-47.0); Hemoglobin 10.8 g/dL (12.0-16.0)
[2024-11-27 20:42] LABS: Hepatitis A IgM Antibody Negative (Negative); Hepatitis B Core Ab, IgM Negative (Negative)
[2024-11-27 22:42] LABS: Glucose - Point of Care 97 mg/dl (70-99)
[2024-11-28] MEDS: LR 1000 IV (02:21)
[2024-11-28 03:39] VITALS: BP 150/77
--- NOTE | 2024-11-28 04:35 | PTCARENOTE ---
Patient lethargic, oriented to self. Speech is slurred, garbled and slow. Patient responds to tactile stimuli. Patient appears to be hypersensitive to touch as evidenced by patient screaming, in pain, when touched. VSS. Hgb resulted at 10.8, status
post transfusion of 1 unit PRBC NPO at midnight. Q 2 hour turns. Bed in lowest position. Bed alarm on. Call vela and personal belongings within reach.
[2024-11-28 05:49] LABS: Glucose - Point of Care 85 mg/dl (70-99)
[2024-11-28] MEDS: VIMPAT 100 MG IV ×2 (05:52→17:40)
[2024-11-28 07:00] VITALS: BP 160/88
[2024-11-28 07:34] LABS: Hematocrit 26.4 % (37.0-47.0); Hemoglobin 9.1 g/dL (12.0-16.0); Mean Corp Hgb Conc. 34.5 g/dL (33.0-37.0); Mean Corpuscular Volume 87.1 fL (81.0-99.0); Platelet Count 211 10^3/uL (130-400); Red Blood Cell Count 3.03 10^6/uL (4.20-5.40); Red Cell Dist. Width 14.2 % (11.5-14.5); White Blood Cell Count 9.4 10^3/uL (4.8-10.8)
--- NOTE | 2024-11-28 07:51 | W.PN.HOSP.TC ---
Today's Communication/Plan
-
see a/p
Assessment / Plan
Assessment / Plan
Physical exam:
General: no acute distress, appears comfortable at this time. pallor noted
HEENT: Normocephalic, Atraumatic and Moist Mucous Membranes
Respiratory: Clear to Auscultation; Negative Wheezes, Rales or Rhonchi
Cardiac: Regular Rhythm and S1/S2
GI: Soft, Nontender and Nondistended
Musculoskeletal: No Clubbing, No Cyanosis and No Edema
Neuro: Lethargic but arousable
Psych: Calm
A/P: 79F Dementia hx Subdural Hematoma Craniotomy Sz d/o here for evaluation possible GIB worse associate worsening Anemia
#Suspected Acute GI bleed
#Dementia, Metabolic Encephalopathy
#Acute worsening anemia
speech eval appreciated
IVF support while NPO or pending improvement in oral intake
ASA resumed
Monitor H&H, transfused for goal Hgb 8 d/t concerns active bleeding
GI consult appreciated EGD performed 11/29 noted no significant source of bleeding, poor candidate for colonoscopy unlikely to tolerate prep given dementia
Seizures:
On Keppra and Vimpat- cont IV for now
ZACH on CKD stage III
likely prerenal
Baseline Cr 1.0
Cr high 1.4 since trended down
Avoid nephrotoxic
cont IVF support
Monitor renal function
Hypertension
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
hypotensive on admission since resolved, monitor off antihypertensives for now
Mild Hyponatremia resolved
Diabetes
updated A1c 6.7
sliding scale for now
Mild transaminitis
unclear if medications related (AED meds or statins) or underlying fatty liver or other etiology
Hold statins for now
Abd US attempted, patient however could not tolerate
hepatitis screening
Monitor trend
Mild intermittent Leukocytosis
monitor
Dementia:
donepezil on hold while NPO as above
Rest of medical problems:
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
History of TBI
DVT prophylaxis:
SCDs
CODE STATUS:
DNR
I spent a total of 45 minutes with the patient or on the floor. More than 50% of this time involved counseling and coordination of care.
Anticipated Discharge: 24 - 48 hours
Subjective/Interval History
-
Date of Service: November 28, 2024
lethargic but arousable. no acute distress. appears comfortable at this time.
Objective Data
-
Labs:
Laboratory Results
11/28/24
06:45
WBC 9.4
Hgb 9.1 L
Hct 26.4 L
Plt Count 211
Sodium Pending
Potassium Pending
Chloride Pending
Carbon Dioxide Pending
BUN Pending
Creatinine Pending
Glucose Pending
Calcium Pending
Total Bilirubin Pending
AST Pending
ALT Pending
Alkaline Phosphatase Pending
Vital Signs:
Vital Signs
Temp Pulse Resp BP Pulse Ox
97.8 F 95 16 150/77 94
11/28/24 03:39 11/28/24 03:39 11/28/24 03:39 11/28/24 03:39 11/28/24 03:39
I&O
11/27/24 11/28/24 11/29/24
06:59 06:59 06:59
Intake Total 2641 / 2641
Balance 2641 / 2641
[2024-11-28 07:56] LABS: ALT (SGPT) 31 U/L (0-35); AST (SGOT) 41 U/L (14-36); Albumin 2.5 g/dl (3.5-5.0); Alkaline Phosphatase 133 U/L (38-126); Blood Urea Nitrogen 35 mg/dl (7-17); Calcium 7.9 mg/dl (8.4-10.2); Carbon Dioxide 22 mmol/L (22-30); Chloride 110 mmol/L (98-107); Estimated Creatinine Clearance 37 ml/min; Glucose 79 mg/dl (70-99); Phosphorus 2.5 mg/dl (2.5-4.5); Sodium 137 mmol/L (135-145); Total Bilirubin 0.6 mg/dl (0.2-1.3); Total Protein 5.1 g/dl (6.3-8.2)
[2024-11-28 08:11] LABS: Glucose - Point of Care 88 mg/dl (70-99)
[2024-11-28 09:13] VITALS: BMI 25.0
[2024-11-28] MEDS: DESENEX/MITRAZOL/ZEASORB 1 APPLIC TOPICAL ×2 (09:22→20:22)
[2024-11-28] MEDS: KEPPRA 500 MG IV ×2 (09:23→20:24)
[2024-11-28] MEDS: PROTONIX IV 40 MG IV ×2 (09:23→20:23)
[2024-11-28] MEDS: NSS (PRESERVATIVE FREE) 10 ML IV ×2 (09:24→20:23)
[2024-11-28 11:19] VITALS: BP 160/74
[2024-11-28 11:31] LABS: Glucose - Point of Care 90 mg/dl (70-99)
[2024-11-28] MEDS: MAGNESIUM SULFATE 100 IV (12:15)
[2024-11-28] MEDS: TYLENOL ORAL SOLUTION 650 MG PO (12:25)
--- NOTE | 2024-11-28 14:31 | CM ---
CM reviewed chart, patient seen asleep bedside. Patient admitted from [facility] SNF, TT to Hospitalist for PT orders for return to SNF. Family interested in [facility] and [facility]. Patient typically resides at [facility]. Patient for EGD today.
CM will continue to follow for all discharge planning needs.
Plan; SNF, likely [facility] or [facility], will need PT evals.
[2024-11-28] MEDS: FERRLECIT 110 MG IV (14:49)
[2024-11-28 15:00] VITALS: BP 139/84
[2024-11-28 15:21] VITALS: BP 139/84; PULSE 93
[2024-11-28 16:52] LABS: Glucose - Point of Care 128 mg/dl (70-99)
[2024-11-28] MEDS: LR IV (17:39)
[2024-11-28] MEDS: NOVOLOG FLEXPEN-LOW RESISTANCE SC (17:39)
[2024-11-28 21:39] LABS: Glucose - Point of Care 130 mg/dl (70-99)
[2024-11-28 23:33] VITALS: BP 138/96
[2024-11-29] MEDS: LR 1000 IV ×2 (00:08→18:14)
[2024-11-29] MEDS: VIMPAT 100 MG IV ×2 (05:06→18:20)
--- NOTE | 2024-11-29 07:05 | W.PN.HOSP.TC ---
Today's Communication/Plan
-
transfuse 1PRBC, follow up post-transfusion Hgb
goal Hgb>8
Assessment / Plan
Assessment / Plan
Physical exam:
General: no acute distress, appears comfortable at this time. pallor noted
HEENT: Normocephalic, Atraumatic and Moist Mucous Membranes
Respiratory: Clear to Auscultation; Negative Wheezes, Rales or Rhonchi
Cardiac: Regular Rhythm and S1/S2
GI: Soft, Nontender and Nondistended
Musculoskeletal: No Clubbing, No Cyanosis and No Edema
Neuro: Lethargic but arousable
Psych: Calm
A/P: 79F Dementia hx Subdural Hematoma Craniotomy Sz d/o here for evaluation possible GIB worse associate worsening Anemia
#Suspected Acute GI bleed
#Dementia, Metabolic Encephalopathy
#Acute worsening anemia
speech eval appreciated
IVF support while NPO or pending improvement in oral intake
ASA resumed
Monitor H&H, transfuse for goal Hgb 8 d/t concerns active bleeding
GI consult appreciated EGD performed 11/29 noted no significant source of bleeding, poor candidate for colonoscopy unlikely to tolerate prep given dementia
Seizures:
On Keppra and Vimpat- cont IV for now
ZACH on CKD stage III
likely prerenal
Baseline Cr 1.0
Cr high 1.4 since trended down
Avoid nephrotoxic
cont IVF support
Monitor renal function
Hypertension
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
hypotensive on admission since resolved, monitor off antihypertensives for now
Mild Hyponatremia resolved
Diabetes
updated A1c 6.7
sliding scale for now
Mild transaminitis
unclear if medications related (AED meds or statins) or underlying fatty liver or other etiology
Hold statins for now
Abd US attempted, patient however could not tolerate
hepatitis screening
Monitor trend
Mild intermittent Leukocytosis
monitor
Dementia:
donepezil on hold while NPO as above, eventually resume when tolerating oral intake/diet
Rest of medical problems:
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
History of TBI
DVT prophylaxis:
SCDs
CODE STATUS:
DNR
discussed with patient's son Kashif
I spent a total of 50 minutes with the patient or on the floor. More than 50% of this time involved counseling and coordination of care.
Anticipated Discharge: 24 - 48 hours
Subjective/Interval History
-
Date of Service: November 29, 2024
Lethargic but arousable. Appears comfortable at this time. Tolerating diet.
Objective Data
-
Labs:
Laboratory Results
11/29/24
06:55
WBC Pending
Hgb Pending
Hct Pending
Plt Count Pending
Sodium Pending
Potassium Pending
Chloride Pending
Carbon Dioxide Pending
BUN Pending
Creatinine Pending
Glucose Pending
Calcium Pending
Total Bilirubin Pending
AST Pending
ALT Pending
Alkaline Phosphatase Pending
Vital Signs:
Vital Signs
Temp Pulse Resp BP Pulse Ox
97.4 F 93 18 138/96 98
11/28/24 23:33 11/28/24 23:33 11/28/24 23:33 11/28/24 23:33 11/28/24 23:33
I&O
11/28/24 11/29/24 11/30/24
06:59 06:59 06:59
Intake Total 2641 / 2641 1740 / 1740
Balance 2641 / 2641 1740 / 1740
[2024-11-29 07:35] VITALS: BP 136/83
[2024-11-29 07:40] LABS: Hematocrit 21.2 % (37.0-47.0); Hemoglobin 7.4 g/dL (12.0-16.0); Mean Corp Hgb Conc. 34.9 g/dL (33.0-37.0); Mean Corpuscular Hgb 29.8 pg (27.0-31.0); Mean Corpuscular Volume 85.5 fL (81.0-99.0); Mean Platelet Volume 10.9 fL (7.4-10.4); Platelet Count 201 10^3/uL (130-400); Red Blood Cell Count 2.48 10^6/uL (4.20-5.40); Red Cell Dist. Width 14.1 % (11.5-14.5); White Blood Cell Count 8.4 10^3/uL (4.8-10.8)
[2024-11-29 07:42] LABS: Glucose - Point of Care 72 mg/dl (70-99)
[2024-11-29 07:58] LABS: ALT (SGPT) 26 U/L (0-35); AST (SGOT) 34 U/L (14-36); Albumin 2.3 g/dl (3.5-5.0); Alkaline Phosphatase 118 U/L (38-126); Blood Urea Nitrogen 37 mg/dl (7-17); Calcium 7.6 mg/dl (8.4-10.2); Carbon Dioxide 21 mmol/L (22-30); Chloride 112 mmol/L (98-107); Estimated Creatinine Clearance 40 ml/min; Glucose 88 mg/dl (70-99); Magnesium 2.1 mg/dl (1.6-2.3); Phosphorus 2.4 mg/dl (2.5-4.5); Sodium 137 mmol/L (135-145); Total Bilirubin 0.4 mg/dl (0.2-1.3); Total Protein 4.8 g/dl (6.3-8.2); eGFR 56.95
[2024-11-29] MEDS: NOVOLOG FLEXPEN-LOW RESISTANCE SC ×3 (08:01→17:30)
[2024-11-29] MEDS: DESENEX/MITRAZOL/ZEASORB 1 APPLIC TOPICAL ×2 (08:02→20:28)
[2024-11-29] MEDS: NSS (PRESERVATIVE FREE) 10 ML IV (08:14)
[2024-11-29] MEDS: KEPPRA 500 MG IV ×2 (08:14→20:29)
[2024-11-29] MEDS: PROTONIX IV IV ×2 (08:14→08:17)
[2024-11-29] MEDS: PROTONIX IV 40 MG IV (08:18)
--- NOTE | 2024-11-29 08:25 | PTOTSP ---
Speech Language Pathology
Pt seen for dysphagia tx. Awake and alert upon arrival. Seen with P.O. trials of regular solids and thin liquids. Adequate mastication, bolus formation, and A-P transit noted with no oral residue. No overt signs of aspiration.
Recommend:
(1) Advance to regular solids/thin liquids
(2) General aspiration precautions
(3) Meds as tolerated from cognitive standpoint
(4) SOLUTIONS ARCHITECT CONSULTANT to follow, likely briefly
[2024-11-29 11:59] LABS: Glucose - Point of Care 98 mg/dl (70-99)
[2024-11-29 15:30] VITALS: BP 136/70
[2024-11-29] MEDS: ASPIR LOW (ENTERIC COATED) 81 MG PO (15:59)
[2024-11-29] MEDS: FERRLECIT 110 MG IV (15:59)
--- NOTE | 2024-11-29 16:10 | DOWNTIME ---
There was a [employer] Downtime on 11/29/2024 from 1230 to 11/29/2024 at 1550. Downtime documentation of patient's care, including medication administrations, has been reconciled in the electronic record per guidelines. Refer to the
patient's paper chart under the miscellaneous tab to see printed paper medication records and downtime forms.
[2024-11-29 16:24] VITALS: BP 136/70; PULSE 106; PULSE 125
[2024-11-29 16:25] VITALS: BP 136/70; PULSE 106; PULSE 125
[2024-11-29 16:36] LABS: Glucose - Point of Care 80 mg/dl (70-99)
[2024-11-29 19:19] LABS: Hematocrit 25.7 % (37.0-47.0); Hemoglobin 8.9 g/dL (12.0-16.0)
[2024-11-29 22:16] LABS: Glucose - Point of Care 141 mg/dl (70-99)
[2024-11-29 23:38] VITALS: BP 151/88
[2024-11-30] VITALS (9 sets, daily range): BP systolic 98–143; BP diastolic 36–68
[2024-11-30] MEDS: ZOFRAN 4 MG IV (03:54)
[2024-11-30] MEDS: VIMPAT 100 MG IV ×2 (05:00→17:03)
[2024-11-30] MEDS: LR 1000 IV (05:10)
--- NOTE | 2024-11-30 07:14 | W.PN.HOSP.TC ---
Today's Communication/Plan
-
2prbc transfusion
monitor and transfuse for goal Hgb>8
PT/OT
hold ASA
Assessment / Plan
Assessment / Plan
Physical exam:
General: no acute distress, appears comfortable at this time. pallor noted
HEENT: Normocephalic, Atraumatic and Moist Mucous Membranes
Respiratory: Clear to Auscultation; Negative Wheezes, Rales or Rhonchi
Cardiac: Regular Rhythm and S1/S2
GI: Soft, Nontender and Nondistended
Musculoskeletal: No Clubbing, No Cyanosis and No Edema
Neuro: A0x2 disoriented to time conversant coherent
Psych: Calm
A/P: 79F Dementia hx Subdural Hematoma Craniotomy Sz d/o here for evaluation possible GIB worse associate worsening Anemia
#Suspected Acute GI bleed
#Dementia, Metabolic Encephalopathy
#Acute worsening anemia
speech eval appreciated
IVF support while NPO or pending improvement in oral intake
ASA placed on hold
Monitor H&H, transfuse for goal Hgb 8 d/t concerns active bleeding
GI consult appreciated EGD performed 11/29 noted no significant source of bleeding, poor candidate for colonoscopy unlikely to tolerate prep given dementia
Seizures:
On Keppra and Vimpat- cont IV for now
ZACH on CKD stage III
likely prerenal
Baseline Cr 1.0
Cr high 1.4 since trended down
Avoid nephrotoxic
cont IVF support
Monitor renal function
Hypertension
On B-[employer]ha [employer], on hold for now given NPO as above
hypotensive on admission since resolved, monitor off antihypertensives for now
Mild Hyponatremia resolved
Hypomagnesemia
monitor and replete as necessary
Diabetes
updated A1c 6.7
sliding scale for now
Mild transaminitis
unclear if medications related (AED meds or statins) or underlying fatty liver or other etiology
Hold statins for now
Abd US attempted, patient however could not tolerate
hepatitis screening
Monitor trend
Mild intermittent Leukocytosis
monitor
Dementia:
donepezil cont
Rest of medical problems:
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
History of TBI
DVT prophylaxis:
SCDs
CODE STATUS:
DNR
discussed with patient's son Kashif
I spent a total of 45 minutes with the patient or on the floor. More than 50% of this time involved counseling and coordination of care.
Anticipated Discharge: 24 - 48 hours
Subjective/Interval History
-
Date of Service: November 30, 2024
Seen and examined at bedside in no acute distress. Appears comfortable. AOx2 disoriented to time. Conversant coherent
Objective Data
-
Labs:
Laboratory Results
11/29/24 11/30/24
18:44 06:45
WBC Pending
Hgb 8.9 L D Pending
Hct 25.7 L Pending
Plt Count Pending
Sodium Pending
Potassium Pending
Chloride Pending
Carbon Dioxide Pending
BUN Pending
Creatinine Pending
Glucose Pending
Calcium Pending
Total Bilirubin Pending
AST Pending
ALT Pending
Alkaline Phosphatase Pending
Vital Signs:
Vital Signs
Temp Pulse Resp BP Pulse Ox
97.8 F 98 18 151/88 99
11/29/24 23:38 11/29/24 23:38 11/29/24 23:38 11/29/24 23:38 11/29/24 23:38
I&O
11/29/24 11/30/24 12/01/24
06:59 06:59 06:59
Intake Total 1740 / 1740 2620 / 262
Balance 1739 / 2619
[2024-11-30 08:02] LABS: Hematocrit 20.1 % (37.0-47.0); Hemoglobin 7.1 g/dL (12.0-16.0); Mean Corp Hgb Conc. 35.3 g/dL (33.0-37.0); Mean Corpuscular Hgb 30.9 pg (27.0-31.0); Mean Corpuscular Volume 87.4 fL (81.0-99.0); Mean Platelet Volume 10.9 fL (7.4-10.4); Platelet Count 177 10^3/uL (130-400); Red Cell Dist. Width 14.5 % (11.5-14.5); White Blood Cell Count 8.6 10^3/uL (4.8-10.8)
[2024-11-30 08:06] LABS: Glucose - Point of Care 132 mg/dl (70-99)
[2024-11-30] MEDS: NOVOLOG FLEXPEN-LOW RESISTANCE SC ×3 (08:16→17:00)
[2024-11-30] MEDS: FEOSOL 325 MG PO (08:17)
[2024-11-30] MEDS: THERAGRAN 1 TABLET PO (08:17)
[2024-11-30] MEDS: PROTONIX IV 40 MG IV (08:17)
[2024-11-30] MEDS: ASPIR LOW (ENTERIC COATED) 81 MG PO (08:17)
[2024-11-30] MEDS: NSS (PRESERVATIVE FREE) 10 ML IV (08:18)
[2024-11-30] MEDS: DESENEX/MITRAZOL/ZEASORB 1 APPLIC TOPICAL ×2 (08:20→19:34)
[2024-11-30] MEDS: LOPRESSOR 50 MG PO ×2 (08:23→19:36)
[2024-11-30] MEDS: KEPPRA 500 MG IV ×2 (08:23→19:36)
--- NOTE | 2024-11-30 08:41 | VATNOTE ---
During routine assessment, IV site in L forearm was noted to be swollen, skin was translucent and cool. Pt with LR infusing. Infusion stopped immediately, new PIV established (see worklist documentation) and infiltrated IV removed. Heat applied to
arm and elevated. Will continue to monitor.
[2024-11-30 10:08] LABS: ALT (SGPT) 20 U/L (0-35); AST (SGOT) 26 U/L (14-36); Albumin 2.2 g/dl (3.5-5.0); Alkaline Phosphatase 99 U/L (38-126); Blood Urea Nitrogen 34 mg/dl (7-17); Calcium 7.6 mg/dl (8.4-10.2); Carbon Dioxide 25 mmol/L (22-30); Chloride 111 mmol/L (98-107); Estimated Creatinine Clearance 37 ml/min; Glucose 118 mg/dl (70-99); Magnesium 1.4 mg/dl (1.6-2.3); Phosphorus 2.3 mg/dl (2.5-4.5); Sodium 139 mmol/L (135-145); Total Bilirubin 0.3 mg/dl (0.2-1.3); Total Protein 4.6 g/dl (6.3-8.2)
[2024-11-30 11:46] LABS: Glucose - Point of Care 139 mg/dl (70-99)
--- NOTE | 2024-11-30 13:06 | CM ---
CM reviewed chart, patient receiving blood. Patient plan remains discharge to [facility] when stable, referrals placed to [facility], no auth required. CM will continue to update facilities on patient progress, will follow for all discharge
planning.
Plan; SNF when stable, referrals to [facility].
[2024-11-30] MEDS: FERRLECIT 110 MG IV (15:00)
[2024-11-30 16:58] LABS: Glucose - Point of Care 121 mg/dl (70-99)
[2024-11-30] MEDS: VITAMIN D3 (cholecalciferol) 25 MCG PO (17:05)
[2024-11-30 20:25] LABS: Hematocrit 27.3 % (37.0-47.0); Hemoglobin 9.9 g/dL (12.0-16.0)
[2024-11-30 21:38] LABS: Glucose - Point of Care 157 mg/dl (70-99)
[2024-11-30] MEDS: REMERON 7.5 MG PO (21:41)
[2024-11-30] MEDS: ARICEPT 10 MG PO (21:41)
[2024-12-01] VITALS (14 sets, daily range): BP systolic 87–128; BP diastolic 37–68
[2024-12-01] MEDS: VIMPAT 100 MG IV ×2 (05:17→16:55)
[2024-12-01 07:23] LABS: Hematocrit 20.3 % (37.0-47.0); Hemoglobin 7.3 g/dL (12.0-16.0); Mean Corpuscular Hgb 30.9 pg (27.0-31.0); Mean Platelet Volume 10.5 fL (7.4-10.4); Platelet Count 111 10^3/uL (130-400); Red Blood Cell Count 2.36 10^6/uL (4.20-5.40); White Blood Cell Count 13.6 10^3/uL (4.8-10.8)
[2024-12-01 08:05] LABS: ALT (SGPT) 14 U/L (0-35); AST (SGOT) 19 U/L (14-36); Albumin 1.7 g/dl (3.5-5.0); Alkaline Phosphatase 64 U/L (38-126); Blood Urea Nitrogen 40 mg/dl (7-17); Calcium 7.3 mg/dl (8.4-10.2); Carbon Dioxide 20 mmol/L (22-30); Chloride 113 mmol/L (98-107); Estimated Creatinine Clearance 29 ml/min; Glucose 172 mg/dl (70-99); Magnesium 1.4 mg/dl (1.6-2.3); Potassium 4.7 mmol/L (3.5-5.1); Sodium 138 mmol/L (135-145); Total Bilirubin 0.4 mg/dl (0.2-1.3); Total Protein 3.8 g/dl (6.3-8.2); eGFR 38.03
[2024-12-01 08:20] LABS: Glucose - Point of Care 189 mg/dl (70-99)
[2024-12-01 08:22] LABS: APTT 27.4 Sec (23.4-35.0); INR 1.26; PT 16.1 Sec (11.4-14.6)
--- NOTE | 2024-12-01 08:47 | W.PN.HOSP.TC ---
Today's Communication/Plan
-
Transfer to IMU for closer monitoring
Empiric 2PRBC Large Bloody Bowel Movement likely Acute Blood Loss
Bleeding Scan
IR consulted possible benefit embolization
Assessment / Plan
Assessment / Plan
Physical exam:
General: no acute distress, appears comfortable at this time. pallor noted
HEENT: Normocephalic, Atraumatic and Moist Mucous Membranes
Respiratory: Clear to Auscultation; Negative Wheezes, Rales or Rhonchi
Cardiac: Regular Rhythm and S1/S2
GI: Soft, Nontender and Nondistended
Musculoskeletal: No Clubbing, No Cyanosis and No Edema
Neuro: A0x2 disoriented to time conversant coherent
Psych: Calm
A/P: 79F Dementia hx Subdural Hematoma Craniotomy Sz d/o here for evaluation GIB w associate worsening Anemia
#Suspected Acute GI bleed
#Dementia, Metabolic Encephalopathy
#Acute worsening anemia
speech eval appreciated
IVF support while NPO or pending improvement in oral intake
home ASA on hold
Monitor H&H, transfuse for goal Hgb 8 d/t concerns active bleeding
GI consult appreciated EGD performed 11/29 noted no significant source of bleeding, poor candidate for colonoscopy unlikely to tolerate prep given dementia
12/01 Afternoon Large Bloody Bowel Movement noted, 2PRBC ordered empirically Acute Blood Loss (prior patient had received 2PRBC for drop in hgb noted earlier in the morning), urgent bleeding scan ordered and IR consulted for possible benefit
embolization. Pt comfortable and vital signs remained stable despite aforementioned BM
Transfer requested for IMU closer monitoring
Seizures:
On Keppra and Vimpat- cont IV for now
mild ZACH on CKD stage III
likely prerenal
Cr peak 1.4 on admission
Baseline Cr 1.0
Avoid nephrotoxic agents
Monitor renal function
Hx Hypertension
BP consistently low normotensive
12/01 brief episode hypotension systolic 80s resolved with midodrine and once albumin bolus
2.5 mg TID midodrine with holding parameters
Home metoprolol placed on hold
Mild Hyponatremia resolved
Hypomagnesemia
monitor and replete as necessary
Diabetes
updated A1c 6.7
sliding scale for now
Mild transaminitis
unclear if medications related (AED meds or statins) or underlying fatty liver or other etiology
Hold statins for now
Abd US attempted, patient however could not tolerate
hepatitis screen neg
transaminitis since resolved
Mild intermittent Leukocytosis
monitor
Dementia:
donepezil cont
Rest of medical problems:
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
History of TBI
CODE STATUS:
DNR
discussed with patient's son Kashif
I spent a total of 60 minutes with the patient or on the floor. More than 50% of this time involved counseling and coordination of care.
Anticipated Discharge: > 48 hours
Subjective/Interval History
-
Date of Service: December 01, 2024
Drop in Hgb noted in am along with reports of bloody bowel movement overnight. Patient transfused 2PRBC, initially ordered bleeding scan was canceled as no further bleeding was noted/appeared to have resolved. Later in day however, patient had
another large bloody bowel movement described as 'puddles of blood' as per RN. Throughout events patient appeared comfortable no acute distress. Briefly had an episode of hypotension 87/53 early in morning since resolved with once albumin bolus
and midodrine. Vitals remained stable despite aforementioned large bloody bowel movement.
Objective Data
-
Labs:
Laboratory Results
11/30/24 12/01/24 12/01/24
19:30 06:29 07:56
WBC 13.6 H
Hgb Cancelled 7.3 L D
Hct Cancelled 20.3 L*
Plt Count 111 L D
PT 16.1 H
INR 1.26
APTT 27.4
Sodium 138
Potassium 4.7
Chloride 113 H
Carbon Dioxide 20 L
BUN 40 H
Creatinine 1.4 H
Glucose 172 H
Calcium 7.3 L
Total Bilirubin 0.4
AST 19
ALT 14
Alkaline Phosphatase 64
Vital Signs:
Vital Signs
Temp Pulse Resp BP Pulse Ox
97.1 F 81 18 103/66 100
12/01/24 05:20 11/30/24 23:44 11/30/24 23:44 11/30/24 23:44 11/30/24 23:44
I&O
11/30/24 12/01/24 12/02/24
06:59 06:59 06:59
Intake Total 2620 / 2620 500 / 500
Balance 2620 / 2620 500 / 500
[2024-12-01] MEDS: DESENEX/MITRAZOL/ZEASORB 1 APPLIC TOPICAL ×2 (09:24→21:33)
[2024-12-01] MEDS: THERAGRAN 1 TABLET PO (09:26)
[2024-12-01] MEDS: FEOSOL 325 MG PO (09:26)
[2024-12-01] MEDS: PROTONIX IV 40 MG IV (09:27)
[2024-12-01] MEDS: NSS (PRESERVATIVE FREE) 10 ML IV (09:28)
[2024-12-01] MEDS: LOPRESSOR PO (09:35)
[2024-12-01] MEDS: NOVOLOG FLEXPEN-LOW RESISTANCE SC ×2 (11:00→16:54)
[2024-12-01] MEDS: KEPPRA 500 MG IV ×2 (11:10→21:33)
[2024-12-01] MEDS: LOPRESSOR 25 MG PO (11:19)
[2024-12-01] MEDS: FLEXBUMIN 100 IV (11:20)
[2024-12-01] MEDS: ProAmatine 2.5 MG PO (11:22)
[2024-12-01 12:27] LABS: Glucose - Point of Care 176 mg/dl (70-99)
[2024-12-01] MEDS: NOVOLOG FLEXPEN-LOW RESISTANCE 1 UNITS SC (12:33)
[2024-12-01 16:48] LABS: Glucose - Point of Care 109 mg/dl (70-99)
[2024-12-01] MEDS: MAGNESIUM SULFATE 100 IV (16:53)
--- NOTE | 2024-12-01 17:33 | W.PN.UPDATE ---
Update Note
Progress Note Update
Large bloody bowel movement noted late in day.
Vital signs otherwise stable. Patient in no acute distress, appears comfortable.
Additional 2U PRBC ordered urgent
Bleeding scan ordered and IR consulted for possible benefit embolization.
Transfer requested IMU for closer monitoring (transfusion to start prior to transfer)
Discussed with patient's son RAHDA Rowland, and IR
[2024-12-01] MEDS: VITAMIN D3 (cholecalciferol) 25 MCG PO (17:34)
[2024-12-01 21:33] LABS: Glucose - Point of Care 94 mg/dl (70-99)
[2024-12-01] MEDS: REMERON 7.5 MG PO (21:33)
[2024-12-01] MEDS: ARICEPT 10 MG PO (21:33)
[2024-12-01] MEDS: MAGNESIUM OXIDE 500 MG PO (21:33)
--- NOTE | 2024-12-01 22:59 | PTCARENOTE ---
received pt from florence RN. Pt aaox1, confused. Able to take pills one at a time in applesauce. 2 units PRBC ordered and ready upon arrival. First unit PRBC started at 21:30. Pt resting comfortably in bed at this time. VSS. Care ongoing.
[2024-12-02] VITALS (21 sets, daily range): BP systolic 89–142; BP diastolic 41–91
[2024-12-02] MEDS: VIMPAT 100 MG IV ×2 (05:36→17:53)
[2024-12-02 06:04] LABS: Hematocrit 30.4 % (37.0-47.0); Hemoglobin 11.2 g/dL (12.0-16.0); Mean Corp Hgb Conc. 36.8 g/dL (33.0-37.0); Mean Corpuscular Hgb 31.2 pg (27.0-31.0); Mean Corpuscular Volume 84.7 fL (81.0-99.0); Mean Platelet Volume 11.2 fL (7.4-10.4); Platelet Count 79 10^3/uL (130-400); Red Blood Cell Count 3.59 10^6/uL (4.20-5.40); Red Cell Dist. Width 14.2 % (11.5-14.5); White Blood Cell Count 11.8 10^3/uL (4.8-10.8)
[2024-12-02 06:29] LABS: ALT (SGPT) 13 U/L (0-35); AST (SGOT) 22 U/L (14-36); Albumin 2.2 g/dl (3.5-5.0); Alkaline Phosphatase 52 U/L (38-126); Blood Urea Nitrogen 43 mg/dl (7-17); Calcium 7.6 mg/dl (8.4-10.2); Carbon Dioxide 24 mmol/L (22-30); Chloride 113 mmol/L (98-107); Estimated Creatinine Clearance 27 ml/min; Glucose 77 mg/dl (70-99); Magnesium 1.6 mg/dl (1.6-2.3); Phosphorus 2.7 mg/dl (2.5-4.5); Sodium 140 mmol/L (135-145); Total Bilirubin 0.8 mg/dl (0.2-1.3); Total Protein 4.1 g/dl (6.3-8.2); eGFR 35.01
[2024-12-02 06:33] LABS: Potassium 4.3 mmol/L (3.5-5.1)
--- NOTE | 2024-12-02 07:16 | W.PN.HOSP.TC ---
Today's Communication/Plan
-
monitor H&H
PT/OT
cont sz medications
replete Mg
possible downgrade tomorrow
Assessment / Plan
Assessment / Plan
Physical exam:
General: no acute distress, appears comfortable at this time. pallor noted
HEENT: Normocephalic, Atraumatic and Moist Mucous Membranes
Respiratory: Clear to Auscultation; Negative Wheezes, Rales or Rhonchi
Cardiac: Regular Rhythm and S1/S2
GI: Soft, Nontender and Nondistended
Musculoskeletal: No Clubbing, No Cyanosis and No Edema
Neuro: A0x2 disoriented to time conversant coherent
Psych: Calm
A/P: 79F Dementia hx Subdural Hematoma Craniotomy Sz d/o here for evaluation GIB w associate worsening Anemia
#Suspected Acute GI bleed
#Dementia, Metabolic Encephalopathy
#Acute worsening anemia
speech eval appreciated
IVF support while NPO or pending improvement in oral intake
home ASA on hold
Monitor H&H, transfuse for goal Hgb 8 d/t concerns active bleeding
GI consult appreciated EGD performed 11/29 noted no significant source of bleeding, poor candidate for colonoscopy unlikely to tolerate prep given dementia
12/01 Afternoon Large Bloody Bowel Movement noted, 2PRBC ordered empirically Acute Blood Loss (prior patient had received 2PRBC for drop in hgb noted earlier in the morning), neg bleeding scan, pt comfortable vital signs remained stable throughout
event, post-transfusion cbc noted good response
Transferred to IMU for closer monitoring, keep IMU for now, possible downgrade tomorrow if remains stable
Leukocytosis
suspect stress reactive, trending down, monitor
Thrombocytopenia
monitor, no need for platelet transfusion at this time
Seizures:
On Keppra and Vimpat- cont IV for now
mild ZACH on CKD stage III
likely prerenal
Cr peak 1.4 on admission
Baseline Cr 1.0
Avoid nephrotoxic agents
Monitor renal function
Hx Hypertension
BP consistently low normotensive
12/01 brief episode hypotension systolic 80s resolved with midodrine and once albumin bolus
2.5 mg TID midodrine with holding parameters
Home metoprolol placed on hold
Mild Hyponatremia resolved
Hypomagnesemia
monitor and replete as necessary
Diabetes
updated A1c 6.7
sliding scale for now
Mild transaminitis
unclear if medications related (AED meds or statins) or underlying fatty liver or other etiology
Hold statins for now
Abd US attempted, patient however could not tolerate
hepatitis screen neg
transaminitis since resolved
Dementia:
donepezil cont
Rest of medical problems:
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
History of TBI
CODE STATUS:
DNR
discussed with patient's son Kashif
I spent a total of 45 minutes with the patient or on the floor. More than 50% of this time involved counseling and coordination of care.
Anticipated Discharge: 24 - 48 hours
Subjective/Interval History
-
Date of Service: December 02, 2024
no acute distress resting comfortably in bed. Overall reports feeling well. Lethargic but arousable oriented x 2 disoriented to time. Denies pain.
Objective Data
-
Labs:
Laboratory Results
12/02/24
05:52
WBC 11.8 H
Hgb 11.2 L D
Hct 30.4 L
Plt Count 79 L D
Sodium 140
Potassium 4.3
Chloride 113 H
Carbon Dioxide 24
BUN 43 H
Creatinine 1.5 H
Glucose 77
Calcium 7.6 L
Total Bilirubin 0.8
AST 22
ALT 13
Alkaline Phosphatase 52
Vital Signs:
Vital Signs
Temp Pulse Resp BP Pulse Ox
98.1 F 93 16 107/69 98
12/02/24 07:04 12/02/24 06:00 12/02/24 06:00 12/02/24 06:00 12/02/24 06:00
I&O
12/01/24 12/02/24 12/03/24
06:59 06:59 06:59
Intake Total 500 / 500 1000 / 1000
Balance 500 / 500 1000 / 1000
[2024-12-02 07:45] LABS: Glucose - Point of Care 80 mg/dl (70-99)
[2024-12-02] MEDS: NOVOLOG FLEXPEN-LOW RESISTANCE SC ×3 (08:12→17:44)
[2024-12-02] MEDS: MAGNESIUM OXIDE 500 MG PO ×2 (08:30→20:03)
[2024-12-02] MEDS: KEPPRA 500 MG IV ×2 (08:31→20:03)
[2024-12-02] MEDS: NSS (PRESERVATIVE FREE) 10 ML IV (08:31)
[2024-12-02] MEDS: THERAGRAN 1 TABLET PO (08:31)
[2024-12-02] MEDS: PROTONIX IV 40 MG IV (08:31)
[2024-12-02] MEDS: FEOSOL 325 MG PO (08:31)
[2024-12-02] MEDS: DESENEX/MITRAZOL/ZEASORB 1 APPLIC TOPICAL ×2 (10:45→20:03)
[2024-12-02] MEDS: MAGNESIUM SULFATE 100 IV (10:46)
--- NOTE | 2024-12-02 12:05 | PTCARENOTE ---
Assumed care of patient at beginning of this shift from previous RN. Patient incontinent of a large maroon loose stool; Dr Briceno made aware. He spoke with [id number] who was at the bedside this morning. Patient confused; Q2t maintained. See
worklist for full assessment and vital signs.
[2024-12-02 12:06] LABS: Glucose - Point of Care 104 mg/dl (70-99)
--- NOTE | 2024-12-02 15:09 | CM ---
PT rec SNF
referrals in [facility] [place] [facility]
no pre auth needed
PLAN: SNF when stable, pending bed availability
[2024-12-02 17:37] LABS: Glucose - Point of Care 100 mg/dl (70-99)
[2024-12-02] MEDS: VITAMIN D3 (cholecalciferol) 25 MCG PO (17:53)
[2024-12-02 18:07] LABS: Hematocrit 33.9 % (37.0-47.0); Hemoglobin 11.6 g/dL (12.0-16.0)
[2024-12-02] MEDS: ARICEPT 10 MG PO (20:02)
[2024-12-02] MEDS: REMERON 7.5 MG PO (20:03)
[2024-12-02 21:29] LABS: Glucose - Point of Care 118 mg/dl (70-99)
[2024-12-03] VITALS (9 sets, daily range): BP systolic 97–181; BP diastolic 55–93; BMI 25.1
[2024-12-03] MEDS: VIMPAT 100 MG IV (05:41)
--- NOTE | 2024-12-03 06:06 | PTCARENOTE ---
No acute changes overnight. NSR/ST on tele. incont of moderate to large amounts of urine. No BM. turned Q2 hours; barrier cream applied to sacrum. heels floated. pt remains pleasantly confused. Spot checking sp02 on RA WNL. IV saline locked. bed
alarm set for safety. call vela within reach.
[2024-12-03 06:24] LABS: Hematocrit 34.4 % (37.0-47.0); Hemoglobin 12.4 g/dL (12.0-16.0); Mean Corpuscular Hgb 31.4 pg (27.0-31.0); Mean Corpuscular Volume 87.1 fL (81.0-99.0); Mean Platelet Volume 10.9 fL (7.4-10.4); Platelet Count 113 10^3/uL (130-400); Red Blood Cell Count 3.95 10^6/uL (4.20-5.40); Red Cell Dist. Width 14.8 % (11.5-14.5); White Blood Cell Count 11.1 10^3/uL (4.8-10.8)
[2024-12-03 06:36] LABS: ALT (SGPT) 17 U/L (0-35); AST (SGOT) 29 U/L (14-36); Albumin 2.7 g/dl (3.5-5.0); Alkaline Phosphatase 79 U/L (38-126); Blood Urea Nitrogen 39 mg/dl (7-17); Calcium 8.3 mg/dl (8.4-10.2); Carbon Dioxide 26 mmol/L (22-30); Chloride 112 mmol/L (98-107); Estimated Creatinine Clearance 29 ml/min; Glucose 103 mg/dl (70-99); Magnesium 2.9 mg/dl (1.6-2.3); Phosphorus 2.4 mg/dl (2.5-4.5); Potassium 4.1 mmol/L (3.5-5.1); Sodium 140 mmol/L (135-145); Total Bilirubin 0.5 mg/dl (0.2-1.3); eGFR 38.03
--- NOTE | 2024-12-03 07:01 | W.PN.HOSP.TC ---
Today's Communication/Plan
-
downgrade to med/surg
monitor H&H
blood pressure control, dc midodrine resume metoprolol as XL w holding parameters
discharge planning
Assessment / Plan
Assessment / Plan
Physical exam:
General: no acute distress, appears comfortable at this time.
HEENT: Normocephalic, Atraumatic and Moist Mucous Membranes
Respiratory: Clear to Auscultation; Negative Wheezes, Rales or Rhonchi
Cardiac: Regular Rhythm and S1/S2
GI: Soft, Nontender and Nondistended
Musculoskeletal: No Clubbing, No Cyanosis and No Edema
Neuro: A0x2 disoriented to time conversant coherent
Psych: Calm
A/P: 79F Dementia hx Subdural Hematoma Craniotomy Sz d/o here for evaluation GIB w associate worsening Anemia
#Suspected Acute GI bleed
#Dementia, Metabolic Encephalopathy
#Acute worsening anemia
speech eval appreciated
IVF support completed, tolerating diet
home ASA on hold likely will need to discontinue at discharge risks of bleeding currently outweighs benefits, outpt follow up with Hematology recommended
Monitor H&H, transfuse for goal Hgb 8 d/t concerns active bleeding
GI consult appreciated EGD performed 11/29 noted no significant source of bleeding, poor candidate for colonoscopy unlikely to tolerate prep given dementia
12/01 Afternoon Large Bloody Bowel Movement noted, 2PRBC ordered empirically Acute Blood Loss (prior patient had received 2PRBC for drop in hgb noted earlier in the morning), neg bleeding scan, pt comfortable vital signs remained stable throughout
event, post-transfusion cbc noted good response
Required total 8 PRBC transfusions over the course of this hospitalization
Transferred to IMU for closer monitoring, patient since clinically improved, stable for downgrade to med/surg 12/03
Leukocytosis
suspect stress reactive, trending down, monitor
Thrombocytopenia
monitor, no need for platelet transfusion at this time
improving
Seizures:
On Keppra and Vimpat IV since converted back to PO.
mild ZACH on CKD stage III
likely prerenal
Cr peak 1.4 on admission
Baseline Cr 1.0
Avoid nephrotoxic agents
Monitor renal function
Hx Hypertension
BP consistently low normotensive
12/01 brief episode hypotension systolic 80s resolved with midodrine and once albumin bolus
briefly treated with 2.5 mg TID midodrine since discontinued with increase in pressures
Home metoprolol switched to Metoprolol XL 25 mg daily titrated up to 50 mg with holding parameters
Mild Hyponatremia resolved
Hypomagnesemia
monitor and replete as necessary
Diabetes
updated A1c 6.7
sliding scale for now
Mild transaminitis
unclear if medications related (AED meds or statins) or underlying fatty liver or other etiology
Hold statins for now
Abd US attempted, patient however could not tolerate
hepatitis screen neg
transaminitis since resolved
Dementia:
donepezil cont
Rest of medical problems:
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
History of TBI
DVT ppx contraindicated d/t known DVT's lower ext's b/l and recent severe GI bleeding
CODE STATUS:
DNR
discussed with patient's son Kashif
I spent a total of 45 minutes with the patient or on the floor. More than 50% of this time involved counseling and coordination of care.
Anticipated Discharge: 24 - 48 hours
Subjective/Interval History
-
Date of Service: December 03, 2024
no acute distress, resting comfortably in bed, pleasantly confused conversant coherent.
Objective Data
-
Labs:
Laboratory Results
12/03/24
05:51
WBC 11.1 H
Hgb 12.4
Hct 34.4 L
Plt Count 113 L D
Sodium 140
Potassium 4.1
Chloride 112 H
Carbon Dioxide 26
BUN 39 H
Creatinine 1.4 H
Glucose 103 H
Calcium 8.3 L
Total Bilirubin 0.5
AST 29
ALT 17
Alkaline Phosphatase 79
Vital Signs:
Vital Signs
Temp Pulse Resp BP Pulse Ox
97.9 F 97 14 158/71 98
12/03/24 06:21 12/03/24 06:00 12/03/24 06:00 12/03/24 06:00 12/03/24 05:41
I&O
12/02/24 12/03/24 12/04/24
06:59 06:59 06:59
Intake Total 1000 / 1000
Balance 1000 / 1000
[2024-12-03] MEDS: DESENEX/MITRAZOL/ZEASORB 1 APPLIC TOPICAL ×2 (08:41→19:35)
[2024-12-03] MEDS: NOVOLOG FLEXPEN-LOW RESISTANCE SC ×3 (08:41→16:41)
[2024-12-03] MEDS: KEPPRA 500 MG IV (08:42)
[2024-12-03] MEDS: FEOSOL 325 MG PO (08:42)
[2024-12-03] MEDS: PROTONIX IV 40 MG IV (08:42)
[2024-12-03] MEDS: THERAGRAN 1 TABLET PO (08:42)
[2024-12-03] MEDS: MAGNESIUM OXIDE 500 MG PO (08:42)
[2024-12-03] MEDS: NSS (PRESERVATIVE FREE) 10 ML IV (08:42)
[2024-12-03 08:48] LABS: Glucose - Point of Care 98 mg/dl (70-99)
[2024-12-03] MEDS: TOPROL XL 25 MG PO (10:35)
--- NOTE | 2024-12-03 10:45 | VATNOTE ---
VAT daily rounds assessment- f/u L arm infiltrate from 11/29: pt L forearm continues to have area of bruising, soft, warm, +1 edema noted. pt did not elicit signs of discomfort when area palpated. elevated arm, heat applied. primary nurse aware. will
cont to monitor
--- NOTE | 2024-12-03 12:08 | PTCARENOTE ---
Assumed care of patient at beginning of this shift. Patient more awake this morning but remains confused to time and place. VAT RN noted previous IV infiltrate and placed warm compress. [id number] in room this morning and updated. BP continues
to run high, midodrine has been held. Dr Faye aware; d/c'd midodrine and added toprol xl. Patient downgraded to m/s. See worklist for full assessment and vital signs.
[2024-12-03 12:15] LABS: Glucose - Point of Care 131 mg/dl (70-99)
[2024-12-03 16:37] LABS: Glucose - Point of Care 91 mg/dl (70-99)
[2024-12-03 16:54] LABS: Glucose - Point of Care 98 mg/dl (70-99)
[2024-12-03] MEDS: VITAMIN D3 (cholecalciferol) 25 MCG PO (17:34)
--- NOTE | 2024-12-03 19:19 | PTCARENOTE ---
Addendum entered by oNra Galloway RN 12/03/24 20:03:
Report called to RAD[facility] Allen.
Addendum entered by Nora Galloway RN 12/03/24 19:50:
New bed assignment: 404-2. Son updated. Attempted to call report to Caleb. [facility] busy.
Original Note:
Son called and notified Yue will be moving to room 406-2.
[2024-12-03] MEDS: REMERON 7.5 MG PO (19:34)
[2024-12-03] MEDS: KEPPRA 500 MG PO (19:34)
[2024-12-03] MEDS: MAGNESIUM OXIDE PO (19:35)
[2024-12-03] MEDS: ARICEPT 10 MG PO (19:35)
[2024-12-03] MEDS: VIMPAT 100 MG PO (20:42)
--- NOTE | 2024-12-03 20:44 | PTCARENOTE ---
Report given by IMU RN. Patient arrived on via stretcher. Patient pulled over onto bed. AAOx1, only self. VSS. BP elevated. No complaints of pain. Vimpat given, see MAR. Call vela is within reach. bed alarm plugged in.
[2024-12-03 21:10] LABS: Glucose - Point of Care 114 mg/dl (70-99)
[2024-12-04 07:15] LABS: Glucose - Point of Care 109 mg/dl (70-99)
[2024-12-04 07:35] VITALS: BP 163/80
[2024-12-04] MEDS: NOVOLOG FLEXPEN-LOW RESISTANCE SC ×2 (07:50→11:44)
[2024-12-04] MEDS: NSS (PRESERVATIVE FREE) 10 ML IV (07:59)
[2024-12-04] MEDS: MAGNESIUM OXIDE 500 MG PO ×2 (08:00→21:31)
[2024-12-04] MEDS: THERAGRAN 1 TABLET PO (08:00)
[2024-12-04] MEDS: TOPROL XL 50 MG PO (08:00)
[2024-12-04] MEDS: DESENEX/MITRAZOL/ZEASORB 1 APPLIC TOPICAL ×2 (08:00→21:31)
[2024-12-04] MEDS: FEOSOL 325 MG PO (08:00)
[2024-12-04] MEDS: VIMPAT 100 MG PO ×2 (08:00→21:30)
[2024-12-04] MEDS: KEPPRA 500 MG PO ×2 (08:00→21:31)
[2024-12-04] MEDS: PROTONIX IV 40 MG IV (08:00)
[2024-12-04 08:17] LABS: Hemoglobin 11.9 g/dL (12.0-16.0); Mean Corpuscular Hgb 30.6 pg (27.0-31.0); Mean Platelet Volume 10.5 fL (7.4-10.4); Platelet Count 139 10^3/uL (130-400); Red Blood Cell Count 3.89 10^6/uL (4.20-5.40); Red Cell Dist. Width 15.9 % (11.5-14.5); White Blood Cell Count 11.1 10^3/uL (4.8-10.8)
[2024-12-04 08:50] LABS: ALT (SGPT) 18 U/L (0-35); AST (SGOT) 27 U/L (14-36); Albumin 2.9 g/dl (3.5-5.0); Alkaline Phosphatase 87 U/L (38-126); Blood Urea Nitrogen 42 mg/dl (7-17); Calcium 8.2 mg/dl (8.4-10.2); Carbon Dioxide 27 mmol/L (22-30); Chloride 109 mmol/L (98-107); Estimated Creatinine Clearance 31 ml/min; Glucose 103 mg/dl (70-99); Magnesium 2.5 mg/dl (1.6-2.3); Phosphorus 2.2 mg/dl (2.5-4.5); Sodium 138 mmol/L (135-145); Total Bilirubin 0.5 mg/dl (0.2-1.3); Total Protein 5.2 g/dl (6.3-8.2); eGFR 41.57
[2024-12-04 11:42] LABS: Glucose - Point of Care 130 mg/dl (70-99)
--- NOTE | 2024-12-04 11:44 | W.PN.HOSP.TC ---
Today's Communication/Plan
-
Discharge planning
Assessment / Plan
Assessment / Plan
Physical exam:
General: no acute distress, appears comfortable at this time.
HEENT: Normocephalic, Atraumatic and Moist Mucous Membranes
Respiratory: Clear to Auscultation; Negative Wheezes, Rales or Rhonchi
Cardiac: Regular Rhythm and S1/S2
GI: Soft, Nontender and Nondistended
Musculoskeletal: No Clubbing, No Cyanosis and No Edema
Neuro: A0x2 disoriented to time conversant coherent
Psych: Calm
A/P: 79F Dementia hx Subdural Hematoma Craniotomy Sz d/o here for evaluation GIB w associate worsening Anemia
#Acute GI bleed-source not clearly identified due to risk/benefits
#Dementia, Metabolic Encephalopathy
#Acute worsening anemia
speech eval appreciated
IVF support completed, tolerating diet
home ASA on hold likely will need to discontinue at discharge risks of bleeding currently outweighs benefits, outpt follow up with Hematology recommended
Monitor H&H, transfuse for goal Hgb 7
Hemoglobin 11.9 today
Discussed with son over the phone, Kashif
Prior to today:
GI consult appreciated EGD performed 11/29 noted no significant source of bleeding, poor candidate for colonoscopy unlikely to tolerate prep given dementia
12/01 Afternoon Large Bloody Bowel Movement noted, 2PRBC ordered empirically Acute Blood Loss (prior patient had received 2PRBC for drop in hgb noted earlier in the morning), neg bleeding scan, pt comfortable vital signs remained stable throughout
event, post-transfusion cbc noted good response
Required total 8 PRBC transfusions over the course of this hospitalization
Transferred to IMU for closer monitoring, patient since clinically improved, stable for downgrade to med/surg 12/03--> back on floor today
Leukocytosis
suspect stress reactive, trending down
wbc 11.1
Thrombocytopenia
monitor, no need for platelet transfusion at this time
improved
Platelets 139 today
Seizures:
On Keppra and Vimpat IV since converted back to PO.
mild ZACH on CKD stage III
likely prerenal
Cr peak 1.4 on admission
Baseline Cr 1.0
Avoid nephrotoxic agents
Monitor renal function
Creatinine 1.3 today
Hx Hypertension
Blood pressure on the high side and restarted antihypertensives
Currently on Toprol-XL 50 mg p.o. daily
Prior to today:
BP consistently low normotensive
12/01 brief episode hypotension systolic 80s resolved with midodrine and once albumin bolus
briefly treated with 2.5 mg TID midodrine since discontinued with increase in pressures
Home metoprolol switched to Metoprolol XL 25 mg daily titrated up to 50 mg with holding parameters
Mild Hyponatremia resolved
Hypomagnesemia
monitor and replete as necessary
Diabetes
updated A1c 6.7
sliding scale for now
Mild transaminitis
unclear if medications related (AED meds or statins) or underlying fatty liver or other etiology
Hold statins for now
Abd US attempted, patient however could not tolerate
hepatitis screen neg
transaminitis since resolved
Dementia:
donepezil cont
Rest of medical problems:
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
History of TBI
DVT ppx contraindicated d/t known DVT's lower ext's b/l and recent severe GI bleeding
CODE STATUS:
DNR
Anticipated Discharge: Today
Subjective/Interval History
-
Date of Service: December 04, 2024
Patient denies any new complaints although limited by dementia. No abdominal pain. No nausea or vomiting or hematemesis or bright blood per rectum or melena.
Objective Data
-
Labs:
Laboratory Results
12/04/24
07:36
WBC 11.1 H
Hgb 11.9 L
Hct 35.0 L
Plt Count 139 D
Sodium 138
Potassium 4.0
Chloride 109 H
Carbon Dioxide 27
BUN 42 H
Creatinine 1.3 H
Glucose 103 H
Calcium 8.2 L
Total Bilirubin 0.5
AST 27
ALT 18
Alkaline Phosphatase 87
Vital Signs:
Vital Signs
Temp Pulse Resp BP Pulse Ox
97.8 F 100 18 163/80 99
12/04/24 07:35 12/04/24 08:00 12/04/24 07:35 12/04/24 08:00 12/04/24 10:12
[2024-12-04 14:50] VITALS: BP 139/76; PULSE 91; O2SAT 97
[2024-12-04 15:29] VITALS: BP 139/76; PULSE 91
[2024-12-04 15:36] VITALS: BP 128/73
--- NOTE | 2024-12-04 16:09 | CM ---
PT OT indicate SNF.
Spoke with [facility] she said she has a bed tomorrow.
Spoke with Kashif so he agreed with SN[facility].
Requested ambulance . Medical nec form completed.
PLAN To [facility] tomorrow
[2024-12-04 16:49] LABS: Glucose - Point of Care 157 mg/dl (70-99)
[2024-12-04] MEDS: NOVOLOG FLEXPEN-LOW RESISTANCE 1 UNITS SC (17:12)
[2024-12-04] MEDS: VITAMIN D3 (cholecalciferol) 25 MCG PO (17:12)
[2024-12-04] MEDS: ARICEPT 10 MG PO (21:31)
[2024-12-04] MEDS: REMERON 7.5 MG PO (21:31)
[2024-12-04 21:55] LABS: Glucose - Point of Care 117 mg/dl (70-99)
[2024-12-04 23:35] VITALS: BP 142/71
[2024-12-05 07:13] LABS: Glucose - Point of Care 107 mg/dl (70-99)
[2024-12-05 07:30] VITALS: BP 160/96
[2024-12-05 07:45] LABS: Hematocrit 32.4 % (37.0-47.0)
[2024-12-05] MEDS: NOVOLOG FLEXPEN-LOW RESISTANCE SC ×2 (08:14→11:46)
[2024-12-05] MEDS: KEPPRA 500 MG PO (08:15)
[2024-12-05] MEDS: VIMPAT 100 MG PO (08:15)
[2024-12-05] MEDS: FEOSOL 325 MG PO (08:15)
[2024-12-05] MEDS: TOPROL XL 50 MG PO (08:15)
[2024-12-05] MEDS: THERAGRAN 1 TABLET PO (08:15)
[2024-12-05] MEDS: MAGNESIUM OXIDE 500 MG PO (08:15)
[2024-12-05] MEDS: PROTONIX IV 40 MG IV (08:15)
[2024-12-05] MEDS: NSS (PRESERVATIVE FREE) 10 ML IV (08:16)
[2024-12-05] MEDS: DESENEX/MITRAZOL/ZEASORB 1 APPLIC TOPICAL (08:17)
--- NOTE | 2024-12-05 08:43 | W.PN.HOSP.TC ---
Today's Communication/Plan
-
Discharge planning today
Assessment / Plan
Assessment / Plan
Physical exam:
General: no acute distress, appears comfortable at this time.
HEENT: Normocephalic, Atraumatic and Moist Mucous Membranes
Respiratory: Clear to Auscultation; Negative Wheezes, Rales or Rhonchi
Cardiac: Regular Rhythm and S1/S2
GI: Soft, Nontender and Nondistended
Musculoskeletal: No Clubbing, No Cyanosis and No Edema
Neuro: A0x2 disoriented to time conversant coherent
Psych: Calm
A/P: 79F Dementia hx Subdural Hematoma Craniotomy Sz d/o here for evaluation GIB w associate worsening Anemia
#Acute GI bleed-source not clearly identified due to risk/benefits
#Dementia, Metabolic Encephalopathy
#Acute worsening anemia
speech eval appreciated
IVF support completed, tolerating diet
home ASA on hold likely will need to discontinue at discharge risks of bleeding currently outweighs benefits, outpt follow up with Hematology recommended
Monitor H&H, transfuse for goal Hgb 7
Hemoglobin 11 today
Discussed with son yesterday over the phone, Kashif
Prior to today:
GI consult appreciated EGD performed 11/29 noted no significant source of bleeding, poor candidate for colonoscopy unlikely to tolerate prep given dementia
12/01 Afternoon Large Bloody Bowel Movement noted, 2PRBC ordered empirically Acute Blood Loss (prior patient had received 2PRBC for drop in hgb noted earlier in the morning), neg bleeding scan, pt comfortable vital signs remained stable throughout
event, post-transfusion cbc noted good response
Required total 8 PRBC transfusions over the course of this hospitalization
Transferred to IMU for closer monitoring, patient since clinically improved, stable for downgrade to med/surg 12/03--> back on floor today
Leukocytosis
suspect stress reactive, trending down
wbc 11.1 last time
Thrombocytopenia
monitor, no need for platelet transfusion at this time
improved
Platelets 139 last time
Seizures:
On Keppra and Vimpat IV since converted back to PO.
mild ZACH on CKD stage III
likely prerenal
Cr peak 1.4 on admission
Baseline Cr 1.0
Avoid nephrotoxic agents
Monitor renal function
Creatinine 1.3 yesterday
Hx Hypertension
Blood pressure on the high side and restarted antihypertensives
Currently on Toprol-XL 50 mg p.o. daily
Prior to today:
BP consistently low normotensive
12/01 brief episode hypotension systolic 80s resolved with midodrine and once albumin bolus
briefly treated with 2.5 mg TID midodrine since discontinued with increase in pressures
Home metoprolol switched to Metoprolol XL 25 mg daily titrated up to 50 mg with holding parameters
Mild Hyponatremia resolved
Hypomagnesemia
monitor and replete as necessary
Diabetes
updated A1c 6.7
sliding scale for now
Mild transaminitis
unclear if medications related (AED meds or statins) or underlying fatty liver or other etiology
Hold statins for now
Abd US attempted, patient however could not tolerate
hepatitis screen neg
transaminitis since resolved
Dementia:
donepezil cont
Rest of medical problems:
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
History of TBI
DVT ppx contraindicated d/t known DVT's lower ext's b/l and recent severe GI bleeding
CODE STATUS:
DNR
Anticipated Discharge: Today
Subjective/Interval History
-
Date of Service: December 05, 2024
No new complaints
Objective Data
-
Labs:
Laboratory Results
12/05/24
06:14
Hgb 11.0 L
Hct 32.4 L
Vital Signs:
Vital Signs
Temp Pulse Resp BP Pulse Ox
97.4 F 91 18 160/96 99
12/05/24 07:30 12/05/24 08:15 12/05/24 07:30 12/05/24 08:15 12/05/24 07:30
--- NOTE | 2024-12-05 09:30 | CM ---
MD indicated pt ready for discharge
Spoke with [facility] she said she has a bed today.
Spoke with Kashif son he agreed with SN[facility].
IMM reviewed with son.He agrees with dc.
Requested ambulance . Medical nec form completed.Ambulance bulk picker at 12:30 Son is aware.
[facility]
report [phone]
fax [phone]
PLAN To [facility] today
--- NOTE | 2024-12-05 10:16 | W.DCSUMMARY ---
Discharge Summary
Discharge Data
Date of Admission: 11/25/24
Date of Discharge: 12/05/24
Total time spent discharging patient (in min): 35
-
Pending Results: No
Hospital Course
Patient 79 years old female with past medical history of hypertension, hyperlipidemia, diabetes mellitus, traumatic fall with brain bleed and surgery, giant cell arteritis, chronic iron deficiency anemia, dementia, was seen in the hospital recently
for seizures and urinary tract infection that completed antibiotic course and came back to the hospital with bright blood per rectum. Patient required multiple blood transfusions. GI was consulted. Patient underwent upper endoscopy on 11/28 and
found some erythematous mucosa in the gastric body and recommended oral PPI in a regular basis. GI discussed with family and decided against colonoscopy given her multiple comorbidities and given her age. Patient hemoglobin had stabilized. She
has no further signs of bleeding. Her aspirin was discontinued. She is going to be discharged in relatively stable condition today back to skilled facility.
Discharge duration: 35 minutes
Discharge Plan
-
Patient Disposition: Fdc/SNF
Discharge Diagnosis/Procedures: Acute gastrointestinal bleed. Acute blood loss anemia. Seizures. Acute kidney injury. Transaminitis. Dementia.
Diet: Low Cholesterol
Activity: As tolerated
Blood Work: Please PCP to order CBC, BMP within 1 week
Referrals:
primary care provider [Other] - in less than 1 week
Ousmane Luong DO [Active, Hematology / Oncology] - in one week
Marcy Calderon MD [Active, Gastroenterology] - in one to two months
Prescriptions:
New
metoprolol succinate 50 mg Tablet Extended Release 24 Hr
50 mg PO DAILY 30 Days Qty: 30 0RF
pantoprazole [Protonix] 40 mg tablet,delayed release (DR/EC)
40 mg PO DAILY Qty: 30 0RF
Continued
atorvastatin 10 MG tablet
10 mg PO HS
cholecalciferol (vitamin D3) 1,000 UNITS tablet
1,000 units PO QPM
acetaminophen 325 mg Tablet
650 mg PO Q4HPRN PRN (Reason: mild pain/fever)
multivitamin Tablet
1 tab PO DAILY
donepezil 10 mg Tablet
10 mg PO HS
sennosides-docusate sodium [Stimulant Laxative Plus] 8.6-50 mg Tablet
1 tab-cap PO BIDPRN PRN (Reason: constipation)
ferrous sulfate [FeroSul] 325 mg (65 mg iron) Tablet
325 mg PO DAILY
mirtazapine 7.5 mg Tablet
7.5 mg PO HS
polyethylene glycol 3350 17 gram Powder In Packet
17 g PO DAILYPRN PRN (Reason: constipation) Qty: 10 0RF
levetiracetam 500 mg Tablet
500 mg PO BID Qty: 60 0RF
Actemra 162 mg/0.9 mL Syringe
162 mg SC Q2W
lacosamide 100 mg Tablet
100 mg PO BID Qty: 60 0RF
magnesium hydroxide [Milk of Magnesia] 400 mg/5 mL Suspension
2,400 mg PO DAILYPRN PRN (Reason: IF NO BM BY 4TH DAY )
bisacodyl [Dulcolax (bisacodyl)] 10 mg Suppository
10 mg NC DAILYPRN PRN (Reason: IF NO BM BY 5TH DAY AND/OR AFTR MOM)
Fleet Enema 19-7 gram/118 mL Enema
118 ml NC DAILYPRN PRN (Reason: IF NO BM BY 6TH DAY OR AFTR DULCAOALX)
Discontinued
metoprolol tartrate 50 mg Tablet
50 mg PO BID
aspirin 81 mg Tablet,Delayed Release (Dr/Ec)
81 mg PO DAILY
Discharge Orders:
Discharge Patient (As Directed); Ordered 12/05/24
Ordered By: Arya Franco
Discharge Date and Time
Discharge Date/Time: 12/05/24 12:56
Print Language: LAO
[2024-12-05 11:06] VITALS: BP 137/89
[2024-12-05 11:44] LABS: Glucose - Point of Care 129 mg/dl (70-99)
== END 2024-12-05 12:56 | DRG 377 ==
LOC: 4 EAST ACU 17:37
PROVIDERS: Internal Medicine; Internal Medicine Gastroenterology; Physician Assistant Medical; ADMITTING PHYSICIAN Hospitalist; CONSULT PHYSICIAN Internal Medicine Gastroenterology; EMERGENCY PHYSICIAN Emergency Medicine
PROC: 30233N1 Transfusion of Nonautologous Red Blood Cells into Peripheral Vein, Percutaneous Approach (ICD-10-PCS; 2024-11-27)
PROC: 0DJ08ZZ Inspection of Upper Intestinal Tract, Via Natural or Artificial Opening Endoscopic (ICD-10-PCS; 2024-11-28)
DX: K92.2 Gastrointestinal hemorrhage, unspecified (principal); G93.41 Metabolic encephalopathy; D62 Acute posthemorrhagic anemia; G40.89 Other seizures; N17.9 Acute kidney failure, unspecified; E87.1 Hypo-osmolality and hyponatremia; N39.0 Urinary tract infection, site not specified; K92.1 Melena; Z66 Do not resuscitate; Z87.891 Personal history of nicotine dependence; I95.9 Hypotension, unspecified; N18.30 Chronic kidney disease, stage 3 unspecified; F02.A0 Dementia in other diseases classified elsewhere, mild, without behavioral disturbance, psychotic disturbance, mood disturbance, and anxiety; E83.42 Hypomagnesemia; D69.6 Thrombocytopenia, unspecified; K44.9 Diaphragmatic hernia without obstruction or gangrene; K31.89 Other diseases of stomach and duodenum
CPT/HCPCS: 36415; 51701; 71045; 76705; 78278; 80048; 80053; 81003; 81015; 82248; 82607; 82728; 82746; 82962; 83036; 83540; 83550; 83615; 83735; 84100; 85014; 85018; 85025; 85027; 85045; 85610; 85730; 86705; 86706; 86709; 86803; 86850; 86900; 86901; 86920; 87070; 87340; 92526; 92610; 93005; 96361; 96374; 97163; 97167; 97530; 99285; A9560; C9254; J2916; P9016; P9047

== ENCOUNTER → 2024-12-08 09:21 | Outpatient (REF) | payer OTHER, MEDICARE, BC, SELFPAY ==
[2024-12-08 11:34] LABS: Hematocrit 33.3 % (37.0-47.0); Hemoglobin 11.1 g/dL (12.0-16.0); Mean Corp Hgb Conc. 33.3 g/dL (33.0-37.0); Mean Corpuscular Hgb 30.8 pg (27.0-31.0); Mean Corpuscular Volume 92.5 fL (81.0-99.0); Mean Platelet Volume 11.7 fL (7.4-10.4); Platelet Count 168 10^3/uL (130-400); Red Cell Dist. Width 15.6 % (11.5-14.5)
[2024-12-08 11:41] LABS: ALT (SGPT) 22 U/L (0-35); AST (SGOT) 33 U/L (14-36); Albumin 2.6 g/dl (3.5-5.0); Alkaline Phosphatase 102 U/L (38-126); Blood Urea Nitrogen 31 mg/dl (7-17); Calcium 8.5 mg/dl (8.4-10.2); Carbon Dioxide 27 mmol/L (22-30); Chloride 107 mmol/L (98-107); Glucose 95 mg/dl (70-99); Magnesium 1.9 mg/dl (1.6-2.3); Potassium 4.1 mmol/L (3.5-5.1); Sodium 137 mmol/L (135-145); Total Bilirubin 0.4 mg/dl (0.2-1.3); Total Protein 5.1 g/dl (6.3-8.2); eGFR 35.01
== END ==
LOC: OLABWHC 09:21
PROVIDERS: ATTENDING PHYSICIAN Family Medicine
DX: I10 Essential (primary) hypertension (principal); K92.2 Gastrointestinal hemorrhage, unspecified; D62 Acute posthemorrhagic anemia
CPT/HCPCS: 36415; 80053; 83735; 85027

== ENCOUNTER → 2024-12-18 10:04 | Outpatient (REF) | payer OTHER, MEDICARE, BC, SELFPAY ==
[2024-12-18 13:13] LABS: Hematocrit 28.7 % (37.0-47.0); Hemoglobin 9.4 g/dL (12.0-16.0); Mean Corp Hgb Conc. 32.8 g/dL (33.0-37.0); Mean Corpuscular Hgb 30.6 pg (27.0-31.0); Mean Corpuscular Volume 93.5 fL (81.0-99.0); Mean Platelet Volume 11.6 fL (7.4-10.4); Platelet Count 165 10^3/uL (130-400); Red Blood Cell Count 3.07 10^6/uL (4.20-5.40); Red Cell Dist. Width 14.7 % (11.5-14.5)
[2024-12-18 13:40] LABS: Blood Urea Nitrogen 23 mg/dl (7-17); Calcium 8.2 mg/dl (8.4-10.2); Carbon Dioxide 27 mmol/L (22-30); Chloride 112 mmol/L (98-107); Glucose 115 mg/dl (70-99); Potassium 3.7 mmol/L (3.5-5.1); Sodium 142 mmol/L (135-145); eGFR 45.76
[2024-12-21 02:02] LABS: Keppra (Levetiracetam) 32 ug/mL (10-40)
== END ==
LOC: OLABWHC 10:04
PROVIDERS: ATTENDING PHYSICIAN Family Medicine
DX: G40.001 Localization-related (focal) (partial) idiopathic epilepsy and epileptic syndromes with seizures of localized onset, not intractable, with status epilepticus (principal); D62 Acute posthemorrhagic anemia; F32.9 Major depressive disorder, single episode, unspecified
CPT/HCPCS: 36415; 80048; 80177; 85027

== ENCOUNTER 2024-12-23 11:35 | Emergency (ER) | payer MEDICARE, BC, SELFPAY ==
[2024-12-23] VITALS (7 sets, daily range): BP systolic 95–125; BP diastolic 41–80
--- NOTE | 2024-12-23 11:52 | ED.GENMED ---
History of Present Illness
General
Chief Complaint: Seizure
Time Seen by Provider: 12/23/24 11:52
History of Present Illness
History of Present Illness:
TIME OF INITIAL EVALUATION
- 11:55 AM
REVIEW OF OLD RECORDS
- The patient has history of dementia, CAD. She was admitted here last month for 10 days related to BRBPR requiring multiple blood transfusions
Note:
CHIEF COMPLAINT(S)
Seizure activity
HISTORY OF PRESENT ILLNESS
The patient is an 79-year-old female who presented with seizure activity. This morning, she experienced a seizure event described as tonic-clonic in nature. The patient has a history of seizures and is currently on levetiracetam for management.
Baseline communication for the patient typically involves yes/no answers. The current episode was not preceded by any specific aura or trigger as recalled. No external signs of injury or trauma were reported.
Dr. Heaton's note from November: y.o female with TBI and cerebral hemorrhage, dementia, CKD, HTN, prothrombin mutation, bilateral DVT s/p filter, seizures 2/2 TBI presenting to ED with partial complex seizures. Head CT imgs rev'd, evidence of prior right
sided craniotomy, right temporal/occipital encephalomalacia, CTA head/neck imgs rev'd, no LVO, no significant carotid stenosis, 11/14 clinical dx of complex partial status epilepticus which broke with Ativan and loading Vimpat, EEG total ~4 hrs no
seizures
MEDICATIONS
Levetiracetam
PHYSICAL EXAM
-General: The patient appears chronically weak and debilitated
-HEENT: Moist oral mucosa
-Cardiovascular: Regular rate and rhythm
-Pulmonary: No respiratory distress, breathing is nonlabored, equal and clear breath sounds
-Abdomen: Soft and nontender with no peritoneal signs
-Neurologic: The patient arrived unresponsive with rhythmic twitching/myoclonic jerking noted in the lower face consistent with seizure-like activity.
-Extremities: Moves all extremities equally, no tenderness, no edema
-Psychiatric: Very limited historian, poor insight and judgment
PLAN
Evaluate for further seizure activity and adjust antiepileptic medication as necessary.
DIFFERENTIAL DIAGNOSIS
The Differential Diagnosis includes, in no particular order and is not limited to:
1. Epilepsy exacerbation
2. Medication non-compliance
3. Subtherapeutic medication levels
4. Stroke or transient ischemic attack
5. Electrolyte imbalance
6. Infection (e.g., urinary tract infection, pneumonia)
7. Hypoglycemia
8. Medication side effects
9. Intracranial mass or lesion
10. Degenerative neurological disorder
RADIOLOGY
- Considered CT imaging however the patient recently had CT imaging that I reviewed
EKG
- Sinus 74, left axis deviation
LABS
- CBC unremarkable, creatinine 1.2
UPDATE
- [facility] EEG showed no seizure activity. Dr. Gomez recommends 1 g of Keppra. The patient normally takes Vimpat 100 mg twice daily and Keppra 500 mg twice daily. Attempt was made to contact the facility to confirm that she took her medications
however this was initially unsuccessful.
- On reassessment at 1:35 PM, the patient appears sedate after Ativan however no further seizure activity noted.
I spoke to the sons at bedside. They agree that we can hold off on CT imaging as 'all CTs in the past recently have been normal'. They prefer management at [facility] with plan for return to [place] on Wednesday. No clear indication for admission to the
hospital at this time. The patient was seen by Dr. Gomez in the Emergency Department. We increased Keppra to 750 mg twice daily and also gave her a 1 g IV loading dose here. The nurse called [facility] twice and was unable to be transferred to
speak to anybody there.
Past History
Past History
ED Past Medical History: CAD, HTN, Hypercholesterolemia, NIDDM, Seizures, Valvular disease and Other (Osteoarthritis, uses a cane to ambulate, subdural hematoma, mild dementia)
ED Past Surgical History: Cholecystectomy and Orthopedic (L knee replacement, R shoulder replacement, 06/2021)
Social History
Tobacco: Non-smoker
Alcohol: None
Drug: None
Personal:
Living: fdc (With her son)
Employment: Retired
Family History
Family History: Other (Mother with UT at 65, father with leukemia and coronary disease, son with factor V Leiden deficiency)
Phy Exam
Physical Exam
Physical Exam:
See HPI
Course
Orders/Labs/Results
Orders:
Orders
12/23/24 11:43
Electrocardiogram (*1) Urgent
Reason for Study: TIA/Stroke
EKG- Treatment ONCE
12/23/24 11:44
Complete Blood Count/With Diff Urgent
Comprehensive Metabolic Panel Urgent
12/23/24 12:04
Lorazepam [Ativan] 1 mg IV NOW STA
12/23/24 12:28
Rapid EEG [Rapid Point of Care EEG (ED/ICU ONLY)] Q1H
Indications for use:: Altered Mental Status
Comment: Patricia wants for 10-20min
12/23/24 13:34
Levetiracetam Injectable [Keppra] 500 mg IV NOW STA
12/23/24 14:22
Levetiracetam Injectable [Keppra] 500 mg IV NOW STA
Abnormal Lab Results
12/23/24
11:44
RBC 3.37 L 10^6/uL
(4.20-5.40)
Hgb 10.4 L g/dL
(12.0-16.0)
Hct 30.9 L %
(37.0-47.0)
RDW 15.1 H %
(11.5-14.5)
Eosinophils % 6.5 H %
(0-6)
Chloride 110 H mmol/L
(98-107)
BUN 27 H mg/dl
(7-17)
Creatinine 1.2 H mg/dL
(0.6-1.0)
Glucose 211 H mg/dl
(70-99)
Calcium 8.3 L mg/dl
(8.4-10.2)
AST 46 H U/L
(14-36)
ALT 38 H U/L
(0-35)
Total Protein 6.0 L g/dl
(6.3-8.2)
Albumin 3.2 L g/dl
(3.5-5.0)
12/23/24 11:44
12/23/24 11:44
Vital Signs
Initial and Last Documented VS:
Initial Vital Signs
BP
125/59
12/23/24 11:39
Last Documented Vital Signs
Pulse Resp BP Pulse Ox
70 20 95/41 100
12/23/24 14:04 12/23/24 13:15 12/23/24 14:05 12/23/24 12:45
*Pulse Oximetry
SaO2: 100
Oxygen Mode of Delivery: Room air
Patient hypoxic: no
*Critical Care Note
Total Time (30-74mins, 75-104mins- exclusive of procedures): Not Applicable
ED Attending Note
-
Portions of this chart may have been created with voice recognition software.� Occasional wrong word or��sound alike� substitutions may have occurred due to the inherent limitations of voice recognition software.
Discharge Plan
Departure
Patient Disposition: Home (Routine Discharge)
Date of Disposition: 12/23/24
Time of Disposition: 14:50
Patient with high blood pressure during this ER visit?: Yes
Discharge Problem:
Complex partial seizure
Instructions: Seizures, Adult (DC), BLOOD PRESSURE
Prescriptions:
No Action
atorvastatin 10 MG tablet
10 mg PO HS
cholecalciferol (vitamin D3) 1,000 UNITS tablet
1,000 units PO QPM
acetaminophen 325 mg Tablet
650 mg PO Q4HPRN PRN (Reason: mild pain/fever)
multivitamin Tablet
1 tab PO DAILY
donepezil 10 mg Tablet
10 mg PO HS
ferrous sulfate [FeroSul] 325 mg (65 mg iron) Tablet
325 mg PO DAILY
mirtazapine 7.5 mg Tablet
7.5 mg PO HS
levetiracetam 500 mg Tablet
500 mg PO BID Qty: 60 0RF
Actemra 162 mg/0.9 mL Syringe
162 mg SC Q2W
lacosamide 100 mg Tablet
100 mg PO BID Qty: 60 0RF
metoprolol succinate 50 mg Tablet Extended Release 24 Hr
50 mg PO DAILY 30 Days Qty: 30 0RF
pantoprazole [Protonix] 40 mg tablet,delayed release (DR/EC)
40 mg PO DAILY Qty: 30 0RF
Referrals:
UNKNOWN - PT NOT,INTERVIEWE [Family Provider]
Activity Restrictions/Additional Instructions:
Dr. Gomez, the neurologist, recommends increasing the Keppra dosing to 750 mg twice daily. I am giving a paper prescription for this. Return here if worse or other concerns.
Interventions
Interventions:
*Risk Screen - Suicide Last Done: 12/23/24 11:40
*General Assessment Last Done: 12/23/24 11:40
*Neglect/Abuse Screening Last Done: 12/23/24 11:40
*ED- Fall Risk Assessment Last Done: 12/23/24 11:40
ED- Cardiac Assessment Last Done: 12/23/24 11:40
ED- Neurological Assessment Last Done: 12/23/24 11:40
ED- Pulmonary Assessment Last Done: 12/23/24 11:40
Discharge Date and Time
Print Language: MALTESE
[2024-12-23] MEDS: ATIVAN 1 MG IV (12:09)
[2024-12-23 12:24] LABS: Hematocrit 30.9 % (37.0-47.0); Hemoglobin 10.4 g/dL (12.0-16.0); Mean Corp Hgb Conc. 33.7 g/dL (33.0-37.0); Mean Corpuscular Hgb 30.9 pg (27.0-31.0); Mean Corpuscular Volume 91.7 fL (81.0-99.0); Red Blood Cell Count 3.37 10^6/uL (4.20-5.40); Red Cell Dist. Width 15.1 % (11.5-14.5); White Blood Cell Count 6.8 10^3/uL (4.8-10.8)
[2024-12-23 12:25] LABS: % Eosinophils 6.5 % (0-6); % Immature Granulocytes 0.4 % (0-0.5); % Lymphocytes 21.4 % (20.5-51.1); % Monocytes 7.4 % (1.7-9.3); % Neutrophils 63.3 % (42.2-75.2); Absolute Basophils 0.1 10^3/uL (0-0.2); Absolute Eosinophils 0.4 10^3/uL (0-0.7); Absolute Lymphocytes 1.5 10^3/uL (1.2-3.4); Absolute Monocytes 0.5 10^3/uL (0.1-0.6); Absolute Neutrophils 4.3 10^3/uL (1.4-6.5); Nucleated Red Blood Cells % 0 %
[2024-12-23 12:27] LABS: ALT (SGPT) 38 U/L (0-35); AST (SGOT) 46 U/L (14-36); Albumin 3.2 g/dl (3.5-5.0); Alkaline Phosphatase 112 U/L (38-126); Blood Urea Nitrogen 27 mg/dl (7-17); Calcium 8.3 mg/dl (8.4-10.2); Carbon Dioxide 24 mmol/L (22-30); Chloride 110 mmol/L (98-107); Glucose 211 mg/dl (70-99); Potassium 4.3 mmol/L (3.5-5.1); Sodium 140 mmol/L (135-145); Total Bilirubin 0.5 mg/dl (0.2-1.3); eGFR 45.76
[2024-12-23] MEDS: KEPPRA 500 MG IV ×2 (14:04→14:40)
--- NOTE | 2024-12-23 14:20 | CON.NEURO ---
Consultation
Order
Date of Consultation: 12/23/24
Reason for Consult: Seizure
Neurology Consultation Note.
HPI: This is an 79-year-old immunocompromised woman who presented to [facility] on 12/23/2024 with abnormal movements.
According to EMR the patient was noted to have rhythmic right facial twitching leading to the hospitalization.
The patient's son reports that Ms. Michelle has been experiencing cognitive decline for 'a couple years.' Her current baseline cognitive function allows her to hold conversations, though she can only remember information for 'about 30 minutes'. She
has been using a wheelchair for ambulation. Prior to traumatic ICH that she was cured at [facility], she was reportedly living independently.
ER VS: 125/59-95/41, 72, afebrile
EKG:NSR, QTc Int : 466 ms.
PDMP:Lacosamide 100 Mg 14 tablets filled in on 12/19/2024, 12/12/2024.
Labs: Glucose�211, GFR 45, creatinine�1.2, normal WBCs, sodium, hemoglobin�10.4, calcium�8.3, albumin�3.2,
Brain MRI wo josefina(11/14/2024) chronic lacunar infarct of the right caudate head, encephalomalacia and gliosis in the right occipitotemporal region from the prior hematoma evacuation, severe atrophy.
MAR: Lorazepam 1 mg given on 12/23/24 at 12:09.
PMH: dementia, traumatic ICH(07/2024), focal epilepsy, CKD, anemia, h/o R retroperitoneal hematoma(09/2024), retroperitoneal hematoma, colonic diverticulosis
PSH: Right-sided craniotomy, endoscopic sinus surgery, bilateral cataract surgery, IVC, cholecystectomy
SH: Resident at [facility]; [facility] aug
FH: Unknown
All: Sulfas, penicillin
ROS: Unable due to encephalopathy
General: Well developed. In no acute distress.
Cardio: Regular rate and rhythm without murmur. Extremities are without cyanosis or edema.
Neuro:
Mental Status: Somnolent, attends to examiner briefly. Oriented to name. Does not follow requests. Intermittently mumbles
Cranial Nerves: Orthophoric primary gaze, pupils are equally round, surgical. Horizontal extraocular movements intact. Blink to threat left greater than right.
Motor: Increased motor tone in upper and lower extremities. Moves all limbs within bed plane
Reflexes: Negative grasp bilaterally
Sensory: Grimaces to noxious stimuli
Coordination: No tremors of myoclonic movements.
Gait: deferred
Assessment and Plan:
I. 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
II. Multifactorial encephalopathy (toxic, neurodegenerative, postictal)
III. History of traumatic right hemispheric ICH s/p evacuation(07/2024)
IV. 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
-Continue Telemetry monitoring
-Avoid cerebral hypoperfusion
-Seizure and aspiration precautions
-Please increase Keppra to 750 mg twice daily with close monitoring of creatinine
-Continue Vimpat 100 mg twice daily
-Lorazepam 1-2 mg as needed for GTC lasting over 2 minutes
-Please check CK, magnesium, UA
-Will obtain collateral history about functional cognitive baseline
-Please obtain CT head without contrast.
-DVT prophylaxis.
-Case discussed discussed with patient's son.
I personally reviewed all radiology and labs along with past medical records pertinent to current medical problems. Total time spent in patient care is 60 minutes.
Thank you for allowing us to participate in the care of this patient. We will continue to follow. Please do not hesitate to contact us with any questions or concerns.
Subjective/Objective
Subjective Data
Date of Service: December 23, 2024
Objective Data
Vital Signs
Pulse Resp BP Pulse Ox
70 20 95/41 100
12/23/24 14:04 12/23/24 13:15 12/23/24 14:05 12/23/24 12:45
Lab Results
12/23/24 11:44
12/23/24 11:44
Sodium 140 mmol/L (135-145) 12/23/24 11:44
Potassium 4.3 mmol/L (3.5-5.1) 12/23/24 11:44
BUN 27 mg/dl (7-17) H 12/23/24 11:44
Glucose 211 mg/dl (70-99) H 12/23/24 11:44
Calcium 8.3 mg/dl (8.4-10.2) L 12/23/24 11:44
Patient Allergies
Penicillins Allergy (Verified 11/25/24 14:55)
Unknown ~ 50 years ago
Sulfa (Sulfonamide Antibiotics) Allergy (Verified 11/25/24 14:55)
Unknown ~ 50 years ago
Medications
-
Home Medications
�Medication �Instructions �Recorded
atorvastatin 10 mg tablet 10 mg PO HS High cholesterol 07/24/13
cholecalciferol (vitamin D3) 25 1,000 units PO QPM Supplement 06/06/21
mcg (1,000 unit) tablet
acetaminophen 325 mg tablet 650 mg PO Q4HPRN PRN mild 09/17/24
pain/fever
donepezil 10 mg tablet 10 mg PO HS Alzheimer's 09/17/24
ferrous sulfate 325 mg (65 mg 325 mg PO DAILY Supplement 09/17/24
iron) tablet (FeroSul)
mirtazapine 7.5 mg tablet 7.5 mg PO HS Mental Health/Anxiety 09/17/24
multivitamin 1 tab PO DAILY Supplement 09/17/24
levetiracetam 500 mg tablet 500 mg PO BID #60 tabs 09/28/24
tocilizumab 162 mg/0.9 mL 162 mg SC Q2W 11/12/24
subcutaneous syringe (Actemra)
lacosamide 100 mg tablet 100 mg PO BID #60 tabs 11/22/24
metoprolol succinate 50 mg 50 mg PO DAILY 30 days #30 tabs 12/05/24
tablet,extended release 24 hr
pantoprazole 40 mg tablet,delayed 40 mg PO DAILY #30 tabs 12/05/24
release (Protonix)
Vital Signs and Labs
-
Vital Signs and Labs:
Vital Signs
Pulse Resp BP Pulse Ox
70 20 95/41 100
12/23/24 14:04 12/23/24 13:15 12/23/24 14:05 12/23/24 12:45
Lab Results
12/23/24 11:44
12/23/24 11:44
Sodium 140 mmol/L (135-145) 12/23/24 11:44
Potassium 4.3 mmol/L (3.5-5.1) 12/23/24 11:44
BUN 27 mg/dl (7-17) H 12/23/24 11:44
Glucose 211 mg/dl (70-99) H 12/23/24 11:44
Calcium 8.3 mg/dl (8.4-10.2) L 12/23/24 11:44
Home Medications
-
Home Medications
atorvastatin 10 mg tablet 10 mg PO HS High cholesterol 07/24/13
cholecalciferol (vitamin D3) 25 mcg (1,000 unit) tablet 1,000 units PO QPM Supplement 06/06/21
acetaminophen 325 mg tablet 650 mg PO Q4HPRN PRN mild pain/fever 09/17/24
donepezil 10 mg tablet 10 mg PO HS Alzheimer's 09/17/24
ferrous sulfate 325 mg (65 mg iron) tablet (FeroSul) 325 mg PO DAILY Supplement 09/17/24
mirtazapine 7.5 mg tablet 7.5 mg PO HS Mental Health/Anxiety 09/17/24
multivitamin 1 tab PO DAILY Supplement 09/17/24
levetiracetam 500 mg tablet 500 mg PO BID #60 tabs 09/28/24
tocilizumab 162 mg/0.9 mL subcutaneous syringe (Actemra) 162 mg SC Q2W 11/12/24
lacosamide 100 mg tablet 100 mg PO BID #60 tabs 11/22/24
metoprolol succinate 50 mg tablet,extended release 24 hr 50 mg PO DAILY 30 days #30 tabs 12/05/24
pantoprazole 40 mg tablet,delayed release (Protonix) 40 mg PO DAILY #30 tabs 12/05/24
--- NOTE | 2024-12-24 15:26 | W.RAPID.EEG ---
Rapid EEG
-
Procedure Date: 12/23/24
Results:
Point of Care EEG Procedure Note
IMPRESSION:
No evidence of status epilepticus
Patient name: LAY GLORIA
Medical ID: [id number]
Date of : 1945
Age: 79
Recording 1 Duration: 2024-12-23 12:42:40 - 2024-12-23 13:05:28
Recording Total Time: 00:22:48 (23 minutes)
Ordering Physician: BRYSON
Recording Technique: This EEG was obtained using a 10 lead, 8 channel circumferential rapid EEG with no parasagittal coverage. Performed with [employer] Status Epilepticus Monitor, ICD-10 [id number]
Clinical History: LAY GLORIA is a 79 year old Other, Other: SEIZURE patient undergoing EEG to screen for non-convulsive status epilepticus.
Primary Indication: Other, Other: SEIZURE
Location: ED
Report prepared by: Johnathon Crawford
Report generated on: Dec 24, 2024 3:24 PM [facility]
== END 2024-12-23 16:32 | disposition home or self-care (01) ==
LOC: EMR 11:35
PROVIDERS: EMERGENCY PHYSICIAN Emergency Medicine; OTHER PHYSICIAN Psychiatry & Neurology Neurology
DX: G40.209 Localization-related (focal) (partial) symptomatic epilepsy and epileptic syndromes with complex partial seizures, not intractable, without status epilepticus (principal); E11.22 Type 2 diabetes mellitus with diabetic chronic kidney disease; I12.9 Hypertensive chronic kidney disease with stage 1 through stage 4 chronic kidney disease, or unspecified chronic kidney disease; N18.9 Chronic kidney disease, unspecified; D84.9 Immunodeficiency, unspecified; E78.00 Pure hypercholesterolemia, unspecified; F03.A0 Unspecified dementia, mild, without behavioral disturbance, psychotic disturbance, mood disturbance, and anxiety; I25.10 Atherosclerotic heart disease of native coronary artery without angina pectoris; Z79.899 Other long term (current) drug therapy; Z86.718 Personal history of other venous thrombosis and embolism; Z88.0 Allergy status to penicillin; Z88.2 Allergy status to sulfonamides
CPT/HCPCS: 96374; 96375; 96376; 99284; 80053; 85025; 93005

== ENCOUNTER 2025-01-01 20:44 | Emergency (ER) | payer MEDICARE, BC, SELFPAY ==
[2025-01-01 20:46] VITALS: BP 159/80
[2025-01-01 20:49] VITALS: BP 159/80
[2025-01-01 20:54] VITALS: BMI 26.0
[2025-01-01 21:00] VITALS: BP 138/62
[2025-01-01 22:00] VITALS: BP 146/44
[2025-01-01 23:00] VITALS: BP 142/67
[2025-01-02] VITALS: BP 120/48
--- NOTE | 2025-01-02 00:40 | ED.GENMED ---
History of Present Illness
General
Chief Complaint: Fall
Source: patient
Exam Limitations: none
Time Seen by Provider: 01/02/25 00:39
Nursing documentation reviewed up to this point in time: agreed with
History of Present Illness
History of Present Illness:
This is a 80-year-old female with a past medical history of dementia who resides at [facility], coronary artery disease, hypertension, hyperlipidemia, GERD, chronic renal disease who presents to the emergency department today following a fall. Patient
does not recall falling. Per emergency department nursing staff, EMS reported that staff at [facility] had witnessed that patient had and fall and did see that she did have a head strike. She no longer takes a blood thinner. They subsequently helped
her up and called EMS. Patient reports that she is able to ambulate without the assistance of a walker or cane. Patient is currently denying any headaches, neck pain, chest pain, shortness of breath, abdominal pain, pain in her extremities, or
pain in her hips. Family was here earlier during the emergency department visit and reports that patient is cognitively at her baseline. She denies back pain.
I attempted to call [facility] multiple times for report but no one answered.
Past History
Past History
ED Past Medical History: CAD, HTN, Hypercholesterolemia, NIDDM, Seizures, Valvular disease and Other (Osteoarthritis, uses a cane to ambulate, subdural hematoma, mild dementia)
ED Past Surgical History: Cholecystectomy and Orthopedic (L knee replacement, R shoulder replacement, 06/2021)
Social History
Tobacco: Non-smoker
Alcohol: None
Drug: None
Personal:
Living: intermediate (With her son)
Employment: Retired
Family History
Family History: Other (Mother with HI at 65, father with leukemia and coronary disease, son with factor V Leiden deficiency)
Review of Systems
Review of Systems
All Other Systems: ROS reviewed and negative except as documented in HPI and ROS
Phy Exam
Physical Exam
Physical Exam:
General: Patient is well appearing and in no acute distress; non-toxic
Skin: Warm and dry, small abrasion and hematoma noted above the left eyebrow
Head: See above. No tenderness to palpation of the facial bones.
Eyes: Sclera non-icteric. EOMs intact.
Cardiac: Regular rate
Peripheral Vascular: No lower extremity swelling or edema
Pulm: Normal respiratory effort, no wheezes, rales, or rhonchi
Abdomen: No abdominal tenderness to palpation, no ecchymosis
Musculoskeletal: Patient is able to passively range lower extremities bilaterally with no pain. No palpable bony discomfort or deformities of the lower extremities bilaterally. No tenderness palpation of the spine or the external chest wall. Full
range of motion of bilateral upper extremities.
Neuro: CN II-XII intact, no focal neurologic deficits. Sensation intact.
Psychiatric: Appropriate mood and affect.
Course
Orders/Labs/Results
Orders:
Orders
01/02/25 00:48
CT Cervical Spine W/o Iv Contr Urgent
Comment:
Reason For Exam: fall, headstrike
CT Head W/o Iv Contrast Urgent
Comment:
Reason For Exam: left sided hematoma, head strike
01/02/25 03:15
Ambulate Patient-Treatment ONCE
01/02/25 03:25
CR Foot - Left 2 Views Urgent
Comment:
Reason For Exam: left proximal foot pain
01/02/25 03:30
Acetaminophen [Tylenol] 650 mg PO NOW STA
Vital Signs
Initial and Last Documented VS:
Initial Vital Signs
Temp Pulse Resp BP Pulse Ox
97.8 F 90 18 159/80 95
01/01/25 20:46 01/01/25 20:46 01/01/25 20:46 01/01/25 20:46 01/01/25 20:46
Last Documented Vital Signs
Temp Pulse Resp BP Pulse Ox
97.8 F 70 18 135/66 99
01/01/25 20:46 01/02/25 05:57 01/02/25 05:57 01/02/25 05:57 01/02/25 05:57
MDM/Problems Addressed
Differential Diagnosis Includes:
Differentials include abrasion, contusion, concussion, subdural hematoma, epidural hematoma
MDM/Problems Addressed:
This is a 80-year-old female with a past medical history of dementia who resides at [facility], coronary artery disease, hypertension, hyperlipidemia, GERD, chronic renal disease who presents to the emergency department today following a fall. This was
witnessed by staff. Plan is to obtain a CT scan of the head and cervical spine. On my assessment, patient has no complains and has no pain at this time. She went for CAT scan which was showing a chronic subdural but no new signs of bleeding, no
cervical spinal fracture. On reassessment, patient started to complain of pain in her left foot. On physical exam, she does have some mild swelling in tenderness over the dorsum. She went for x-ray which showed arthritic changes however no acute
fracture. When patient was given medication for pain, she reports that she has no pain in her feet and is declining Tylenol. Patient stable for discharge back to her dementia unit. Case reviewed with ED attending.
Chronic conditions affecting care:
Dementia, coronary artery disease, hypertension, hyperlipidemia, diabetes, depression
*Pulse Oximetry
SaO2: 95
Oxygen Mode of Delivery: Room air
Patient hypoxic: no
*Critical Care Note
Total Time (30-74mins, 75-104mins- exclusive of procedures): Not Applicable
Data Reviewed
Review of Other/Old Records Reveals: Records
Source: patient and records
Update Note
Update Note:
3:25 AM�upon discharge, patient reports that her left foot is now hurting. My physical exam, she does have some swelling and tenderness over the dorsum of the left foot. Will send for x-ray. Will give Tylenol.
4:05 AM- When nursing staff attempted to give patient Tylenol, patient expressed confusion and refused the Tylenol, stating that she has no pain at this time.
I did attempt to get patient up and walking. Patient reports that she has been using a wheel chair as needed recently and does walk occassionally but not often.
ED Attending Note
-
Portions of this chart may have been created with voice recognition software.� Occasional wrong word or��sound alike� substitutions may have occurred due to the inherent limitations of voice recognition software.
Discharge Plan
Departure
Patient Disposition: Home (Routine Discharge)
Date of Disposition: 01/02/25
Time of Disposition: 04:56
Patient with high blood pressure during this ER visit?: Yes
Condition: Fair
Discharge Problem:
Fall, Acute foot pain
Instructions: Preventing falls in adults, Skin Abrasions (DC), BLOOD PRESSURE
Prescriptions:
No Action
atorvastatin 10 MG tablet
10 mg PO HS
cholecalciferol (vitamin D3) 1,000 UNITS tablet
1,000 units PO QPM
acetaminophen 325 mg Tablet
650 mg PO Q4HPRN PRN (Reason: mild pain/fever)
multivitamin Tablet
1 tab PO DAILY
donepezil 10 mg Tablet
10 mg PO HS
ferrous sulfate [FeroSul] 325 mg (65 mg iron) Tablet
325 mg PO DAILY
mirtazapine 7.5 mg Tablet
7.5 mg PO HS
levetiracetam 500 mg Tablet
500 mg PO BID Qty: 60 0RF
Actemra 162 mg/0.9 mL Syringe
162 mg SC Q2W
lacosamide 100 mg Tablet
100 mg PO BID Qty: 60 0RF
metoprolol succinate 50 mg Tablet Extended Release 24 Hr
50 mg PO DAILY 30 Days Qty: 30 0RF
pantoprazole [Protonix] 40 mg tablet,delayed release (DR/EC)
40 mg PO DAILY Qty: 30 0RF
Referrals:
Roe Langston MD [Family Provider, Family Practice]
Activity Restrictions/Additional Instructions:
Please follow up with your primary care provider in one week for reassessment.
Please take Tylenol as needed for pain.
PLEASE RETURN TO THE EMERGENCY DEPARTMENT SHOULD YOU DEVELOP CHEST PAIN, SHORTNESS OF BREATH, HEADACHES, FEVERS OR CHILLS, DIZZINESS, LIGHTHEADEDNESS, INCREASING PAIN, LOSS OF SENSATION IN YOUR LOWER EXTREMITIES, OR ANY OTHER SIGNS OR SYMPTOMS
WORRISOME TO YOU
Interventions
Interventions:
*Risk Screen - Suicide Last Done: 01/01/25 20:46
*General Assessment Last Done: 01/01/25 20:46
*Neglect/Abuse Screening Last Done: 01/01/25 20:46
*ED- Fall Risk Assessment Last Done: 01/01/25 20:46
*ED COVID-19 Vaccine History Last Done: 01/02/25 05:58
*Nursing Disposition Last Done: 01/02/25 05:58
ED-Musculoskeletal Assessment Last Done: 01/01/25 21:09
ED- Neurological Assessment Last Done: 01/01/25 21:09
ED-Skin Assessment Last Done: 01/01/25 21:09
Discharge Date and Time
Discharge Date/Time: 01/02/25 06:00
Print Language: DUTCH
[2025-01-02 01:00] VITALS: BP 133/63
[2025-01-02 05:57] VITALS: BP 135/66
== END 2025-01-02 06:00 | disposition home or self-care (01) ==
LOC: EMR 20:44
PROVIDERS: EMERGENCY PHYSICIAN Emergency Medicine; FAMILY PHYSICIAN Family Medicine
DX: M79.672 Pain in left foot (principal); S00.93XA Contusion of unspecified part of head, initial encounter; W19.XXXA Unspecified fall, initial encounter; I12.9 Hypertensive chronic kidney disease with stage 1 through stage 4 chronic kidney disease, or unspecified chronic kidney disease; N18.9 Chronic kidney disease, unspecified; E78.00 Pure hypercholesterolemia, unspecified; E11.22 Type 2 diabetes mellitus with diabetic chronic kidney disease; F03.A3 Unspecified dementia, mild, with mood disturbance; K21.9 Gastro-esophageal reflux disease without esophagitis; F32.A Depression, unspecified; I25.10 Atherosclerotic heart disease of native coronary artery without angina pectoris
CPT/HCPCS: 99285; 70450; 72125; 73620